=== PATIENT | female | born 1940 | race Caucasian/White ===

== ENCOUNTER → 2016-05-20 | Outpatient (CLI) | payer MEDICARE ==
--- NOTE | 2016-05-20 15:48 | US ---
EXAMINATION TYPE: US venous doppler duplex LE BI DATE OF EXAM: 05/20/2016 1:34 PM COMPARISON: NONE CLINICAL HISTORY: 75-year-old female M79.605 PAIN IN LEG, I87.2 VENOUS INSUFFICIENCY. Bilateral varic ose veins with surgery on left for varicose veins; [facility] patient for recurrent ulcer marquita g the medial left lower leg. TECHNIQUE: Duplex Doppler ultrasound examination of the bilateral lower extremities. FINDINGS: LOWER EXTREMITY VENOUS INSUFFICIENCY SIDE PERFORMED: bilateral 1) Color flow is present and patency is documented in the following vessels. No DVT is noted. ? ? Common Femoral Vein ? Deep Femoral Vein ? Femoral Vein ? Popliteal Vein ? Proximal Calf Veins - right not seen with large popliteal fossa cyst present ? Greater Saph Vein - upper seen and patent ? Upper Small Saph Vein - right not seen with popliteal fossa cyst present 2) There is venous reflux noted at the following venous levels: Right: - CFV, - GSV upper, and Left: - CFV, - GSV upper, - mild reflux lower Left FV, - Left Pop Vein, - and in one of 2 calf veins. 3) Incompetent perforators: None seen. 4) Tortuous Superficial Varicose Veins are noted especially at bilateral knees. 5) Moderate sized right Popliteal Fossa Cyst is noted = 4.6 x 4.1 x 1.4cm IMPRESSION: 1. No evidence for DVT within the bilateral lower extremities imaged from the groin to the knees. The upper calf veins were seen on the left side and are patent as well. 2. The presence of a moderate-sized Bauer's cyst limited visualization of the upper calf veins on the right. 3. Bilateral lower extremity venous reflux as above and prominent superficial varicose veins at both knees.
--- NOTE | 2016-05-26 11:48 | P.ARTDOP ---
Arterial Doppler LOWER EXTREMITY ARTERIAL DOPPLER: DATE OF SERVICE: 06-04 Reason for study: Leg ulcer. Doppler waveforms: Multiphasic bilaterally throughout. Pulse volume recording: []. Pressure gradients: None. Ankle-brachial indices: Greater than 1 bilaterally. Toe pressures: 88 on the right, 138 on the left Impression: Normal study.
== END | disposition home or self-care (01) ==
LOC: RADUSWWP 12:40
PROVIDERS: ATTEND Family Medicine
DX: I87.2 Venous insufficiency (chronic) (peripheral) (principal); M71.21 Synovial cyst of popliteal space [Baker], right knee
CPT/HCPCS: 93923; 93970

== ENCOUNTER 2016-12-03 22:59 | Inpatient (IN) | payer MEDICARE ==
[2016-12-03] MEDS ORDERED: ONDANSETRON 4 MG/2 ML VIAL IVP STA (23:35)
[2016-12-03] MEDS ORDERED: HYDROmorphone 1 MG/ML 1 ML SYRINGE IVP STA (23:35)
[2016-12-03] MEDS ORDERED: RX INFO: IV CONTRAST WAS GIVEN 1 EACH MISC MISCELLANE PRN (23:35)
[2016-12-03] MEDS ORDERED: SODIUM CHLORIDE 0.9% 1,000 ML IV STA (23:35)
--- NOTE | 2016-12-03 23:37 | ED ---
General Adult HPI - General Source: patient, RN notes reviewed Mode of arrival: wheelchair Limitations: no limitations <Nicolle Saavedra - Last Filed: 12/04/16 01:53> <Pedro Luis Salgado - Last Filed: 12/05/16 04:39> - General Chief complaint: Abdominal Pain Stated complaint: abd pain Time Seen by Provider: 12/03/16 23:29 - History of Present Illness Initial comments: 76 yo female presents to the ER with chief complaint of lower abdominal pain. Patient states started around 6:00 tonight. Patient states she developed some nausea with it and this lower abdominal pain. Patient states she's had this pain before when she was constipated but she had a normal bowel movement yesterday. Patient denies any fever chills with this. Patient states it just was not getting any better so she thought that she should be seen. Patient denies any low back pain associated with this. Patient states in her lower abdomen feels deep. Patient does admit to a history of hernia repair to the abdomen but states that that is not where hurts. Patient was concerned due to her continued pain so she thought that she should be evaluated. Patient denies any recent fever, chills, shortness of breath, chest pain, back pain, vomiting, numbness or tingling, dysuria or hematuria, constipation or diarrhea, headaches or visual changes, or any other current symptoms. (Nicolle Saavedra) - Related Data Home Medications Medication Instructions Recorded Confirmed Fish Oil/Dha/Epa [Fish Oil 1,200 1 cap PO DAILY 04/28/16 12/03/16 mg Fish Oil] Metoprolol Tartrate [Lopressor] 100 mg PO BID 04/28/16 12/03/16 Naproxen Sodium [Aleve] 440 mg PO BID PRN 04/28/16 12/03/16 Omeprazole 20 mg PO DAILY 04/28/16 12/03/16 Ascorbic Acid [Vitamin C] 500 mg PO DAILY 12/03/16 12/03/16 Calcium Carbonate [Calcium] 600 mg PO DAILY 12/03/16 12/03/16 Ibuprofen [Advil] 400 mg PO BID PRN 12/03/16 12/03/16 Multivitamins, Thera [Multivitamin 1 tab PO DAILY 12/03/16 12/03/16 (formulary)] busPIRone HCL [Buspar] 7.5 mg PO BID 12/03/16 12/03/16 Allergies Allergy/AdvReac Type Severity Reaction Status Date / Time sulfamethoxazole Allergy Rash/Hives Verified 12/03/16 23:05 [From Bactrim] trimethoprim [From Bactrim] Allergy Rash/Hives Verified 12/03/16 23:05 Review of Systems ROS Other: All systems not noted in ROS Statement are negative. <Nicolle Saavedra - Last Filed: 12/04/16 01:53> ROS Other: All systems not noted in ROS Statement are negative. <Pedro Luis Salgado - Last Filed: 12/05/16 04:39> ROS Statement: Those systems with pertinent positive or pertinent negative responses have been documented in the HPI. Past Medical History Past Medical History: GERD/Reflux, Hypertension, Vascular Disorder Additional Past Medical History / Comment(s): wound lt leg, back pain History of Any Multi-Drug Resistant Organisms: None Reported Past Surgical History: Hernia Repair Additional Past Surgical History / Comment(s): vein stripping lt leg Past Anesthesia/Blood Transfusion Reactions: No Reported Reaction Smoking Status: Former smoker Past Alcohol Use History: Daily Past Drug Use History: None Reported - Past Family History Mother Family Medical History: No Reported History <Nicolle Saavedra - Last Filed: 12/04/16 01:53> General Exam Limitations: no limitations <Nicolle Saavedra - Last Filed: 12/04/16 01:53> <Pedro Luis Salgado - Last Filed: 12/05/16 04:39> - General Exam Comments Initial Comments: General: The patient is awake and alert, in no distress, and does not appear acutely ill. Eye: Pupils are equal, round and reactive to light, extra-ocular movements are intact; there is normal conjunctiva bilaterally. No signs of icterus. Ears, nose, mouth and throat: There are moist mucous membranes and no oral lesions. Neck: The neck is supple, there is no tenderness. Cardiovascular: There is a regular rate and rhythm. No murmur, rub or gallop is appreciated. Respiratory: Lungs are clear to auscultation, respirations are non-labored, breath sounds are equal. No wheezes, stridor, rales, or rhonchi. Gastrointestinal: Soft, non-distended, minimal lower abdominal tenderness of the abdomen without masses or organomegaly noted. There is no rebound or guarding present. No CVA tenderness. Bowel sounds are unremarkable. Back: There is no tenderness to palpation in the midline. There is no obvious deformity. No rashes noted. Musculoskeletal: Normal ROM, no tenderness, There is no pedal edema. There is no calf tenderness or swelling. Sensation intact. Pulses equal bilaterally 2+. Neurological: CN II-XII intact, There are no obvious motor or sensory deficits. Coordination appears grossly intact. Speech is normal. Skin: Skin is warm and dry and no rashes or lesions are noted. Psychiatric: Cooperative, appropriate mood & affect, normal judgment. (Nicolle Saavedra) Medical Decision Making - Lab Data Result diagrams: 12/03/16 23:15 12/03/16 23:15 - Radiology Data Radiology results: report reviewed, image reviewed <Nicolle Saavedra - Last Filed: 12/04/16 01:53> - Lab Data Result diagrams: 12/03/16 23:15 12/03/16 23:15 <Pedro Luis Salgado - Last Filed: 12/05/16 04:39> - Medical Decision Making 76-year-old presents emergency chief complaint of lower abdominal pain. This time CT is reviewed that is concerned for possible obstruction. There is concern for possible hernia incarceration however this time exam does not support this. This time we'll admit the patient to Dr. Omalley who will evaluate the patient will continue IV fluids for the patient and keep her nothing by mouth. Patient agreed with this plan (Nicolle Saavedra) 76-year-old female with history of umbilical hernia repair in the distant past presents with diffuse lower abdominal pain. Patient's been present for some weeks. Acute worsened today. She also had some nausea and no vomiting. Last bowel movement was yesterday and was normal. CT was obtained and show possible incarcerated hernia with high-grade obstruction. Case was discussed with general surgery. Patient will be admitted for further evaluation treatment. She is kept nothing by mouth given IV fluids. (Pedro Luis Salgado) - Lab Data Lab Results 12/03/16 12/03/16 12/03/16 Range/Units 23:15 23:15 23:15 WBC 3.4 L (3.8-10.6) k/uL RBC 4.37 (3.80-5.40) m/uL Hgb 15.2 (11.4-16.0) gm/dL Hct 44.8 (34.0-46.0) % MCV 102.5 H (80.0-100.0) fL MCH 34.7 (25.0-35.0) pg MCHC 33.9 (31.0-37.0) g/dL RDW 13.4 (11.5-15.5) % Plt Count 143 L (150-450) k/uL Neutrophils % (Manual) 93 % Lymphocytes % (Manual) 6 % Monocytes % (Manual) 1 % Neutrophils # (Manual) 3.16 (1.3-7.7) k/uL Lymphocytes # (Manual) 0.20 L (1.0-4.8) k/uL Monocytes # (Manual) 0.03 (0-1.0) k/uL Nucleated RBCs 0 (0-0) /100 WBC Manual Slide Review Performed Macrocytosis Slight PT 10.4 (9.0-12.0) sec INR 1.0 (<1.2) APTT 20.6 L (22.0-30.0) sec Sodium 139 (137-145) mmol/L Potassium 3.5 (3.5-5.1) mmol/L Chloride 104 (98-107) mmol/L Carbon Dioxide 23 (22-30) mmol/L Anion Gap 12 mmol/L BUN 24 H (7-17) mg/dL Creatinine 0.70 (0.52-1.04) mg/dL Est GFR (MDRD) Af Amer >60 (>60 ml/min/1.73 sqM) Est GFR (MDRD) Non-Af >60 (>60 ml/min/1.73 sqM) Glucose 107 H (74-99) mg/dL Lactic Ac Sepsis Rflx Plasma Lactic Acid Niles (0.7-2.0) mmol/L Calcium 9.3 (8.4-10.2) mg/dL Total Bilirubin 0.9 (0.2-1.3) mg/dL AST 56 H (14-36) U/L ALT 46 (9-52) U/L Alkaline Phosphatase 90 (38-126) U/L Total Protein 6.6 (6.3-8.2) g/dL Albumin 3.9 (3.5-5.0) g/dL Amylase 47 (30-110) U/L Lipase 130 (23-300) U/L Urine Color Urine Appearance (Clear) Urine pH (5.0-8.0) Ur Specific [place] (1.001-1.035) Urine Protein (Negative) Urine Glucose (UA) (Negative) Urine Ketones (Negative) Urine Blood (Negative) Urine Nitrite (Negative) Urine Bilirubin (Negative) Urine Urobilinogen (<2.0) mg/dL Ur Leukocyte Esterase (Negative) 12/03/16 12/03/16 12/04/16 Range/Units 23:15 23:45 00:31 WBC (3.8-10.6) k/uL RBC (3.80-5.40) m/uL Hgb (11.4-16.0) gm/dL Hct (34.0-46.0) % MCV (80.0-100.0) fL MCH (25.0-35.0) pg MCHC (31.0-37.0) g/dL RDW (11.5-15.5) % Plt Count (150-450) k/uL Neutrophils % (Manual) % Lymphocytes % (Manual) % Monocytes % (Manual) % Neutrophils # (Manual) (1.3-7.7) k/uL Lymphocytes # (Manual) (1.0-4.8) k/uL Monocytes # (Manual) (0-1.0) k/uL Nucleated RBCs (0-0) /100 WBC Manual Slide Review Macrocytosis PT (9.0-12.0) sec INR (<1.2) APTT (22.0-30.0) sec Sodium (137-145) mmol/L Potassium (3.5-5.1) mmol/L Chloride (98-107) mmol/L Carbon Dioxide (22-30) mmol/L Anion Gap mmol/L BUN (7-17) mg/dL Creatinine (0.52-1.04) mg/dL Est GFR (MDRD) Af Amer (>60 ml/min/1.73 sqM) Est GFR (MDRD) Non-Af (>60 ml/min/1.73 sqM) Glucose (74-99) mg/dL Lactic Ac Sepsis Rflx Y Plasma Lactic Acid Niles 2.5 H* (0.7-2.0) mmol/L Calcium (8.4-10.2) mg/dL Total Bilirubin (0.2-1.3) mg/dL AST (14-36) U/L ALT (9-52) U/L Alkaline Phosphatase (38-126) U/L Total Protein (6.3-8.2) g/dL Albumin (3.5-5.0) g/dL Amylase (30-110) U/L Lipase (23-300) U/L Urine Color Light Yellow Urine Appearance Clear (Clear) Urine pH 6.0 (5.0-8.0) Ur Specific [place] 1.005 (1.001-1.035) Urine Protein Negative (Negative) Urine Glucose (UA) Negative (Negative) Urine Ketones Negative (Negative) Urine Blood Negative (Negative) Urine Nitrite Negative (Negative) Urine Bilirubin Negative (Negative) Urine Urobilinogen <2.0 (<2.0) mg/dL Ur Leukocyte Esterase Negative (Negative) Disposition Time of Disposition: 01:54 Decision Date: 12/04/16 Decision Time: 01:54 <Nicolle Saavedra - Last Filed: 12/04/16 01:53> <Pedro Luis Salgado - Last Filed: 12/05/16 04:39> Clinical Impression: Abdominal pain, Small bowel obstruction Disposition: ADMITTED IP TO THIS [facility] Condition: Stable
[2016-12-04 00:05] LABS: Appearance,Urine Clear (Clear); Bilirubin,Urine Negative (Negative); CH 34.8; CHCM 34.1; Glucose,Urine (UA) Negative (Negative); HCT 44.8 % (34.0-46.0); HDW 2.45; HGB 15.2 gm/dL (11.4-16.0); Immature Gran Flag Moderate; Ketones,Urine Negative (Negative); Leukocyte Esterase,Urine Negative (Negative); MCH 34.7 pg (25.0-35.0); MCHC 33.9 g/dL (31.0-37.0); MCV 102.5 fL (80.0-100.0); Macrocytosis Slight; Mean Platelet Volume 6.9; Nitrite,Urine Negative (Negative); Protein,Urine Negative (Negative); RBC 4.37 m/uL (3.80-5.40); RDW 13.4 % (11.5-15.5); Specific Gravity,Urine 1.005 (1.001-1.035); UA Billing (MACRO vs. MICRO) CHEM; Urobilinogen,Urine <2.0 mg/dL (<2.0); WBC 3.4 k/uL (3.8-10.6); WBC (Perox) 3.43
[2016-12-04 00:15] LABS: Prothrombin Time 10.4 sec (9.0-12.0)
[2016-12-04 00:18] LABS: ALT 46 U/L (9-52); AST 56 U/L (14-36); Alkaline Phosphatase 90 U/L (38-126); Amylase 47 U/L (30-110); Anion Gap 12 mmol/L; Blood Urea Nitrogen 24 mg/dL (7-17); Calcium 9.3 mg/dL (8.4-10.2); Carbon Dioxide 23 mmol/L (22-30); Chloride 104 mmol/L (98-107); Glucose 107 mg/dL (74-99); Non-African American GFR(MDRD) >60 (>60 ml/min/1.73 sqM); Potassium 3.5 mmol/L (3.5-5.1); Sodium 139 mmol/L (137-145); Total Bilirubin 0.9 mg/dL (0.2-1.3); Total Protein 6.6 g/dL (6.3-8.2)
[2016-12-04 00:25] LABS: Partial Thromboplastin Time 20.6 sec (22.0-30.0)
[2016-12-04 00:28] LABS: Add Differential Manual Differential
[2016-12-04 00:30] LABS: Manual Review Performed; Nucleated Red Blood Cells 0 /100 WBC (0-0); Total Cells Counted 100
--- NOTE | 2016-12-04 01:21 | CT ---
EXAM: CT Abdomen and Pelvis With Intravenous Contrast CLINICAL HISTORY: Abdominal pain with history of hernia repair. TECHNIQUE: Axial computed tomography images of the abdomen and pelvis with intravenous contrast. CTDI is 69 mGy and DLP is 2878.5 mGy-cm. This CT exam was performed using one or more of the following dose reduction techniques: automated exposure control, adjustment of the mA and/or kV according to patient size, and/or use of iterative reconstruction technique. COMPARISON: No relevant prior studies available. FINDINGS: Lower thorax: Small/moderate in size hiatal hernia seen. Hyperdense material is seen involving the aortic and mitral valves, suboptimally evaluated on this study, which may represent calcifications versus valve replacement. Color correlation. ABDOMEN: Liver: Unremarkable. No mass. Gallbladder and bile ducts: Cholelithiasis without evidence of acute cholecystitis. No ductal dilation. Pancreas: Unremarkable. No mass. No ductal dilation. Spleen: Unremarkable. No splenomegaly. Adrenals: Unremarkable. No mass. Kidneys and ureters: Probable chronic mild perinephric fat stranding seen bilaterally. No hydronephrosis. Stomach and bowel: Small umbilical hernia is seen containing a small portion of the transverse colon without evidence of obstruction. Mouth of the hernia measures approximately 1 cm. Multiple air-fluid filled mildly dilated proximal small bowel loops are seen, measuring up to 3 cm, leading to a lower anterior abdominal wall hernia (as seen on series 3, image 64 and series 7, image 18), the mouth of which measures approximately 1.7 cm. Small bowel loops distal to this hernia are collapsed. Findings are concerning for early acute high-grade small bowel obstruction. Fatty infiltration is seen within the hernia sac is likely present. Findings raise concern for incarceration/strangulation. Extensive colonic diverticulosis without evidence of acute diverticulitis. No evidence of perforation. Appendix: A normal appendix is seen. PELVIS: Bladder: Unremarkable. No mass. Reproductive: Unremarkable as visualized. ABDOMEN and PELVIS: Intraperitoneal space: Unremarkable. No free air. No significant fluid collection. Bones/joints: Evaluation of the osseous structures demonstrates moderate/severe degenerative changes. There is grade 1 anterolisthesis of L4 on L5. There is fusion of the L1-L2 vertebral bodies. No acute fracture. No dislocation. Soft tissues: See above. Vasculature: Mild/moderate atherosclerotic vascular calcifications involving the intra-abdominal aorta. No abdominal aortic aneurysm. Lymph nodes: Unremarkable. No grossly enlarged lymph nodes. IMPRESSION: 1. Small umbilical hernia containing a small portion of the transverse colon without evidence of obstruction. Clinical correlation recommended. 2. Multiple air-fluid filled mildly dilated proximal small bowel loops are seen, measuring up to 3 cm, leading to a lower anterior abdominal wall hernia. Small bowel loops distal to this hernia are collapsed. Findings are concerning for early acute high-grade small bowel obstruction. Fatty infiltration within the hernia sac. Findings raise concern for incarceration/strangulation. Clinical correlation recommended. 3. Other nonacute findings, as above.
[2016-12-04] MEDS ORDERED: ONDANSETRON 4 MG/2 ML VIAL IVP PRN (01:54)
[2016-12-04] MEDS ORDERED: NALOXONE 0.4 MG/ML 1 ML VIAL IV PRN (01:54)
[2016-12-04] MEDS ORDERED: IBUPROFEN 200 MG TAB PO PRN (01:56)
[2016-12-04] MEDS ORDERED: NAPROXEN 250 MG TAB PO PRN (01:56)
[2016-12-04] MEDS ORDERED: MORPHINE SULFATE 4 MG/ML SYRINGE IVP PRN (02:27)
[2016-12-04] MEDS: SODIUM CHLORIDE 0.9% 1,000 ML IV SCH ×3 (04:00→20:13)
[2016-12-04] MEDS: PANTOPRAZOLE 40 MG TABLET PO SCH (08:52)
[2016-12-04] MEDS: busPIRone HCl 5 MG TAB PO SCH ×2 (08:52→20:13)
[2016-12-04] MEDS: METOPROLOL TARTRATE 50 MG TAB PO SCH ×2 (08:52→20:13)
[2016-12-04] MEDS: CALCIUM CARBONATE 500 MG CHEWABLE PO SCH (08:52)
[2016-12-04] MEDS: ASCORBIC ACID 500 MG TAB PO SCH (08:52)
[2016-12-04] MEDS: MULTIVITAMINS, THERA 1 EACH TAB PO SCH (08:52)
[2016-12-04] MEDS ORDERED: NON-FORMULARY DRUG (Fish Oil/Dha/Epa [Fish Oil 1,200 Mg Fish Oil] 1 CAP) PO SCH (09:00)
--- NOTE | 2016-12-04 09:21 | P.GSHP ---
History of Present Illness H&P Date: 12/04/16 Chief Complaint: Lower abdominal pain The patient is a 76-year-old white female who was admitted through the emergency room yesterday. She's been complaining since early evening yesterday of some lower abdominal discomfort. Had a little nausea in the morning after she after she took some of her pills. No vomiting. Did have a bowel movement yesterday morning. However none since then and on since she was admitted. Did not have anything to eat last 24 hours. Has had intermittent discomfort in the lower abdomen for several months now. No mass or lump. No fever or chills. The patient had had the what sounds like of umbilical ventral hernia repair over 20 years ago with removal of the umbilicus. Her computed tomography scan showed evidence of what looks like a recurrent hernia but in the lower part of the abdomen with small bowel incarcerated in it also a small hernia in the umbilical area of with a possible transverse colon minute. The lower hernia is the where she has worked looks like small bowel incarcerated causing an obstruction. Past history. Positive for ventral hernia repair vein stripping. History of hypertension degenerative joint disease mostly involving her knees and reflux. Medications include BuSpar multivitamins metipranolol Aleve omeprazole fascia calcium. ALLERGIES sulfa drugs. Social history. Patient lives with her and family. Former smoker. Drinks alcohol socially. Family history noncontributory. System review. As above. No chest pain or cardiac or respiratory problems. No shortness of breath cough hemoptysis. No vaginal discharge or bleeding. No urinary symptoms. No INTERACTIVE DEVELOPER problems. On examination the patient is well-built well-nourished hydration is improved since admission. She is somewhat overweight at the 111 kg. She is in no acute distress. Vitals are normal. Temperature is normal. Head and neck are normal. No mass or cervical lymphadenopathy. Heart rate regular sinus rhythm. Lungs are clear. Abdomen is generally soft. Has a long midline scar from the area of the previous umbilicus which is now surgically absent to just above the symphysis pubis. Has a firm mass palpable in the midline in the lower part of the scar somewhat tender of. Remainder the abdomen is very soft and benign. No organomegaly noted. Extremities. Normal with full motion. Some stiffness. No edema. INTERACTIVE DEVELOPER grossly intact. Seems to be mentally little slow. Impression. Incarcerated ventral hernia with partial small bowel obstruction Hypertension. Degenerative joint disease. Gastroesophageal reflux disease. History of tobacco abuse. Recommendation. Recommend surgical intervention would repair the incarcerated ventral hernia and informed consent was obtained . Past Medical History Past Medical History: GERD/Reflux, Hypertension, Vascular Disorder Additional Past Medical History / Comment(s): wound lt leg, back pain, scolosis , sciatica History of Any Multi-Drug Resistant Organisms: None Reported Past Surgical History: Hernia Repair Additional Past Surgical History / Comment(s): vein stripping lt leg Past Anesthesia/Blood Transfusion Reactions: No Reported Reaction Past Psychological History: No Psychological Hx Reported Smoking Status: Former smoker Past Alcohol Use History: Daily Additional Past Alcohol Use History / Comment(s): smoked 3 cig/day 40 years quit 04/02, 2 glasses of wine/night Past Drug Use History: None Reported - Past Family History Mother Family Medical History: No Reported History Medications and Allergies Home Medications Medication Instructions Recorded Confirmed Type Fish Oil/Dha/Epa [Fish Oil 1,200 1 cap PO DAILY 04/28/16 12/03/16 History mg Fish Oil] Metoprolol Tartrate [Lopressor] 100 mg PO BID 04/28/16 12/03/16 History Naproxen Sodium [Aleve] 440 mg PO BID PRN 04/28/16 12/03/16 History Omeprazole 20 mg PO DAILY 04/28/16 12/03/16 History Ascorbic Acid [Vitamin C] 500 mg PO DAILY 12/03/16 12/03/16 History Calcium Carbonate [Calcium] 600 mg PO DAILY 12/03/16 12/03/16 History Ibuprofen [Advil] 400 mg PO BID PRN 12/03/16 12/03/16 History Multivitamins, Thera [Multivitamin 1 tab PO DAILY 12/03/16 12/03/16 History (formulary)] busPIRone HCL [Buspar] 7.5 mg PO BID 12/03/16 12/03/16 History Allergies Allergy/AdvReac Type Severity Reaction Status Date / Time sulfamethoxazole Allergy Rash/Hives Verified 12/03/16 23:05 [From Bactrim] trimethoprim [From Bactrim] Allergy Rash/Hives Verified 12/03/16 23:05 Surgical - Exam Vital Signs Temp Pulse Resp BP Pulse Ox 99.3 F 84 20 145/68 95 12/03/16 23:01 12/03/16 23:01 12/03/16 23:01 12/03/16 23:01 12/03/16 23:01 Results - Labs 12/03/16 23:15 12/03/16 23:15 Abnormal Lab Results - Last 24 Hours (Table) 12/03/16 12/03/16 12/03/16 Range/Units 23:15 23:15 23:15 WBC 3.4 L (3.8-10.6) k/uL MCV 102.5 H (80.0-100.0) fL Plt Count 143 L (150-450) k/uL Lymphocytes # (Manual) 0.20 L (1.0-4.8) k/uL APTT 20.6 L (22.0-30.0) sec BUN 24 H (7-17) mg/dL Glucose 107 H (74-99) mg/dL Plasma Lactic Acid Niles (0.7-2.0) mmol/L AST 56 H (14-36) U/L 12/03/16 12/04/16 Range/Units 23:45 03:48 WBC (3.8-10.6) k/uL MCV (80.0-100.0) fL Plt Count (150-450) k/uL Lymphocytes # (Manual) (1.0-4.8) k/uL APTT (22.0-30.0) sec BUN (7-17) mg/dL Glucose (74-99) mg/dL Plasma Lactic Acid Niles 2.5 H* 2.5 H* (0.7-2.0) mmol/L AST (14-36) U/L Diabetes panel 12/03/16 Range/Units 23:15 Sodium 139 (137-145) mmol/L Potassium 3.5 (3.5-5.1) mmol/L Chloride 104 (98-107) mmol/L Carbon Dioxide 23 (22-30) mmol/L BUN 24 H (7-17) mg/dL Creatinine 0.70 (0.52-1.04) mg/dL Glucose 107 H (74-99) mg/dL Calcium 9.3 (8.4-10.2) mg/dL AST 56 H (14-36) U/L ALT 46 (9-52) U/L Alkaline Phosphatase 90 (38-126) U/L Total Protein 6.6 (6.3-8.2) g/dL Albumin 3.9 (3.5-5.0) g/dL Calcium panel 12/03/16 Range/Units 23:15 Calcium 9.3 (8.4-10.2) mg/dL Albumin 3.9 (3.5-5.0) g/dL Pituitary panel 12/03/16 Range/Units 23:15 Sodium 139 (137-145) mmol/L Potassium 3.5 (3.5-5.1) mmol/L Chloride 104 (98-107) mmol/L Carbon Dioxide 23 (22-30) mmol/L BUN 24 H (7-17) mg/dL Creatinine 0.70 (0.52-1.04) mg/dL Glucose 107 H (74-99) mg/dL Calcium 9.3 (8.4-10.2) mg/dL Adrenal panel 12/03/16 Range/Units 23:15 Sodium 139 (137-145) mmol/L Potassium 3.5 (3.5-5.1) mmol/L Chloride 104 (98-107) mmol/L Carbon Dioxide 23 (22-30) mmol/L BUN 24 H (7-17) mg/dL Creatinine 0.70 (0.52-1.04) mg/dL Glucose 107 H (74-99) mg/dL Calcium 9.3 (8.4-10.2) mg/dL Total Bilirubin 0.9 (0.2-1.3) mg/dL AST 56 H (14-36) U/L ALT 46 (9-52) U/L Alkaline Phosphatase 90 (38-126) U/L Total Protein 6.6 (6.3-8.2) g/dL Albumin 3.9 (3.5-5.0) g/dL
[2016-12-04] MEDS: ceFAZolin 2 GM in SODIUM CHLORIDE 0.9% 100 ML IVPB SCH ×3 (10:06→23:25)
[2016-12-04] MEDS: HEPARIN SODIUM,PORCINE 5,000 UNIT/ML 1 ML VIAL SQ SCH ×2 (10:06→20:13)
[2016-12-04] MEDS ORDERED: IV FLUID CONTINUATION 1,000 ML IV ONE (11:49)
[2016-12-04] MEDS ORDERED: GLYCOPYRROLATE 0.2 MG/ML 2 ML VIAL ONE (12:44)
[2016-12-04] MEDS ORDERED: ePHEDrine SULFATE/0.9% NACL/PF 50 MG/5 ML SYRINGE IV ONE (12:44)
[2016-12-04] MEDS ORDERED: VECURONIUM 10 MG VIAL IV ONE (12:44)
[2016-12-04] MEDS ORDERED: SUCCINYLCHOLINE CHLORIDE VIAL 200 MG/10 ML VIAL IV ONE (12:44)
[2016-12-04] MEDS ORDERED: MIDAZOLAM 2 MG/2 ML VIAL ONE (12:44)
[2016-12-04] MEDS ORDERED: NEOSTIGMINE 1 MG/ML 10 ML VIAL ONE (12:44)
[2016-12-04] MEDS ORDERED: PROPOFOL 10 MG/ML 20 ML VIAL IV ONE (12:44)
[2016-12-04] MEDS ORDERED: LIDOCAINE 1% INJ 10MG/ML (20 ML MDV) ONE (12:44)
[2016-12-04] MEDS ORDERED: fentaNYL (PF) 50 MCG/ML 2 ML AMP ONE (12:44)
[2016-12-04] MEDS ORDERED: BUPIVACAINE (PF) 0.5% 30 ML VIAL SQ ONE (13:00)
--- NOTE | 2016-12-04 14:07 | P.OP ---
Date of Procedure: 12/04/16 Preoperative Diagnosis: Incarcerated ventral incisional hernia Postoperative Diagnosis: Same Procedure(s) Performed: Repair of incarcerated ventral incisional hernias 2 Implants: Anesthesia: RAINE Surgeon: Gadiel Omalley Estimated Blood Loss (ml): 10 Pathology: none sent (Incarcerated omentum) Condition: stable Disposition: PACU Indications for Procedure: The patient is a 76-year-old white female who comes in with lower abdominal pain nausea constipation and CT evidence of small bowel obstruction secondary to a ventral hernia. She has a palpable tender mass in the lower part of her midline scar. Had had a previous ventral hernia repair with removal of the umbilicus about 20 years ago so elsewhere. Repair was recommended and informed consent was obtained procedure have been explained to her including potential complication particular bleeding infection hematoma seroma recurrence pain etc. she understood and agree to proceed. After induction of general endotracheal anesthesia the abdominal wall was prepped with Betadine and draped. Local anesthetic Marcaine 0.5% plain was infiltrated along the line of the incision which was made along her previous midline scar over the palpable mass in the incision was deepened through the copious subcutaneous fat. The sac was encountered dissected off the surrounding subcutaneous tissues it was fairly large. The sac was opened it contained the mostly incarcerated omentum and some small bowel which was pink and viable. The defect itself measured about 3 cm in diameter but was too small to reduce the contents and especially the large amount of omentum. Therefore a partial omentectomy was accomplished with good hemostasis and the remaining omentum and small bowel was reduced into the peritoneal cavity. Palpation revealed a another large hernia sac higher up closer to the old of the umbilical site also containing incarcerated omentum and part of the colon. The sac and part of the omentum was excised in the colon and remainder of the omentum was reduced into the peritoneal cavity. This defect measured about 2 cm in diameter. There was a trace about 5 or 6 cm separation between both defects. Therefore we decided to repair both the defects separately. Defects were exposed circumferentially with the fascia. The remainder of the fascia was a little attenuated but otherwise healthy. Both defects were closed with the running 0 Prolene. We decided to not use mesh because of some turbid the fluid although still. There was also noted a fair amount of monilial type of infection in the lower abdominal crease that may increase the risk for infection. The wound was thoroughly irrigated. Hemostasis was good and the field was dry. The suture lines were infiltrated with the Marcaine. Subcutaneous tissues were then approximated with the 4 Vicryl and the skin with danis. Pressure dressing was applied. Abdominal binder placed. All counts were correct. Operative Findings: Incarcerated ventral incisional hernias 2. Description of Procedure: As above.
[2016-12-04] MEDS: NYSTATIN 100,000 UNIT/GM POWD 15 GM TOPICAL SCH (20:26)
[2016-12-05] MEDS: ceFAZolin 2 GM in SODIUM CHLORIDE 0.9% 100 ML IVPB SCH (07:59)
[2016-12-05] MEDS: SODIUM CHLORIDE 0.9% 1,000 ML IV SCH ×2 (07:59→17:29)
[2016-12-05] MEDS: CALCIUM CARBONATE 500 MG CHEWABLE PO SCH (08:00)
[2016-12-05] MEDS: busPIRone HCl 5 MG TAB PO SCH ×2 (08:00→20:08)
[2016-12-05] MEDS: HEPARIN SODIUM,PORCINE 5,000 UNIT/ML 1 ML VIAL SQ SCH ×2 (08:00→20:08)
[2016-12-05] MEDS: ASCORBIC ACID 500 MG TAB PO SCH (08:00)
[2016-12-05] MEDS: METOPROLOL TARTRATE 50 MG TAB PO SCH ×2 (08:01→20:09)
[2016-12-05] MEDS: MULTIVITAMINS, THERA 1 EACH TAB PO SCH (08:01)
[2016-12-05] MEDS: PANTOPRAZOLE 40 MG TABLET PO SCH (08:01)
[2016-12-05] MEDS: NYSTATIN 100,000 UNIT/GM POWD 15 GM TOPICAL SCH ×2 (08:08→20:08)
[2016-12-05 09:02] LABS: Basophils % (A) 0 %; CHCM 32.8; Eosinophils # (A) 0.2 k/uL (0-0.7); Eosinophils % (A) 2 %; HCT 38.5 % (34.0-46.0); HDW 2.44; HGB 12.3 gm/dL (11.4-16.0); Luc # (Auto) 0.09; Luc % (Auto) 1; Lymphocytes # (A) 1.1 k/uL (1.0-4.8); Lymphocytes % (A) 11 %; MCH 34.1 pg (25.0-35.0); MCHC 31.9 g/dL (31.0-37.0); MCV 107.1 fL (80.0-100.0); Macrocytosis Moderate; Mean Platelet Volume 8.3; Monocytes # (A) 0.4 k/uL (0-1.0); Monocytes % (A) 4 %; Neutrophils # (A) 8.2 k/uL (1.3-7.7); Neutrophils % (A) 82 %; RBC 3.59 m/uL (3.80-5.40); RDW 13.7 % (11.5-15.5); WBC 9.9 k/uL (3.8-10.6); WBC (Perox) 10.33
[2016-12-05 09:14] LABS: ALT 29 U/L (9-52); AST 23 U/L (14-36); Alkaline Phosphatase 57 U/L (38-126); Anion Gap 8 mmol/L; Blood Urea Nitrogen 11 mg/dL (7-17); Calcium 8.3 mg/dL (8.4-10.2); Carbon Dioxide 23 mmol/L (22-30); Chloride 108 mmol/L (98-107); Glucose 134 mg/dL (74-99); Non-African American GFR(MDRD) >60 (>60 ml/min/1.73 sqM); Potassium 3.9 mmol/L (3.5-5.1); Sodium 139 mmol/L (137-145); Total Bilirubin 0.3 mg/dL (0.2-1.3); Total Protein 5.3 g/dL (6.3-8.2)
--- NOTE | 2016-12-05 12:30 | P.CONS ---
History of Present Illness - Reason for Consult Consult date: 12/05/16 Medical management Requesting physician: Gadiel Omalley - Chief Complaint Abdominal pain, constipation - History of Present Illness Patient is 76-year-old female who was admitted through the emergency room yesterday patient has been complaining since early evening yesterday of some lower abdominal discomfort, nausea and morning after she took her meds. No vomiting will bowels yesterday morning, has not moved bowels since then. Patient was admitted no mass no lobe no fever no chills. However patient does have umbilical and ventral hernia, and repair of a ventral hernia in which her umbilicus was removed over 20 years ago on exam patient didn't have an incarcerated hernia where the umbilicus was. Review of Systems Constitutional: Reports poor appetite Cardiovascular: Reports high blood pressure Respiratory: Reports congestion, Reports wheezing Gastrointestinal: Reports abdominal pain, Reports constipation, Reports diarrhea Genitourinary: Reports as per HPI Integumentary: Reports darkening of skin, Reports foot/leg ulcers, Reports wounds Neurological: Reports as per HPI Psychiatric: Reports as per HPI Endocrine: Reports as per HPI, Reports high blood sugars Hematologic/Lymphatic: Reports as per HPI Allergic/Immunologic: Reports as per HPI Past Medical History Past Medical History: GERD/Reflux, Hypertension, Vascular Disorder Additional Past Medical History / Comment(s): wound lt leg, back pain, scolosis , sciatica History of Any Multi-Drug Resistant Organisms: None Reported Past Surgical History: Hernia Repair Additional Past Surgical History / Comment(s): vein stripping lt leg Past Anesthesia/Blood Transfusion Reactions: No Reported Reaction Past Psychological History: No Psychological Hx Reported Smoking Status: Former smoker Past Alcohol Use History: Daily Additional Past Alcohol Use History / Comment(s): smoked 3 cig/day 40 years quit 04/02, 2 glasses of wine/night Past Drug Use History: None Reported - Past Family History Mother Family Medical History: No Reported History Medications and Allergies Home Medications Medication Instructions Recorded Confirmed Type Fish Oil/Dha/Epa [Fish Oil 1,200 1 cap PO DAILY 04/28/16 12/03/16 History mg Fish Oil] Metoprolol Tartrate [Lopressor] 100 mg PO BID 04/28/16 12/03/16 History Naproxen Sodium [Aleve] 440 mg PO BID PRN 04/28/16 12/03/16 History Omeprazole 20 mg PO DAILY 04/28/16 12/03/16 History Ascorbic Acid [Vitamin C] 500 mg PO DAILY 12/03/16 12/03/16 History Calcium Carbonate [Calcium] 600 mg PO DAILY 12/03/16 12/03/16 History Ibuprofen [Advil] 400 mg PO BID PRN 12/03/16 12/03/16 History Multivitamins, Thera [Multivitamin 1 tab PO DAILY 12/03/16 12/03/16 History (formulary)] busPIRone HCL [Buspar] 7.5 mg PO BID 12/03/16 12/03/16 History Allergies Allergy/AdvReac Type Severity Reaction Status Date / Time sulfamethoxazole Allergy Rash/Hives Verified 12/03/16 23:05 [From Bactrim] trimethoprim [From Bactrim] Allergy Rash/Hives Verified 12/03/16 23:05 Physical Exam Osteopathic Statement: *. No significant issues noted on an osteopathic structural exam other than those noted in the History and Physical/Consult. Vitals: Vital Signs Temp Pulse Resp BP Pulse Ox 12/05/16 07:00 97.9 F 66 16 123/62 96 12/04/16 23:00 97.9 F 62 17 117/64 94 L 12/04/16 20:11 85 133/59 12/04/16 16:15 69 109/58 97 12/04/16 16:00 66 107/59 93 L 12/04/16 15:45 74 85/52 92 L 12/04/16 15:30 69 113/58 91 L 12/04/16 15:15 71 111/58 97 12/04/16 15:00 97.7 F 103 H 16 115/56 96 12/04/16 14:45 72 16 129/63 94 L 12/04/16 14:30 75 16 132/63 95 12/04/16 14:15 85 16 135/63 98 12/04/16 14:00 97.9 F 94 16 138/71 98 Intake and Output 12/04/16 12/05/16 12/05/16 22:59 06:59 14:59 Other: # Voids 1 2 General: [Patient awake, alert and oriented times 3. Patient in no acute distress.] HEENT: [PERRL. EOMI. No pharyngeal erythema or exudate.] Neck: [No adenopathy.] Cardiac: [Heart regular in rate and rhythm. No S3. No S4. No clicks, rubs. No murmur.] Lungs: [Clear to auscultation bilaterally.] Abdomen: [No mass. No organomegaly. Bowel sounds presnt and normoactive in all 4 quadrants.] Morbid obesity Extremes: [No edema no cyanosis no claudication normal pulses] : [] Musculoskeletal: [No joint erythema, edema or tenderness.] Skin: [No rash.] Neurologic: [No lateralizing deficits. CN II - XII grossly intact.] Lymphatic: [No adenopathy.] Results CBC & Chem 7: 12/05/16 08:52 12/05/16 08:48 Labs: Abnormal Lab Results - Last 24 Hours (Table) 12/05/16 12/05/16 12/05/16 Range/Units 08:48 08:52 08:52 RBC 3.59 L (3.80-5.40) m/uL MCV 107.1 H (80.0-100.0) fL Plt Count 133 L (150-450) k/uL Neutrophils # 8.2 H (1.3-7.7) k/uL Chloride 108 H (98-107) mmol/L Glucose 134 H (74-99) mg/dL Plasma Lactic Acid Niles 2.5 H* (0.7-2.0) mmol/L Calcium 8.3 L (8.4-10.2) mg/dL Total Protein 5.3 L (6.3-8.2) g/dL Albumin 3.0 L (3.5-5.0) g/dL Microbiology - Last 24 Hours (Table) 12/03/16 23:15 Urine Culture - Final Urine,Clean Catch 12/03/16 23:45 Blood Culture - Preliminary Blood No Growth after 24 hours Assessment and Plan (1) Hernia of anterior abdominal wall Status: Acute (2) Abdominal pain Status: Acute (3) Small bowel obstruction Status: Acute Plan: Incarcerated abdominal hernia status post surgical repair day #1 Hypertension controlled on current meds Peripheral vascular disease bilateral lower extreme the wounds currently well healed Tobacco use syndrome recommend quitting smoking We will continue to follow patient doing well
--- NOTE | 2016-12-05 12:38 | P.PN ---
Progress Note - Text The patient is day 1 post repair of 2 ventral incisional hernias incarcerated. Coming along fairly well. Tolerated a breakfast this morning. Usual abdominal discomfort. She is up and about walking. On examination she is afebrile. Vitals stable. Abdomen is soft. Bandages dry. Abdomen is otherwise fairly soft and benign. Impression stable postop. Recommendation continued observation monitor vital signs and her lactic acid level. Possible discharge in the next day or so.
[2016-12-06] MEDS: SODIUM CHLORIDE 0.9% 1,000 ML IV SCH ×3 (04:38→23:42)
[2016-12-06] MEDS: METOPROLOL TARTRATE 50 MG TAB PO SCH ×2 (08:09→21:47)
[2016-12-06] MEDS: CALCIUM CARBONATE 500 MG CHEWABLE PO SCH (08:09)
[2016-12-06] MEDS: MULTIVITAMINS, THERA 1 EACH TAB PO SCH (08:09)
[2016-12-06] MEDS: NYSTATIN 100,000 UNIT/GM POWD 15 GM TOPICAL SCH ×2 (08:09→21:48)
[2016-12-06] MEDS: PANTOPRAZOLE 40 MG TABLET PO SCH (08:09)
[2016-12-06] MEDS: ASCORBIC ACID 500 MG TAB PO SCH (08:09)
[2016-12-06] MEDS: busPIRone HCl 5 MG TAB PO SCH ×2 (08:10→21:47)
[2016-12-06] MEDS: HEPARIN SODIUM,PORCINE 5,000 UNIT/ML 1 ML VIAL SQ SCH ×2 (08:11→21:47)
--- NOTE | 2016-12-06 14:08 | P.PN ---
Subjective Principal diagnosis: 76-year-old female seen this morning on rounds with Dr. Mayorga. Patient is status post repair of two incarcerated ventral hernias. Patient is sitting up in the bed. She states she is feeling well. Patient states she has been passing gas but has not had a bowel movement since surgery. Patient is tolerating a soft diet without any nausea or vomiting. Patient states she has been ambulating well since surgery. Patient remains afebrile and vital signs stable. Dressing to abdomen is clean dry and intact. Objective - Vital Signs Vital signs: Vital Signs Temp 97.3 F L 12/06/16 07:00 Pulse 64 12/06/16 07:00 Resp 18 12/06/16 07:00 BP 132/69 12/06/16 07:00 Pulse Ox 96 12/06/16 07:00 Intake & Output 12/05/16 12/06/16 12/06/16 18:59 06:59 18:59 Intake Total 1200 1200 Balance 1200 1200 Intake: Oral 1200 1200 Other: # Voids 2 2 - Exam GENERAL: Alert and oriented. Appears in no acute distress. Pleasant. RESPIRATORY: Lungs clear bilaterally. No use of accessory muscles. Patient maintaining oxygen saturation greater than 92%. CARDIOVASCULAR: S1 and S2 noted. No murmurs auscultated. No JVD noted. EXTREMITIES: No edema noted. Palpable pedal pulses +2. Patient has old healed wounds to bilateral lower calamities. ABDOMEN: No distention noted. Abdomen soft and round. Normal active bowel sounds auscultated 4 quadrants. No pain or tenderness noted upon palpation. Dressings are clean dry and intact. Abdominal binder intact. - Labs CBC & Chem 7: 12/05/16 08:52 12/05/16 08:48 Labs: Microbiology - Last 24 Hours (Table) 12/03/16 23:45 Blood Culture - Preliminary Blood No Growth after 48 hours 12/03/16 23:15 Urine Culture - Final Urine,Clean Catch Assessment and Plan (1) Hernia of anterior abdominal wall Narrative/Plan: Status post repair of incarcerated ventral abdominal hernia 2 Status: Acute (2) Venous (peripheral) insufficiency Status: Chronic (3) Tobacco abuse Status: Chronic Plan: Continue postop management per surgeon Advance diet as tolerated Continue abdominal binder GI/DVT prophylaxis Monitor labs Monitor vital signs and address as indicated Continue ambulation Encourage smoking cessation Patient is cleared for discharge from medical standpoint and is to follow-up with Dr. Farmer in 2 weeks. The above impression and plan of care have been discussed and directed by signing physician. Vivian Bauer, nurse practitioner, acting as scribe for signing physician.
[2016-12-06] MEDS ORDERED: BISACODYL 10 MG SUPP RECTAL STA (18:36)
--- NOTE | 2016-12-06 18:39 | P.PN ---
Progress Note - Text The patient is stable. Appetite is a little diminished. No flatus or bowel movement. On examination she is afebrile. Vitals are stable. Abdomen is soft. Incision dressing is dry. Impression stable post repair. Incarcerated the ventral incisional hernias 2. Recommendation. Had Dulcolax suppository for this evening. Probably discharge tomorrow.
[2016-12-06] MEDS: DOCUSATE 100 MG CAP PO SCH (21:47)
[2016-12-07] MEDS: PANTOPRAZOLE 40 MG TABLET PO SCH (08:07)
[2016-12-07] MEDS: MULTIVITAMINS, THERA 1 EACH TAB PO SCH (08:07)
[2016-12-07] MEDS: CALCIUM CARBONATE 500 MG CHEWABLE PO SCH (08:07)
[2016-12-07] MEDS: DOCUSATE 100 MG CAP PO SCH ×2 (08:07→20:11)
[2016-12-07] MEDS: METOPROLOL TARTRATE 50 MG TAB PO SCH ×2 (08:07→20:10)
[2016-12-07] MEDS: ASCORBIC ACID 500 MG TAB PO SCH (08:07)
[2016-12-07] MEDS: busPIRone HCl 5 MG TAB PO SCH ×2 (08:08→20:11)
[2016-12-07] MEDS: NYSTATIN 100,000 UNIT/GM POWD 15 GM TOPICAL SCH ×2 (08:08→20:12)
[2016-12-07] MEDS: HEPARIN SODIUM,PORCINE 5,000 UNIT/ML 1 ML VIAL SQ SCH ×2 (08:08→20:11)
[2016-12-07] MEDS: SODIUM CHLORIDE 0.9% 1,000 ML IV SCH ×2 (08:25→20:11)
--- NOTE | 2016-12-07 15:33 | P.PN ---
Subjective Principal diagnosis: Bowel containing ventral hernia 76-year-old female status post ventral hernia repair. The patient has been tolerating a regular diet. She denies any pain at this time. She denies any nausea and vomiting. Admits to flatus. No additional complaints at this time. Objective - Vital Signs Vital signs: Vital Signs Temp 97.8 F 12/07/16 15:00 Pulse 64 12/07/16 15:00 Resp 18 12/07/16 15:00 BP 160/70 12/07/16 15:00 Pulse Ox 96 12/07/16 15:00 Intake & Output 12/06/16 12/07/16 12/07/16 18:59 06:59 18:59 Intake Total 200 1050 Balance 200 1050 Intake: Oral 200 1050 Other: Voiding Method Toilet # Voids 3 2 3 # Bowel Movements 0 1 - Constitutional General appearance: Present: cooperative, no acute distress, obese - EENT Eyes: Present: EOMI, PERRLA ENT: Present: hearing grossly normal - Respiratory Respiratory: bilateral: CTA (no difficulty with respiration) - Cardiovascular Rhythm: regular Heart sounds: normal: S1, S2 - Gastrointestinal Gastrointestinal Comment(s): soft, appropriate tenderness, nondistended, incision at midline clean dry and intact, no rebound, no guarding - Integumentary Integumentary: Present: normal turgor - Neurologic Neurologic: Present: CNII-XII intact - Labs CBC & Chem 7: 12/05/16 08:52 12/05/16 08:48 Labs: Microbiology - Last 24 Hours (Table) 12/03/16 23:45 Blood Culture Gram Stain - Preliminary Blood 12/03/16 23:45 Blood Culture - Final Blood Assessment and Plan (1) Hernia of anterior abdominal wall Status: Acute Plan: Continue regular diet. The patient was found to have positive blood cultures for gram-positive cocci in chains. Will begin Unasyn at this point in time while we are awaiting sensitivity. Continue to need to increase activity. further Recs to follow. Time with Patient: Less than 30
--- NOTE | 2016-12-07 17:32 | CDI ---
In responding to this query, please exercise your independent professional judgment. The [facility] Coding Staff and Clinical Documentation Specialists appreciate your assistance in clarifying documentation, maintaining compliance with coding guidelines, accurately documenting patients condition and capturing severity of illness. The fact that a question is asked does not imply that any particular answer is desired or expected. Communication forms are a method of clarifying documentation and are not made part of the Legal Health Record. Thank you in advance for your clarification. Last Revision, February 2015 Maxdave Fry [address] [facility] [place] [address] Documentation Clarification Form Date: 12/07/2016 5:22:00 PM From: Emperatriz Dias Admit Date: 12/04/2016 2:08:00 AM Patient Name: Pilar Rosales Visit Number: [id number] Discharge Date: Dr. Gadiel Omalley Partial omentectomy was in your operative note. Patient history/risk factors: Small bowel obstruction, Ventral hernia Clinical Indicators: Present with lower abdominal pain nausea and constipation. Treatment: Repair of incarcerated ventral incisional hernia x2 In your professional opinion, can you please further clarify site of the partial omentectomy? Greater Omentum Lesser Omentum Please document as an addendum to your operative note in order to capture severity of illness and risk of mortality and to accurately code this procedure. FYI: Press F11 to launch patient chart. GUERLINE
[2016-12-07] MEDS: AMPICILLIN-SULBACTAM 1.5 GM in SODIUM CHLORIDE 0.9% 50 ML IVPB SCH ×2 (17:34→23:35)
[2016-12-08 00:18] VITALS: TEMP 97.7
[2016-12-08] MEDS: AMPICILLIN-SULBACTAM 1.5 GM in SODIUM CHLORIDE 0.9% 50 ML IVPB SCH ×2 (06:22→12:16)
[2016-12-08] MEDS: SODIUM CHLORIDE 0.9% 1,000 ML IV SCH (06:22)
--- NOTE | 2016-12-08 07:31 | P.DS ---
Providers Date of admission: 12/04/16 02:08 Attending physician: Gadiel Omalley Consults: 12/04/16 01:55 Consult Physician Routine Consulting Provider: Tu Farmer Jr Consult Reason/Comments: abdominal pain Do you want consulting provider notified?: Yes Primary care physician: Tu Farmer Patient Condition at Discharge: Stable Plan - Discharge Summary New Discharge Prescriptions: New HYDROcodone/APAP 5-325MG [Accord 5-325] 1 tab PO Q4HR PRN #20 tab PRN Reason: Pain Amoxic-Pot Clav 500-125 mg [Augmentin 500-125 mg] 1 tab PO Q12HR #10 tab No Action Omeprazole 20 mg PO DAILY Fish Oil/Dha/Epa [Fish Oil 1,200 mg Fish Oil] 1 cap PO DAILY Naproxen Sodium [Aleve] 440 mg PO BID PRN PRN Reason: Pain Metoprolol Tartrate [Lopressor] 100 mg PO BID busPIRone HCL [Buspar] 7.5 mg PO BID Multivitamins, Thera [Multivitamin (formulary)] 1 tab PO DAILY Calcium Carbonate [Calcium] 600 mg PO DAILY Ascorbic Acid [Vitamin C] 500 mg PO DAILY Ibuprofen [Advil] 400 mg PO BID PRN PRN Reason: Pain Discharge Medication List Fish Oil/Dha/Epa [Fish Oil 1,200 mg Fish Oil] 1 cap PO DAILY 04/28/16 [History] Metoprolol Tartrate [Lopressor] 100 mg PO BID 04/28/16 [History] Naproxen Sodium [Aleve] 440 mg PO BID PRN 04/28/16 [History] Omeprazole 20 mg PO DAILY 04/28/16 [History] Ascorbic Acid [Vitamin C] 500 mg PO DAILY 12/03/16 [History] Calcium Carbonate [Calcium] 600 mg PO DAILY 12/03/16 [History] Ibuprofen [Advil] 400 mg PO BID PRN 12/03/16 [History] Multivitamins, Thera [Multivitamin (formulary)] 1 tab PO DAILY 12/03/16 [History ] busPIRone HCL [Buspar] 7.5 mg PO BID 12/03/16 [History] Amoxic-Pot Clav 500-125 mg [Augmentin 500-125 mg] 1 tab PO Q12HR #10 tab [Rx] HYDROcodone/APAP 5-325MG [Accord 5-325] 1 tab PO Q4HR PRN #20 tab 12/08/16 [Rx] Follow up Appointment(s)/Referral(s): Tu Farmer Jr, DO [Primary Care Provider] - 2 Weeks Gadiel Omalley MD [STAFF PHYSICIAN] - 1 Week Activity/Diet/Wound Care/Special Instructions: May shower daily. No heavy lifting for 1 month. Resume home meds.
--- NOTE | 2016-12-08 07:41 | P.PN ---
Progress Note - Text Patient is afebrile. Tolerating a diet. Was kept another day because of the positive blood cultures. She grew well gram-positive cocci in clusters. However be a contaminant. No evidence of sepsis. Continues to be afebrile. Abdomen is soft and benign urine culture was unremarkable. Therefore we'll discharge her home. See discharge orders.
[2016-12-08 07:46] VITALS: BP 133/74; PULSE 56; RESP 16
[2016-12-08] MEDS: ASCORBIC ACID 500 MG TAB PO SCH (08:41)
[2016-12-08] MEDS: PANTOPRAZOLE 40 MG TABLET PO SCH (08:41)
[2016-12-08] MEDS: METOPROLOL TARTRATE 50 MG TAB PO SCH (08:41)
[2016-12-08] MEDS: HEPARIN SODIUM,PORCINE 5,000 UNIT/ML 1 ML VIAL SQ SCH (08:41)
[2016-12-08] MEDS: MULTIVITAMINS, THERA 1 EACH TAB PO SCH (08:41)
[2016-12-08] MEDS: busPIRone HCl 5 MG TAB PO SCH (08:41)
[2016-12-08] MEDS: NYSTATIN 100,000 UNIT/GM POWD 15 GM TOPICAL SCH (08:41)
[2016-12-08] MEDS: CALCIUM CARBONATE 500 MG CHEWABLE PO SCH (08:41)
[2016-12-08] MEDS: DOCUSATE 100 MG CAP PO SCH (08:41)
--- NOTE | 2016-12-10 12:13 | CDI ---
In responding to this query, please exercise your independent professional judgment. The [facility] Coding Staff and Clinical Documentation Specialists appreciate your assistance in clarifying documentation, maintaining compliance with coding guidelines, accurately documenting patients condition and capturing severity of illness. The fact that a question is asked does not imply that any particular answer is desired or expected. Communication forms are a method of clarifying documentation and are not made part of the Legal Health Record. Thank you in advance for your clarification. Last Revision, February 2015 [address]ave [address] [facility] [place] [address] Documentation Clarification Form Date: 12/07/2016 5:22:00 PM From: Emperatriz Dias Admit Date: 12/04/2016 2:08:00 AM Patient Name: Pilar Rosales Visit Number: [id number] Discharge Date: Dr. Gadiel Omalley Partial omentectomy was in your operative note. Patient history/risk factors: Small bowel obstruction, Ventral hernia Clinical Indicators: Present with lower abdominal pain nausea and constipation. Treatment: Repair of incarcerated ventral incisional hernia x2 In your professional opinion, can you please further clarify site of the omentectomy? Greater Omentum Lesser Omentum Please document as an addendum to your operative note in order to capture severity of illness and risk of mortality, and to accurately code this procedure. FYI: Press F11 to launch patient chart. GUERLINE
== END 2016-12-08 14:03 | disposition home or self-care (01) | DRG 355 ==
LOC: EC 22:59 → 4MS4W 12-04 02:08
PROVIDERS: ADMIT Surgery; ATTEND Surgery
PROC: 0DBS0ZZ (ICD-10-PCS; 2016-12-04)
PROC: 0WQF0ZZ Repair Abdominal Wall, Open Approach (ICD-10-PCS; principal; 2016-12-04 12:00)
DX: K43.0 Incisional hernia with obstruction, without gangrene (principal); M41.9 Scoliosis, unspecified; I10 Essential (primary) hypertension; R11.0 Nausea; K59.00 Constipation, unspecified; M17.0 Bilateral primary osteoarthritis of knee; M54.30 Sciatica, unspecified side; R06.2 Wheezing; R73.09 Other abnormal glucose; I73.9 Peripheral vascular disease, unspecified; I87.2 Venous insufficiency (chronic) (peripheral); E66.3 Overweight; K21.9 Gastro-esophageal reflux disease without esophagitis; Z79.1 Long term (current) use of non-steroidal anti-inflammatories (NSAID); Z79.899 Other long term (current) drug therapy; Z88.2 Allergy status to sulfonamides; Z71.6 Tobacco abuse counseling; Z87.891 Personal history of nicotine dependence; Z86.79 Personal history of other diseases of the circulatory system
CPT/HCPCS: 36415; 74177; 80053; 81003; 82150; 83605; 83690; 85025; 85610; 85730; 87040; 87077; 87086; 87186; 88305; 96361; 96374; 96375; 99285

== ENCOUNTER → 2017-10-20 | Outpatient (CLI) | payer MEDICARE ==
--- NOTE | 2017-10-20 15:38 | US ---
Exam: LOWER EXTREMITY VENOUS INSUFFICIENCY DATE: 10/20/2017. HISTORY: 77 year-old female left leg pain, venous ulcer-like. History of left varicose vein stripping years ago, pending stent in left foot per patient. Left lower leg ulcer x 2 months SIDE PERFORMED: Bilateral FINDINGS: 1) Color flow is present and patency is documented in the following vessels. No DVT or SVT is noted . EIV Common Femoral Vein Deep Femoral Vein Femoral Vein Popliteal Vein Greater Saph Vein Upper Small Saph Vein 2) There is venous reflux noted at the following venous levels: Right = no reflux seen Left = reflux noted within CFV, FV, Deep FV, GSV in thigh Right pop fossa produced a known Bauer cyst at 6.4cm Left pop fossa produced a known Bauer cyst at 9cm IMPRESSION: 1. No evidence for DVT within the bilateral lower extremities imaged from the groin to the knees. 2. No venous reflux seen on the right. 3. Venous reflux within the common femoral vein, femoral vein, deep femoral vein, and greater sapheno us vein at the thigh level. 4. 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
--- NOTE | 2017-10-26 12:21 | P.ARTDOP ---
Arterial Doppler LOWER EXTREMITY ARTERIAL DOPPLER: DATE OF SERVICE: 10/20/2017 Reason for study: Chronic left leg ulcer. Doppler waveforms: Multiphasic bilaterally throughout. Pulse volume recording: []. Pressure gradients: None. Ankle-brachial indices: Greater than 1 bilaterally. Toe pressures: [] on the right, [] on the left Impression: Normal study.
== END | disposition home or self-care (01) ==
LOC: RADUSWWP 13:36
PROVIDERS: ATTEND Family Medicine
DX: I87.2 Venous insufficiency (chronic) (peripheral) (principal); M79.605 Pain in left leg
CPT/HCPCS: 93922; 93970

== ENCOUNTER → 2018-06-27 | Outpatient (CLI) | payer MEDICARE ==
--- NOTE | 2018-06-30 08:32 | MM ---
Reason for exam: screening (asymptomatic). Last mammogram was performed 6 years and 4 months ago. History: Patient is postmenopausal. Took hormonal contraceptives for 15 years. Physical Findings: A clinical breast exam by your physician is recommended on an annual basis and results should be correlated with mammographic findings. MG 3D Screening Mammo W/Cad Bilateral CC and MLO view(s) were taken. Prior study comparison: February 22, 2012, mammogram, performed at [facility]. There are scattered fibroglandular densities. There is chronic nodularity in the left breast. Scattered benign oil cysts. New grouped calcifications 8-9 o'clock right breast. ASSESSMENT: Incomplete: need additional imaging evaluation, BI-RAD 0 RECOMMENDATION: Special view mammogram of the right breast. [facility] will attempt to contact patient to return for supplemental views.
== END ==
LOC: RADMAMWWP 14:27
PROVIDERS: ATTEND Family Medicine
DX: Z12.31 Encounter for screening mammogram for malignant neoplasm of breast (principal)
CPT/HCPCS: 77063; 77067

== ENCOUNTER → 2019-01-19 | Outpatient (CLI) | payer MEDICARE ==
--- NOTE | 2019-01-23 13:13 | MM ---
Reason for exam: follow-up at short interval from prior study. Last mammogram was performed 6 months ago. History: Patient is postmenopausal. Took hormonal contraceptives for 15 years. Physical Findings: Nurse did not find any significant physical abnormalities on exam. MG Diagnostic Mammo RT w CAD CC and MLO view(s) were taken of the right breast. Prior study comparison: July 06, 2018, right breast MG 3d work up w/cad RT. June 27, 2018, bilateral MG 3d screening mammo w/cad. There are scattered fibroglandular densities. The 3mm left upper outer quadrant group of calcifications at posterior depth are unchanged in size and number in comparison to the prior. Continued 6 month follow up. Other scattered benign appearing calcifications on the right. These results were verbally communicated with the patient and result sheet given to the patient on 01/19/19. ASSESSMENT: Probably benign, BI-RAD 3 RECOMMENDATION: Follow-up diagnostic mammogram of both breasts in 6 months.
== END | disposition home or self-care (01) ==
LOC: RADMAMWWP 15:14
PROVIDERS: ATTEND Family Medicine
DX: R92.8 Other abnormal and inconclusive findings on diagnostic imaging of breast (principal)
CPT/HCPCS: 77065

== ENCOUNTER → 2019-04-16 | Outpatient (CLI) | payer MEDICARE ==
[2019-04-16 11:52] LABS: Basophils % (A) 1 %; Eosinophils # (A) 0.2 k/uL (0-0.7); Eosinophils % (A) 3 %; HCT 42.8 % (34.0-46.0); HGB 13.7 gm/dL (11.4-16.0); Lymphocytes # (A) 1.7 k/uL (1.0-4.8); Lymphocytes % (A) 29 %; MCH 33.2 pg (25.0-35.0); MCHC 32.1 g/dL (31.0-37.0); MCV 103.5 fL (80.0-100.0); Macrocytosis Slight; Mean Platelet Volume 7.4; Monocytes # (A) 0.3 k/uL (0-1.0); Monocytes % (A) 5 %; Neutrophils # (A) 3.6 k/uL (1.3-7.7); Neutrophils % (A) 60 %; Platelet Count 191 k/uL (150-450); RBC 4.13 m/uL (3.80-5.40); RDW 12.5 % (11.5-15.5)
[2019-04-16 16:36] LABS: African American GFR (CKD) 97.5 (60.0-200.0); Albumin 4.1 g/dL (3.80-4.90); Albumin/Globulin Ratio 2.05 (1.60-3.17); Anion Gap 5.8 mmol/L (4.00-12.00); BUN/Creat Ratio 31.43 Ratio (12.00-20.00); Calcium 9.4 mg/dL (8.7-10.3); Carbon Dioxide 28.2 mmol/L (21.6-31.8); Non-African American GFR(CKD) 84.2 (60.0-200.0); Potassium 4.5 mmol/L (3.5-5.5); Total Bilirubin 0.5 mg/dL (0.3-1.2); Total Protein 6.1 g/dL (6.2-8.2)
[2019-04-16 17:00] LABS: Hemoglobin A1C 5.2 % (4.0-6.0)
== END | disposition home or self-care (01) ==
LOC: LABWHC1 10:22
PROVIDERS: ATTEND Thoracic Surgery (Cardiothoracic Vascular Surgery)
DX: L97.222 Non-pressure chronic ulcer of left calf with fat layer exposed (principal); I83.229 Varicose veins of left lower extremity with both ulcer of unspecified site and inflammation; E66.09 Other obesity due to excess calories
CPT/HCPCS: 36415; 80053; 83036; 85025

== ENCOUNTER 2023-07-17 19:52 | Inpatient (IN) | payer MEDICARE ==
[2023-07-17] MEDS: IV FLUID CONTINUATION 1,000 ML IV ONE ×3 (10:25→22:26)
--- NOTE | 2023-07-17 20:32 | XR ---
EXAMINATION TYPE: XR knee complete RT DATE OF EXAM: 07/17/2023 COMPARISON: None HISTORY: Pain, fall TECHNIQUE: 3 view right knee FINDINGS: There is loss of the medial and lateral compartment joint spaces. Mild subluxation of the t ibia laterally in relation to the distal femur may be present. Medial and lateral tibial plateau and femoral condylar spurs are present. Large posterior patellar spurs are present superiorly and inferio rly. There is loss of the patellofemoral joint space. No significant joint effusion is evident. Vascu lar calcification is noted. IMPRESSION: 1. 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
[2023-07-17] MEDS ORDERED: RX INFO: IV CONTRAST WAS GIVEN 1 EACH MISC MISCELLANE PRN (20:33)
[2023-07-17] MEDS: HYDROmorphone 1 MG/ML 1 ML SYRINGE IVP STA (20:44)
--- NOTE | 2023-07-17 20:49 | ED ---
General Adult HPI - General Source: patient, RN notes reviewed, old records reviewed Mode of arrival: EMS Limitations: no limitations <Pedro Luis Salgado - Last Filed: 07/17/23 20:39> <Gretchen Moran - Last Filed: 07/19/23 06:37> - General Chief complaint: Extremity Injury, Lower Stated complaint: R Knee Pain Time Seen by Provider: 07/17/23 20:00 - History of Present Illness Initial comments: 82-year-old female with chronic knee issues presents with chief complaint of right knee pain. History is obtained from the patient and the patient's son who is at bedside. She had been going to the bathroom and had either sudden onset right knee pain or minor fall secondary to knee pain. Patient is in extreme pain upon arrival. (Pedro Luis Salgado) - Related Data Home Medications Medication Instructions Recorded Confirmed Metoprolol Tartrate [Lopressor] 100 mg PO BID 04/28/16 07/18/23 Omeprazole 20 mg PO DAILY 04/28/16 07/18/23 busPIRone HCL 15 mg PO BID 07/18/23 07/18/23 Allergies Allergy/AdvReac Type Severity Reaction Status Date / Time sulfamethoxazole Allergy Rash/Hives Verified 07/18/23 09:31 [From Bactrim] trimethoprim [From Bactrim] Allergy Rash/Hives Verified 07/18/23 09:31 Review of Systems ROS Other: All systems not noted in ROS Statement are negative. <Pedro Luis Salgado - Last Filed: 07/17/23 20:39> ROS Other: All systems not noted in ROS Statement are negative. <Gretchen Moran - Last Filed: 07/19/23 06:37> ROS Statement: Those systems with pertinent positive or pertinent negative responses have been documented in the HPI. Past Medical History Past Medical History: GERD/Reflux, Hypertension, Vascular Disorder Additional Past Medical History / Comment(s): wound lt leg, back pain, scolosis, sciatica History of Any Multi-Drug Resistant Organisms: None Reported Past Surgical History: Hernia Repair Additional Past Surgical History / Comment(s): vein stripping lt leg Past Anesthesia/Blood Transfusion Reactions: No Reported Reaction Past Psychological History: No Psychological Hx Reported Smoking Status: Current every day smoker Past Alcohol Use History: Daily Past Drug Use History: None Reported - Past Family History Mother Family Medical History: No Reported History Father Family Medical History: Coronary Artery Disease (CAD), Vascular Disorder <Pedro Luis Salgado Manju - Last Filed: 07/17/23 20:39> General Exam Limitations: no limitations General appearance: alert, in distress Head exam: Present: atraumatic, normocephalic Eye exam: Present: normal appearance, PERRL Respiratory exam: Present: normal lung sounds bilaterally. Absent: respiratory distress, wheezes Cardiovascular Exam: Present: regular rate, irregular rhythm GI/Abdominal exam: Present: soft. Absent: distended, tenderness Extremities exam: Present: other (No palpable pulse in the DP or PT, no Doppler signal). Absent: normal inspection, full ROM, tenderness, normal capillary refill (No appreciable cap refill, foot is cyanotic and ice cold) Neurological exam: Present: alert, oriented X3, CN II-XII intact Psychiatric exam: Present: anxious Skin exam: Present: cyanosis (Right foot) <Pedro Luis Salgado Manju - Last Filed: 07/17/23 20:39> Course Vital Signs 07/17/23 07/17/23 20:00 21:02 Temperature 98 F Pulse Rate 97 68 Respiratory 20 18 Rate Blood Pressure 159/107 161/97 O2 Sat by Pulse 95 94 L Oximetry Medical Decision Making <Pedro Luis Salgado Manju - Last Filed: 07/17/23 20:39> - Lab Data Result diagrams: 07/19/23 00:32 07/19/23 00:32 <Gretchen Moran - Last Filed: 07/19/23 06:37> - Medical Decision Making Was pt. sent in by a medical professional or institution (, PA, PROGRAMMING COORDINATOR, urgent care, hospital, or fci...) When possible be specific @ -No Did you speak to anyone other than the patient for history (EMS, parent, family, police, friend...)? What history was obtained from this source @ -No Did you review nursing and triage notes (agree or disagree)? Why? @ -I reviewed and agree with nursing and triage notes Were old charts reviewed (outside hosp., previous admission, EMS record, old EKG, old radiological studies, urgent care reports/EKG's, fci records)? Report findings @ -No old charts were reviewed Differential Diagnosis (chest pain, altered mental status, abdominal pain women, abdominal pain men, vaginal bleeding, weakness, fever, dyspnea, syncope, headache, dizziness, GI bleed, back pain, seizure, CVA, palpatations, mental health, musculoskeletal)? @ -Ischemic right leg, fracture dislocation of the knee EKG interpreted by me (3pts min.). @ -[EKG: Atrial fibrillation with rate of 68, QRS duration 110, QTc 437 X-rays interpreted by me (1pt min.). @X-ray showing severe degenerative change of the right knee without displaced fracture or dislocation CT interpreted by me (1pt min.). @ -CT angiogram ordered, pending U/S interpreted by me (1pt. min.). @ -[None done What testing was considered but not performed or refused? (CT, X-rays, U/S, labs)? Why? @ -None What meds were considered but not given or refused? Why? @ -None Did you discuss the management of the patient with other professionals (professionals i.e. , PA, PROGRAMMING COORDINATOR, lab, RT, psych nurse, licensed social worker, bed maker, teacher, child support case officer, manager case management)? Give summary @ -No Was smoking cessation discussed for >3mins.? @ -No Was critical care preformed (if so, how long)? @ -Yes, 35 minutes Were there social determinants of health that impacted care today? How? (Homelessness, low income, unemployed, alcoholism, drug addiction, transportation, low edu. Level, literacy, decrease access to med. care, detention, rehab)? @ -No Was there de-escalation of care discussed even if they declined (Discuss DNR or withdrawal of care, Hospice)? DNR status @ -No What co-morbidities impacted this encounter? (DM, HTN, Smoking, COPD, CAD, Cancer, CVA, ARF, Chemo, Hep., AIDS, mental health diagnosis, sleep apnea, morbid obesity)? @ -[New diagnosis of atrial fibrillation, suspect acute limb ischemia Was patient admitted / discharged? Hospital course, mention meds given and route, prescriptions, significant lab abnormalities, going to OR and other pertinent info. @ -[Patient care signed out at shift change to Dr. Moran awaiting laboratory testing and CT imaging, the case has already been discussed with Dr. Carey immediately after pulse exam performed. (Pedro Luis Salgado) Was patient admitted / discharged? Hospital course, mention meds given and route, prescriptions, significant lab abnormalities, going to OR and other pertinent info. @ -Patient was signed out to me. CT imaging had been obtained which demonstrated mid common femoral occlusion without vascular flow. Dr. Carey was already notified and arrives to the emergency department to evaluate the patient. Dr. Farmer was agreeable to take the admission. Spoke with Dr. Jeffrey who agreed to admit the patient to the ICU. Patient was initiated on a heparin drip and was taken to the OR in stable condition guarded prognosis Undiagnosed new problem with uncertain prognosis? @ -Yes Drug Therapy requiring intensive monitoring for toxicity (Heparin, Nitro, Insulin, Cardizem)? @ -Yes, heparin Were any procedures done? @ -No Diagnosis/symptom? @ -Acute right leg pain, acute right femoral arterial occlusion, new onset A- fib Acute, or Chronic, or Acute on Chronic? @ -Acute Uncomplicated (without systemic symptoms) or Complicated (systemic symptoms)? @ -Complicated Side effects of treatment? @ -Bleeding Exacerbation, Progression, or Severe Exacerbation? @ -[No] Poses a threat to life or bodily function? How? (Chest pain, [place], HI, pneumonia, PE, COPD, DKA, ARF, appy, cholecystitis, CVA, Diverticulitis, Homicidal, Suicidal, threat to staff... and all critical care pts) @ -Yes patient has acute arterial occlusion (Gretchen Moran) - Lab Data Lab Results 07/17/23 07/17/23 07/17/23 Range/Units 20:46 20:46 20:46 WBC 9.4 (3.8-10.6) k/uL RBC 4.52 (3.80-5.40) m/uL Hgb 15.1 (11.4-16.0) gm/dL Hct 47.4 H (34.0-46.0) % MCV 104.8 H (80.0-100.0) fL MCH 33.5 (25.0-35.0) pg MCHC 31.9 (31.0-37.0) g/dL RDW 14.0 (11.5-15.5) % Plt Count 151 (150-450) k/uL MPV 8.1 Neutrophils % 86 % Lymphocytes % 9 % Monocytes % 4 % Eosinophils % 1 % Basophils % 0 % Neutrophils # 8.1 H (1.3-7.7) k/uL Lymphocytes # 0.9 L (1.0-4.8) k/uL Monocytes # 0.4 (0-1.0) k/uL Eosinophils # 0.1 (0-0.7) k/uL Basophils # 0.0 (0-0.2) k/uL Macrocytosis Moderate PT 10.9 (10.0-12.5) sec INR 1.0 (<1.2) APTT 23.0 (22.0-30.0) sec Sodium 138 (137-145) mmol/L Potassium 4.2 (3.5-5.1) mmol/L Chloride 109 H (98-107) mmol/L Carbon Dioxide 15 L (22-30) mmol/L Anion Gap 14 mmol/L BUN 14 (7-17) mg/dL Creatinine 0.67 (0.52-1.04) mg/dL Est GFR (CKD-EPI)AfAm >90 (>60 ml/min/1.73 sqM) Est GFR (CKD-EPI)NonAf 83 (>60 ml/min/1.73 sqM) Glucose 116 H (74-99) mg/dL Plasma Lactic Acid Niles (0.7-2.0) mmol/L Calcium 9.2 (8.4-10.2) mg/dL Total Bilirubin 1.1 (0.2-1.3) mg/dL AST 41 H (14-36) U/L ALT 16 (4-34) U/L Alkaline Phosphatase 83 (38-126) U/L Total Protein 7.2 (6.3-8.2) g/dL Albumin 4.1 (3.5-5.0) g/dL Serum Alcohol 19 mg/dL 07/17/23 Range/Units 20:46 WBC (3.8-10.6) k/uL RBC (3.80-5.40) m/uL Hgb (11.4-16.0) gm/dL Hct (34.0-46.0) % MCV (80.0-100.0) fL MCH (25.0-35.0) pg MCHC (31.0-37.0) g/dL RDW (11.5-15.5) % Plt Count (150-450) k/uL MPV Neutrophils % % Lymphocytes % % Monocytes % % Eosinophils % % Basophils % % Neutrophils # (1.3-7.7) k/uL Lymphocytes # (1.0-4.8) k/uL Monocytes # (0-1.0) k/uL Eosinophils # (0-0.7) k/uL Basophils # (0-0.2) k/uL Macrocytosis PT (10.0-12.5) sec INR (<1.2) APTT (22.0-30.0) sec Sodium (137-145) mmol/L Potassium (3.5-5.1) mmol/L Chloride (98-107) mmol/L Carbon Dioxide (22-30) mmol/L Anion Gap mmol/L BUN (7-17) mg/dL Creatinine (0.52-1.04) mg/dL Est GFR (CKD-EPI)AfAm (>60 ml/min/1.73 sqM) Est GFR (CKD-EPI)NonAf (>60 ml/min/1.73 sqM) Glucose (74-99) mg/dL Plasma Lactic Acid Niles 4.5 H* (0.7-2.0) mmol/L Calcium (8.4-10.2) mg/dL Total Bilirubin (0.2-1.3) mg/dL AST (14-36) U/L ALT (4-34) U/L Alkaline Phosphatase (38-126) U/L Total Protein (6.3-8.2) g/dL Albumin (3.5-5.0) g/dL Serum Alcohol mg/dL Critical Care Time Critical Care Time: Yes Total Critical Care Time: 35 <Pedro Luis Salgado - Last Filed: 07/17/23 20:39> Disposition <Pedro Luis Salgado - Last Filed: 07/17/23 20:39> Is patient prescribed a controlled substance at d/c from ED?: No Time of Disposition: 21:17 Decision to Admit Reason: Admit from EC Decision Date: 07/17/23 Decision Time: 21:17 <Gretchen Moran - Last Filed: 07/19/23 06:37> Clinical Impression: Arterial occlusion, lower extremity, Right leg pain Disposition: ADMITTED IP TO THIS HOSP Condition: Serious
[2023-07-17] MEDS: HEPARIN SOD,PORK IN 0.45% NACL 25,000 UNIT in 0.45% NACL 1 250ML.BAG IV SCH (21:08)
[2023-07-17] MEDS: HEPARIN SODIUM 1,000 UN/ML (10ML VL) IV ONE (21:08)
[2023-07-17] MEDS: SODIUM CHLORIDE 0.9% 1,000 ML IV SCH (21:12)
[2023-07-17 21:13] LABS: Basophils % (A) 0 %; Eosinophils # (A) 0.1 k/uL (0-0.7); Eosinophils % (A) 1 %; HCT 47.4 % (34.0-46.0); HGB 15.1 gm/dL (11.4-16.0); Lymphocytes # (A) 0.9 k/uL (1.0-4.8); Lymphocytes % (A) 9 %; MCH 33.5 pg (25.0-35.0); MCHC 31.9 g/dL (31.0-37.0); MCV 104.8 fL (80.0-100.0); Macrocytosis Moderate; Mean Platelet Volume 8.1; Monocytes # (A) 0.4 k/uL (0-1.0); Monocytes % (A) 4 %; Neutrophils # (A) 8.1 k/uL (1.3-7.7); Neutrophils % (A) 86 %; Platelet Count 151 k/uL (150-450); RBC 4.52 m/uL (3.80-5.40); WBC 9.4 k/uL (3.8-10.6)
[2023-07-17] MEDS ORDERED: NALOXONE 0.4 MG/ML 1 ML VIAL IV PRN (21:18)
[2023-07-17 21:21] LABS: Prothrombin Time 10.9 sec (10.0-12.5)
[2023-07-17 21:25] LABS: ALT 16 U/L (4-34); AST 41 U/L (14-36); African American GFR (CKD) >90 (>60 ml/min/1.73 sqM); Albumin 4.1 g/dL (3.5-5.0); Alcohol 19 mg/dL; Alkaline Phosphatase 83 U/L (38-126); Anion Gap 14 mmol/L; Blood Urea Nitrogen 14 mg/dL (7-17); Calcium 9.2 mg/dL (8.4-10.2); Carbon Dioxide 15 mmol/L (22-30); Chloride 109 mmol/L (98-107); Glucose 116 mg/dL (74-99); Non-African American GFR(CKD) 83 (>60 ml/min/1.73 sqM); Potassium 4.2 mmol/L (3.5-5.1); Sodium 138 mmol/L (137-145); Total Bilirubin 1.1 mg/dL (0.2-1.3); Total Protein 7.2 g/dL (6.3-8.2)
--- NOTE | 2023-07-17 21:55 | CT ---
EXAMINATION TYPE: CT angio lower extremity BILAT DATE OF EXAM: 07/17/2023 COMPARISON: HISTORY: Fall, Rt leg cold and pulseless. CT DLP: 1571 mGycm Automated exposure control for dose reduction was used. Contrast: 100 mL [id number] Technique: Axial images 2 mm thick sections. FINDINGS: Abdominal aorta and iliac vessels are patent. Left common femoral artery is patent. The mid right common femoral artery is occluded. Superficial femoral artery and profundus auris vesse ls proximally lack contrast. Some minimal contrast collateral vasculature may be within the superfici al femoral artery. However, this is over short segment in the superficial femoral artery on the right appears occluded throughout its visualized course. Popliteal artery is very minimal collateral flow above the joint space. This is only a short segment. Large popliteal cyst is noted. Vascular calcific ations within trifurcation vessels. No definite contrast within trifurcation vessels is evident. Repo rt was called to the emergency room physician by Dr. Le telephone at 2150 hours 07/16/2013 Left superficial femoral artery is patent to the popliteal artery. Popliteal artery is patent. There is a large left popliteal cyst. The anterior tibial artery is patent. There appears to be occlusion o f the common trunk of the peroneal and posterior tibial arteries on left. Collateral flow reconstitut es the popliteal and peroneal arteries. Peroneal artery extends to nearly the ankle. Posterior tibial artery and anterior tibial artery are patent at the level of the ankles. Incidental findings: Cholelithiasis. Soft tissue swelling is over the right lower extremity. Mild sof t tissue swelling at the ankle on the left lower extremity is present. IMPRESSION: 1. OCCLUSION OF THE MID RIGHT COMMON FEMORAL ARTERY ABOVE THE BIFURCATION. 2. NO SIGNIFICANT COLLATERAL FLOW IS IDENTIFIED IN LEFT LOWER EXTREMITY DISTAL VESSELS. 3. THERE IS A SHORT SEGMENT OF OCCLUSION OF THE COMMON TRUNK OF THE LEFT PERONEAL AND POSTERIOR TIBIA L ARTERY. THESE ARE RECONSTITUTED NEAR THEIR PROXIMAL PORTIONS AND APPEAR TO REMAIN PATENT IS THE ANTERIOR TIBIAL ARTERY IS TO THE LEFT ANKLE..
--- NOTE | 2023-07-17 22:16 | P.GSCN ---
History of Present Illness Consult date: 07/17/23 Reason for Consult: right cold leg History of present illness: 82 year old female presents to the ER secondary to pain in the right leg onset a round 5pm or 6pm when she was going to the bathroom and fell on her knee. She states having right knee pain for some time as well as a wound in the lower leg that has been being treated at the wound care center. Per her the pain had been worsening and she started to have motor dysfunction and was unable to move her leg or foot. Upon evaluation in the ER she was in excruciating pain and the foot was cold and unable to move foot or toes and had no signals. She underwent CTA which demonstrated occlusion of the right common and profunda femoral arteries extending the SFA and below knee tibial arteries. She denies any fevers, chills, chest pain or shortness of breath. Review of Systems All systems: negative (what is mentioned in the PMH or HPI) Past Medical History Past Medical History: GERD/Reflux, Hypertension, Vascular Disorder Additional Past Medical History / Comment(s): wound lt leg, back pain, scolosis, sciatica History of Any Multi-Drug Resistant Organisms: None Reported Past Surgical History: Hernia Repair Additional Past Surgical History / Comment(s): vein stripping lt leg Past Anesthesia/Blood Transfusion Reactions: No Reported Reaction Past Psychological History: No Psychological Hx Reported Smoking Status: Current every day smoker Past Alcohol Use History: Daily Past Drug Use History: None Reported - Past Family History Mother Family Medical History: No Reported History Father Family Medical History: Coronary Artery Disease (CAD), Vascular Disorder Medications and Allergies Home Medications Medication Instructions Recorded Confirmed Type Fish Oil/Dha/Epa [Fish Oil 1,200 1 cap PO DAILY 04/28/16 07/18/18 History mg Fish Oil] Metoprolol Tartrate [Lopressor] 100 mg PO BID 04/28/16 07/18/18 History Naproxen Sodium [Aleve] 440 mg PO BID PRN 04/28/16 07/18/18 History Omeprazole 20 mg PO DAILY 04/28/16 07/18/18 History Ascorbic Acid [Vitamin C] 500 mg PO DAILY 12/03/16 07/18/18 History Calcium Carbonate [Calcium] 600 mg PO DAILY 12/03/16 07/18/18 History Ibuprofen [Advil] 400 mg PO BID PRN 12/03/16 07/18/18 History Multivitamins, Thera [Multivitamin 1 tab PO DAILY 12/03/16 07/18/18 History (formulary)] busPIRone HCL [Buspar] 7.5 mg PO BID 12/03/16 07/18/18 History L.acidoph,Paracasei, B.lactis 1 each PO DAILY 10/13/17 07/18/18 History [Probiotic] bisacodyL [Dulcolax] 5 mg PO DAILY 10/13/17 07/18/18 History polyethylene glycoL 3350 [Miralax] 17 gm PO DAILY #255 gm 12/15/17 07/18/18 Rx Lidocaine 5% Oint [Xylocaine 5% 1 applic TOPICAL WEEKLY 07/18/18 07/18/18 Hist ory Oint] Allergies Allergy/AdvReac Type Severity Reaction Status Date / Time sulfamethoxazole Allergy Rash/Hives Verified 07/18/18 13:23 [From Bactrim] trimethoprim [From Bactrim] Allergy Rash/Hives Verified 07/18/18 13:23 Surgical - Exam Vital Signs Temp Pulse Resp BP Pulse Ox 98 F 97 20 159/107 95 07/17/23 20:00 07/17/23 20:00 07/17/23 20:00 07/17/23 20:00 07/17/23 20:00 Patient Seen Date: 07/17/23 Patient Seen Time: 21:40 - General well developed, well nourished, severe distress, severe pain - Eyes PERRL, normal ocular movement - ENT normal pinna, normal nares - Neck no masses - Respiratory normal expansion, normal respiratory effort - Abdomen Abdomen: soft, non tender - Neurologic no normal coordination, no normal sensation - Psychiatric oriented to time, oriented to person, oriented to place, speech is normal non palpable femoral, popliteal, DP or PT pulses on the right. Right foot and lower leg discolored, cold and blue Unable to move foot, toes, or lower leg at the knee. Palpable left DP pulse Results - Labs 07/17/23 20:46 07/17/23 20:46 Abnormal Lab Results - Last 24 Hours (Table) 07/17/23 07/17/23 07/17/23 Range/Units 20:46 20:46 20:46 Hct 47.4 H (34.0-46.0) % MCV 104.8 H (80.0-100.0) fL Neutrophils # 8.1 H (1.3-7.7) k/uL Lymphocytes # 0.9 L (1.0-4.8) k/uL Chloride 109 H (98-107) mmol/L Carbon Dioxide 15 L (22-30) mmol/L Glucose 116 H (74-99) mg/dL Plasma Lactic Acid Niles 4.5 H* (0.7-2.0) mmol/L AST 41 H (14-36) U/L Diabetes panel 07/17/23 Range/Units 20:46 Sodium 138 (137-145) mmol/L Potassium 4.2 (3.5-5.1) mmol/L Chloride 109 H (98-107) mmol/L Carbon Dioxide 15 L (22-30) mmol/L BUN 14 (7-17) mg/dL Creatinine 0.67 (0.52-1.04) mg/dL Glucose 116 H (74-99) mg/dL Calcium 9.2 (8.4-10.2) mg/dL AST 41 H (14-36) U/L ALT 16 (4-34) U/L Alkaline Phosphatase 83 (38-126) U/L Total Protein 7.2 (6.3-8.2) g/dL Albumin 4.1 (3.5-5.0) g/dL Calcium panel 07/17/23 Range/Units 20:46 Calcium 9.2 (8.4-10.2) mg/dL Albumin 4.1 (3.5-5.0) g/dL Pituitary panel 07/17/23 Range/Units 20:46 Sodium 138 (137-145) mmol/L Potassium 4.2 (3.5-5.1) mmol/L Chloride 109 H (98-107) mmol/L Carbon Dioxide 15 L (22-30) mmol/L BUN 14 (7-17) mg/dL Creatinine 0.67 (0.52-1.04) mg/dL Glucose 116 H (74-99) mg/dL Calcium 9.2 (8.4-10.2) mg/dL Adrenal panel 07/17/23 Range/Units 20:46 Sodium 138 (137-145) mmol/L Potassium 4.2 (3.5-5.1) mmol/L Chloride 109 H (98-107) mmol/L Carbon Dioxide 15 L (22-30) mmol/L BUN 14 (7-17) mg/dL Creatinine 0.67 (0.52-1.04) mg/dL Glucose 116 H (74-99) mg/dL Calcium 9.2 (8.4-10.2) mg/dL Total Bilirubin 1.1 (0.2-1.3) mg/dL AST 41 H (14-36) U/L ALT 16 (4-34) U/L Alkaline Phosphatase 83 (38-126) U/L Total Protein 7.2 (6.3-8.2) g/dL Albumin 4.1 (3.5-5.0) g/dL - Imaging Additional studies: CTA abdomen and pelvis with runoff- occlusion of the right common, profunda, popliteal and tibial arteries. Assessment and Plan Assessment: Acute right lower extremity critical limb ischemia Sveta 2b Acute right femoral-tibial artery occlusion New onset atrial fibrillation Morbid obesity Plan: To OR for emergent open thrombectomy femoral-tibial arteries, possible bypass and fasciotomy Discussed with patient and family who are agreeable.
[2023-07-17] MEDS ORDERED: ROCURONIUM 10 MG/ML (5 ML VIAL) IV ONE (22:21)
[2023-07-17] MEDS ORDERED: fentaNYL (PF) 50 MCG/ML 2 ML AMP ONE (22:21)
[2023-07-17] MEDS ORDERED: PROPOFOL 10 MG/ML 20 ML VIAL IV ONE (22:21)
[2023-07-17] MEDS ORDERED: ONDANSETRON 4 MG/2 ML VIAL ONE (22:21)
[2023-07-17] MEDS ORDERED: MIDAZOLAM 2 MG/2 ML VIAL ONE (22:21)
[2023-07-17] MEDS ORDERED: HEPARIN SODIUM,PORCINE 5,000 UNIT/ML 1 ML VIAL ONE (22:21)
[2023-07-17] MEDS ORDERED: LIDOCAINE 1% INJ 10MG/ML (20 ML MDV) ONE (22:21)
[2023-07-17] MEDS ORDERED: SUCCINYLCHOLINE CHLORIDE 200 MG/10 ML VIAL IV ONE (22:21)
[2023-07-17] MEDS ORDERED: NEOSTIGMINE 1 MG/ML 10 ML VIAL ONE (22:21)
[2023-07-17] MEDS ORDERED: GLYCOPYRROLATE 0.2 MG/ML 2 ML VIAL ONE (22:21)
[2023-07-17] MEDS: LACTATED RINGERS 1,000 ML IV ONE (22:26)
[2023-07-17] MEDS: THROMBIN (BOVINE) 5,000 UNIT VIAL TOPICAL ONE (22:56)
[2023-07-17] MEDS: CEFAZOLIN IRRIGATION ONE (22:57)
[2023-07-17] MEDS: SODIUM CHLORIDE 0.9% IRRIGATION ONE (22:57)
[2023-07-17] MEDS: SODIUM CHLORIDE 0.9% 500 ML 500 ML with HEPARIN SODIUM,PORCINE (1 ML) 5,000 UNIT IV ONE (22:57)
[2023-07-18] MEDS: IOPAMIDOL-370 100ML BTL MISCELLANE ONE ×2 (01:10)
[2023-07-18] MEDS: LACTATED RINGERS 1,000 ML IV ONE (01:30)
[2023-07-18 02:25] LABS: HCT 37.5 % (34.0-46.0); HGB 12.2 gm/dL (11.4-16.0); MCHC 32.5 g/dL (31.0-37.0); MCV 104.8 fL (80.0-100.0); Macrocytosis Moderate; Mean Platelet Volume 8.1; Platelet Count 120 k/uL (150-450); RBC 3.58 m/uL (3.80-5.40); RDW 14.1 % (11.5-15.5); WBC 8.1 k/uL (3.8-10.6)
[2023-07-18] MEDS: HYDROmorphone 0.5 MG/0.5 ML SYRINGE IVP ONE ×2 (03:50→04:23)
--- NOTE | 2023-07-18 04:22 | P.OP ---
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 Procedure(s) Performed: Open thrombectomy of the right common femoral, profunda, superficial femoral and popliteal artery Selective right lower extremity angiogram Open thrombectomy of the right anterior tibial and posterior tibial arteries Right tibial peroneal trunk endarterectomy with patch angioplasty Right lower extremity 4 compartment fasciotomy Anesthesia: RAINE Surgeon: Manuel Carey Estimated Blood Loss (ml): 400 Pathology: other (right tibial peroneal plaque) Condition: stable Disposition: PACU Indications for Procedure: 82 year old female presented to the ER 4-5 hours after acute right knee and leg pain while going to the bathroom. Upon evaluation she had no flow or pulses to the right foot or flow on CTA and therefore was taken emergently to the OR for open thrombectomy Operative Findings: Thrombosed right common femoral, profunda, SFA, popliteal, anterior tibial and posterior tibial arteries Dense occlusive plaque at the tibial peroneal trunk without no back bleeding from the anterior or posterior tibial arteries Description of Procedure: After written and informed consent was obtained from the patient all risks benefits and competitions were described the patient is brought to the operative suite and laid in a supine position. The area of the abdomen, and right lower extremity was prepped and draped in usual sterile fashion after appropriate anesthetic was performed per the anesthesiologist. A timeout was performed in normal fashion. Antibiotics were administered prior to incision. An oblique incision was created at the right groin and dissection was carried down to the common femoral artery. The common femoral, superficial femoral and profundus femoris arteries were dissected free in a circumferential manner and controlled with vessel loops. Patient was administered 5000 units of heparin and transverse arteriotomy was created over the common femoral artery just above the bifurcation. A 3 and 4 Tomasa balloon was then placed into the profundus branches and then superficial femoral artery with large amount of thrombus removed. Good back bleeding was then noted from the profunda and SFA and the vessels were heparinized. Angiogram was then obtained of the right lower leg with flow through the SFA and Profunda but there was a sharp occlusion at the distal below knee popliteal artery. At that time attention was then placed to the popliteal artery. Incision was created Dissection was then carried down with electrocautery through the fascia to the popliteal artery. Popliteal artery, tibioperoneal trunk was then dissected free in a circumferential manner and controlled with vessel loops. The anterior tibial artery was also dissected free and controlled. The tibial peroneal trunk was then controlled and arteriotomy was created with 11 blade scalpel and extended with Pott Stevens scissors. There was large amount of thrombus noted and using 4 Tomasa thrombectomy was attempted of the anterior tibial and posterior tibial arteries. There was dense plaque and occlusive disease involving both anterior tibial and tibial peroneal trunk without any significant backbleeding noted. At that time another angiogram was obtained and sharp occlusion still present at the distal popliteal artery and the decision was made to perform endarterectomy and patch angioplasty of the distal popliteal and peroneal trunk. Once dense plaque was removed, and free debris was removed a small Bovine patch was then placed in usual fashion with 6-0 Prolene suture. Once completed distal control was r eleased with good backbleeding noted from both vessels. Angiogram was again obtained demonstrating improved flow below the knee with 2 vessel takeoff and 1 vessel runoff to the ankle. Attention was then placed to the fasciotomy. Incisions were then created on the anterior lateral lower leg with a 10 blade scalpel and dissection was carried down to the fascia which was incised from the knee to the ankle with electrocautery. The anterior and lateral compartments were opened and muscle assessed which demonstrated very little movement when stimulated. Attention was then placed to the posterior medial compartments and incision was created at the medial lower leg, down to the fascia which was incised from the knee to the ankle. Once completed a final angiogram was obtained demonstrating one vessel runoff, peroneal artery to the ankle with filling via collaterals to the foot. Arteriotomy in the femoral artery was closed with 6-0 Prolene suture and incision was closed in a multilayer fashion. Skin was cleansed and Prevena dressing was placed. Skin incisions at the lower leg were then closed with Sahil sandal closure with vessel loops. Incisions were then irrigated and dressings were placed. The patient tolerated the procedure well and was sent to PACU for recovery. Her right foot was pink with capillary refill. No palpable pulse noted.
[2023-07-18 05:07] LABS: Glucose,Whole Blood 125 mg/dL (70-110)
--- NOTE | 2023-07-18 06:06 | P.CNPUL ---
History of Present Illness Consult date: 07/18/23 Requesting physician: Gretchen Moran Reason for consult: other (ICU management; critical limb ischemia) Chief complaint: Right leg pain History of present illness: I am seeing this patient in new consultation today 07/18/2023 in the intensive care unit after she just returned from OR after undergoing an open thrombectomy of the right femoral, popliteal, and tibial arteries; right tibioperoneal trunk endarterectomy with patch angioplasty; right lower extremity compartment fasciotomy; and selective right lower extremity angiogram. Patient is a 82-year-old white female with past medical history significant for hypertension, chronic left lower extremity wound, GERD. Patient is currently drowsy and a poor historian. She is oriented to self and place. She follows simple commands. No family is present, and history is taken from the medical record. She apparently presented to the emergency room yesterday evening complaining of severe right lower extremity pain and limited mobility of her leg/foot. This was first noticed, when she was up walking to the bathroom, and fell on her right knee. On arrival to the emergency room late last night, a CT angiogram of her lower extremities identified an occlusion of the mid right common femoral artery above the bifurcation. There was also a short segment of occlusion of the common trunk of the left peroneal and posterior tibial artery which are reconstituted near their proximal portions and appear to remain patent as is the anterior tibial artery to the left ankle. The patient underwent emergent revascularization, including the above-mentioned procedure. Postoperative CBC: WBC count 8.1, hemoglobin 12.2, hematocrit 37.5, platelets 120. There is a 3 g drop in the patient's hemoglobin. Preoperative BMP Includes: Sodium 138, potas sium 4.2, chloride 109, serum bicarb 15, BUN 14, creatinine 0.67, glucose 116. Normal saline is infusing at 75 mL/h. Lactic acid level elevated at 4.5 and is down to 1.3. Overall, vital signs are stable. She is currently sitting up in bed, on 2 L/min nasal cannula, and no acute distress. SPO2 is 99%. Blood pressure is normotensive. Heart rhythm is atrial fibrillation with controlled ventricular rate. I am told that she has not past history of atrial fibrillation. Currently on heparin infusion per vascular surgery recommendations. Right lower extremity is cold and remains pulses. The lower extremity fasciotomy site is wrapped in gael bandage, and has small amount of sanguineous drainage. There is a wound vac to the right femoral site. She is currently being settled in the intensive care unit. Review of Systems REVIEW OF SYSTEMS: CONSTITUTIONAL: Denies any recent significant weight loss or weight gain. EYES: Denies change in vision. EARS, NOSE, MOUTH, THROAT: Denies headaches, denies sore throat. CARDIOVASCULAR: Denies chest pain, palpitations or syncopal episodes. RESPIRATORY: Denies shortness of breath, cough, congestion or hemoptysis. GASTROINTESTINAL: Denies change in appetite, abdominal pain, nausea and vomiting, or diarrhea GENITOURINARY: Denies hematuria, denies infections. MUSKULOSKELETAL: See HPI INTEGUMENTARY: Denies rash, denies eczema. NEUROLOGICAL: Denies recent memory loss, no recent seizure activity. PSYCHIATRIC: Denies anxiety, denies depression. HEMATOLOGIC/LYMPHATIC: Denies anemia, denies enlarged lymph node Past Medical History Past Medical History: GERD/Reflux, Hypertension, Vascular Disorder Additional Past Medical History / Comment(s): wound lt leg, back pain, scolosis, sciatica History of Any Multi-Drug Resistant Organisms: None Reported Past Surgical History: Hernia Repair Additional Past Surgical History / Comment(s): vein stripping lt leg Past Anesthesia/Blood Transfusion Reactions: No Reported Reaction Past Psychological History: No Psychological Hx Reported Smoking Status: Current every day smoker Past Alcohol Use History: Daily Past Drug Use History: None Reported - Past Family History Mother Family Medical History: No Reported History Father Family Medical History: Coronary Artery Disease (CAD), Vascular Disorder Medications and Allergies Home Medications Medication Instructions Recorded Confirmed Type Fish Oil/Dha/Epa [Fish Oil 1,200 1 cap PO DAILY 04/28/16 07/18/18 History mg Fish Oil] Metoprolol Tartrate [Lopressor] 100 mg PO BID 04/28/16 07/18/18 History Naproxen Sodium [Aleve] 440 mg PO BID PRN 04/28/16 07/18/18 History Omeprazole 20 mg PO DAILY 04/28/16 07/18/18 History Ascorbic Acid [Vitamin C] 500 mg PO DAILY 12/03/16 07/18/18 History Calcium Carbonate [Calcium] 600 mg PO DAILY 12/03/16 07/18/18 History Ibuprofen [Advil] 400 mg PO BID PRN 12/03/16 07/18/18 History Multivitamins, Thera [Multivitamin 1 tab PO DAILY 12/03/16 07/18/18 History (formulary)] busPIRone HCL [Buspar] 7.5 mg PO BID 12/03/16 07/18/18 History L.acidoph,Paracasei, B.lactis 1 each PO DAILY 10/13/17 07/18/18 History [Probiotic] bisacodyL [Dulcolax] 5 mg PO DAILY 10/13/17 07/18/18 History polyethylene glycoL 3350 [Miralax] 17 gm PO DAILY #255 gm 12/15/17 07/18/18 Rx Lidocaine 5% Oint [Xylocaine 5% 1 applic TOPICAL WEEKLY 07/18/18 07/18/18 History Oint] Allergies Allergy/AdvReac Type Severity Reaction Status Date / Time sulfamethoxazole Allergy Rash/Hives Verified 07/18/18 13:23 [From Bactrim] trimethoprim [From Bactrim] Allergy Rash/Hives Verified 07/18/18 13:23 Physical Exam Vitals: Vital Signs Temp Pulse Pulse Resp BP BP Pulse Ox 07/18/23 04:05 76 12 110/62 100 07/18/23 03:50 88 16 112/88 99 07/18/23 03:35 97 F L 97 16 108/61 96 07/17/23 21:02 68 18 161/97 94 L 07/17/23 20:00 98 F 97 20 159/107 95 Intake and Output 07/17/23 07/17/23 07/18/23 14:59 22:59 06:59 Intake Total 1402 700 Output Total 700 Balance 1402 0 Intake: IV 1402 700 Output: Urine 400 Estimated Blood Loss 300 Other: Weight 99.79 kg GENERAL EXAM: Drowsy, 82-year-old white female, comfortable in no apparent distress. HEAD: Normocephalic and atraumatic EYES: Normal reaction of pupils, equal size. NOSE: Clear with pink turbinates. THROAT: No erythema or exudates. NECK: No masses, no JVD. CHEST: No chest wall deformity. LUNGS: Equal air entry with no crackles, wheeze, rhonchi or dullness. On 2 L/min nasal cannula. No conversational dyspnea or accessory muscle use.. CVS: S1 and S2 normal with grade 2 systolic murmur, irregular rhythm. No other extra heart sounds ABDOMEN: No hepatosplenomegaly, active bowel sounds, no guarding or rigidity. SPINE: No scoliosis or deformity SKIN: No rashes CENTRAL NERVOUS SYSTEM: Drowsy, oriented to self and place, follows simple commands, no focal deficits, tone is normal in all 4 extremities. EXTREMITIES: Right lower extremity is cold, without Doppler pulse. It is wrapped and Gael bandage, with small amount of sanguinous drainage. There is a right groin wound VAC with no obvious output in the chamber. Limited mobility of right lower extremity noted. Left lower extremity dorsalis pedis pulse is palpable and 2+. Results - Laboratory Findings CBC and BMP: 07/18/23 02:08 07/17/23 20:46 PT/INR, D-dimer PT 10.9 sec (10.0-12.5) 07/17/23 20:46 INR 1.0 (<1.2) 07/17/23 20:46 Abnormal lab findings: Abnormal Labs 07/17/23 07/17/23 07/17/23 20:46 20:46 20:46 RBC Hct 47.4 H MCV 104.8 H Plt Count Neutrophils # 8.1 H Lymphocytes # 0.9 L Chloride 109 H Carbon Dioxide 15 L Glucose 116 H Plasma Lactic Acid Niles 4.5 H* AST 41 H 07/18/23 02:08 RBC 3.58 L Hct MCV 104.8 H Plt Count 120 L Neutrophils # Lymphocytes # Chloride Carbon Dioxide Glucose Plasma Lactic Acid Niles AST Assessment and Plan Assessment: Critical limb ischemia of the right lower extremity, status postoperative day #0 following an open thrombectomy of the right femoral, popliteal, and tibial arteries; right tibioperoneal trunk endarterectomy with patch angioplasty; right lower extremity compartment fasciotomy; and selective right lower extremity angiogram New onset atrial fibrillation, with controlled ventricular rate Lactic acidosis, improved History of hypertension Peripheral arterial disease History of GERD, without esophagitis History of chronic left leg wound, previously following at the wound care center Chronic ongoing tobacco dependence Obesity, with a BMI of 33.5 kg/m Plan: Patient's medications and labs were reviewed Continue monitoring of right lower extremity neurovascular status Continue IV heparin protocol per vascular surgery Receiving prophylactic cefazolin As needed analgesics are ordered for pain management Repeat labs are pending for the morning. Smoking cessation counseling will be performed once patient more able to participate Protonix for GI prophylaxis Patient is being monitored in the intensive care unit I have personally seen and examined the patient, performed the documentation and the assessment and plan as written. Number of minutes spent on the visit:20 Time with Patient: Greater than 30
[2023-07-18 07:44] LABS: Basophils % (A) 0 %; Eosinophils % (A) 0 %; HCT 39.3 % (34.0-46.0); HGB 11.8 gm/dL (11.4-16.0); Hypochromasia Marked; Lymphocytes % (A) 7 %; MCH 34.1 pg (25.0-35.0); MCHC 29.9 g/dL (31.0-37.0); Macrocytosis Marked; Mean Platelet Volume 8.5; Monocytes # (A) 0.9 k/uL (0-1.0); Monocytes % (A) 7 %; Neutrophils # (A) 10.8 k/uL (1.3-7.7); Neutrophils % (A) 84 %; Platelet Count 174 k/uL (150-450); RBC 3.45 m/uL (3.80-5.40); RDW 14.1 % (11.5-15.5); WBC 12.8 k/uL (3.8-10.6)
[2023-07-18] MEDS: SODIUM CHLORIDE 0.9% 1,000 ML IV ONE ×4 (07:54→12:22)
[2023-07-18 08:03] LABS: African American GFR (CKD) >90 (>60 ml/min/1.73 sqM); Anion Gap 11 mmol/L; Blood Urea Nitrogen 14 mg/dL (7-17); Calcium 8.8 mg/dL (8.4-10.2); Carbon Dioxide 13 mmol/L (22-30); Chloride 114 mmol/L (98-107); Glucose 143 mg/dL (74-99); Non-African American GFR(CKD) 86 (>60 ml/min/1.73 sqM); Potassium 4.9 mmol/L (3.5-5.1); Sodium 138 mmol/L (137-145)
--- NOTE | 2023-07-18 08:21 | FL ---
EXAMINATION TYPE: FL guidance operating room Intraoperative/procedural fluoroscopic services were pro vided. Total fluoroscopy time is 5 minutes 8 seconds with a total of 667 submitted images to PACS. Pl ease see the operative/procedural note for further details. DAP: 5.2538 Gycm2
[2023-07-18] MEDS: PANTOPRAZOLE 40 MG/10 ML VIAL IVP SCH (09:08)
[2023-07-18] MEDS: NOREPINEPHRINE 4 MG in SODIUM CHLORIDE 0.9% 250 ML IV SCH (09:37)
[2023-07-18] MEDS: HYDROmorphone 1 MG/ML 1 ML SYRINGE IVP PRN (10:39)
--- NOTE | 2023-07-18 11:20 | OP ---
OPERATIVE REPORT DATE OF SERVICE : PROCEDURE PERFORMED: Left femoral triple-lumen catheter. PREOPERATIVE DIAGNOSES: Administration of fluids, pressors, hypotension. POSTOPERATIVE DIAGNOSES: Administration of fluids, pressors, hypotension. DESCRIPTION OF PROCEDURE: I have discussed the risks, benefits and alternative therapies for the above-mentioned procedure and for both sedation/analgesia as well as necessary blood product administration, if indicated, as they pertain to this patient. The patient has indicated her understanding and acceptance of the risks and procedures discussed. A time-out was completed verifying correct patient, procedure, site, positioning, and implant(s) or special equipment if applicable. The patient was placed in a dependent position appropriate for triple lumen catheter placement based on the vein to be cannulated. The patient's left groin was prepped and draped in sterile fashion. 1% Lidocaine was used to anesthetize the surrounding skin area. A triple lumen 9F Cordis catheter was introduced into the common femoral vein using Seldinger technique. The catheter was threaded smoothly over the guide wire and appropriate blood return was obtained. Each lumen of the catheter was evacuated of air and flushed with sterile saline. There was good blood return from all 3 ports. The patient tolerated the procedure well. There was no immediate complication. Catheter was sutured in place. Sterile dressing was applied by the nurse. Perfusion to the extremity distal to the point of catheter insertion was checked and found to be adequate. SECOND PROCEDURE PERFORMED: Left femoral arterial line. PREOPERATIVE DIAGNOSES: Hypotension, administration of fluids, blood pressure, blood draws, frequent blood gas monitoring. POSTOPERATIVE DIAGNOSES: Hypotension, administration of fluids, blood pressure, blood draws, frequent blood gas monitoring. I have discussed the risks, benefits and alternative therapies for the above-mentioned procedure and for both sedation/analgesia as well as necessary blood product administration, if indicated, as they pertain to this patient. The patient has indicated her understanding and acceptance of the risks and procedures discussed. The patient's procedure took place in room 257. A time-out was completed verifying correct patient, procedure, site, positioning, and implant(s) or special equipment if applicable. Kashif's test was performed to ensure adequate perfusion. The patient's right/left wrist or right/left groin was prepped and draped in sterile fashion. 1% Lidocaine was used to anesthetize the area. An 18G Arrow arterial line was introduced into the radial/femoral artery. The catheter was threaded over the guide wire and the needle was removed with appropriate pulsatile blood return and waveform. Blood loss was minimal. The patient tolerated procedure well. The catheter was sutured in place. Sterile dressing was applied by the nurse. Perfusion to the extremity distal to the point of catheter insertion was checked and found to be adequate. The patient tolerated the procedure well, and there were no immediate complications. MMODL / IJN: [id number] /
--- NOTE | 2023-07-18 12:43 | P.PN ---
Progress Note - Text Progress Note Date: 07/18/23 Notified that patient's PTT was greater than 200 on heparin drip. Heparin drip currently on hold per protocol. Patient has been saturating through her dressing. Patient was seen and evaluated. Gael wrap was removed. ABD pads and 4 x 4 along with Kerlix was used to reinforce dressing with Gael wrap reapplied. Patient was able to move foot slightly, able to get a PT Doppler signal. The impression and plan of care has been dictated as directed. I performed a history and examination of this patient, discussed the same with the dictator. I agree with the dictator's note ,documented as a scribe. Any additional findings or plans will be noted.
--- NOTE | 2023-07-18 12:46 | P.HPIM ---
History of Present Illness H&P Date: 07/19/23 This an 82-year-old female with past medical history of PAD, vein stripping of left leg, chronic left lower extremity wound, hypertension, ongoing nicotine dependence, 2 glasses of wine daily, morbid obesity, gastroesophageal reflux disease, presented to the ER with complaints of sudden onset right knee pain sustaining minor fall, in extreme pain. Son had informed ER that she had been going to the bathroom and developed an abrupt onset of severe right lower extremity pain accompanied by limited mobility of her foot/leg and subsequently fell on her knee. CTA reported occlusion of the mid right common femoral artery above the bifurcation, short segment occlusion of the common trunk of the left peroneal and posterior tibial artery. Status post emergent revascularization. Hypotensive, maintained on IV fluids, Levophed. PTT greater than 200, heparin drip placed on hold, from surgical site, Gael wrap dressing reinforced.hemoglobin 11.8(15.1 on admission), platelets 170. Bicarb 13, BUN 14, creatinine 0.61. MCV 104.8, 114, serum alcohol 19. denies chest pain, palpitations or increased s hortness of breath. Maintaining O2 sats in the 90s on 2 L nasal cannula. Afebrile, WBC 12.8. Lactic acid 4.5 on admission, down to 1.3. Receiving prophylactic cefazolin. Review of Systems ROS Statement: Those systems with pertinent positive or pertinent negative responses have been documented in the HPI. ROS Other: All systems not noted in ROS Statement are negative. Past Medical History Past Medical History: GERD/Reflux, Hypertension, Vascular Disorder Additional Past Medical History / Comment(s): wound lt leg, back pain, scolosis, sciatica History of Any Multi-Drug Resistant Organisms: None Reported Past Surgical History: Hernia Repair Additional Past Surgical History / Comment(s): vein stripping lt leg Past Anesthesia/Blood Transfusion Reactions: No Reported Reaction Past Psychological History: No Psychological Hx Reported Smoking Status: Current every day smoker Past Alcohol Use History: Daily Past Drug Use History: None Reported - Past Family History Mother Family Medical History: No Reported History Father Family Medical History: Coronary Artery Disease (CAD), Vascular Disorder Medications and Allergies Home Medications Medication Instructions Recorded Confirmed Type Metoprolol Tartrate [Lopressor] 100 mg PO BID 04/28/16 07/18/23 History Omeprazole 20 mg PO DAILY 04/28/16 07/18/23 History busPIRone HCL 15 mg PO BID 07/18/23 07/18/23 History Allergies Allergy/AdvReac Type Severity Reaction Status Date / Time sulfamethoxazole Allergy Rash/Hives Verified 07/18/23 09:31 [From Bactrim] trimethoprim [From Bactrim] Allergy Rash/Hives Verified 07/18/23 09:31 Physical Exam Vitals: Vital Signs Temp Pulse Pulse Resp BP BP Pulse Ox 07/18/23 11:00 99 27 H 98 07/18/23 10:00 115 H 12 110/82 93 L 07/18/23 09:00 89 13 59/38 98 07/18/23 08:00 97.5 F L 92 18 102/69 96 07/18/23 07:00 92 14 82/43 98 07/18/23 06:00 90 17 100/62 97 07/18/23 05:00 97.5 F L 84 13 114/63 07/18/23 04:59 17 07/18/23 04:50 76 15 132/54 100 07/18/23 04:35 78 15 124/69 100 07/18/23 04:20 74 18 117/60 99 07/18/23 04:05 76 12 110/62 100 07/18/23 03:50 88 16 112/88 99 07/18/23 03:35 97 F L 97 16 108/61 96 07/17/23 21:02 68 18 161/97 94 L 07/17/23 20:00 98 F 97 20 159/107 95 Intake and Output 07/17/23 07/18/23 07/18/23 22:59 06:59 14:59 Intake Total 8440 156 6964.787 Output Total 780 104 Balance 1402 20 3461.787 Intake: IV 9365 304 0159 Sodium Chloride 0.9% 1, 225 000 ml @ 75 mls/hr IV . [id number] [facility] Rx#:[id number] Sodium Chloride 0.9% 1, 1000 000 ml @ 999 mls/hr IV . Q1H1M [facility] Rx#:[id number] Sodium Chloride 0.9% 1, 1000 000 ml @ 999 mls/hr IV . Q1H1M [facility] Rx#:[id number] Sodium Chloride 0.9% 1, 1000 000 ml @ 999 mls/hr IV . Q1H1M [facility] Rx#:[id number] ceFAZolin 2 gm In Sodium 100 Chloride 0.9% 50 ml @ 100 mls/hr IVPB Q8H [facility] Rx#: [id number] Intake, IV Titration 240.787 Amount Heparin Sod,Pork in 0.45% 192.493 NaCl 25,000 unit In 0.45 % NaCl 1 250ml.bag @ 18 UNITS/KG/HR 17.962 mls/hr IV .[id number] [facility] Rx#: [id number] Norepinephrine 4 mg In 48.294 Sodium Chloride 0.9% 250 ml @ 0.03 MCG/KG/MIN 11. 453 mls/hr IV .[id number] [facility] Rx#:[id number] Output: Urine 480 104 Estimated Blood Loss 300 Other: Voiding Method Indwelling Catheter Weight 99.79 kg 100.2 kg ABP, PAP, CO, CI - Last 8 Hours Arterial Blood Pressure 108/52 Arterial Blood Pressure 122/58 PHYSICAL EXAM: VITAL SIGNS: [As above] GENERAL: Elderly obese female, sitting up in bed, alert and oriented x 2, no acute distress HEENT: Normocephalic ,conjunctivae normal. eyes normal. NECK: Supple, no JVD. No thyroid enlargement. No LNs CARDIOVASCULAR: S1, S2 regular. Irregular rhythm ,systolic murmur. RESPIRATION: Unlabored, equal air entry ,breath sounds diminished in the bases. No rhonchi or crackles. No bronchial breathing. ABDOMEN: Soft, nondistended, nontender . No guarding. no masses palpable. No ascites, No hepatosplenomegaly.Bowel sounds heard. EXTREMITIES: Positive edema, bruising of bilateral upper extremities, left greater than right ,right lower extremity warm, Gael wrapped reinforced with bonilla guinous drainage,no doppler DP pulse, moves right foot, right groin wound VAC. Left lower extremity positive DP pulse. PSYCHIATRY: Alert and oriented X3, mood and affect normal. NERVOUS SYSTEM: Cranial N 2-12 grossly normal. No focal deficits. Strength and sensation grossly intact. Skin: Warm and dry, no rash. Results CBC & Chem 7: 07/18/23 12:25 07/18/23 06:45 Labs: Abnormal Lab Results - Last 24 Hours (Table) 07/17/23 07/17/23 07/17/23 Range/Units 20:46 20:46 20:46 WBC (3.8-10.6) k/uL RBC (3.80-5.40) m/uL Hct 47.4 H (34.0-46.0) % MCV 104.8 H (80.0-100.0) fL MCHC (31.0-37.0) g/dL Plt Count (150-450) k/uL Neutrophils # 8.1 H (1.3-7.7) k/uL Lymphocytes # 0.9 L (1.0-4.8) k/uL Macrocytosis APTT (22.0-30.0) sec Chloride 109 H (98-107) mmol/L Carbon Dioxide 15 L (22-30) mmol/L Glucose 116 H (74-99) mg/dL POC Glucose (mg/dL) (70-110) mg/dL Plasma Lactic Acid Niles 4.5 H* (0.7-2.0) mmol/L AST 41 H (14-36) U/L 07/18/23 07/18/23 07/18/23 Range/Units 02:08 05:03 06:45 WBC (3.8-10.6) k/uL RBC 3.58 L (3.80-5.40) m/uL Hct (34.0-46.0) % MCV 104.8 H (80.0-100.0) fL MCHC (31.0-37.0) g/dL Plt Count 120 L (150-450) k/uL Neutrophils # (1.3-7.7) k/uL Lymphocytes # (1.0-4.8) k/uL Macrocytosis APTT >200.0 H* (22.0-30.0) sec Chloride (98-107) mmol/L Carbon Dioxide (22-30) mmol/L Glucose (74-99) mg/dL POC Glucose (mg/dL) 125 H (70-110) mg/dL Plasma Lactic Acid Niles (0.7-2.0) mmol/L AST (14-36) U/L 07/18/23 07/18/23 Range/Units 06:45 06:45 WBC 12.8 H (3.8-10.6) k/uL RBC 3.45 L (3.80-5.40) m/uL Hct (34.0-46.0) % MCV 114.0 H D (80.0-100.0) fL MCHC 29.9 L (31.0-37.0) g/dL Plt Count (150-450) k/uL Neutrophils # 10.8 H (1.3-7.7) k/uL Lymphocytes # (1.0-4.8) k/uL Macrocytosis Marked A APTT (22.0-30.0) sec Chloride 114 H (98-107) mmol/L Carbon Dioxide 13 L (22-30) mmol/L Glucose 143 H (74-99) mg/dL POC Glucose (mg/dL) (70-110) mg/dL Plasma Lactic Acid Niles (0.7-2.0) mmol/L AST (14-36) U/L Thrombosis Risk Factor Assmnt - Choose All That Apply Each Factor Represents 1 point: Swollen legs (current) Other Risk Factors: Yes Each Risk Factor Represents 2 Points: Major surgery Each Risk Factor Represents 3 Points: Age 75 years or older Thrombosis Risk Factor Assessment Total Risk Factor Score: 6 Thrombosis Risk Factor Assessment Level: High Risk Assessment and Plan Assessment: Acute right lower extremity critical limb ischemia, [place] 2B, acute right common femoral profunda, superficial femoral popliteal and tibial artery thrombosis, status post open thrombectomy of right common femoral, profunda, superficial femoral and popliteal artery, selective right lower extremity angiogram, open thrombectomy of the right anterior tibial and posterior tibial arteries, right tibial peroneal trunk endarterectomy with patch angioplasty, right lower extremity 4 compartment fasciotomy. Acute blood loss anemia, postoperative Lactic acidosis, resolved with IV fluid hydration New onset atrial fibrillation with controlled ventricular rate PAD Chronic left leg wound, followed in the wound care center Morbid obesity, BMI 34 Ongoing nicotine dependence Daily alcohol use, serum alcohol 19 Plan: Continue on current medication regimen ,monitoring and symptomatic treatment. Gentle IV fluid hydration, Levophed as per laundry presser. Heparin drip currently on hold, PTT greater than 200. Serial CBCs. PPI for DVT prophylaxis in place smoking cessation, alcohol abstinence reinforced. DVT prophylaxis as per vascular surgery. The impression and plan of care has been dictated as directed. : I performed a history and examination of this patient, discussed the same with the dictator. I agree with the dictator's note ,documented as a scribe. Any additional findings or plans will be noted.
[2023-07-18 12:55] LABS: HCT 25.3 % (34.0-46.0); MCH 33.2 pg (25.0-35.0); MCHC 31.7 g/dL (31.0-37.0); Macrocytosis Moderate; Mean Platelet Volume 8.4; Platelet Count 183 k/uL (150-450); RBC 2.41 m/uL (3.80-5.40); RDW 14.3 % (11.5-15.5); WBC 15.1 k/uL (3.8-10.6)
[2023-07-18 14:50] LABS: ABG HCO3 15 mmol/L (21-25); ABG PCO2 31 mmHg (35-45); ABG PO2 230 mmHg (83-108); ABG TCO2 16 mmol/L (19-24); Allen Test Performed? Yes
[2023-07-18 14:54] LABS: ABG Oxygen Saturation 99.6 % (94-97)
[2023-07-18] MEDS: FUROSEMIDE 10 MG/ML 2 ML VIAL IV ONE (15:55)
[2023-07-18] MEDS ORDERED: DILTIAZEM 5 MG/ML 5 ML VIAL IVP STA (18:46)
[2023-07-18] MEDS: DILTIAZEM 125 MG in SODIUM CHLORIDE 0.9% 100 ML IV SCH (18:58)
[2023-07-18] MEDS: DILTIAZEM DRIP BOLUS FROM BAG 1 MG SOLN IV STA (18:59)
[2023-07-18 19:33] LABS: Anisocytosis Slight; Basophils % (A) 0 %; Eosinophils % (A) 0 %; HCT 34.2 % (34.0-46.0); HGB 10.9 gm/dL (11.4-16.0); Lymphocytes # (A) 1.6 k/uL (1.0-4.8); Lymphocytes % (A) 10 %; MCH 31.5 pg (25.0-35.0); MCHC 31.8 g/dL (31.0-37.0); Macrocytosis Slight; Mean Platelet Volume 9.3; Monocytes # (A) 1.3 k/uL (0-1.0); Monocytes % (A) 9 %; Neutrophils # (A) 12.6 k/uL (1.3-7.7); Neutrophils % (A) 80 %; Platelet Count 174 k/uL (150-450); RBC 3.45 m/uL (3.80-5.40); RDW 16.7 % (11.5-15.5); WBC 15.7 k/uL (3.8-10.6)
[2023-07-18 19:35] LABS: MCV 99.1 fL (80.0-100.0)
--- NOTE | 2023-07-18 21:35 | CONS ---
LORENA Quezada is an 82-year-old lady who is admitted to hospital with acute limb ischemia involving right lower extremity. She presented to hospital with sudden-onset pain involving the right leg around 5 to 6 p.m. yesterday, fell down and came to hospital where she had excruciating foot pain without any pulses. She underwent a CT angiogram that showed occlusion of the right common and profunda femoral artery extending into the superficial femoral artery and tibial artery. She was diagnosed with acute right lower extremity critical limb ischemia with right femorotibial occlusion and underwent emergent thrombectomy and fasciotomy. The patient was found to be in atrial fibrillation and an EKG was done. There is no prior history of atrial fibrillation, but the patient has history of hypertension and takes metoprolol 100 mg b.i.d. We have been consulted for the new onset atrial fibrillation. The acute limb occlusion is probably thromboembolic phenomenon related to atrial fibrillation. At the time of my evaluation, the patient appears mention is stable hemodynamically, but is in severe pain and is somewhat hypotensive and requiring fluid resuscitation. The patient is receiving IV heparin at the appropriate time. I am going to switch her to Eliquis 5 b.i.d. PAST MEDICAL HISTORY: Significant for hypertension. CURRENT MEDICATIONS: Include, 1. Omeprazole 20 daily. 2. Lopressor 100 b.i.d. 3. Buspirone 15 mg b.i.d. FAMILY HISTORY: Negative for premature coronary artery disease. SOCIAL HISTORY: Negative for current smoking, EtOH abuse, or drug abuse. REVIEW OF SYSTEMS: Fourteen out of 14 review of systems had been performed. Pertinent's are as documented. PHYSICAL EXAMINATION: VITAL SIGNS: The patient's blood pressure is 110/80, it was around 60/40 earlier. Heart rate is 110 beats per minute, irregular. NECK: There is no jugular venous distention. CHEST: Exam reveals diminished air entry at the bases. There are no crackles or rhonchi. HEART: Exam reveals first and second heart sounds. Irregular rhythm. No murmur. ABDOMEN: Soft. EXTREMITIES: Reveal that the right posterior tibial and dorsalis pedis pulses are diminished. On the left side, the pulses are normal. She has some mild bluish discoloration of the right foot. LABORATORY DATA: Show that the hemoglobin is 11.8, potassium is 4.9, creatinine 0.6. ASSESSMENT: 1. Acute critical limb ischemia, probably related to thromboembolic disease from the atrial fibrillation, status post thrombectomy with fasciotomy. 2. Persistent atrial fibrillation, new onset. PLAN: Please continue the patient on IV heparin per protocol for atrial fibrillation. I will obtain a 2D echo. I will switch her from heparin to Eliquis once we know that no further surgical intervention is needed. MMODL / IJN: [id number] /
[2023-07-18 22:06] LABS: ABG Base Excess -9.2 mmol/L; ABG HCO3 17 mmol/L (21-25); ABG PCO2 32 mmHg (35-45); ABG PH 7.33 (7.35-7.45); ABG PO2 116 mmHg (83-108); ABG TCO2 18 mmol/L (19-24)
[2023-07-18] MEDS: HYDROmorphone 1 MG/ML 1 ML SYRINGE IVP STA (23:52)
[2023-07-19] MEDS: DEXTROSE 5% IN WATER 1,000 ML with SODIUM BICARB (1 MEQ/ML) 150 ML IV SCH (00:23)
--- NOTE | 2023-07-19 00:34 | CT ---
EXAM: CT Head Without Intravenous Contrast CLINICAL HISTORY: ITS.REASON CT Reason: AMS TECHNIQUE: Axial computed tomography images of the head/brain without intravenous contrast. CTDI is 47.2 mGy and DLP is 1460.4 mGy-cm. This CT exam was performed using one or more of the following dose reduction techniques: automated exposure control, adjustment of the mA and/or kV according to patient size, and/or use of iterative reconstruction technique. COMPARISON: No relevant prior studies available. FINDINGS: Brain: No hemorrhage, herniation, or mass effect. Chronic microvascular ischemic changes. Ventricles: No hydrocephalus. Age related cerebral volume loss. Bones/joints: Unremarkable. Soft tissues: Unremarkable. Sinuses: No air fluid levels. Mastoid air cells: Clear. IMPRESSION: No acute hemorrhage, hydrocephalus, or mass effect.
[2023-07-19 01:02] LABS: African American GFR (CKD) 41 (>60 ml/min/1.73 sqM); Anion Gap 9 mmol/L; Blood Urea Nitrogen 21 mg/dL (7-17); Calcium 7.1 mg/dL (8.4-10.2); Carbon Dioxide 13 mmol/L (22-30); Chloride 116 mmol/L (98-107); Glucose 147 mg/dL (74-99); Non-African American GFR(CKD) 36 (>60 ml/min/1.73 sqM); Potassium 4.9 mmol/L (3.5-5.1); Sodium 138 mmol/L (137-145)
[2023-07-19 01:09] LABS: Anisocytosis Slight; HCT 28.1 % (34.0-46.0); HGB 9.5 gm/dL (11.4-16.0); MCH 33.3 pg (25.0-35.0); MCHC 33.9 g/dL (31.0-37.0); MCV 98.3 fL (80.0-100.0); Macrocytosis Slight; Mean Platelet Volume 8.7; Platelet Count 184 k/uL (150-450); RBC 2.86 m/uL (3.80-5.40); RDW 17.8 % (11.5-15.5); WBC 15.9 k/uL (3.8-10.6)
[2023-07-19 06:14] LABS: Glucose,Whole Blood 192 mg/dL (70-110)
[2023-07-19 06:25] LABS: Anisocytosis Slight; Basophils % (A) 0 %; Eosinophils % (A) 0 %; HCT 26.7 % (34.0-46.0); HGB 8.7 gm/dL (11.4-16.0); Lymphocytes # (A) 2.6 k/uL (1.0-4.8); Lymphocytes % (A) 16 %; MCH 32.2 pg (25.0-35.0); MCHC 32.7 g/dL (31.0-37.0); MCV 98.3 fL (80.0-100.0); Macrocytosis Slight; Monocytes # (A) 1.4 k/uL (0-1.0); Monocytes % (A) 8 %; Neutrophils # (A) 12.3 k/uL (1.3-7.7); Neutrophils % (A) 74 %; Platelet Count 192 k/uL (150-450); RBC 2.72 m/uL (3.80-5.40); RDW 17.6 % (11.5-15.5); WBC 16.6 k/uL (3.8-10.6)
[2023-07-19 07:00] LABS: African American GFR (CKD) 33 (>60 ml/min/1.73 sqM); Anion Gap 7 mmol/L; Blood Urea Nitrogen 25 mg/dL (7-17); Calcium 7.2 mg/dL (8.4-10.2); Carbon Dioxide 17 mmol/L (22-30); Chloride 114 mmol/L (98-107); Glucose 161 mg/dL (74-99); Non-African American GFR(CKD) 28 (>60 ml/min/1.73 sqM); Potassium 4.9 mmol/L (3.5-5.1); Sodium 138 mmol/L (137-145)
[2023-07-19 09:00] LABS: ABG Base Excess -5.2 mmol/L; ABG HCO3 20 mmol/L (21-25); ABG PCO2 37 mmHg (35-45); ABG PH 7.35 (7.35-7.45); ABG PO2 102 mmHg (83-108); ABG TCO2 22 mmol/L (19-24); Allen Test Performed? Yes
--- NOTE | 2023-07-19 10:45 | P.PN ---
Subjective Progress Note Date: 07/19/23 Principal diagnosis: Critical limb ischemia Patient is seen and examined today in the ICU. Patient reportedly had become more confused throughout the night. She is currently quite withdrawn. She is not following any commands. She has not 6 speaking or answering any questions. She did have a CT of the brain yesterday with no acute findings.She remains on pressors. She did receive 2 units of blood and fluid bolus yesterday. Today's labs WBC 16.6 hemoglobin 8.7 platelet count 192,000. Heparin drip had been on hold for elevated PTT of 115 through the night. Sodium 138 potassium 4.9 BUN 25 creatinine 1.7. Patient has had reported decreased urine output. Nephrology consulted. Dressing was reinforced to the right lower extremity through the night. Objective - Vital Signs Vital signs: Vital Signs Temp 100.9 F H 07/19/23 04:00 Pulse 92 07/19/23 06:15 Resp 22 07/19/23 06:15 BP 104/64 07/18/23 19:00 Pulse Ox 100 07/19/23 06:15 FiO2 Intake & Output 07/18/23 07/19/23 07/19/23 18:59 06:59 18:59 Intake Total 5073.279 1141.548 Output Total 295 101 Balance 4778.279 1040.548 Weight 100.2 kg Intake: IV 3850 863 Dextrose 5% in Water 1, 450 000 ml @ 75 mls/hr IV . [id number] [facility] with Sodium Bicarb (1 Meq/ml) 150 ml Rx#:[id number] Pressure Bag 33 Sodium Chloride 0.9% 1, 750 380 000 ml @ 75 mls/hr IV . [id number] [facility] Rx#:[id number] Sodium Chloride 0.9% 1, 1000 000 ml @ 999 mls/hr IV . Q1H1M [facility] Rx#:[id number] Sodium Chloride 0.9% 1, 1000 000 ml @ 999 mls/hr IV . Q1H1M [facility] Rx#:[id number] Sodium Chloride 0.9% 1, 1000 000 ml @ 999 mls/hr IV . Q1H1M [facility] Rx#:[id number] ceFAZolin 2 gm In Sodium 100 Chloride 0.9% 50 ml @ 100 mls/hr IVPB Q8H [facility] Rx#: [id number] Intake, IV Titration 603.279 278.548 Amount Diltiazem 125 mg In 1.333 Sodium Chloride 0.9% 100 ml @ 5 MG/HR 5 mls/hr IV .Q24H [facility] Rx#:[id number] Heparin Sod,Pork in 0.45% 297.741 76.473 NaCl 25,000 unit In 0.45 % NaCl 1 250ml.bag @ 18 UNITS/KG/HR 17.962 mls/hr IV .[id number] [facility] Rx#: [id number] Norepinephrine 4 mg In 305.538 200.742 Sodium Chloride 0.9% 250 ml @ 0.03 MCG/KG/MIN 11. 453 mls/hr IV .[id number] [facility] Rx#:[id number] Blood Product 620 Rc As-1 Unit 310 [id number] Rc As-1 Unit 310 [id number] Output: Urine 295 101 Other: Voiding Method Indwelling Catheter Indwelling Catheter ABP, PAP, CO, CI - Last Documented Arterial Blood Pressure 123/42 - Exam General appearance: The patient is drowsy/fatigued, does awake to her name, otherwise nonresponsive. HET: Head is normocephalic and atraumatic. Pupils are equal and reactive. Neck: Supple. Heart: Irregular. Lungs: Equal expansion, normal respiratory effort. Abdomen: Soft, nontender, nondistended. Extremities: Right leg with dressing with serosanguineous drainage. Dressing change fasciotomy sites bilateral sides with swelling, pink. No active bleeding, serosanguineous drainage. lower extremity swelling, pedal edema. Foot cool to touch and pale. PT Doppler signal present. Neurological: Patient is appears obtunded, will open her eyes to her name however no other interaction. Patient is not speaking, not following any commands. - Labs CBC & Chem 7: 07/19/23 06:09 07/19/23 06:09 Labs: Abnormal Lab Results - Last 24 Hours (Table) 07/18/23 07/18/23 07/18/23 Range/Units 06:45 06:45 06:45 WBC 12.8 H (3.8-10.6) k/uL RBC 3.45 L (3.80-5.40) m/uL Hgb (11.4-16.0) gm/dL Hct (34.0-46.0) % MCV 114.0 H D (80.0-100.0) fL MCHC 29.9 L (31.0-37.0) g/dL RDW (11.5-15.5) % Neutrophils # 10.8 H (1.3-7.7) k/uL Monocytes # (0-1.0) k/uL Macrocytosis Marked A APTT >200.0 H* (22.0-30.0) sec ABG pH (7.35-7.45) ABG pCO2 (35-45) mmHg ABG pO2 (83-108) mmHg ABG HCO3 (21-25) mmol/L ABG Total CO2 (19-24) mmol/L ABG O2 Saturation (94-97) % Chloride 114 H (98-107) mmol/L Carbon Dioxide 13 L (22-30) mmol/L BUN (7-17) mg/dL Creatinine (0.52-1.04) mg/dL Glucose 143 H (74-99) mg/dL POC Glucose (mg/dL) (70-110) mg/dL Calcium (8.4-10.2) mg/dL Crossmatch 07/18/23 07/18/23 07/18/23 Range/Units 12:25 13:37 14:45 WBC 15.1 H (3.8-10.6) k/uL RBC 2.41 L (3.80-5.40) m/uL Hgb 8.0 L D (11.4-16.0) gm/dL Hct 25.3 L (34.0-46.0) % MCV 105.0 H D (80.0-100.0) fL MCHC (31.0-37.0) g/dL RDW (11.5-15.5) % Neutrophils # (1.3-7.7) k/uL Monocytes # (0-1.0) k/uL Macrocytosis APTT (22.0-30.0) sec ABG pH 7.30 L (7.35-7.45) ABG pCO2 31 L (35-45) mmHg ABG pO2 230 H (83-108) mmHg ABG HCO3 15 L (21-25) mmol/L ABG Total CO2 16 L (19-24) mmol/L ABG O2 Saturation 99.6 H (94-97) % Chloride (98-107) mmol/L Carbon Dioxide (22-30) mmol/L BUN (7-17) mg/dL Creatinine (0.52-1.04) mg/dL Glucose (74-99) mg/dL POC Glucose (mg/dL) (70-110) mg/dL Calcium (8.4-10.2) mg/dL Crossmatch See Detail 07/18/23 07/18/23 07/18/23 Range/Units 16:51 17:42 22:00 WBC 15.7 H (3.8-10.6) k/uL RBC 3.45 L (3.80-5.40) m/uL Hgb 10.9 L (11.4-16.0) gm/dL Hct (34.0-46.0) % MCV (80.0-100.0) fL MCHC (31.0-37.0) g/dL RDW 16.7 H (11.5-15.5) % Neutrophils # 12.6 H (1.3-7.7) k/uL Monocytes # 1.3 H (0-1.0) k/uL Macrocytosis APTT 185.3 H* (22.0-30.0) sec ABG pH 7.33 L (7.35-7.45) ABG pCO2 32 L (35-45) mmHg ABG pO2 116 H (83-108) mmHg ABG HCO3 17 L (21-25) mmol/L ABG Total CO2 18 L (19-24) mmol/L ABG O2 Saturation 98.0 H (94-97) % Chloride (98-107) mmol/L Carbon Dioxide (22-30) mmol/L BUN (7-17) mg/dL Creatinine (0.52-1.04) mg/dL Glucose (74-99) mg/dL POC Glucose (mg/dL) (70-110) mg/dL Calcium (8.4-10.2) mg/dL Crossmatch 07/19/23 07/19/23 07/19/23 Range/Units 00:32 00:32 00:32 WBC 15.9 H (3.8-10.6) k/uL RBC 2.86 L (3.80-5.40) m/uL Hgb 9.5 L (11.4-16.0) gm/dL Hct 28.1 L (34.0-46.0) % MCV (80.0-100.0) fL MCHC (31.0-37.0) g/dL RDW 17.8 H (11.5-15.5) % Neutrophils # (1.3-7.7) k/uL Monocytes # (0-1.0) k/uL Macrocytosis APTT 115.1 H* (22.0-30.0) sec ABG pH (7.35-7.45) ABG pCO2 (35-45) mmHg ABG pO2 (83-108) mmHg ABG HCO3 (21-25) mmol/L ABG Total CO2 (19-24) mmol/L ABG O2 Saturation (94-97) % Chloride 116 H (98-107) mmol/L Carbon Dioxide 13 L (22-30) mmol/L BUN 21 H (7-17) mg/dL Creatinine 1.39 H (0.52-1.04) mg/dL Glucose 147 H (74-99) mg/dL POC Glucose (mg/dL) (70-110) mg/dL Calcium 7.1 L (8.4-10.2) mg/dL Crossmatch 07/19/23 07/19/23 07/19/23 Range/Units 06:09 06:09 06:12 WBC 16.6 H (3.8-10.6) k/uL RBC 2.72 L (3.80-5.40) m/uL Hgb 8.7 L (11.4-16.0) gm/dL Hct 26.7 L (34.0-46.0) % MCV (80.0-100.0) fL MCHC (31.0-37.0) g/dL RDW 17.6 H (11.5-15.5) % Neutrophils # 12.3 H (1.3-7.7) k/uL Monocytes # 1.4 H (0-1.0) k/uL Macrocytosis APTT (22.0-30.0) sec ABG pH (7.35-7.45) ABG pCO2 (35-45) mmHg ABG pO2 (83-108) mmHg ABG HCO3 (21-25) mmol/L ABG Total CO2 (19-24) mmol/L ABG O2 Saturation (94-97) % Chloride 114 H (98-107) mmol/L Carbon Dioxide 17 L (22-30) mmol/L BUN 25 H (7-17) mg/dL Creatinine 1.70 H (0.52-1.04) mg/dL Glucose 161 H (74-99) mg/dL POC Glucose (mg/dL) 192 H (70-110) mg/dL Calcium 7.2 L (8.4-10.2) mg/dL Crossmatch Assessment and Plan Assessment: 1. Postop day #1 for open thrombectomy of right common femoral, profunda, supe rficial femoral and popliteal artery, open thrombectomy of right anterior tibial and posterior tibial arteries, right tibial peroneal trunk endarterectomy with patch angioplasty 2. Postop day #1 for right lower extremity 4 compartment fasciotomy 3. Acute right lower extremity critical limb ischemia 4. Acute right common femoral, profunda, superficial femoral, popliteal and tibial artery thrombosis 5. New onset atrial fibrillation 6. Morbid obesity Plan: 1. Continue symptomatic and supportive care 2. Daily CBC 3. Daily dressing change, 4 x 4, Kerlix, ABD pad, Kerlix with Gael wrap 4. Consult nephrology for acute kidney injury 5. Date to be determined for closure of fasciotomy 6. Rest of medical management per primary medical team and ICU Thank you for this consultation, we will continue to follow. The impression and plan of care has been dictated as directed. Dr. Tuttle I performed a history and examination of this patient, discussed the same with the dictator. I agree with the dictator's note ,documented as a scribe. Any additional findings or plans will be noted.
--- NOTE | 2023-07-19 11:38 | P.PN ---
Subjective Progress Note Date: 07/19/23 Principal diagnosis: Peripheral artery disease. I am seeing this patient in new consultation today 07/18/2023 in the intensive care unit after she just returned from OR after undergoing an open thrombectomy of the right femoral, popliteal, and tibial arteries; right tibioperoneal trunk endarterectomy with patch angioplasty; right lower extremity compartment fasciotomy; and selective right lower extremity angiogram. Patient is a 82-year-old white female with past medical history significant for hypertension, chronic left lower extremity wound, GERD. Patient is currently drowsy and a poor historian. She is oriented to self and place. She follows simple commands. No family is present, and history is taken from the medical record. She apparently presented to the emergency room yesterday evening complaining of severe right lower extremity pain and limited mobility of her leg/foot. This was first noticed, when she was up walking to the bathroom, and fell on her right knee. On arrival to the emergency room late last night, a CT angiogram of her lower extremities identified an occlusion of the mid right common femoral artery above the bifurcation. There was also a short segment of occlusion of the common trunk of the left peroneal and posterior tibial artery which are reconstituted near their proximal portions and appear to remain patent as is the anterior tibial artery to the left ankle. The patient underwent emergent revascularization, including the above-mentioned procedure. Postoperative CBC: WBC count 8.1, hemoglobin 12.2, hematocrit 37.5, platelets 120. There is a 3 g drop in the patient's hemoglobin. Preoperative BMP Includes: Sodium 138, pota ssium 4.2, chloride 109, serum bicarb 15, BUN 14, creatinine 0.67, glucose 116. Normal saline is infusing at 75 mL/h. Lactic acid level elevated at 4.5 and is down to 1.3. Overall, vital signs are stable. She is currently sitting up in bed, on 2 L/min nasal cannula, and no acute distress. SPO2 is 99%. Blood pressure is normotensive. Heart rhythm is atrial fibrillation with controlled ventricular rate. I am told that she has not past history of atrial fibrillation. Currently on heparin infusion per vascular surgery recommendations. Right lower extremity is cold and remains pulses. The lower extremity fasciotomy site is wrapped in tim bandage, and has small amount of sanguineous drainage. There is a wound vac to the right femoral site. She is currently being settled in the intensive care unit. Progress note dated July 19, 2023. 82-year-old female seen in consultation yesterday. Please see the note above. The patient came to the intensive care unit, from the operating room, status post open thrombectomy of the right femoral-popliteal and tibial arteries, as well as right tibial peroneal trunk endarterectomy with patch angioplasty, and right lower extremity compartment fasciotomy. The patient had lines placed yesterday, including a left femoral vein triple-lumen catheter, and a left femoral arterial line. Currently, the patient is seen today in room 257. She had blood gases yesterday showing a pO2 of 116, pCO2 of 32, pH is 7.33. Blood gases done this morning, on 3 L, show pO2 102, pCO2 37, pH is 7.35. The patient had a brain CT, which was negative. She continues on 3 L of oxygen. She is also getting a sodium bicarbonate drip with 3 ampoules of sodium bicarb in D5W at 75 cc an hour, heparin via weight-based protocol, Cardizem drip at 5 mg an hour, norepinephrine at 8 mcg/min. Labs include a white count 16.6, hemoglobin 8.7, hematocrit 26.7, and a platelet count of 192,000. PTT is 49.5. Sodium 138, potassium 4.9, chlorides 114, CO2 17, anion gap normal. BUN 25, creatinine 1.70. Calcium 7.2. Objective - Vital Signs Vital signs: Vital Signs Temp 100.4 F H 07/19/23 08:00 Pulse 105 H 07/19/23 11:00 Resp 16 07/19/23 10:30 BP 110/38 07/19/23 11:00 Pulse Ox 97 07/19/23 11:00 FiO2 Intake & Output 07/18/23 07/19/23 07/19/23 18:59 06:59 18:59 Intake Total 5073.279 1114.826 644 Output Total 295 101 50 Balance 4778.279 1013.826 594 Weight 100.2 kg Intake: IV 3850 863 390 Dextrose 5% in Water 1, 450 375 000 ml @ 75 mls/hr IV . [id number] [facility] with Sodium Bicarb (1 Meq/ml) 150 ml Rx#:[id number] Pressure Bag 33 15 Sodium Chloride 0.9% 1, 750 380 000 ml @ 75 mls/hr IV . [id number] [facility] Rx#:[id number] Sodium Chloride 0.9% 1, 1000 000 ml @ 999 mls/hr IV . Q1H1M [facility] Rx#:[id number] Sodium Chloride 0.9% 1, 1000 000 ml @ 999 mls/hr IV . Q1H1M [facility] Rx#:[id number] Sodium Chloride 0.9% 1, 1000 000 ml @ 999 mls/hr IV . Q1H1M [facility] Rx#:[id number] ceFAZolin 2 gm In Sodium 100 Chloride 0.9% 50 ml @ 100 mls/hr IVPB Q8H [facility] Rx#: [id number] Intake, IV Titration 603.279 251.826 254 Amount Diltiazem 125 mg In 1.333 Sodium Chloride 0.9% 100 ml @ 5 MG/HR 5 mls/hr IV .Q24H [facility] Rx#:[id number] Heparin Sod,Pork in 0.45% 297.741 76.473 NaCl 25,000 unit In 0.45 % NaCl 1 250ml.bag @ 18 UNITS/KG/HR 17.962 mls/hr IV .[id number] [facility] Rx#: [id number] Norepinephrine 4 mg In 305.538 174.020 254 Sodium Chloride 0.9% 250 ml @ 0.03 MCG/KG/MIN 11. 453 mls/hr IV .[id number] [facility] Rx#:[id number] Blood Product 620 Rc As-1 Unit 310 [id number] Rc As-1 Unit 310 [id number] Output: Urine 295 101 50 Other: Voiding Method Indwelling Catheter Indwelling Catheter Indwelling Catheter ABP, PAP, CO, CI - Last Documented Arterial Blood Pressure 138/48 - Exam No acute distress, intermittently confused. Currently on 3 L. No respiratory distress. HEENT examination is grossly unremarkable. Mucous membranes are dry. Neck supple. Full range of motion. No adenopathy thyromegaly or neck vein distention. Cardiovascular examination reveals regular rhythm rate. S1-S2 normal. No S3 or S4. No discernible murmur noted. Heart rate 105 bpm. Lungs reveal mostly clear breath sounds. Minimal scattered rhonchi. No wheezes or crackles. Breath sounds are equal bilaterally. Saturations are 97%. Abdomen soft without bowel sounds. No masses or tenderness. Extremities are intact. No cyanosis or clubbing. Diffuse edema is noted. Skin is without rash or lesion. Neurologic examination is brief but nonfocal. - Labs CBC & Chem 7: 07/19/23 06:09 07/19/23 06:09 Labs: Abnormal Lab Results - Last 24 Hours (Table) 07/18/23 07/18/23 07/18/23 Range/Units 12:25 13:37 14:45 WBC 15.1 H (3.8-10.6) k/uL RBC 2.41 L (3.80-5.40) m/uL Hgb 8.0 L D (11.4-16.0) gm/dL Hct 25.3 L (34.0-46.0) % MCV 105.0 H D (80.0-100.0) fL RDW (11.5-15.5) % Neutrophils # (1.3-7.7) k/uL Monocytes # (0-1.0) k/uL APTT (22.0-30.0) sec ABG pH 7.30 L (7.35-7.45) ABG pCO2 31 L (35-45) mmHg ABG pO2 230 H (83-108) mmHg ABG HCO3 15 L (21-25) mmol/L ABG Total CO2 16 L (19-24) mmol/L ABG O2 Saturation 99.6 H (94-97) % Chloride (98-107) mmol/L Carbon Dioxide (22-30) mmol/L BUN (7-17) mg/dL Creatinine (0.52-1.04) mg/dL Glucose (74-99) mg/dL POC Glucose (mg/dL) (70-110) mg/dL Calcium (8.4-10.2) mg/dL Crossmatch See Detail 07/18/23 07/18/23 07/18/23 Range/Units 16:51 17:42 22:00 WBC 15.7 H (3.8-10.6) k/uL RBC 3.45 L (3.80-5.40) m/uL Hgb 10.9 L (11.4-16.0) gm/dL Hct (34.0-46.0) % MCV (80.0-100.0) fL RDW 16.7 H (11.5-15.5) % Neutrophils # 12.6 H (1.3-7.7) k/uL Monocytes # 1.3 H (0-1.0) k/uL APTT 185.3 H* (22.0-30.0) sec ABG pH 7.33 L (7.35-7.45) ABG pCO2 32 L (35-45) mmHg ABG pO2 116 H (83-108) mmHg ABG HCO3 17 L (21-25) mmol/L ABG Total CO2 18 L (19-24) mmol/L ABG O2 Saturation 98.0 H (94-97) % Chloride (98-107) mmol/L Carbon Dioxide (22-30) mmol/L BUN (7-17) mg/dL Creatinine (0.52-1.04) mg/dL Glucose (74-99) mg/dL POC Glucose (mg/dL) (70-110) mg/dL Calcium (8.4-10.2) mg/dL Crossmatch 07/19/23 07/19/23 07/19/23 Range/Units 00:32 00:32 00:32 WBC 15.9 H (3.8-10.6) k/uL RBC 2.86 L (3.80-5.40) m/uL Hgb 9.5 L (11.4-16.0) gm/dL Hct 28.1 L (34.0-46.0) % MCV (80.0-100.0) fL RDW 17.8 H (11.5-15.5) % Neutrophils # (1.3-7.7) k/uL Monocytes # (0-1.0) k/uL APTT 115.1 H* (22.0-30.0) sec ABG pH (7.35-7.45) ABG pCO2 (35-45) mmHg ABG pO2 (83-108) mmHg ABG HCO3 (21-25) mmol/L ABG Total CO2 (19-24) mmol/L ABG O2 Saturation (94-97) % Chloride 116 H (98-107) mmol/L Carbon Dioxide 13 L (22-30) mmol/L BUN 21 H (7-17) mg/dL Creatinine 1.39 H (0.52-1.04) mg/dL Glucose 147 H (74-99) mg/dL POC Glucose (mg/dL) (70-110) mg/dL Calcium 7.1 L (8.4-10.2) mg/dL Crossmatch 07/19/23 07/19/23 07/19/23 Range/Units 06:09 06:09 06:12 WBC 16.6 H (3.8-10.6) k/uL RBC 2.72 L (3.80-5.40) m/uL Hgb 8.7 L (11.4-16.0) gm/dL Hct 26.7 L (34.0-46.0) % MCV (80.0-100.0) fL RDW 17.6 H (11.5-15.5) % Neutrophils # 12.3 H (1.3-7.7) k/uL Monocytes # 1.4 H (0-1.0) k/uL APTT (22.0-30.0) sec ABG pH (7.35-7.45) ABG pCO2 (35-45) mmHg ABG pO2 (83-108) mmHg ABG HCO3 (21-25) mmol/L ABG Total CO2 (19-24) mmol/L ABG O2 Saturation (94-97) % Chloride 114 H (98-107) mmol/L Carbon Dioxide 17 L (22-30) mmol/L BUN 25 H (7-17) mg/dL Creatinine 1.70 H (0.52-1.04) mg/dL Glucose 161 H (74-99) mg/dL POC Glucose (mg/dL) 192 H (70-110) mg/dL Calcium 7.2 L (8.4-10.2) mg/dL Crossmatch 07/19/23 07/19/23 Range/Units 07:45 08:57 WBC (3.8-10.6) k/uL RBC (3.80-5.40) m/uL Hgb (11.4-16.0) gm/dL Hct (34.0-46.0) % MCV (80.0-100.0) fL RDW (11.5-15.5) % Neutrophils # (1.3-7.7) k/uL Monocytes # (0-1.0) k/uL APTT 49.5 H (22.0-30.0) sec ABG pH (7.35-7.45) ABG pCO2 (35-45) mmHg ABG pO2 (83-108) mmHg ABG HCO3 20 L (21-25) mmol/L ABG Total CO2 (19-24) mmol/L ABG O2 Saturation 98.0 H (94-97) % Chloride (98-107) mmol/L Carbon Dioxide (22-30) mmol/L BUN (7-17) mg/dL Creatinine (0.52-1.04) mg/dL Glucose (74-99) mg/dL POC Glucose (mg/dL) (70-110) mg/dL Calcium (8.4-10.2) mg/dL Crossmatch Assessment and Plan Assessment: Critical limb ischemia of the right lower extremity, status postoperative day #1 following an open thrombectomy of the right femoral, popliteal, and tibial arteries; right tibioperoneal trunk endarterectomy with patch angioplasty; right lower extremity compartment fasciotomy; and selective right lower extremity angiogram. New onset atrial fibrillation, with controlled ventricular rate. Lactic acidosis, improved. History of hypertension. Peripheral arterial disease. History of GERD, without esophagitis. History of chronic left leg wound. Chronic ongoing tobacco dependence. Obesity, with a BMI of 33.5 kg/m. Plan: Plan dated July 19, 2023. The patient had blood gases yesterday, and repeat blood gases this morning. PO2 is 102, pCO2 is 37, pH is 7.35. The patient had an art line yesterday placed as well as a triple-lumen catheter. The patient is currently on a sodium bicarbonate drip, at 75 cc an hour. She is also receiving IV heparin, Cardizem at 5 mg an hour, and norepinephrine at 8 mcg/min. Labs, x-rays, and medications are reviewed. The patient's overall prognosis remains very guarded. Although the patient does not need intubation currently, the patient may require intubation in the future. Repeat blood gases, or stable. Her respiratory status at this time is reasonably stable. We will continue to follow the patient closely, and make recommendations where appropriate. Time with Patient: Greater than 30
--- NOTE | 2023-07-19 12:19 | P.NPCON ---
History of Present Illness - Reason for Consult metabolic acidosis - History of Present Illness patient is an 82-year-old female with history of hypertension who was admitted to the hospital with increased weakness and status post fall. She underwent open thrombectomy of the right femoral popliteal and tibial arteries with endarterectomy and patch angioplasty and right lower extremity compartment fasciotomy. Lower extremity angiogram was also performed. Patient is currently in the ICU she has been lethargic. Currently maintained on Cardizem drip for A. fib with RVR Patient is also maintained on IV heparin. Patient received 4 L of fluid bolus on initial admission. She is currently maintained on bicarb drip. Lactic acid level was elevated at 4.5 and is now down to 1.3 patient has been acidotic with CO2 staying at 15-13 and increased to 17 today Serum creatinine increase from 0.6 yesterday to 1.7 today. Urine output has been low at 0- 5 mL an hour patient has been hypotensive and maintained on levo fed Review of Systems as per HPI Past Medical History Past Medical History: GERD/Reflux, Hypertension, Vascular Disorder Additional Past Medical History / Comment(s): wound lt leg, back pain, scolosis, sciatica History of Any Multi-Drug Resistant Organisms: None Reported Past Surgical History: Hernia Repair Additional Past Surgical History / Comment(s): vein stripping lt leg, faschiotiomy and thrombectomy LLE Past Anesthesia/Blood Transfusion Reactions: No Reported Reaction Past Psychological History: No Psychological Hx Reported Smoking Status: Current every day smoker Past Alcohol Use History: Daily Additional Past Alcohol Use History / Comment(s): 2 glasses o0f wine daily, current every day smoker Past Drug Use History: None Reported - Past Family History Mother Family Medical History: No Reported History Father Family Medical History: Coronary Artery Disease (CAD), Vascular Disorder Medications and Allergies Home Medications Medication Instructions Recorded Confirmed Type Metoprolol Tartrate [Lopressor] 100 mg PO BID 04/28/16 07/18/23 History Omeprazole 20 mg PO DAILY 04/28/16 07/18/23 History busPIRone HCL 15 mg PO BID 07/18/23 07/18/23 History Allergies Allergy/AdvReac Type Severity Reaction Status Date / Time sulfamethoxazole Allergy Rash/Hives Verified 07/18/23 09:31 [From Bactrim] trimethoprim [From Bactrim] Allergy Rash/Hives Verified 07/18/23 09:31 Physical Exam Vitals: Vital Signs Temp Pulse Resp BP Pulse Ox 07/19/23 12:00 100 F H 108 H 17 116/57 97 07/19/23 11:45 105 H 56 H 110/38 97 07/19/23 11:30 115 H 28 H 110/38 97 07/19/23 11:15 106 H 28 H 110/38 96 07/19/23 11:00 105 H 110/38 97 07/19/23 10:45 100 110/38 97 07/19/23 10:30 110 H 16 110/38 97 07/19/23 10:15 100 18 110/38 97 07/19/23 10:00 103 H 12 97 07/19/23 09:45 96 17 98 07/19/23 09:30 101 H 16 98 07/19/23 09:15 101 H 16 110/38 98 07/19/23 09:00 98 17 110/38 96 07/19/23 08:45 101 H 17 110/38 98 07/19/23 08:30 94 15 110/38 98 07/19/23 08:15 117 H 14 110/38 07/19/23 08:00 100.4 F H 92 15 110/38 95 07/19/23 07:45 105 H 15 100 07/19/23 07:30 93 16 110/38 100 07/19/23 07:15 96 17 110/38 100 07/19/23 07:00 94 20 110/38 100 07/19/23 06:45 93 16 110/38 100 07/19/23 06:30 114 H 5 L 110/38 98 07/19/23 06:15 92 22 100 07/19/23 06:00 97 17 100 07/19/23 05:45 80 17 100 07/19/23 05:30 98 16 100 07/19/23 05:15 95 16 100 07/19/23 05:00 98 18 100 07/19/23 04:45 93 13 100 07/19/23 04:30 99 13 100 07/19/23 04:15 114 H 16 100 07/19/23 04:00 100.9 F H 101 H 17 100 07/19/23 03:45 97 15 100 07/19/23 03:30 92 18 100 07/19/23 03:15 98 19 100 04/02/24 03:00 93 18 99 07/19/23 02:45 94 20 98 07/19/23 02:30 94 20 99 07/19/23 02:15 93 17 100 07/19/23 02:00 89 21 99 07/19/23 01:45 85 21 100 07/19/23 01:30 93 17 100 07/19/23 01:15 80 11 L 100 07/19/23 01:00 105 H 17 100 07/19/23 00:45 96 18 97 07/19/23 00:30 104 H 10 L 98 07/19/23 00:15 100.0 F H 93 16 100 07/19/23 00:00 99 13 99 07/18/23 23:30 106 H 14 98 07/18/23 23:15 112 H 18 100 07/18/23 23:00 122 H 15 100 07/18/23 22:47 90 20 100 07/18/23 22:45 100 23 100 07/18/23 22:30 109 H 16 100 07/18/23 22:15 101 H 16 99 07/18/23 22:00 98 21 99 07/18/23 21:45 98 24 100 07/18/23 21:30 103 H 21 96 07/18/23 21:15 90 21 94 L 07/18/23 21:00 91 18 99 07/18/23 20:45 111 H 14 96 07/18/23 20:30 100 19 97 07/18/23 20:15 92 28 H 96 07/18/23 20:00 98.4 F 93 14 98 07/18/23 19:45 82 23 100 07/18/23 19:30 83 19 100 07/18/23 19:15 90 13 99 07/18/23 19:00 129 H 22 104/64 98 07/18/23 18:00 113 H 17 104/64 98 07/18/23 17:03 100 F H 106 H 16 155/64 07/18/23 17:00 113 H 13 104/64 94 L 07/18/23 16:54 99.1 F 94 19 157/61 99 07/18/23 16:34 99.2 F 108 H 23 152/64 97 07/18/23 16:24 99.4 F 113 H 17 137/65 98 07/18/23 16:00 99 13 98 07/18/23 15:56 99.0 F 99 20 131/66 99 07/18/23 15:09 98.4 F 112 H 14 123/69 99 07/18/23 15:00 105 H 21 103/68 100 07/18/23 14:49 98.4 F 103 H 21 124/68 99 07/18/23 14:39 97.5 F L 118 H 20 116/61 96 07/18/23 14:00 98 25 H 95 07/18/23 13:00 101 H 18 80/38 99 Intake and Output 07/18/23 07/19/23 07/19/23 22:59 06:59 14:59 Intake Total 1452.751 741.821 740.076 Output Total 196 50 50 Balance 1256.751 691.821 690.076 Intake: IV 609 554 390 Dextrose 5% in Water 1, 450 375 000 ml @ 75 mls/hr IV . [id number] [facility] with Sodium Bicarb (1 Meq/ml) 150 ml Rx#:[id number] Pressure Bag 9 24 15 Sodium Chloride 0.9% 1, 600 80 000 ml @ 75 mls/hr IV . [id number] [facility] Rx#:[id number] Intake, IV Titration 223.751 187.821 350.076 Amount Diltiazem 125 mg In 1.333 Sodium Chloride 0.9% 100 ml @ 5 MG/HR 5 mls/hr IV .Q24H [facility] Rx#:[id number] Heparin Sod,Pork in 0.45% 66.595 76.473 NaCl 25,000 unit In 0.45 % NaCl 1 250ml.bag @ 18 UNITS/KG/HR 17.962 mls/hr IV .[id number] [facility] Rx#: [id number] Norepinephrine 4 mg In 155.823 111.348 350.076 Sodium Chloride 0.9% 250 ml @ 0.03 MCG/KG/MIN 11. 453 mls/hr IV .[id number] [facility] Rx#:[id number] Blood Product 620 Rc As-1 Unit 310 [id number] Rc As-1 Unit 310 [id number] Output: Urine 196 50 50 Other: Voiding Method Indwelling Catheter Indwelling Catheter Indwelling Catheter ABP, PAP, CO, CI - Last 8 Hours Arterial Blood Pressure 116/40 Arterial Blood Pressure 135/44 Arterial Blood Pressure 103/39 Arterial Blood Pressure 130/42 Arterial Blood Pressure 138/48 Arterial Blood Pressure 142/46 Arterial Blood Pressure 145/49 Arterial Blood Pressure 133/42 Arterial Blood Pressure 134/46 Arterial Blood Pressure 122/42 Arterial Blood Pressure 113/40 Arterial Blood Pressure 114/41 Arterial Blood Pressure 125/43 Arterial Blood Pressure 109/41 Arterial Blood Pressure 115/41 Arterial Blood Pressure 139/55 Arterial Blood Pressure 113/41 Arterial Blood Pressure 113/41 Arterial Blood Pressure 127/50 Arterial Blood Pressure 115/40 Arterial Blood Pressure 115/42 Arterial Blood Pressure 134/49 Arterial Blood Pressure 123/42 Arterial Blood Pressure 116/46 Arterial Blood Pressure 100/43 Arterial Blood Pressure 117/49 Arterial Blood Pressure 124/48 Arterial Blood Pressure 123/49 Arterial Blood Pressure 112/48 Arterial Blood Pressure 114/47 Arterial Blood Pressure 131/55 patient is awake but does not communicate much. Examination of the heart S1 and S2 Examination the lungs bilateral breath sounds are heard decreased breath sounds at the bases Abdomen is soft obese Examination lower extremities shows right lower extremity currently wrapped [employer] exam shows patient is moving all 4 extremities. Results - Lab Results Most recent lab results ABG pH 7.35 (7.35-7.45) 07/19/23 08:57 ABG pCO2 37 mmHg (35-45) 07/19/23 08:57 ABG pO2 102 mmHg (83-108) 07/19/23 08:57 ABG HCO3 20 mmol/L (21-25) L 07/19/23 08:57 ABG O2 Saturation 98.0 % (94-97) H 07/19/23 08:57 Calcium 7.2 mg/dL (8.4-10.2) L 07/19/23 06:09 07/19/23 06:09 07/19/23 06:09 Assessment and Plan Assessment: 1. Acute kidney injury, ATN currently oliguric secondary to hypotension. Patient received IV contrast for CTA on 07/17/2023. No nephrotoxic agents on board currently. 2. Anion gap metabolic acidosis secondary to lactic acidosis and critical limb ischemia, maintained on bicarb drip, improving 3. Critical limb ischemia status post (thrombectomy of right common femoral superficial femoral and popliteal artery with fasciotomy and endarterectomy on 07/18/2023. 4. History of chronic left lower extremity wound 5. New onset A. fib with RVR maintained on Cardizem drip Plan: continue with bicarb drip, increase rate to 100 mL an hour Repeat labs in a.m. Continue to avoid any nephrotoxic agents. check urine analysis Check ultrasound of the kidneys. We will continue to monitor for need for renal replacement therapy. Thank you for the consultation. We will continue to follow the patient with you during her hospitalization.
[2023-07-19 13:13] LABS: Anisocytosis Slight; HCT 23.5 % (34.0-46.0); HGB 7.6 gm/dL (11.4-16.0); MCHC 32.4 g/dL (31.0-37.0); MCV 98.7 fL (80.0-100.0); Macrocytosis Slight; Mean Platelet Volume 8.7; Platelet Count 191 k/uL (150-450); RBC 2.38 m/uL (3.80-5.40); RDW 17.8 % (11.5-15.5); WBC 17.6 k/uL (3.8-10.6)
--- NOTE | 2023-07-19 13:24 | XR ---
EXAMINATION TYPE: XR chest 1V DATE OF EXAM: 07/19/2023 1:15 PM CLINICAL INDICATION:Female, 82 years old with history of chf; COMPARISON: None TECHNIQUE: XR chest 1V Frontal view of the chest. FINDINGS: Lungs/Pleura: There is no evidence of pleural effusion, focal consolidation, or pneumothorax. Pulmonary vascularity: Unremarkable. Heart/mediastinum: Cardiomediastinal silhouette is enlarged and stable. Musculoskeletal: No acute osseous pathology. IMPRESSION: Cardiomegaly without evidence for acute exacerbation.
--- NOTE | 2023-07-19 15:12 | PN ---
PROGRESS NOTE SUBJECTIVE: Pilar is an 82-year-old lady, who is admitted to the hospital with acute limb ischemia, involving the right lower extremity, and we were consulted because of atrial fibrillation. She developed atrial fibrillation with rapid ventricular rate yesterday, and she was started on intravenous Cardizem with improvement in her heart rate. This morning, she appears really confused, on heparin and IV Cardizem. OBJECTIVE: GENERAL: On exam, comfortable at rest. VITAL SIGNS: Heart rate is around 100 beats per minute, blood pressure is 130/ 38, respiratory rate is 18. CHEST: Reveals diminished air entry at the bases. HEART: Reveals first and second heart sounds. Irregular rhythm. ABDOMEN: Soft. EXTREMITIES: Reveal that the right lower extremity is mottled and the dorsalis pedis pulse is not palpable. LABORATORY DATA: Her blood gases showed a pH of 7.3, pCO2 of 37, and pO2 of 102. ASSESSMENT: 1. Persistent atrial fibrillation with poorly controlled ventricular rate. 2. Acute limb ischemia, secondary to thromboembolic phenomenon. PLAN: The patient will continue current medications. I will switch her to an oral anticoagulant when the patient is more alert, and we do not have any plans to do any further surgeries. MMODL / IJN: [id number] /
--- NOTE | 2023-07-19 15:47 | P.PN ---
Subjective Progress Note Date: 07/19/23 H&P Date: 07/19/23 This an 82-year-old female with past medical history of PAD, vein stripping of left leg, chronic left lower extremity wound, hypertension, ongoing nicotine dependence, 2 glasses of wine daily, morbid obesity, gastroesophageal reflux disease, presented to the ER with complaints of sudden onset right knee pain sustaining minor fall, in extreme pain. Son had informed ER that she had been going to the bathroom and developed an abrupt onset of severe right lower extremity pain accompanied by limited mobility of her foot/leg and subsequently fell on her knee. CTA reported occlusion of the mid right common femoral artery above the bifurcation, short segment occlusion of the common trunk of the left peroneal and posterior tibial artery. Status post emergent revascularization. Hypotensive, maintained on IV fluids, Levophed. PTT greater than 200, heparin drip placed on hold, from surgical site, Gael wrap dressing reinforced.hemoglobin 11.8(15.1 on admission), platelets 170. Bicarb 13, BUN 14, creatinine 0.61. MCV 104.8, 114, serum alcohol 19. denies chest pain, palpitations or increased shortness of breath. Maintaining O2 sats in the 90s on 2 L nasal cannula. Afebrile, WBC 12.8. Lactic acid 4.5 on admission, down to 1.3. Receiving prophylactic cefazolin. 07/19/2023 delirium postsurgery, completed Head CT last night reported nonacute. Chest x-ray pending. developed atrial fibrillation with RVR during the night with Cardizem drip initiated. Currently maintained on bicarb, heparin, Cardizem and Levophed drips. Daughter and grandson at bedside, patient's sensorium improving. Tmax 100.5, WBC 16.6, hemoglobin 8.7, platelets 192. Sodium 138, potassium 4.9 ,chloride 114. Renal Function Worsening, bicarb 17, BUN 25, creatinine 1.7. Objective - Vital Signs Vital signs: Vital Signs Temp 100 F H 07/19/23 12:00 Pulse 108 H 07/19/23 12:00 Resp 17 07/19/23 12:00 BP 116/57 07/19/23 12:00 Pulse Ox 97 07/19/23 12:00 FiO2 Intake & Output 07/18/23 07/19/23 07/19/23 18:59 06:59 18:59 Intake Total 5073.279 1114.826 818.076 Output Total 295 101 55 Balance 4778.279 1013.826 763.076 Weight 100.2 kg Intake: IV 3850 863 468 Dextrose 5% in Water 1, 450 450 000 ml @ 75 mls/hr IV . [id number] [facility] with Sodium Bicarb (1 Meq/ml) 150 ml Rx#:[id number] Pressure Bag 33 18 Sodium Chloride 0.9% 1, 750 380 000 ml @ 75 mls/hr IV . [id number] [facility] Rx#:[id number] Sodium Chloride 0.9% 1, 1000 000 ml @ 999 mls/hr IV . Q1H1M [facility] Rx#:[id number] Sodium Chloride 0.9% 1, 1000 000 ml @ 999 mls/hr IV . [facility] Rx#:[id number] Sodium Chloride 0.9% 1, 1000 000 ml @ 999 mls/hr IV . [facility] Rx#:[id number] ceFAZolin 2 gm In Sodium 100 Chloride 0.9% 50 ml @ 100 mls/hr IVPB Q8H [facility] Rx#: [id number] Intake, IV Titration 603.279 251.826 350.076 Amount Diltiazem 125 mg In 1.333 Sodium Chloride 0.9% 100 ml @ 5 MG/HR 5 mls/hr IV .Q24H [facility] Rx#:[id number] Heparin Sod,Pork in 0.45% 297.741 76.473 NaCl 25,000 unit In 0.45 % NaCl 1 250ml.bag @ 18 UNITS/KG/HR 17.962 mls/hr IV .[id number] [facility] Rx#: [id number] Norepinephrine 4 mg In 305.538 174.020 350.076 Sodium Chloride 0.9% 250 ml @ 0.03 MCG/KG/MIN 11. 453 mls/hr IV .[id number] [facility] Rx#:[id number] Blood Product 620 As-1 Unit 310 [id number] Rc As-1 Unit 310 [id number] Output: Urine 295 101 55 Other: Voiding Method Indwelling Catheter Indwelling Catheter Indwelling Catheter ABP, PAP, CO, CI - Last Documented Arterial Blood Pressure 116/40 - Exam PHYSICAL EXAM: VITAL SIGNS: [As above] GENERAL: Elderly obese female, sitting up in bed, alert and oriented x 2, no acute distress HEENT: Normocephalic ,conjunctivae normal. eyes normal. NECK: Supple, no JVD. CARDIOVASCULAR: S1, S2 regular. Irregular rhythm ,systolic murmur. RESPIRATION: Unlabored, equal air entry , mild scattered rhonchi ,breath sounds diminished in the bases. ABDOMEN: Soft, nondistended, nontender . No guarding. Bowel sounds heard. EXTREMITIES: Positive edema, bruising of bilateral upper extremities, left greater than right ,right lower extremity warm, Gael wrapped reinforced with sanguinous drainage,no doppler DP pulse, moves right foot, right groin wound VAC. Left lower extremity, positive DP pulse. PSYCHIATRY: Alert and oriented X3, mood and affect normal. NERVOUS SYSTEM: Cranial N 2-12 grossly normal. No focal deficits. Strength and sensation grossly intact. Skin: Warm and dry, no rash. - Labs CBC & Chem 7: 07/19/23 12:35 07/19/23 06:09 Labs: Abnormal Lab Results - Last 24 Hours (Table) 07/18/23 07/18/23 07/18/23 Range/Units 12:25 13:37 14:45 WBC 15.1 H (3.8-10.6) k/uL RBC 2.41 L (3.80-5.40) m/uL Hgb 8.0 L D (11.4-16.0) gm/dL Hct 25.3 L (34.0-46.0) % MCV 105.0 H D (80.0-100.0) fL RDW (11.5-15.5) % Neutrophils # (1.3-7.7) k/uL Monocytes # (0-1.0) k/uL APTT (22.0-30.0) sec ABG pH 7.30 L (7.35-7.45) ABG pCO2 31 L (35-45) mmHg ABG pO2 230 H (83-108) mmHg ABG HCO3 15 L (21-25) mmol/L ABG Total CO2 16 L (19-24) mmol/L ABG O2 Saturation 99.6 H (94-97) % Chloride (98-107) mmol/L Carbon Dioxide (22-30) mmol/L BUN (7-17) mg/dL Creatinine (0.52-1.04) mg/dL Glucose (74-99) mg/dL POC Glucose (mg/dL) (70-110) mg/dL Calcium (8.4-10.2) mg/dL Crossmatch See Detail 07/18/23 07/18/23 07/18/23 Range/Units 16:51 17:42 22:00 WBC 15.7 H (3.8-10.6) k/uL RBC 3.45 L (3.80-5.40) m/uL Hgb 10.9 L (11.4-16.0) gm/dL Hct (34.0-46.0) % MCV (80.0-100.0) fL RDW 16.7 H (11.5-15.5) % Neutrophils # 12.6 H (1.3-7.7) k/uL Monocytes # 1.3 H (0-1.0) k/uL APTT 185.3 H* (22.0-30.0) sec ABG pH 7.33 L (7.35-7.45) ABG pCO2 32 L (35-45) mmHg ABG pO2 116 H (83-108) mmHg ABG HCO3 17 L (21-25) mmol/L ABG Total CO2 18 L (19-24) mmol/L ABG O2 Saturation 98.0 H (94-97) % Chloride (98-107) mmol/L Carbon Dioxide (22-30) mmol/L BUN (7-17) mg/dL Creatinine (0.52-1.04) mg/dL Glucose (74-99) mg/dL POC Glucose (mg/dL) (70-110) mg/dL Calcium (8.4-10.2) mg/dL Crossmatch 07/19/23 07/19/23 07/19/23 Range/Units 00:32 00:32 00:32 WBC 15.9 H (3.8-10.6) k/uL RBC 2.86 L (3.80-5.40) m/uL Hgb 9.5 L (11.4-16.0) gm/dL Hct 28.1 L (34.0-46.0) % MCV (80.0-100.0) fL RDW 17.8 H (11.5-15.5) % Neutrophils # (1.3-7.7) k/uL Monocytes # (0-1.0) k/uL APTT 115.1 H* (22.0-30.0) sec ABG pH (7.35-7.45) ABG pCO2 (35-45) mmHg ABG pO2 (83-108) mmHg ABG HCO3 (21-25) mmol/L ABG Total CO2 (19-24) mmol/L ABG O2 Saturation (94-97) % Chloride 116 H (98-107) mmol/L Carbon Dioxide 13 L (22-30) mmol/L BUN 21 H (7-17) mg/dL Creatinine 1.39 H (0.52-1.04) mg/dL Glucose 147 H (74-99) mg/dL POC Glucose (mg/dL) (70-110) mg/dL Calcium 7.1 L (8.4-10.2) mg/dL Crossmatch 07/19/23 07/19/23 07/19/23 Range/Units 06:09 06:09 06:12 WBC 16.6 H (3.8-10.6) k/uL RBC 2.72 L (3.80-5.40) m/uL Hgb 8.7 L (11.4-16.0) gm/dL Hct 26.7 L (34.0-46.0) % MCV (80.0-100.0) fL RDW 17.6 H (11.5-15.5) % Neutrophils # 12.3 H (1.3-7.7) k/uL Monocytes # 1.4 H (0-1.0) k/uL APTT (22.0-30.0) sec ABG pH (7.35-7.45) ABG pCO2 (35-45) mmHg ABG pO2 (83-108) mmHg ABG HCO3 (21-25) mmol/L ABG Total CO2 (19-24) mmol/L ABG O2 Saturation (94-97) % Chloride 114 H (98-107) mmol/L Carbon Dioxide 17 L (22-30) mmol/L BUN 25 H (7-17) mg/dL Creatinine 1.70 H (0.52-1.04) mg/dL Glucose 161 H (74-99) mg/dL POC Glucose (mg/dL) 192 H (70-110) mg/dL Calcium 7.2 L (8.4-10.2) mg/dL Crossmatch 07/19/23 07/19/23 Range/Units 07:45 08:57 WBC (3.8-10.6) k/uL RBC (3.80-5.40) m/uL Hgb (11.4-16.0) gm/dL Hct (34.0-46.0) % MCV (80.0-100.0) fL RDW (11.5-15.5) % Neutrophils # (1.3-7.7) k/uL Monocytes # (0-1.0) k/uL APTT 49.5 H (22.0-30.0) sec ABG pH (7.35-7.45) ABG pCO2 (35-45) mmHg ABG pO2 (83-108) mmHg ABG HCO3 20 L (21-25) mmol/L ABG Total CO2 (19-24) mmol/L ABG O2 Saturation 98.0 H (94-97) % Chloride (98-107) mmol/L Carbon Dioxide (22-30) mmol/L BUN (7-17) mg/dL Creatinine (0.52-1.04) mg/dL Glucose (74-99) mg/dL POC Glucose (mg/dL) (70-110) mg/dL Calcium (8.4-10.2) mg/dL Crossmatch Assessment and Plan Assessment: Acute right lower extremity critical limb ischemia, Sveta 2B, acute right common femoral profunda, superficial femoral popliteal and tibial artery thrombosis, status post open thrombectomy of right common femoral, profunda, superficial femoral and popliteal artery, selective right lower extremity angiogram, open thrombectomy of the right anterior tibial and posterior tibial arteries, right tibial peroneal trunk endarterectomy with patch angioplasty, right lower extremity 4 compartment fasciotomy. New onset atrial fibrillation with controlled ventricular rate Acute blood loss anemia, postoperative Lactic acidosis, resolved with IV fluid hydration New onset atrial fibrillation with controlled ventricular rate PAD Chronic left leg wound, followed in the wound care center Morbid obesity, BMI 34 Ongoing nicotine dependence Daily alcohol use, serum alcohol 19 Acute renal failure, ATN secondary to hypotension Anion gap metabolic acidosis, maintained on bicarb drip Plan: Continue on current medication regimen ,monitoring and symptomatic treatment. ICU management as per r programmer. Procalcitonin pending. monitoring of CBC with repeat labs ordered for a.m. multiple consults following. family at bedside, updated. Prognosis guarded. The impression and plan of care has been dictated as directed. : I performed a history and examination of this patient, discussed the same with the dictator. I agree with the dictator's note ,documented as a scribe. Any additional findings or plans will be noted.
[2023-07-19 18:38] LABS: Anisocytosis Slight; HCT 29.3 % (34.0-46.0); MCH 31.5 pg (25.0-35.0); MCHC 33.1 g/dL (31.0-37.0); MCV 95.2 fL (80.0-100.0); Mean Platelet Volume 8.3; Platelet Count 168 k/uL (150-450); RBC 3.08 m/uL (3.80-5.40); RDW 16.1 % (11.5-15.5); WBC 16.9 k/uL (3.8-10.6)
[2023-07-19 18:54] LABS: HGB 9.7 gm/dL (11.4-16.0)
[2023-07-19 21:25] LABS: Appearance,Urine Cloudy (Clear); Bilirubin,Urine Negative (Negative); Blood,Urine Moderate (Negative); Color,Urine Yellow; Glucose,Urine (UA) Trace (Negative); Ketones,Urine Negative (Negative); Leukocyte Esterase,Urine Negative (Negative); Mucus,Urine Rare /hpf; Nitrite,Urine Negative (Negative); Protein,Urine 1+ (Negative); RBC,Urine 2 /hpf (0-5); Specific Gravity,Urine 1.031 (1.001-1.035); Squamous Epithelial Cell,Urine 1 /hpf (0-4); Urobilinogen,Urine <2.0 mg/dL (<2.0); WBC,Urine 7 /hpf (0-5)
[2023-07-19 23:03] LABS: Anisocytosis Slight; Basophils % (A) 0 %; Eosinophils # (A) 0.1 k/uL (0-0.7); Eosinophils % (A) 0 %; HCT 26.1 % (34.0-46.0); HGB 8.8 gm/dL (11.4-16.0); Lymphocytes # (A) 2.2 k/uL (1.0-4.8); Lymphocytes % (A) 14 %; MCH 31.9 pg (25.0-35.0); MCHC 33.7 g/dL (31.0-37.0); MCV 94.4 fL (80.0-100.0); Mean Platelet Volume 8.1; Monocytes # (A) 1.6 k/uL (0-1.0); Monocytes % (A) 10 %; Neutrophils # (A) 11.2 k/uL (1.3-7.7); Neutrophils % (A) 73 %; Platelet Count 150 k/uL (150-450); RBC 2.76 m/uL (3.80-5.40); RDW 16.6 % (11.5-15.5); WBC 15.3 k/uL (3.8-10.6)
[2023-07-20] MEDS: FUROSEMIDE 10 MG/ML 10 ML VIAL IV STA ×2 (00:28→00:34)
[2023-07-20 04:11] LABS: Anisocytosis Slight; Basophils % (A) 0 %; Eosinophils % (A) 0 %; HCT 25.9 % (34.0-46.0); HGB 8.7 gm/dL (11.4-16.0); Lymphocytes # (A) 2.1 k/uL (1.0-4.8); Lymphocytes % (A) 14 %; MCH 31.4 pg (25.0-35.0); MCHC 33.4 g/dL (31.0-37.0); Mean Platelet Volume 8.5; Monocytes # (A) 1.3 k/uL (0-1.0); Monocytes % (A) 9 %; Neutrophils # (A) 11.2 k/uL (1.3-7.7); Neutrophils % (A) 75 %; Platelet Count 146 k/uL (150-450); RBC 2.76 m/uL (3.80-5.40); RDW 16.8 % (11.5-15.5); WBC 14.9 k/uL (3.8-10.6)
[2023-07-20 04:23] LABS: African American GFR (CKD) 31 (>60 ml/min/1.73 sqM); Anion Gap 5 mmol/L; Blood Urea Nitrogen 31 mg/dL (7-17); Calcium 6.8 mg/dL (8.4-10.2); Carbon Dioxide 22 mmol/L (22-30); Chloride 110 mmol/L (98-107); Glucose 147 mg/dL (74-99); Non-African American GFR(CKD) 27 (>60 ml/min/1.73 sqM); Sodium 137 mmol/L (137-145)
[2023-07-20] MEDS: HEPARIN SODIUM 1,000 UN/ML (10ML VL) IV PRN (04:40)
[2023-07-20] MEDS: PIPERACILLIN-TAZOBACTAM 3.375 GM in SODIUM CHLORIDE 0.9% 100 ML IVPB SCH (08:48)
--- NOTE | 2023-07-20 10:35 | P.PN ---
Subjective Progress Note Date: 07/20/23 Principal diagnosis: Peripheral artery disease. I am seeing this patient in new consultation today 07/18/2023 in the intensive care unit after she just returned from OR after undergoing an open thrombectomy of the right femoral, popliteal, and tibial arteries; right tibioperoneal trunk endarterectomy with patch angioplasty; right lower extremity compartment fasciotomy; and selective right lower extremity angiogram. Patient is a 82-year-old white female with past medical history significant for hypertension, chronic left lower extremity wound, GERD. Patient is currently drowsy and a poor historian. She is oriented to self and place. She follows simple commands. No family is present, and history is taken from the medical record. She apparently presented to the emergency room yesterday evening complaining of severe right lower extremity pain and limited mobility of her leg/foot. This was first noticed, when she was up walking to the bathroom, and fell on her right knee. On arrival to the emergency room late last night, a CT angiogram of her lower extremities identified an occlusion of the mid right common femoral artery above the bifurcation. There was also a short segment of occlusion of the common trunk of the left peroneal and posterior tibial artery which are reconstituted near their proximal portions and appear to remain patent as is the anterior tibial artery to the left ankle. The patient underwent emergent revascularization, including the above-mentioned procedure. Postoperative CBC: WBC count 8.1, hemoglobin 12.2, hematocrit 37.5, platelets 120. There is a 3 g drop in the patient's hemoglobin. Preoperative BMP Includes: Sodium 138, pota ssium 4.2, chloride 109, serum bicarb 15, BUN 14, creatinine 0.67, glucose 116. Normal saline is infusing at 75 mL/h. Lactic acid level elevated at 4.5 and is down to 1.3. Overall, vital signs are stable. She is currently sitting up in bed, on 2 L/min nasal cannula, and no acute distress. SPO2 is 99%. Blood pressure is normotensive. Heart rhythm is atrial fibrillation with controlled ventricular rate. I am told that she has not past history of atrial fibrillation. Currently on heparin infusion per vascular surgery recommendations. Right lower extremity is cold and remains pulses. The lower extremity fasciotomy site is wrapped in tim bandage, and has small amount of sanguineous drainage. There is a wound vac to the right femoral site. She is currently being settled in the intensive care unit. Progress note dated July 19, 2023. 82-year-old female seen in consultation yesterday. Please see the note above. The patient came to the intensive care unit, from the operating room, status post open thrombectomy of the right femoral-popliteal and tibial arteries, as well as right tibial peroneal trunk endarterectomy with patch angioplasty, and right lower extremity compartment fasciotomy. The patient had lines placed yesterday, including a left femoral vein triple-lumen catheter, and a left femoral arterial line. Currently, the patient is seen today in room 257. She had blood gases yesterday showing a pO2 of 116, pCO2 of 32, pH is 7.33. Blood gases done this morning, on 3 L, show pO2 102, pCO2 37, pH is 7.35. The patient had a brain CT, which was negative. She continues on 3 L of oxygen. She is also getting a sodium bicarbonate drip with 3 ampoules of sodium bicarb in D5W at 75 cc an hour, heparin via weight-based protocol, Cardizem drip at 5 mg an hour, norepinephrine at 8 mcg/min. Labs include a white count 16.6, hemoglobin 8.7, hematocrit 26.7, and a platelet count of 192,000. PTT is 49.5. Sodium 138, potassium 4.9, chlorides 114, CO2 17, anion gap normal. BUN 25, creatinine 1.70. Calcium 7.2. Progress note dated July 20, 2023. The patient is seen today in room 257. The patient is currently on 3 L of oxygen. She continues on IV heparin via weight-based protocol, Cardizem at 5 mg an hour, norepinephrine at 7 mcg/min, and she is getting a sodium bicarbonate drip, with 3 ampoules of sodium bicarb in D5W at 100 cc an hour. Since she has been here in the ICU she has received a total of 4 units of packed red blood cells. The patient's procalcitonin level was elevated at 0.85. We added Zosyn today. Today's labs include a white count 14.9, hemoglobin 8.7, hematocrit 25.9, and a platelet count of 146,000. PTT is 36. Sodium 137, potassium 4, chlorides 110, CO2 22, anion gap 5, BUN 31, creatinine 1.76. Calcium is 6.8. Chest x-ray shows evidence of only cardiomegaly. Objective - Vital Signs Vital signs: Vital Signs Temp 99.6 F 07/20/23 08:00 Pulse 108 H 07/20/23 10:15 Resp 21 07/20/23 10:15 BP 140/50 07/20/23 09:15 Pulse Ox 96 07/20/23 10:15 FiO2 Intake & Output 07/19/23 07/20/23 07/20/23 18:59 06:59 18:59 Intake Total 2523.542 1796.987 521.033 Output Total 131 1300 390 Balance 2392.542 496.987 131.033 Intake: IV 1086 1399 424 Dextrose 5% in Water 1, 1050 1300 300 000 ml @ 100 mls/hr IV . [id number] [facility] with Sodium Bicarb (1 Meq/ml) 150 ml Rx#:[id number] Diltiazem 125 mg In 60 15 Sodium Chloride 0.9% 100 ml @ 5 MG/HR 5 mls/hr IV .Q24H [facility] Rx#:[id number] Piperacillin-Tazobactam 3 100 .375 gm In Sodium Chloride 0.9% 100 ml @ 25 mls/hr IVPB Q8HR [facility] Rx# :[id number] Pressure Bag 36 39 9 Intake, IV Titration 817.542 397.987 97.033 Amount Diltiazem 125 mg In 93.25 Sodium Chloride 0.9% 100 ml @ 5 MG/HR 5 mls/hr IV .Q24H [facility] Rx#:[id number] Heparin Sod,Pork in 0.45% 99.921 108.037 NaCl 25,000 unit In 0.45 % NaCl 1 250ml.bag @ 18 UNITS/KG/HR 17.962 mls/hr IV .[id number] [facility] Rx#: [id number] Norepinephrine 4 mg In 624.371 289.950 97.033 Sodium Chloride 0.9% 250 ml @ 0.03 MCG/KG/MIN 11. 453 mls/hr IV .T01H72H [facility] Rx#:[id number] Blood Product 620 Rc As-1 Unit 310 [id number] Rc As-1 Unit 310 [id number] Output: Urine 131 1300 390 Other: Voiding Method Indwelling Catheter Indwelling Catheter Indwelling Catheter ABP, PAP, CO, CI - Last Documented Arterial Blood Pressure 137/56 - Exam No acute distress, intermittently confused. Currently on 3 L. No respiratory distress. HEENT examination is grossly unremarkable. Mucous membranes are dry. Neck supple. Full range of motion. No adenopathy thyromegaly or neck vein distention. Cardiovascular examination reveals an irregular rhythm and rate. S1-S2 normal. No S3 or S4. No discernible murmur noted. Heart rate 17 bpm. Lungs reveal mostly clear breath sounds. Minimal scattered rhonchi. No wheezes or crackles. Breath sounds are equal bilaterally. Saturations are 96 %. Abdomen soft without bowel sounds. No masses or tenderness. Extremities are intact. No cyanosis or clubbing. Diffuse edema is noted. Skin reveals multiple areas of ecchymoses. Neurologic examination is brief but nonfocal. - Labs CBC & Chem 7: 07/20/23 03:48 07/20/23 03:48 Labs: Abnormal Lab Results - Last 24 Hours (Table) 07/18/23 07/19/23 07/19/23 Range/Units 13:37 10:00 12:35 WBC 17.6 H (3.8-10.6) k/uL RBC 2.38 L (3.80-5.40) m/uL Hgb 7.6 L (11.4-16.0) gm/dL Hct 23.5 L (34.0-46.0) % RDW 17.8 H (11.5-15.5) % Plt Count (150-450) k/uL Neutrophils # (1.3-7.7) k/uL Monocytes # (0-1.0) k/uL APTT (22.0-30.0) sec Chloride (98-107) mmol/L BUN (7-17) mg/dL Creatinine (0.52-1.04) mg/dL Glucose (74-99) mg/dL Calcium (8.4-10.2) mg/dL Procalcitonin 0.85 H (0.02-0.09) ng/mL Urine Appearance (Clear) Urine Protein (Negative) Urine Glucose (UA) (Negative) Urine Blood (Negative) Urine WBC (0-5) /hpf Urine Mucus (None) /hpf Crossmatch See Detail 07/19/23 07/19/23 07/19/23 Range/Units 18:10 21:10 22:51 WBC 16.9 H 15.3 H (3.8-10.6) k/uL RBC 3.08 L 2.76 L (3.80-5.40) m/uL Hgb 9.7 L D 8.8 L (11.4-16.0) gm/dL Hct 29.3 L 26.1 L (34.0-46.0) % RDW 16.1 H 16.6 H (11.5-15.5) % Plt Count (150-450) k/uL Neutrophils # 11.2 H (1.3-7.7) k/uL Monocytes # 1.6 H (0-1.0) k/uL APTT (22.0-30.0) sec Chloride (98-107) mmol/L BUN (7-17) mg/dL Creatinine (0.52-1.04) mg/dL Glucose (74-99) mg/dL Calcium (8.4-10.2) mg/dL Procalcitonin (0.02-0.09) ng/mL Urine Appearance Cloudy H (Clear) Urine Protein 1+ H (Negative) Urine Glucose (UA) Trace H (Negative) Urine Blood Moderate H (Negative) Urine WBC 7 H (0-5) /hpf Urine Mucus Rare H (None) /hpf Crossmatch 07/20/23 07/20/23 07/20/23 Range/Units 03:48 03:48 03:48 WBC 14.9 H (3.8-10.6) k/uL RBC 2.76 L (3.80-5.40) m/uL Hgb 8.7 L (11.4-16.0) gm/dL Hct 25.9 L (34.0-46.0) % RDW 16.8 H (11.5-15.5) % Plt Count 146 L (150-450) k/uL Neutrophils # 11.2 H (1.3-7.7) k/uL Monocytes # 1.3 H (0-1.0) k/uL APTT 36.0 H (22.0-30.0) sec Chloride 110 H (98-107) mmol/L BUN 31 H (7-17) mg/dL Creatinine 1.76 H (0.52-1.04) mg/dL Glucose 147 H (74-99) mg/dL Calcium 6.8 L (8.4-10.2) mg/dL Procalcitonin (0.02-0.09) ng/mL Urine Appearance (Clear) Urine Protein (Negative) Urine Glucose (UA) (Negative) Urine Blood (Negative) Urine WBC (0-5) /hpf Urine Mucus (None) /hpf Crossmatch Assessment and Plan Assessment: Critical limb ischemia of the right lower extremity, status postoperative day #1 following an open thrombectomy of the right femoral, popliteal, and tibial arteries; right tibioperoneal trunk endarterectomy with patch angioplasty; right lower extremity compartment fasciotomy; and selective right lower extremity angiogram. New onset atrial fibrillation, with controlled ventricular rate. Lactic acidosis, improved. History of hypertension. Peripheral arterial disease. History of GERD, without esophagitis. History of chronic left leg wound. Chronic ongoing tobacco dependence. Obesity, with a BMI of 33.5 kg/m. Plan: Plan dated July 19, 2023. The patient had blood gases yesterday, and repeat blood gases this morning. PO2 is 102, pCO2 is 37, pH is 7.35. The patient had an art line yesterday placed as well as a triple-lumen catheter. The patient is currently on a sodium bicarbonate drip, at 75 cc an hour. She is also receiving IV heparin, Cardizem at 5 mg an hour, and norepinephrine at 8 mcg/min. Labs, x-rays, and medications are reviewed. The patient's overall prognosis remains very guarded. Although the patient does not need intubation currently, the patient may require intubation in the future. Repeat blood gases, or stable. Her respiratory status at this time is reasonably stable. We will continue to follow the patient closely, and make recommendations where appropriate. Plan dated July 20, 2023. The patient is about the same today as she was yesterday. Since being in the unit, she has received a total of 4 units of packed red blood cells. Because of an elevated procalcitonin level of 0.85, we added Zosyn to her regimen. She is currently on heparin via weight-based protocol, Cardizem drip at 5 mg an hour, norepinephrine at 7 mcg/min, and a sodium bicarbonate drip, at 100 cc an hour. She continues on oxygen at 3 L. Labs, x-rays, medications are reviewed. The patient's overall prognosis remains very guarded. We will continue to follow make recommendations. Time with Patient: Greater than 30
--- NOTE | 2023-07-20 11:44 | P.PN ---
Subjective patient is seen for follow-up for acute kidney injuryand severe metabolic acidosis. He shouldn't is maintained on bicarb drip. Urine output has improved after IV push Lasix. currently at 80- 60 mL an hour. patient appears to be more awake today. She is not able to eat yet. heart rate remains elevated around 120 to 1:30 and therefore Cardizem drip was increased. levo fed is slightly lower than yesterday. Objective - Vital Signs Vital signs: Vital Signs Temp 99.6 F 07/20/23 08:00 Pulse 111 H 07/20/23 11:15 Resp 16 07/20/23 11:15 BP 140/50 07/20/23 11:15 Pulse Ox 95 07/20/23 11:15 FiO2 Intake & Output 07/19/23 07/20/23 07/20/23 18:59 06:59 18:59 Intake Total 2523.542 1796.987 739.283 Output Total 131 1300 450 Balance 2392.542 496.987 289.283 Intake: IV 1086 1399 542 Dextrose 5% in Water 1, 1050 1300 400 000 ml @ 100 mls/hr IV . [id number] [facility] with Sodium Bicarb (1 Meq/ml) 150 ml Rx#:[id number] Diltiazem 125 mg In 60 30 Sodium Chloride 0.9% 100 ml @ 15 MG/HR 15 mls/hr IV .[id number] [facility] Rx#: [id number] Piperacillin-Tazobactam 3 100 .375 gm In Sodium Chloride 0.9% 100 ml @ 25 mls/hr IVPB Q8HR [facility] Rx# :[id number] Pressure Bag 36 39 12 Intake, IV Titration 817.542 397.987 197.283 Amount Diltiazem 125 mg In 93.25 100.25 Sodium Chloride 0.9% 100 ml @ 15 MG/HR 15 mls/hr IV .Q8H20M [facility] Rx#: [id number] Heparin Sod,Pork in 0.45% 99.921 108.037 NaCl 25,000 unit In 0.45 % NaCl 1 250ml.bag @ 18 UNITS/KG/HR 17.962 mls/hr IV .[id number] [facility] Rx#: [id number] Norepinephrine 4 mg In 624.371 289.950 97.033 Sodium Chloride 0.9% 250 ml @ 0.03 MCG/KG/MIN 11. 453 mls/hr IV .[id number] [facility] Rx#:[id number] Blood Product 620 Rc As-1 Unit 310 [id number] Rc As-1 Unit 310 [id number] Output: Urine 131 1300 450 Other: Voiding Method Indwelling Catheter Indwelling Catheter Indwelling Catheter ABP, PAP, CO, CI - Last Documented Arterial Blood Pressure 135/54 - Exam patient is awake but does not communicate much but answering some questions. Examination of the heart S1 and S2 Examination the lungs bilateral breath sounds are heard decreased breath sounds at the bases Abdomen is soft obese Examination lower extremities shows right lower extremity currently wrapped bruising noted bilateral upper extremities under the arms [employer] exam shows patient is moving all 4 extremities. - Labs CBC & Chem 7: 07/20/23 03:48 07/20/23 03:48 Labs: Abnormal Lab Results - Last 24 Hours (Table) 07/18/23 07/19/23 07/19/23 Range/Units 13:37 10:00 12:35 WBC 17.6 H (3.8-10.6) k/uL RBC 2.38 L (3.80-5.40) m/uL Hgb 7.6 L (11.4-16.0) gm/dL Hct 23.5 L (34.0-46.0) % RDW 17.8 H (11.5-15.5) % Plt Count (150-450) k/uL Neutrophils # (1.3-7.7) k/uL Monocytes # (0-1.0) k/uL APTT (22.0-30.0) sec Chloride (98-107) mmol/L BUN (7-17) mg/dL Creatinine (0.52-1.04) mg/dL Glucose (74-99) mg/dL Calcium (8.4-10.2) mg/dL Creatine Kinase (30-135) U/L Procalcitonin 0.85 H (0.02-0.09) ng/mL Urine Appearance (Clear) Urine Protein (Negative) Urine Glucose (UA) (Negative) Urine Blood (Negative) Urine WBC (0-5) /hpf Urine Mucus (None) /hpf Crossmatch See Detail 07/19/23 07/19/23 07/19/23 Range/Units 18:10 21:10 22:51 WBC 16.9 H 15.3 H (3.8-10.6) k/uL RBC 3.08 L 2.76 L (3.80-5.40) m/uL Hgb 9.7 L D 8.8 L (11.4-16.0) gm/dL Hct 29.3 L 26.1 L (34.0-46.0) % RDW 16.1 H 16.6 H (11.5-15.5) % Plt Count (150-450) k/uL Neutrophils # 11.2 H (1.3-7.7) k/uL Monocytes # 1.6 H (0-1.0) k/uL APTT (22.0-30.0) sec Chloride (98-107) mmol/L BUN (7-17) mg/dL Creatinine (0.52-1.04) mg/dL Glucose (74-99) mg/dL Calcium (8.4-10.2) mg/dL Creatine Kinase (30-135) U/L Procalcitonin (0.02-0.09) ng/mL Urine Appearance Cloudy H (Clear) Urine Protein 1+ H (Negative) Urine Glucose (UA) Trace H (Negative) Urine Blood Moderate H (Negative) Urine WBC 7 H (0-5) /hpf Urine Mucus Rare H (None) /hpf Crossmatch 07/20/23 07/20/23 07/20/23 Range/Units 03:48 03:48 03:48 WBC 14.9 H (3.8-10.6) k/uL RBC 2.76 L (3.80-5.40) m/uL Hgb 8.7 L (11.4-16.0) gm/dL Hct 25.9 L (34.0-46.0) % RDW 16.8 H (11.5-15.5) % Plt Count 146 L (150-450) k/uL Neutrophils # 11.2 H (1.3-7.7) k/uL Monocytes # 1.3 H (0-1.0) k/uL APTT 36.0 H (22.0-30.0) sec Chloride 110 H (98-107) mmol/L BUN 31 H (7-17) mg/dL Creatinine 1.76 H (0.52-1.04) mg/dL Glucose 147 H (74-99) mg/dL Calcium 6.8 L (8.4-10.2) mg/dL Creatine Kinase (30-135) U/L Procalcitonin (0.02-0.09) ng/mL Urine Appearance (Clear) Urine Protein (Negative) Urine Glucose (UA) (Negative) Urine Blood (Negative) Urine WBC (0-5) /hpf Urine Mucus (None) /hpf Crossmatch 07/20/23 07/20/23 Range/Units 10:18 10:50 WBC (3.8-10.6) k/uL RBC (3.80-5.40) m/uL Hgb (11.4-16.0) gm/dL Hct (34.0-46.0) % RDW (11.5-15.5) % Plt Count (150-450) k/uL Neutrophils # (1.3-7.7) k/uL Monocytes # (0-1.0) k/uL APTT 60.7 H (22.0-30.0) sec Chloride (98-107) mmol/L BUN (7-17) mg/dL Creatinine (0.52-1.04) mg/dL Glucose (74-99) mg/dL Calcium (8.4-10.2) mg/dL Creatine Kinase 1451 H* (30-135) U/L Procalcitonin (0.02-0.09) ng/mL Urine Appearance (Clear) Urine Protein (Negative) Urine Glucose (UA) (Negative) Urine Blood (Negative) Urine WBC (0-5) /hpf Urine Mucus (None) /hpf Crossmatch Assessment and Plan Assessment: 1. Acute kidney injury, ATN currently , now nonoliguric, secondary to hypotension. Patient received IV contrast for CTA on 07/17/2023. No nephrotoxic agents on board currently. 2. Anion gap metabolic acidosis secondary to lactic acidosis and critical limb ischemia, maintained on bicarb drip, improving. 3. Critical limb ischemia status post (thrombectomy of right common femoral superficial femoral and popliteal artery with fasciotomy and endarterectomy on 07/18/2023. 4. History of chronic left lower extremity wound 5. New onset A. fib with RVR maintained on Cardizem drip Plan: check CK level Continue with bicarb drip Continue to avoid nephrotoxic agents repeat labs in a.m.
--- NOTE | 2023-07-20 12:15 | P.PN ---
Subjective Progress Note Date: 07/20/23 Principal diagnosis: Critical limb ischemia Patient seen and examined today as a follow-up. She is a little bit more awake and alert however she is still disoriented. She was able to follow some commands and was able to move her right lower extremity. Hemoglobin stable from last night at 8.7. Urine output increasing with Lasix. She remains on IV heparin drip, Levophed and bicarb drip. Today's labs WBC 14.9 hemoglobin 8.7 platelet count 146,000 sodium 137 potassium 4.0 BUN 31 creatinine 1.76 creatinine kinase 1451 Objective - Vital Signs Vital signs: Vital Signs Temp 99.8 F H 07/20/23 04:00 Pulse 106 H 07/20/23 07:00 Resp 15 07/20/23 07:00 BP 130/59 07/20/23 04:00 Pulse Ox 96 07/20/23 07:00 FiO2 Intake & Output 07/19/23 07/20/23 07/20/23 18:59 06:59 18:59 Intake Total 2523.542 1796.987 Output Total 131 1300 Balance 2392.542 496.987 Intake: IV 1086 1399 Dextrose 5% in Water 1, 1050 1300 000 ml @ 100 mls/hr IV . [id number] [facility] with Sodium Bicarb (1 Meq/ml) 150 ml Rx#:[id number] Diltiazem 125 mg In 60 Sodium Chloride 0.9% 100 ml @ 5 MG/HR 5 mls/hr IV .Q24H [facility] Rx#:[id number] Pressure Bag 36 39 Intake, IV Titration 817.542 397.987 Amount Diltiazem 125 mg In 93.25 Sodium Chloride 0.9% 100 ml @ 5 MG/HR 5 mls/hr IV .Q24H [facility] Rx#:[id number] Heparin Sod,Pork in 0.45% 99.921 108.037 NaCl 25,000 unit In 0.45 % NaCl 1 250ml.bag @ 18 UNITS/KG/HR 17.962 mls/hr IV .[id number] [facility] Rx#: [id number] Norepinephrine 4 mg In 624.371 289.950 Sodium Chloride 0.9% 250 ml @ 0.03 MCG/KG/MIN 11. 453 mls/hr IV .[id number] [facility] Rx#:[id number] Blood Product 620 Rc As-1 Unit 310 [id number] Rc As-1 Unit 310 [id number] Output: Urine 131 1300 Other: Voiding Method Indwelling Catheter Indwelling Catheter ABP, PAP, CO, CI - Last Documented Arterial Blood Pressure 145/57 - Exam General appearance: The patient is awake and oriented x 1 HET: Head is normocephalic and atraumatic. Pupils are equal and reactive. Neck: Supple. Heart: Irregular. Lungs: Equal expansion, normal respiratory effort. Abdomen: Soft, nontender, nondistended. Extremities: Right leg with dressing with serosanguineous drainage. Pedal edema. Of foot little bit warmer to touch today. Delayed capillary refill. PT Doppler signal present. Neurological: Patient is more awake and alert today. Still confused and somewhat disoriented. - Labs CBC & Chem 7: 07/20/23 03:48 07/20/23 03:48 Labs: Abnormal Lab Results - Last 24 Hours (Table) 07/18/23 07/19/23 07/19/23 Range/Units 13:37 08:57 10:00 WBC (3.8-10.6) k/uL RBC (3.80-5.40) m/uL Hgb (11.4-16.0) gm/dL Hct (34.0-46.0) % RDW (11.5-15.5) % Plt Count (150-450) k/uL Neutrophils # (1.3-7.7) k/uL Monocytes # (0-1.0) k/uL APTT (22.0-30.0) sec ABG HCO3 20 L (21-25) mmol/L ABG O2 Saturation 98.0 H (94-97) % Chloride (98-107) mmol/L BUN (7-17) mg/dL Creatinine (0.52-1.04) mg/dL Glucose (74-99) mg/dL Calcium (8.4-10.2) mg/dL Procalcitonin 0.85 H (0.02-0.09) ng/mL Urine Appearance (Clear) Urine Protein (Negative) Urine Glucose (UA) (Negative) Urine Blood (Negative) Urine WBC (0-5) /hpf Urine Mucus (None) /hpf Crossmatch See Detail 07/19/23 07/19/23 07/19/23 Range/Units 12:35 18:10 21:10 WBC 17.6 H 16.9 H (3.8-10.6) k/uL RBC 2.38 L 3.08 L (3.80-5.40) m/uL Hgb 7.6 L 9.7 L D (11.4-16.0) gm/dL Hct 23.5 L 29.3 L (34.0-46.0) % RDW 17.8 H 16.1 H (11.5-15.5) % Plt Count (150-450) k/uL Neutrophils # (1.3-7.7) k/uL Monocytes # (0-1.0) k/uL APTT (22.0-30.0) sec ABG HCO3 (21-25) mmol/L ABG O2 Saturation (94-97) % Chloride (98-107) mmol/L BUN (7-17) mg/dL Creatinine (0.52-1.04) mg/dL Glucose (74-99) mg/dL Calcium (8.4-10.2) mg/dL Procalcitonin (0.02-0.09) ng/mL Urine Appearance Cloudy H (Clear) Urine Protein 1+ H (Negative) Urine Glucose (UA) Trace H (Negative) Urine Blood Moderate H (Negative) Urine WBC 7 H (0-5) /hpf Urine Mucus Rare H (None) /hpf Crossmatch 07/19/23 07/20/23 07/20/23 Range/Units 22:51 03:48 03:48 WBC 15.3 H 14.9 H (3.8-10.6) k/uL RBC 2.76 L 2.76 L (3.80-5.40) m/uL Hgb 8.8 L 8.7 L (11.4-16.0) gm/dL Hct 26.1 L 25.9 L (34.0-46.0) % RDW 16.6 H 16.8 H (11.5-15.5) % Plt Count 146 L (150-450) k/uL Neutrophils # 11.2 H 11.2 H (1.3-7.7) k/uL Monocytes # 1.6 H 1.3 H (0-1.0) k/uL APTT 36.0 H (22.0-30.0) sec ABG HCO3 (21-25) mmol/L ABG O2 Saturation (94-97) % Chloride (98-107) mmol/L BUN (7-17) mg/dL Creatinine (0.52-1.04) mg/dL Glucose (74-99) mg/dL Calcium (8.4-10.2) mg/dL Procalcitonin (0.02-0.09) ng/mL Urine Appearance (Clear) Urine Protein (Negative) Urine Glucose (UA) (Negative) Urine Blood (Negative) Urine WBC (0-5) /hpf Urine Mucus (None) /hpf Crossmatch 07/20/23 Range/Units 03:48 WBC (3.8-10.6) k/uL RBC (3.80-5.40) m/uL Hgb (11.4-16.0) gm/dL Hct (34.0-46.0) % RDW (11.5-15.5) % Plt Count (150-450) k/uL Neutrophils # (1.3-7.7) k/uL Monocytes # (0-1.0) k/uL APTT (22.0-30.0) sec ABG HCO3 (21-25) mmol/L ABG O2 Saturation (94-97) % Chloride 110 H (98-107) mmol/L BUN 31 H (7-17) mg/dL Creatinine 1.76 H (0.52-1.04) mg/dL Glucose 147 H (74-99) mg/dL Calcium 6.8 L (8.4-10.2) mg/dL Procalcitonin (0.02-0.09) ng/mL Urine Appearance (Clear) Urine Protein (Negative) Urine Glucose (UA) (Negative) Urine Blood (Negative) Urine WBC (0-5) /hpf Urine Mucus (None) /hpf Crossmatch Assessment and Plan Assessment: 1. Postop day #2 for open thrombectomy of right common femoral, profunda, superficial femoral and popliteal artery, open thrombectomy of right anterior tibial and posterior tibial arteries, right tibial peroneal trunk endarterectomy with patch angioplasty 2. Postop day #2 for right lower extremity 4 compartment fasciotomy 3. Acute right lower extremity critical limb ischemia 4. Acute right common femoral, profunda, superficial femoral, popliteal and tibial artery thrombosis 5. New onset atrial fibrillation 6. Morbid obesity 7. Acute kidney injury Plan: 1. Continue symptomatic and supportive care 2. Daily CBC 3. Daily dressing change, 4 x 4, Kerlix, ABD pad, Kerlix with Gael wrap 4. Consult nephrology for acute kidney injury 5. Date to be determined for closure of fasciotomy 6. Rest of medical management per primary medical team and ICU Thank you for this consultation, we will continue to follow. The impression and plan of care has been dictated as directed. Dr. Tuttle I performed a history and examination of this patient, discussed the same with the dictator. I agree with the dictator's note ,documented as a scribe. Any additional findings or plans will be noted.
[2023-07-20 12:16] LABS: Anisocytosis Slight; HCT 23.8 % (34.0-46.0); MCH 31.9 pg (25.0-35.0); MCHC 33.5 g/dL (31.0-37.0); MCV 95.1 fL (80.0-100.0); Macrocytosis Slight; Mean Platelet Volume 8.3; Platelet Count 149 k/uL (150-450); RDW 17.3 % (11.5-15.5); WBC 14.1 k/uL (3.8-10.6)
--- NOTE | 2023-07-20 12:51 | PN ---
PROGRESS NOTE SUBJECTIVE: This is an 82-year-old lady who was admitted to hospital with acute limb ischemia involving right leg secondary to possible thromboembolic event from the new-onset atrial fibrillation. She is confused and apparently because of her confusion, she is not able to take any oral medications. She is on Cardizem 10 mg an hour with somewhat of a poorly controlled ventricular rate. I will increase the Cardizem drip to 15 mg an hour. She developed renal insufficiency since admission, her creatinine had gone up from 0.6 to 1.7. She is on IV heparin per protocol. OBJECTIVE: GENERAL: She appears much more alert today than she did and she is able to have more meaningful conversation. Denies any symptoms. Has mild discomfort involving the right leg. VITAL SIGNS: Heart rate is 108 beats per minute, irregularly irregular. Blood pressure is 137/56, respiratory rate is 18. CHEST: Reveals diminished air entry at the bases. HEART: Reveals first and second heart sounds, irregular rhythm. No murmur. ABDOMEN: Soft. EXTREMITIES: Reveals that the right foot pulses are diminished and right foot is in a compression dressing. LABS: Show that the hemoglobin is 8.7, white cell count is 15.9, potassium is 4, and creatinine is 1.76. ASSESSMENT: 1. Persistent atrial fibrillation with poorly controlled ventricular rate. 2. Acute limb ischemia secondary to a thromboembolic event, probably related to the new atrial fibrillation, status post thrombectomy and fasciotomy. 3. Acute renal failure, probably from acute tubular necrosis. PLAN: I will continue the IV heparin. Increase the dose of Cardizem. We will obtain an echocardiogram on her. MMODL / IJN: [id number] /
[2023-07-20] MEDS ORDERED: KETAMINE HCL IN 0.9 % NACL 50 MG/5 ML SYRINGE ONE (16:16)
[2023-07-20] MEDS ORDERED: PROPOFOL 10 MG/ML 20 ML VIAL IV ONE (16:16)
[2023-07-20] MEDS ORDERED: MIDAZOLAM 2 MG/2 ML VIAL ONE (16:16)
[2023-07-20] MEDS ORDERED: fentaNYL (PF) 50 MCG/ML 2 ML AMP ONE (16:16)
[2023-07-20] MEDS: SODIUM CHLORIDE 0.9% 500 ML 500 ML IV ONE (16:25)
--- NOTE | 2023-07-20 17:41 | P.OP ---
Date of Procedure: 07/20/23 Description of Procedure: Preoperative diagnosis: Previous critical limb ischemia, right lower extremity thrombectomy and fasciotomy with continued anemia Postoperative diagnosis: Same, no evidence of active bleeding Procedure: [Exploration right lower extremity wound] Surgeon: Marline Tuttle D.O. EBL: [20 cc, moderate amount of hematoma] IV fluids: [See records] Urine output: [See records] Drains: [None] Complications: [None immediately apparent] Condition: [Stable to ICU, critical condition Operative indication and findings: [Patient is an 82-year-old female with previous acute limb ischemia who underwent a femoral, popliteal thromboendarterectomy with patch angioplasty and 4 compartment fasciotomy who has been maintained in the ICU and subsequently has continuation of need for blood product. Due to this and the saturation of the dressing it was thought she would benefit from evaluation in the operative room to evaluate. Risks and benefits were discussed. The seemingly understood normally to proceed.] Procedure in detail: [Patient was brought to the operative suite and placed in supine position. IV sedation via anesthesia was initiated. The right lower extremity was prepped and draped in usual sterile fashion and a preprocedural timeout was performed, all parties were in agreement. The previous temporary closure was removed on the medial portion of the incision. The wound was opened and digitally inspected. There was a moderate amount of hematoma that was expelled. Irrigation with peroxide was performed. Further irrigation with saline was performed. There was no obvious area of significant bleeding. There was a few areas of small amounts of oozing that were coagulated with electrocautery. Further evaluation showed no significant welling or pooling of blood. At that point the decision was made to go forward with wet-to-dry dressing and packing. Further dressing was placed along with a Gael wrap. Of note the patient does have significant anasarca to her bilateral upper extremities with severe ecchymosis, upon rolling the patient her back was evaluated and she does have a right flank area of ecchymosis. Will evaluate for potential retroperitoneal hematoma.]
[2023-07-20] MEDS: fentaNYL (PF) 50 MCG/ML 2 ML AMP IVP ONE ×2 (17:50)
[2023-07-20 19:00] LABS: Anisocytosis Slight; HCT 25.7 % (34.0-46.0); HGB 8.7 gm/dL (11.4-16.0); MCH 31.4 pg (25.0-35.0); MCHC 33.9 g/dL (31.0-37.0); MCV 92.5 fL (80.0-100.0); Mean Platelet Volume 8.8; Platelet Count 124 k/uL (150-450); RBC 2.78 m/uL (3.80-5.40); RDW 17.3 % (11.5-15.5); WBC 12.8 k/uL (3.8-10.6)
[2023-07-21 05:14] LABS: Anisocytosis Slight; Basophils % (A) 0 %; Eosinophils % (A) 0 %; HCT 24.9 % (34.0-46.0); HGB 8.1 gm/dL (11.4-16.0); Lymphocytes # (A) 1.5 k/uL (1.0-4.8); Lymphocytes % (A) 13 %; MCH 30.5 pg (25.0-35.0); MCHC 32.6 g/dL (31.0-37.0); MCV 93.6 fL (80.0-100.0); Macrocytosis Slight; Mean Platelet Volume 8.6; Monocytes % (A) 9 %; Neutrophils # (A) 8.2 k/uL (1.3-7.7); Neutrophils % (A) 75 %; Platelet Count 122 k/uL (150-450); RBC 2.66 m/uL (3.80-5.40); RDW 17.8 % (11.5-15.5)
[2023-07-21 05:39] LABS: African American GFR (CKD) 49 (>60 ml/min/1.73 sqM); Anion Gap 0 mmol/L; Blood Urea Nitrogen 28 mg/dL (7-17); Carbon Dioxide 32 mmol/L (22-30); Chloride 106 mmol/L (98-107); Glucose 149 mg/dL (74-99); Non-African American GFR(CKD) 43 (>60 ml/min/1.73 sqM); Potassium 3.5 mmol/L (3.5-5.1); Sodium 138 mmol/L (137-145)
[2023-07-21 05:44] LABS: Creatine Kinase 1282 U/L (30-135)
[2023-07-21] MEDS: POTASSIUM CHLORIDE 10 MEQ in WATER FOR INJECTION 1 100ML.BAG IVPB SCH ×2 (06:10→20:26)
--- NOTE | 2023-07-21 09:32 | CT ---
EXAMINATION TYPE: CT abdomen pelvis wo con DATE OF EXAM: 07/21/2023 COMPARISON: 12/04/2016 INDICATION: evaluate for retoperitoneal hematoma, flank bruising DLP: 1975.2 mGycm, Automated exposure control for dose reduction was used. CONTRAST: 0 mL of Isovue 300. Study performed without Oral Contrast TECHNIQUE: Axial images were obtained from above the diaphragm to the pubic rami in the axial plane a t 5 mm thick sections. Reconstructed images are reviewed on the computer in the coronal plane. FINDINGS: Limited CT sections are obtained the lung bases. Small bilateral pleural effusions are present. Some adjacent compressive atelectasis is likely present. A moderate-sized hiatal hernia is present. Coron bev artery calcification is noted.. CT ABDOMEN: Liver: Normal Spleen: Normal Pancreas: Mildly atrophic Adrenal glands: The adrenal glands are normal. Gallbladder: Gallstones are present. Kidneys: No masses are evident. No hydronephrosis is present. No cysts are present. No renal stone s are evident. Aorta: Vascular calcification is within the aorta. Inferior vena cava: Normal. CT PELVIS: No retroperitoneal hemorrhage is evident. There is some increased density within the subcu taneous tissues lower back which could be a small superficial contusion. Loops of bowel within the abdomen and pelvis are normal. Diverticulosis without acute diverticulitis is within the sigmoid colon The study is lateral contrast limiting bowel evaluation. Appendix: Normal as visualized. Urinary bladder: Urinary bladder is decompressed with Tuttle catheter and cannot be evaluated. Genitourinary structures: Uterus is normal. Adnexa are unremarkable. Osseous structures: No suspicious lytic or sclerotic lesions. Sacroiliac degenerative changes are pre sent. IMPRESSION: 1. Small bilateral pleural effusions with adjacent compressive atelectasis. 2. Cholelithiasis. 3. Mild diverticulosis without acute diverticulitis. 4. No retroperitoneal hemorrhage to account for bruising. Some superficial increased density is prese nt which could be a contusion of the soft tissues.
--- NOTE | 2023-07-21 10:10 | P.PN ---
Subjective Progress Note Date: 07/21/23 Principal diagnosis: Peripheral artery disease. I am seeing this patient in new consultation today 07/18/2023 in the intensive care unit after she just returned from OR after undergoing an open thrombectomy of the right femoral, popliteal, and tibial arteries; right tibioperoneal trunk endarterectomy with patch angioplasty; right lower extremity compartment fasciotomy; and selective right lower extremity angiogram. Patient is a 82-year-old white female with past medical history significant for hypertension, chronic left lower extremity wound, GERD. Patient is currently drowsy and a poor historian. She is oriented to self and place. She follows simple commands. No family is present, and history is taken from the medical record. She apparently presented to the emergency room yesterday evening complaining of severe right lower extremity pain and limited mobility of her leg/foot. This was first noticed, when she was up walking to the bathroom, and fell on her right knee. On arrival to the emergency room late last night, a CT angiogram of her lower extremities identified an occlusion of the mid right common femoral artery above the bifurcation. There was also a short segment of occlusion of the common trunk of the left peroneal and posterior tibial artery which are reconstituted near their proximal portions and appear to remain patent as is the anterior tibial artery to the left ankle. The patient underwent emergent revascularization, including the above-mentioned procedure. Postoperative CBC: WBC count 8.1, hemoglobin 12.2, hematocrit 37.5, platelets 120. There is a 3 g drop in the patient's hemoglobin. Preoperative BMP Includes: Sodium 138, pota ssium 4.2, chloride 109, serum bicarb 15, BUN 14, creatinine 0.67, glucose 116. Normal saline is infusing at 75 mL/h. Lactic acid level elevated at 4.5 and is down to 1.3. Overall, vital signs are stable. She is currently sitting up in bed, on 2 L/min nasal cannula, and no acute distress. SPO2 is 99%. Blood pressure is normotensive. Heart rhythm is atrial fibrillation with controlled ventricular rate. I am told that she has not past history of atrial fibrillation. Currently on heparin infusion per vascular surgery recommendations. Right lower extremity is cold and remains pulses. The lower extremity fasciotomy site is wrapped in tim bandage, and has small amount of sanguineous drainage. There is a wound vac to the right femoral site. She is currently being settled in the intensive care unit. Progress note dated July 19, 2023. 82-year-old female seen in consultation yesterday. Please see the note above. The patient came to the intensive care unit, from the operating room, status post open thrombectomy of the right femoral-popliteal and tibial arteries, as well as right tibial peroneal trunk endarterectomy with patch angioplasty, and right lower extremity compartment fasciotomy. The patient had lines placed yesterday, including a left femoral vein triple-lumen catheter, and a left femoral arterial line. Currently, the patient is seen today in room 257. She had blood gases yesterday showing a pO2 of 116, pCO2 of 32, pH is 7.33. Blood gases done this morning, on 3 L, show pO2 102, pCO2 37, pH is 7.35. The patient had a brain CT, which was negative. She continues on 3 L of oxygen. She is also getting a sodium bicarbonate drip with 3 ampoules of sodium bicarb in D5W at 75 cc an hour, heparin via weight-based protocol, Cardizem drip at 5 mg an hour, norepinephrine at 8 mcg/min. Labs include a white count 16.6, hemoglobin 8.7, hematocrit 26.7, and a platelet count of 192,000. PTT is 49.5. Sodium 138, potassium 4.9, chlorides 114, CO2 17, anion gap normal. BUN 25, creatinine 1.70. Calcium 7.2. Progress note dated July 20, 2023. The patient is seen today in room 257. The patient is currently on 3 L of oxygen. She continues on IV heparin via weight-based protocol, Cardizem at 5 mg an hour, norepinephrine at 7 mcg/min, and she is getting a sodium bicarbonate drip, with 3 ampoules of sodium bicarb in D5W at 100 cc an hour. Since she has been here in the ICU she has received a total of 4 units of packed red blood cells. The patient's procalcitonin level was elevated at 0.85. We added Zosyn today. Today's labs include a white count 14.9, hemoglobin 8.7, hematocrit 25.9, and a platelet count of 146,000. PTT is 36. Sodium 137, potassium 4, chlorides 110, CO2 22, anion gap 5, BUN 31, creatinine 1.76. Calcium is 6.8. Chest x-ray shows evidence of only cardiomegaly. Progress note dated July 21, 2023. 82-year-old female seen in room 257. Currently, she is on 2 L of oxygen by nasal cannula, norepinephrine at 3 mcg/min, Cardizem at 15 mg an hour, and D5W with 3 ampoules of sodium bicarb at 100 cc an hour. She continues on Zosyn. Because of the persistent hypotension, we will check a cortisol level today. White count 11, hemoglobin 8.1, hematocrit 24.9, and platelet count 122,000. Sodium 138, potassium 3.5, chlorides 106, CO2 32, BUN 28, and creatinine 1.21. The creatinine kinase is 1282. The calcium level is 7. Blood cultures are currently negative. CT of the abdomen and pelvis shows cholelithiasis, small bilateral effusions, mild diverticulosis, without evidence of retroperitoneal hemorrhage. Yesterday, the patient went back to the operating room, for an exploration of the right lower extremity wound. Objective - Vital Signs Vital signs: Vital Signs Temp 97.9 F 07/21/23 04:00 Pulse 85 07/21/23 07:00 Resp 24 07/21/23 07:00 BP 110/58 07/21/23 07:00 Pulse Ox 93 L 07/21/23 08:26 FiO2 Intake & Output 07/20/23 07/21/23 07/21/23 18:59 06:59 18:59 Intake Total 2124.446 1873.75 118 Output Total 1145 770 50 Balance 260.522 2183.75 68 Weight 100.2 kg 101.23 kg Intake: IV 1282 1386 118 Dextrose 5% in Water 1, 900 1200 100 000 ml @ 100 mls/hr IV . [id number] [facility] with Sodium Bicarb (1 Meq/ml) 150 ml Rx#:[id number] Diltiazem 125 mg In 105 150 15 Sodium Chloride 0.9% 100 ml @ 15 MG/HR 15 mls/hr IV .[id number] [facility] Rx#: [id number] Piperacillin-Tazobactam 3 200 .375 gm In Sodium Chloride 0.9% 100 ml @ 25 mls/hr IVPB Q8HR [facility] Rx# :[id number] Pressure Bag 27 36 3 Intake, IV Titration 532.446 487.75 Amount Diltiazem 125 mg In 100.25 233.75 Sodium Chloride 0.9% 100 ml @ 15 MG/HR 15 mls/hr IV .[id number] [facility] Rx#: [id number] Heparin Sod,Pork in 0.45% 81.163 NaCl 25,000 unit In 0.45 % NaCl 1 250ml.bag @ 18 UNITS/KG/HR 17.962 mls/hr IV .[id number] [facility] Rx#: [id number] Norepinephrine 4 mg In 351.033 254 Sodium Chloride 0.9% 250 ml @ 0.03 MCG/KG/MIN 11. 453 mls/hr IV .[id number] [facility] Rx#:[id number] Blood Product 310 Rc As-1 Unit 310 [id number] Output: Urine 1120 770 50 Estimated Blood Loss 25 Other: Voiding Method Indwelling Catheter Indwelling Catheter ABP, PAP, CO, CI - Last Documented Arterial Blood Pressure 126/42 - Exam No acute distress, intermittently confused. Currently on 2 L. No respiratory distress. HEENT examination is grossly unremarkable. Mucous membranes are dry. Neck supple. Full range of motion. No adenopathy thyromegaly or neck vein distention. Cardiovascular examination reveals an irregular rhythm and rate. S1-S2 normal. No S3 or S4. Soft systolic murmur is noted. Heart rate 85 bpm. Lungs reveal mostly clear breath sounds. Minimal scattered rhonchi. No wheezes or crackles. Breath sounds are equal bilaterally. Saturations are 95 %. Abdomen soft without bowel sounds. No masses or tenderness. Extremities are intact. No cyanosis or clubbing. Diffuse edema is noted. Skin reveals multiple areas of ecchymoses. Neurologic examination is brief but nonfocal. - Labs CBC & Chem 7: 07/21/23 04:24 07/21/23 04:24 Labs: Abnormal Lab Results - Last 24 Hours (Table) 07/18/23 07/20/23 07/20/23 Range/Units 13:37 10:18 10:50 WBC (3.8-10.6) k/uL RBC (3.80-5.40) m/uL Hgb (11.4-16.0) gm/dL Hct (34.0-46.0) % RDW (11.5-15.5) % Plt Count (150-450) k/uL Neutrophils # (1.3-7.7) k/uL APTT 60.7 H (22.0-30.0) sec Carbon Dioxide (22-30) mmol/L BUN (7-17) mg/dL Creatinine (0.52-1.04) mg/dL Glucose (74-99) mg/dL Calcium (8.4-10.2) mg/dL Creatine Kinase 1451 H* (30-135) U/L Crossmatch See Detail 07/20/23 07/20/23 07/21/23 Range/Units 11:34 18:45 04:24 WBC 14.1 H 12.8 H 11.0 H (3.8-10.6) k/uL RBC 2.50 L 2.78 L 2.66 L (3.80-5.40) m/uL Hgb 8.0 L 8.7 L 8.1 L (11.4-16.0) gm/dL Hct 23.8 L 25.7 L 24.9 L (34.0-46.0) % RDW 17.3 H 17.3 H 17.8 H (11.5-15.5) % Plt Count 149 L 124 L 122 L (150-450) k/uL Neutrophils # 8.2 H (1.3-7.7) k/uL APTT (22.0-30.0) sec Carbon Dioxide (22-30) mmol/L BUN (7-17) mg/dL Creatinine (0.52-1.04) mg/dL Glucose (74-99) mg/dL Calcium (8.4-10.2) mg/dL Creatine Kinase (30-135) U/L Crossmatch 07/21/23 Range/Units 04:24 WBC (3.8-10.6) k/uL RBC (3.80-5.40) m/uL Hgb (11.4-16.0) gm/dL Hct (34.0-46.0) % RDW (11.5-15.5) % Plt Count (150-450) k/uL Neutrophils # (1.3-7.7) k/uL APTT (22.0-30.0) sec Carbon Dioxide 32 H (22-30) mmol/L BUN 28 H (7-17) mg/dL Creatinine 1.21 H (0.52-1.04) mg/dL Glucose 149 H (74-99) mg/dL Calcium 7.0 L (8.4-10.2) mg/dL Creatine Kinase 1282 H* (30-135) U/L Crossmatch Microbiology - Last 24 Hours (Table) 07/19/23 21:10 Blood Culture - Preliminary Blood Assessment and Plan Assessment: Critical limb ischemia of the right lower extremity, S/P operative day #3 following an open thrombectomy of the right femoral, popliteal, and tibial arteries; right tibioperoneal trunk endarterectomy with patch angioplasty; right lower extremity compartment fasciotomy; and selective right lower extremity angiogram. Postop day #1, S/P exploration of right lower extremity wound. New onset atrial fibrillation, with controlled ventricular rate. Lactic acidosis, improved. History of hypertension. Peripheral arterial disease. History of GERD, without esophagitis. History of chronic left leg wound. Chronic ongoing tobacco dependence. Obesity, with a BMI of 33.5 kg/m. Plan: Plan dated July 19, 2023. The patient had blood gases yesterday, and repeat blood gases this morning. PO2 is 102, pCO2 is 37, pH is 7.35. The patient had an art line yesterday placed as well as a triple-lumen catheter. The patient is currently on a sodium bicarbonate drip, at 75 cc an hour. She is also receiving IV heparin, Cardizem at 5 mg an hour, and norepinephrine at 8 mcg/min. Labs, x-rays, and medications are reviewed. The patient's overall prognosis remains very guarded. Although the patient does not need intubation currently, the patient may require intubation in the future. Repeat blood gases, or stable. Her respiratory status at this time is reasonably stable. We will continue to follow the patient closely, and make recommendations where appropriate. Plan dated July 20, 2023. The patient is about the same today as she was yesterday. Since being in the unit, she has received a total of 4 units of packed red blood cells. Because of an elevated procalcitonin level of 0.85, we added Zosyn to her regimen. She is currently on heparin via weight-based protocol, Cardizem drip at 5 mg an hour, norepinephrine at 7 mcg/min, and a sodium bicarbonate drip, at 100 cc an hour. She continues on oxygen at 3 L. Labs, x-rays, medications are reviewed. The patient's overall prognosis remains very guarded. We will continue to follow make recommendations. Plan dated July 21, 2023. The patient is seen today in room 257. She continues on oxygen at 2 L. Yesterday, she did go back to the operating room, for exploration of the right lower extremity wound. I did speak to Dr. Tuttle about the procedure. Currently, the patient is on norepinephrine at 3 mcg/min, Cardizem drip at 15 mg an hour, and D5W with 3 ampoules of sodium bicarb at 100 cc an hour. She continues on Zosyn. Because of the persistent hypotension, will check a cortisol level. Additional recommendations and suggestions are forthcoming. Labs, x-rays, medications are reviewed. Prognosis is guarded. Time with Patient: Greater than 30
[2023-07-21] MEDS: LACTATED RINGERS 1,000 ML IV SCH (11:13)
--- NOTE | 2023-07-21 11:28 | P.PN ---
Subjective Progress Note Date: 07/21/23 Principal diagnosis: Critical limb ischemia Patient seen and examined today as a follow-up. Patient is more awake and alert today. She is able to follow commands. She does state that she has pain in her right lower extremity mostly in the calf. Yesterday patient was taken back to the operating room for exploration of right lower extremity. There was no active bleeding noted. Patient does have ecchymosis to bilateral upper extremities and some bruising noted on her abdomen. Hemoglobin this morning stable at 8.1. Urine output improving. She remains on IV heparin drip for atrial fibrillation. Cardiology following and recommends continuing anticoagulation and increasing Cardizem. Objective - Vital Signs Vital signs: Vital Signs Temp 97.9 F 07/21/23 04:00 Pulse 85 07/21/23 07:00 Resp 24 07/21/23 07:00 BP 110/58 07/21/23 07:00 Pulse Ox 93 L 07/21/23 08:26 FiO2 Intake & Output 07/20/23 07/21/23 07/21/23 18:59 06:59 18:59 Intake Total 2124.446 1873.75 118 Output Total 1145 770 50 Balance 628.618 1745.75 68 Weight 100.2 kg 101.23 kg Intake: IV 1282 1386 118 Dextrose 5% in Water 1, 900 1200 100 000 ml @ 100 mls/hr IV . [id number] [facility] with Sodium Bicarb (1 Meq/ml) 150 ml Rx#:[id number] Diltiazem 125 mg In 105 150 15 Sodium Chloride 0.9% 100 ml @ 15 MG/HR 15 mls/hr IV .Q8H20M [facility] Rx#: [id number] Piperacillin-Tazobactam 3 200 .375 gm In Sodium Chloride 0.9% 100 ml @ 25 mls/hr IVPB Q8HR [facility] Rx# :[id number] Pressure Bag 27 36 3 Intake, IV Titration 532.446 487.75 Amount Diltiazem 125 mg In 100.25 233.75 Sodium Chloride 0.9% 100 ml @ 15 MG/HR 15 mls/hr IV .Q8H20M [facility] Rx#: [id number] Heparin Sod,Pork in 0.45% 81.163 NaCl 25,000 unit In 0.45 % NaCl 1 250ml.bag @ 18 UNITS/KG/HR 17.962 mls/hr IV .[id number] [facility] Rx#: [id number] Norepinephrine 4 mg In 351.033 254 Sodium Chloride 0.9% 250 ml @ 0.03 MCG/KG/MIN 11. 453 mls/hr IV .[id number] [facility] Rx#:[id number] Blood Product 310 Rc As-1 Unit 310 [id number] Output: Urine 1120 770 50 Estimated Blood Loss 25 Other: Voiding Method Indwelling Catheter Indwelling Catheter ABP, PAP, CO, CI - Last Documented Arterial Blood Pressure 126/42 - Exam General appearance: The patient is awake and alert. Appears in no acute distress. HET: Head is normocephalic and atraumatic. Pupils are equal and reactive. Neck: Supple. Abdomen: Soft, nontender, nondistended. Extremities: Right groin with Prevena VAC in place with good suction right leg with dressing clean dry and intact. Patient was able to move her ankle and foot. Sensorimotor intact. Foot warm to touch, PT signal present Neurological: Patient is more awake and alert today. Following commands - Labs CBC & Chem 7: 07/21/23 04:24 07/21/23 04:24 Labs: Abnormal Lab Results - Last 24 Hours (Table) 07/18/23 07/20/23 07/20/23 Range/Units 13:37 10:18 10:50 WBC (3.8-10.6) k/uL RBC (3.80-5.40) m/uL Hgb (11.4-16.0) gm/dL Hct (34.0-46.0) % RDW (11.5-15.5) % Plt Count (150-450) k/uL Neutrophils # (1.3-7.7) k/uL APTT 60.7 H (22.0-30.0) sec Carbon Dioxide (22-30) mmol/L BUN (7-17) mg/dL Creatinine (0.52-1.04) mg/dL Glucose (74-99) mg/dL Calcium (8.4-10.2) mg/dL Creatine Kinase 1451 H* (30-135) U/L Crossmatch See Detail 07/20/23 07/20/23 07/21/23 Range/Units 11:34 18:45 04:24 WBC 14.1 H 12.8 H 11.0 H (3.8-10.6) k/uL RBC 2.50 L 2.78 L 2.66 L (3.80-5.40) m/uL Hgb 8.0 L 8.7 L 8.1 L (11.4-16.0) gm/dL Hct 23.8 L 25.7 L 24.9 L (34.0-46.0) % RDW 17.3 H 17.3 H 17.8 H (11.5-15.5) % Plt Count 149 L 124 L 122 L (150-450) k/uL Neutrophils # 8.2 H (1.3-7.7) k/uL APTT (22.0-30.0) sec Carbon Dioxide (22-30) mmol/L BUN (7-17) mg/dL Creatinine (0.52-1.04) mg/dL Glucose (74-99) mg/dL Calcium (8.4-10.2) mg/dL Creatine Kinase (30-135) U/L Crossmatch 07/21/23 Range/Units 04:24 WBC (3.8-10.6) k/uL RBC (3.80-5.40) m/uL Hgb (11.4-16.0) gm/dL Hct (34.0-46.0) % RDW (11.5-15.5) % Plt Count (150-450) k/uL Neutrophils # (1.3-7.7) k/uL APTT (22.0-30.0) sec Carbon Dioxide 32 H (22-30) mmol/L BUN 28 H (7-17) mg/dL Creatinine 1.21 H (0.52-1.04) mg/dL Glucose 149 H (74-99) mg/dL Calcium 7.0 L (8.4-10.2) mg/dL Creatine Kinase 1282 H* (30-135) U/L Crossmatch Microbiology - Last 24 Hours (Table) 07/19/23 21:10 Blood Culture - Preliminary Blood Assessment and Plan Assessment: 1. Postop day #3 for open thrombectomy of right common femoral, profunda, superficial femoral and popliteal artery, open thrombectomy of right anterior tibial and posterior tibial arteries, right tibial peroneal trunk endarterectomy with patch angioplasty 2. Postop day #3 for right lower extremity 4 compartment fasciotomy 3. Acute right lower extremity critical limb ischemia 4. Acute right common femoral, profunda, superficial femoral, popliteal and tibial artery thrombosis 5. New onset atrial fibrillation 6. Morbid obesity 7. Acute kidney injury Plan: 1. Continue symptomatic and supportive care 2. Daily CBC 3. Daily dressing change, 4 x 4, Kerlix, ABD pad, Kerlix with Gael wrap 4. Nephrology following for acute kidney injury 5. Date to be determined for closure of fasciotomy 6. Rest of medical management per primary medical team and ICU Thank you for this consultation, we will continue to follow. The impression and plan of care has been dictated as directed. Dr. Steiner I performed a history and examination of this patient, discussed the same with the dictator. I agree with the dictator's note ,documented as a scribe. Any additional findings or plans will be noted.
--- NOTE | 2023-07-21 11:45 | P.PN ---
Subjective patient is seen for follow-up for acute kidney injury and severe metabolic acidosis. maintained on bicarb drip. patient appears to be more awake today but confused. patient remains on Cardizem drip. Levo fed is almost off. urine output at 50-60 mL per hour. Serum creatinine decreased to 1.2 today. Objective - Vital Signs Vital signs: Vital Signs Temp 98.5 F 07/21/23 08:00 Pulse 94 07/21/23 11:30 Resp 19 07/21/23 11:30 BP 106/81 07/21/23 11:30 Pulse Ox 95 07/21/23 11:30 FiO2 Intake & Output 07/20/23 07/21/23 07/21/23 18:59 06:59 18:59 Intake Total 2124.446 1873.75 1120.541 Output Total 1145 770 250 Balance 124.085 0272.75 870.541 Weight 100.2 kg 101.23 kg Intake: IV 1282 1386 690 Dextrose 5% in Water 1, 900 1200 500 000 ml @ 100 mls/hr IV . [id number] [facility] with Sodium Bicarb (1 Meq/ml) 150 ml Rx#:[id number] Diltiazem 125 mg In 105 150 75 Sodium Chloride 0.9% 100 ml @ 15 MG/HR 15 mls/hr IV .Q8H20M [facility] Rx#: [id number] Piperacillin-Tazobactam 3 200 100 .375 gm In Sodium Chloride 0.9% 100 ml @ 25 mls/hr IVPB Q8HR [facility] Rx# :[id number] Pressure Bag 27 36 15 Intake, IV Titration 532.446 487.75 430.541 Amount Diltiazem 125 mg In 100.25 233.75 Sodium Chloride 0.9% 100 ml @ 15 MG/HR 15 mls/hr IV .Q8H20M [facility] Rx#: [id number] Heparin Sod,Pork in 0.45% 81.163 0 NaCl 25,000 unit In 0.45 % NaCl 1 250ml.bag @ 18 UNITS/KG/HR 17.962 mls/hr IV .[id number] [facility] Rx#: [id number] Norepinephrine 4 mg In 351.033 254 30.541 Sodium Chloride 0.9% 250 ml @ 0.03 MCG/KG/MIN 11. 453 mls/hr IV .[id number] [facility] Rx#:[id number] Potassium Chloride 10 meq 400 In Water For Injection 1 100ml.bag @ 100 mls/hr IVPB Q1HR [facility] Rx#: [id number] Blood Product 310 Rc As-1 Unit 310 [id number] Output: Urine 1120 770 250 Estimated Blood Loss 25 Other: Voiding Method Indwelling Catheter Indwelling Catheter ABP, PAP, CO, CI - Last Documented Arterial Blood Pressure 128/47 - Exam patient is awake but does not communicate much but answering some questions. Examination of the heart S1 and S2 Examination the lungs bilateral breath sounds are heard decreased breath sounds at the bases Abdomen is soft obese Examination lower extremities shows right lower extremity currently wrapped bruising noted bilateral upper extremities under the arms FRYER OPERATOR exam shows patient is moving all 4 extremities. - Labs CBC & Chem 7: 07/21/23 04:24 07/21/23 04:24 Labs: Abnormal Lab Results - Last 24 Hours (Table) 07/18/23 07/20/23 07/20/23 Range/Units 13:37 11:34 18:45 WBC 14.1 H 12.8 H (3.8-10.6) k/uL RBC 2.50 L 2.78 L (3.80-5.40) m/uL Hgb 8.0 L 8.7 L (11.4-16.0) gm/dL Hct 23.8 L 25.7 L (34.0-46.0) % RDW 17.3 H 17.3 H (11.5-15.5) % Plt Count 149 L 124 L (150-450) k/uL Neutrophils # (1.3-7.7) k/uL Carbon Dioxide (22-30) mmol/L BUN (7-17) mg/dL Creatinine (0.52-1.04) mg/dL Glucose (74-99) mg/dL Calcium (8.4-10.2) mg/dL Creatine Kinase (30-135) U/L Crossmatch See Detail 07/21/23 07/21/23 Range/Units 04:24 04:24 WBC 11.0 H (3.8-10.6) k/uL RBC 2.66 L (3.80-5.40) m/uL Hgb 8.1 L (11.4-16.0) gm/dL Hct 24.9 L (34.0-46.0) % RDW 17.8 H (11.5-15.5) % Plt Count 122 L (150-450) k/uL Neutrophils # 8.2 H (1.3-7.7) k/uL Carbon Dioxide 32 H (22-30) mmol/L BUN 28 H (7-17) mg/dL Creatinine 1.21 H (0.52-1.04) mg/dL Glucose 149 H (74-99) mg/dL Calcium 7.0 L (8.4-10.2) mg/dL Creatine Kinase 1282 H* (30-135) U/L Crossmatch Microbiology - Last 24 Hours (Table) 07/19/23 21:10 Blood Culture - Preliminary Blood Assessment and Plan Assessment: 1. Acute kidney injury, ATN currently , now nonoliguric, secondary to hypotension. Patient received IV contrast for CTA on 07/17/2023. No nephrotoxic agents on board currently. renal function has improved. 2. Anion gap metabolic acidosis secondary to lactic acidosis and critical limb ischemia, maintained on bicarb drip, improving. 3. Critical limb ischemia status post (thrombectomy of right common femoral superficial femoral and popliteal artery with fasciotomy and endarterectomy on 07/18/2023. 4. History of chronic left lower extremity wound 5. New onset A. fib with RVR maintained on Cardizem drip Plan: DC bicarb drip Change to Ringer lactate at 75 mL an hour Continue to avoid nephrotoxic agents repeat labs in a.m.
[2023-07-21] MEDS: HALOPERIDOL LACTATE 5 MG/ML 1 ML VIAL IVP PRN (11:54)
--- NOTE | 2023-07-21 12:00 | CA ---
Transthoracic Echo Report Name: Pilar Rosales Age: 82 Gender: F : 1940 Exam Date: 07/20/2023 11:09 Exam Location: [facility] Ht (in): 68 Wt (lb): 220 Ordering Physician: Loc Lentz MD ([id number]) Attending/Referring Phys: Pet Nutrition Specialist Eliza Cartagena RCS Procedure CPT: Indications: afib Cardiac Hx: Technical Quality: Very technically difficult study Contrast 1: Definity Total Dose (mL): 2 Contrast 2: Total Dose (mL): MEASUREMENTS (Male / Female) Normal Values 2D ECHO LV Diastolic Diameter PLAX 3.8 cm 4.2 - 5.9 / 3.9 - 5.3 cm LV Systolic Diameter PLAX 2.4 cm IVS Diastolic Thickness 0.9 cm 0.6 - 1.0 / 0.6 - 0.9 cm LVPW Diastolic Thickness 1.1 cm 0.6 - 1.0 / 0.6 - 0.9 cm LV Relative Wall Thickness 0.5 RV Internal Dim ED PLAX 3.3 cm LVOT Diameter 2.1 cm LV Diastolic Volume MOD BP 65.6 cm??? 67 - 155 / 56 - 104 cm??? LV Systolic Volume MOD BP 18.6 cm??? 22 - 58 / 19 - 49 cm??? LV Ejection Fraction MOD BP 71.7 % >= 55 % LV Cardiac Index MOD BP 2241.5 cm???/min???m??? LV Diastolic Volume MOD 4C 69.7 cm??? LV Systolic Volume MOD 4C 21.0 cm??? LV Ejection Fraction MOD 4C 69.9 % LV Cardiac Index MOD 4C 2324.0 cm???/min???m??? LV Diastolic Length 4C 8.4 cm LV Systolic Length 4C 6.4 cm LV Diastolic Volume MOD 2C 59.9 cm??? LV Systolic Volume MOD 2C 16.2 cm??? LV Ejection Fraction MOD 2C 72.9 % LV Cardiac Index MOD 2C 2080.3 cm???/min???m??? LV Diastolic Length 2C 8.1 cm LV Systolic Length 2C 6.2 cm Ascending Aorta Diameter 3.1 cm DOPPLER AV Peak Velocity 372.3 cm/s AV Peak Gradient 55.5 mmHg AV Mean Velocity 255.0 cm/s AV Mean Gradient 30.0 mmHg AV Velocity Time Integral 49.1 cm MV Peak Velocity 160.5 cm/s MV Peak Gradient 10.3 mmHg MV Mean Velocity 96.9 cm/s MV Mean Gradient 4.3 mmHg MV Velocity Time Integral 26.3 cm PV Peak Velocity 158.7 cm/s PV Peak Gradient 10.1 mmHg FINDINGS Left Ventricle Left ventricular ejection fraction is estimated at 65 %. Mildly increased posterior wall thickness. No obvious regional wall motion abnormalities. Right Ventricle Right ventricle not well visualized Right Atrium Right atrium not well visualized. Left Atrium Left atrium not well visualized. Mitral Valve Mitral valve thickened. Moderate mitral annular calcification. Aortic Valve Focal thickening of the aortic valve cusps. [id number] aortic stenosis with a peak gradient of 60 mmHg and a mean gradient of 32 mmHg with a fib RVR. Mild aortic regurgitation Tricuspid Valve Tricuspid valve not well visualized. Pulmonic Valve Pulmonic valve not well visualized. Pericardium No pericardial effusion. Aorta Normal size aortic root and proximal ascending aorta. CONCLUSIONS Left ventricular ejection fraction 65% Moderate mitral calcification Moderate to severe aortic stenosis with mean gradient 32 mmHg Mild aortic regurgitation No pericardial effusion Previewed by: Dr. Ash Sexton DO (Electronically Signed) Final Date: 21 July 2023 11:59
--- NOTE | 2023-07-21 13:17 | P.PN ---
Subjective Progress Note Date: 07/20/23 Principal diagnosis: thrombosis right femoral artery patient is a noncompliant patient with all known practice who hasn't been in the office in over a year presented to the emergency room with a chief complaint of rt femoral artery thrombosis with a cold right foot. This patient was taken to the operating room by vascular surgery thrombectomy, which was successful the patient is warm color has improved Doppler pulses noted Objective - Vital Signs Vital signs: Vital Signs Temp 98.5 F 07/21/23 08:00 Pulse 71 07/21/23 12:15 Resp 19 07/21/23 12:15 BP 103/53 07/21/23 12:15 Pulse Ox 96 07/21/23 12:15 FiO2 Intake & Output 07/20/23 07/21/23 07/21/23 18:59 06:59 18:59 Intake Total 2124.446 1873.75 1247.744 Output Total 1145 770 250 Balance 129.416 9132.75 997.744 Weight 100.2 kg 101.23 kg Intake: IV 1282 1386 690 Dextrose 5% in Water 1, 900 1200 500 000 ml @ 100 mls/hr IV . [id number] [facility] with Sodium Bicarb (1 Meq/ml) 150 ml Rx#:[id number] Diltiazem 125 mg In 105 150 75 Sodium Chloride 0.9% 100 ml @ 15 MG/HR 15 mls/hr IV .Q8H20M [facility] Rx#: [id number] Piperacillin-Tazobactam 3 200 100 .375 gm In Sodium Chloride 0.9% 100 ml @ 25 mls/hr IVPB Q8HR [facility] Rx# :[id number] Pressure Bag 27 36 15 Intake, IV Titration 532.446 487.75 557.744 Amount Diltiazem 125 mg In 100.25 233.75 115.75 Sodium Chloride 0.9% 100 ml @ 15 MG/HR 15 mls/hr IV .Q8H20M [facility] Rx#: [id number] Heparin Sod,Pork in 0.45% 81.163 0 NaCl 25,000 unit In 0.45 % NaCl 1 250ml.bag @ 18 UNITS/KG/HR 17.962 mls/hr IV .[id number] [facility] Rx#: [id number] Norepinephrine 4 mg In 351.033 254 41.994 Sodium Chloride 0.9% 250 ml @ 0.03 MCG/KG/MIN 11. 453 mls/hr IV .[id number] [facility] Rx#:[id number] Potassium Chloride 10 meq 400 In Water For Injection 1 100ml.bag @ 100 mls/hr IVPB Q1HR [facility] Rx#: [id number] Blood Product 310 Rc As-1 Unit 310 [id number] Output: Urine 1120 770 250 Estimated Blood Loss 25 Other: Voiding Method Indwelling Catheter Indwelling Catheter Indwelling Catheter ABP, PAP, CO, CI - Last Documented Arterial Blood Pressure 103/37 - Exam General: [Patient awake, alert and oriented times 3. Patient in no acute distress.] HEENT: [PERRL. EOMI. No pharyngeal erythema or exudate.] Neck: [No adenopathy.] Cardiac: [Heart regular in rate and rhythm. No S3. No S4. No clicks, rubs. No murmur.] Lungs: [Clear to auscultation bilaterally.] Abdomen: [No mass. No organomegaly. Bowel sounds presnt and normoactive in all 4 quadrants.] Extremes: left arm while old extensive ecchymosis secondary to multiple needlesticks, right foot extensively mottled however color improved foot is warm to touch and Doppler pulses appreciated in the left lower extreme demonstrated movement of toes both right and left feet : old female genitalia Musculoskeletal: [No joint erythema, edema or tenderness.] Skin: [No rash.] Neurologic: [No lateralizing deficits. CN II - XII grossly intact.] Lymphatic: [No adenopathy.] - Labs CBC & Chem 7: 07/21/23 04:24 07/21/23 04:24 Labs: Abnormal Lab Results - Last 24 Hours (Table) 07/18/23 07/20/23 07/21/23 Range/Units 13:37 18:45 04:24 WBC 12.8 H 11.0 H (3.8-10.6) k/uL RBC 2.78 L 2.66 L (3.80-5.40) m/uL Hgb 8.7 L 8.1 L (11.4-16.0) gm/dL Hct 25.7 L 24.9 L (34.0-46.0) % RDW 17.3 H 17.8 H (11.5-15.5) % Plt Count 124 L 122 L (150-450) k/uL Neutrophils # 8.2 H (1.3-7.7) k/uL Carbon Dioxide (22-30) mmol/L BUN (7-17) mg/dL Creatinine (0.52-1.04) mg/dL Glucose (74-99) mg/dL Calcium (8.4-10.2) mg/dL Creatine Kinase (30-135) U/L Crossmatch See Detail 07/21/23 Range/Units 04:24 WBC (3.8-10.6) k/uL RBC (3.80-5.40) m/uL Hgb (11.4-16.0) gm/dL Hct (34.0-46.0) % RDW (11.5-15.5) % Plt Count (150-450) k/uL Neutrophils # (1.3-7.7) k/uL Carbon Dioxide 32 H (22-30) mmol/L BUN 28 H (7-17) mg/dL Creatinine 1.21 H (0.52-1.04) mg/dL Glucose 149 H (74-99) mg/dL Calcium 7.0 L (8.4-10.2) mg/dL Creatine Kinase 1282 H* (30-135) U/L Crossmatch Microbiology - Last 24 Hours (Table) 07/19/23 21:10 Blood Culture - Preliminary Blood Assessment and Plan (1) Arterial occlusion, lower extremity Current Visit: Yes Status: Acute Code(s): I70.209 - UNSP ATHSCL LOWER BRULE ARTERIES OF EXTREMITIES, UNSP EXTREMITY SNOMED Code(s): 270805544 (2) Right leg pain Current Visit: Yes Status: Acute Code(s): M79.604 - PAIN IN RIGHT LEG SNOMED Code(s): 680916710 (3) Venous (peripheral) insufficiency Current Visit: No Status: Chronic Code(s): I87.2 - VENOUS INSUFFICIENCY (CHRONIC) (PERIPHERAL) SNOMED Code(s): 13553821 (4) Abdominal pain Current Visit: No Status: Acute Code(s): R10.9 - UNSPECIFIED ABDOMINAL PAIN SNOMED Code(s): 43142281 (5) Hernia of anterior abdominal wall Current Visit: No Status: Acute Code(s): K43.9 - VENTRAL HERNIA WITHOUT OBSTRUCTION OR GANGRENE SNOMED Code(s): 056169618 (6) Small bowel obstruction Current Visit: No Status: Acute Code(s): K56.69 - OTHER INTESTINAL OBSTRUCTION * DO NOT USE * SNOMED Code(s): 367461999 Plan: status post thrombectomy right lower extremity COPD by history Renal insufficiency by history Mental status improved Patient condition guarded Time with Patient: Greater than 30
--- NOTE | 2023-07-21 14:26 | PN ---
PROGRESS NOTE SUBJECTIVE: Pilar is an 82-year-old lady with new-onset atrial fibrillation and acute limb ischemia secondary to a thromboembolic event related to atrial fibrillation. This morning she seems more alert but still not able to swallow food. Continues to have discomfort involving right lower extremity. Her heparin was stopped by a vascular surgeon as they took her back to surgery and there was some concern about the retroperitoneal bleed for which she underwent CT scan of the abdomen and pelvis. Her hemoglobin is around 8.1, which is where it had been ever since the initial admission and her creatinine is 1.2. PHYSICAL EXAMINATION: GENERAL: Comfortable at rest. VITAL SIGNS: Heart rate is 90 beats per minute, blood pressure is 106/80, respiratory rate is 18. CHEST: Reveals diminished air entry at the bases. HEART: Reveals first and second heart sounds, irregular rhythm, and a systolic murmur at the apex. ABDOMEN: Soft. EXTREMITIES: Reveals diminished pulses over the right lower extremity and evidence of acute limb ischemia and recent fasciotomy. ASSESSMENT: 1. Atrial fibrillation with controlled ventricular rate. 2. Acute limb ischemia, probably secondary to thromboembolism related to atrial fibrillation. PLAN: Please resume the heparin when okay with surgery. I instructed the nurse to talk to the vascular surgeon and resume the heparin as soon as possible. MMODL / IJN: [id number] /
[2023-07-22 05:15] LABS: Anisocytosis Slight; HCT 23.7 % (34.0-46.0); HGB 7.7 gm/dL (11.4-16.0); MCH 31.3 pg (25.0-35.0); MCHC 32.5 g/dL (31.0-37.0); MCV 96.3 fL (80.0-100.0); Macrocytosis Slight; Mean Platelet Volume 9.7; Platelet Count 108 k/uL (150-450); RBC 2.46 m/uL (3.80-5.40); RDW 18.3 % (11.5-15.5); WBC 9.4 k/uL (3.8-10.6)
[2023-07-22 05:20] LABS: African American GFR (CKD) 66 (>60 ml/min/1.73 sqM); Anion Gap -3 mmol/L; Blood Urea Nitrogen 26 mg/dL (7-17); Calcium 7.2 mg/dL (8.4-10.2); Carbon Dioxide 34 mmol/L (22-30); Chloride 106 mmol/L (98-107); Glucose 111 mg/dL (74-99); Non-African American GFR(CKD) 58 (>60 ml/min/1.73 sqM); Potassium 3.8 mmol/L (3.5-5.1); Sodium 137 mmol/L (137-145)
[2023-07-22] MEDS: POTASSIUM CHLORIDE 10 MEQ in WATER FOR INJECTION 1 100ML.BAG IVPB SCH (05:30)
[2023-07-22 06:16] LABS: Anisocytosis (M) Present; Eosinophils # (M) 0.19 k/uL (0-0.7); Lymphocytes # (M) 1.41 k/uL (1.0-4.8); Monocytes # (M) 0.38 k/uL (0-1.0); Neutrophils # (M) 7.43 k/uL (1.3-7.7); Neutrophils % (M) 79 %; Nucleated Red Blood Cells 0 /100 WBC (0-0); Total Cells Counted 100
[2023-07-22 06:17] LABS: Polychromasia Present
--- NOTE | 2023-07-22 10:07 | P.PN ---
Subjective patient is seen for follow-up for acute kidney injury and severe metabolic acidosis. status post bicarb drip. renal function has improved significantly. Serum creatinine decreased to 0.9 today. patient remains on Cardizem drip. Levo fed is almost off. urine output at 35-40 mL per hour. bruising in the upper extremities seems to be slightly worse today. Objective - Vital Signs Vital signs: Vital Signs Temp 98.6 F 07/22/23 08:00 Pulse 84 07/22/23 09:30 Resp 17 07/22/23 09:30 BP 106/58 07/22/23 09:30 Pulse Ox 97 07/22/23 09:30 FiO2 Intake & Output 07/21/23 07/22/23 07/22/23 18:59 06:59 18:59 Intake Total 1784.513 5874.0 515.488 Output Total 500 425 115 Balance 1367.256 740.0 400.488 Intake: IV 711 36 264 Dextrose 5% in Water 1, 500 000 ml @ 100 mls/hr IV . [id number] [facility] with Sodium Bicarb (1 Meq/ml) 150 ml Rx#:[id number] Diltiazem 125 mg In 75 30 Sodium Chloride 0.9% 100 ml @ 15 MG/HR 15 mls/hr IV .Q8H20M [facility] Rx#: [id number] Lactated Ringers 1,000 ml 125 @ 50 mls/hr IV .Q20H [facility] Rx#:[id number] Piperacillin-Tazobactam 3 100 100 .375 gm In Sodium Chloride 0.9% 100 ml @ 25 mls/hr IVPB Q8HR [facility] Rx# :[id number] Pressure Bag 36 36 9 Intake, IV Titration 6848.057 9359.0 251.488 Amount Diltiazem 125 mg In 115.75 229.0 Sodium Chloride 0.9% 100 ml @ 15 MG/HR 15 mls/hr IV .Q8H20M [facility] Rx#: [id number] Heparin Sod,Pork in 0.45% 73.512 176.488 NaCl 25,000 unit In 0.45 % NaCl 1 250ml.bag @ 18 UNITS/KG/HR 17.962 mls/hr IV .[id number] [facility] Rx#: [id number] Lactated Ringers 1,000 ml 525 900 75 @ 50 mls/hr IV .Q20H [facility] Rx#:[id number] Norepinephrine 4 mg In 41.994 Sodium Chloride 0.9% 250 ml @ 0.03 MCG/KG/MIN 11. 453 mls/hr IV .[id number] [facility] Rx#:[id number] Potassium Chloride 10 meq 400 In Water For Injection 1 100ml.bag @ 100 mls/hr IVPB Q1HR [facility] Rx#: [id number] Output: Urine 500 425 115 Other: Voiding Method Indwelling Catheter Indwelling Catheter ABP, PAP, CO, CI - Last Documented Arterial Blood Pressure 157/63 - Exam patient is awake but does not communicate much but answering some questions. Examination of the heart S1 and S2 Examination the lungs bilateral breath sounds are heard decreased breath sounds at the bases Abdomen is soft obese Examination lower extremities shows right lower extremity currently wrapped Bruising noted bilateral upper extremities under the arms SPA EXPERIENCE COORDINATOR exam shows patient is moving all 4 extremities. - Labs CBC & Chem 7: 07/22/23 04:25 07/22/23 04:25 Labs: Abnormal Lab Results - Last 24 Hours (Table) 07/21/23 07/21/23 07/22/23 Range/Units 04: 17:40 02:00 RBC (3.80-5.40) m/uL Hgb (11.4-16.0) gm/dL Hct (34.0-46.0) % RDW (11.5-15.5) % Plt Count (150-450) k/uL APTT 32.3 H 59.2 H (22.0-30.0) sec Carbon Dioxide (22-30) mmol/L BUN (7-17) mg/dL Glucose (74-99) mg/dL Calcium (8.4-10.2) mg/dL Cortisol 26.4 H (3.1-22.4) UG/DL 07/22/23 07/22/23 Range/Units 04:25 04:25 RBC 2.46 L (3.80-5.40) m/uL Hgb 7.7 L (11.4-16.0) gm/dL Hct 23.7 L (34.0-46.0) % RDW 18.3 H (11.5-15.5) % Plt Count 108 L (150-450) k/uL APTT (22.0-30.0) sec Carbon Dioxide 34 H (22-30) mmol/L BUN 26 H (7-17) mg/dL Glucose 111 H (74-99) mg/dL Calcium 7.2 L (8.4-10.2) mg/dL Cortisol (3.1-22.4) UG/DL Microbiology - Last 24 Hours (Table) 07/19/23 21:10 Blood Culture - Preliminary Blood Assessment and Plan Assessment: 1. Acute kidney injury, ATN currently , now nonoliguric, secondary to hypotension. Patient received IV contrast for CTA on 07/17/2023. No nephrotoxic agents on board currently. renal function has improved. 2. Anion gap metabolic acidosis secondary to lactic acidosis and critical limb ischemia, maintained on bicarb drip, improving. 3. Critical limb ischemia status post (thrombectomy of right common femoral harvey perficial femoral and popliteal artery with fasciotomy and endarterectomy on 07/18/2023. 4. History of chronic left lower extremity wound 5. New onset A. fib with RVR maintained on Cardizem drip Plan: ddecrease IV fluids to 50 mL an hour. Repeat hemoglobin this afternoon Continue to avoid nephrotoxic agents repeat labs in a.m.
--- NOTE | 2023-07-22 10:14 | P.PN ---
Subjective Progress Note Date: 07/22/23 H&P Date: 07/19/23 This an 82-year-old female with past medical history of PAD, vein stripping of left leg, chronic left lower extremity wound, hypertension, ongoing nicotine dependence, 2 glasses of wine daily, morbid obesity, gastroesophageal reflux disease, presented to the ER with complaints of sudden onset right knee pain sustaining minor fall, in extreme pain. Son had informed ER that she had been going to the bathroom and developed an abrupt onset of severe right lower extremity pain accompanied by limited mobility of her foot/leg and subsequently fell on her knee. CTA reported occlusion of the mid right common femoral artery above the bifurcation, short segment occlusion of the common trunk of the left peroneal and posterior tibial artery. Status post emergent revascularization. Hypotensive, maintained on IV fluids, Levophed. PTT greater than 200, heparin drip placed on hold, from surgical site, Gael wrap dressing reinforced.hemoglobin 11.8(15.1 on admission), platelets 170. Bicarb 13, BUN 14, creatinine 0.61. MCV 104.8, 114, serum alcohol 19. denies chest pain, palpitations or increased shortness of breath. Maintaining O2 sats in the 90s on 2 L nasal cannula. Afebrile, WBC 12.8. Lactic acid 4.5 on admission, down to 1.3. Receiving prophylactic cefazolin. 07/19/2023 delirium postsurgery, completed Head CT last night reported nonacute. Chest x-ray pending. developed atrial fibrillation with RVR during the night with Cardizem drip initiated. Currently maintained on bicarb, heparin, Cardizem and Levophed drips. Daughter and grandson at bedside, patient's sensorium improving. Tmax 100.5, WBC 16.6, hemoglobin 8.7, platelets 192. Sodium 138, potassium 4.9 ,chloride 114. Renal Function Worsening, bicarb 17, BUN 25, creatinine 1.7. 07/22/2023 mental status unchanged ;fidgety, pulling gown off, reaching for lines, required Haldol this morning. Medicated with Dilaudid prior to dressing change with vascular surgery. Tmax 100, normal WBC. Hemoglobin decreased to 7.7, platelets 108. Continues on Cardizem drip for atrial fibrillation .anticoagulated on heparin drip. Levophed drip and IV fluid hydration.creatinine kinase decreased to 1282 yesterday. renal function improving, BUN 26, creatinine 0.94. Recently completed swallow evaluation, speech therapist recommending dysphagia pured diet, strict aspiration precautions with direct supervision. Objective - Vital Signs Vital signs: Vital Signs Temp 98.6 F 07/22/23 08:00 Pulse 84 07/22/23 09:30 Resp 17 07/22/23 09:30 BP 106/58 07/22/23 09:30 Pulse Ox 97 07/22/23 09:30 FiO2 Intake & Output 07/21/23 07/22/23 07/22/23 18:59 06:59 18:59 Intake Total 5368.635 5253.0 515.488 Output Total 500 425 115 Balance 1367.256 740.0 400.488 Intake: IV 711 36 264 Dextrose 5% in Water 1, 500 000 ml @ 100 mls/hr IV . [id number] [facility] with Sodium Bicarb (1 Meq/ml) 150 ml Rx#:[id number] Diltiazem 125 mg In 75 30 Sodium Chloride 0.9% 100 ml @ 15 MG/HR 15 mls/hr IV .Q8H20M [facility] Rx#: [id number] Lactated Ringers 1,000 ml 125 @ 50 mls/hr IV .Q20H [facility] Rx#:[id number] Piperacillin-Tazobactam 3 100 100 .375 gm In Sodium Chloride 0.9% 100 ml @ 25 mls/hr IVPB Q8HR [facility] Rx# :[id number] Pressure Bag 36 36 9 Intake, IV Titration 6281.173 2901.0 251.488 Amount Diltiazem 125 mg In 115.75 229.0 Sodium Chloride 0.9% 100 ml @ 15 MG/HR 15 mls/hr IV .Q8H20M [facility] Rx#: [id number] Heparin Sod,Pork in 0.45% 73.512 176.488 NaCl 25,000 unit In 0.45 % NaCl 1 250ml.bag @ 18 UNITS/KG/HR 17.962 mls/hr IV .[id number] [facility] Rx#: [id number] Lactated Ringers 1,000 ml 525 900 75 @ 50 mls/hr IV .Q20H [facility] Rx#:[id number] Norepinephrine 4 mg In 41.994 Sodium Chloride 0.9% 250 ml @ 0.03 MCG/KG/MIN 11. 453 mls/hr IV .[id number] [facility] Rx#:[id number] Potassium Chloride 10 meq 400 In Water For Injection 1 100ml.bag @ 100 mls/hr IVPB Q1HR [facility] Rx#: [id number] Output: Urine 500 425 115 Other: Voiding Method Indwelling Catheter Indwelling Catheter ABP, PAP, CO, CI - Last Documented Arterial Blood Pressure 157/63 - Exam PHYSICAL EXAM: VITAL SIGNS: [As above] GENERAL: Elderly obese female, sitting up in bed, alert and oriented x 2, to name and place, no acute distress HEENT: Normocephalic ,conjunctivae normal. eyes normal. NECK: Supple, no JVD. CARDIOVASCULAR: S1, S2 regular. Irregular rhythm ,systolic murmur. RESPIRATION: Unlabored, equal air entry , mild scattered rhonchi ,breath sounds diminished in the bases. ABDOMEN: Soft, nondistended, nontender . No guarding. Bowel sounds heard. EXTREMITIES: Positive edema, dark ecchymosis of bilateral upper extremities, right lower extremity warm, Gael wrap dressing recently changed -clean and dry ,right groin prevana wound VAC. with minimal serosang, drg. PSYCHIATRY: Alert and oriented X3, mood and affect normal. NERVOUS SYSTEM: Cranial N 2-12 grossly normal. No focal deficits. GIBSON,Strength and sensation grossly intact. Skin: Warm and dry - Labs CBC & Chem 7: 07/22/23 04:25 07/22/23 04:25 Labs: Abnormal Lab Results - Last 24 Hours (Table) 07/21/23 07/21/23 07/22/23 Range/Units 04:24 17:40 02:00 RBC (3.80-5.40) m/uL Hgb (11.4-16.0) gm/dL Hct (34.0-46.0) % RDW (11.5-15.5) % Plt Count (150-450) k/uL APTT 32.3 H 59.2 H (22.0-30.0) sec Carbon Dioxide (22-30) mmol/L BUN (7-17) mg/dL Glucose (74-99) mg/dL Calcium (8.4-10.2) mg/dL Cortisol 26.4 H (3.1-22.4) UG/DL 07/22/23 07/22/23 Range/Units 04:25 04:25 RBC 2.46 L (3.80-5.40) m/uL Hgb 7.7 L (11.4-16.0) gm/dL Hct 23.7 L (34.0-46.0) % RDW 18.3 H (11.5-15.5) % Plt Count 108 L (150-450) k/uL APTT (22.0-30.0) sec Carbon Dioxide 34 H (22-30) mmol/L BUN 26 H (7-17) mg/dL Glucose 111 H (74-99) mg/dL Calcium 7.2 L (8.4-10.2) mg/dL Cortisol (3.1-22.4) UG/DL Microbiology - Last 24 Hours (Table) 07/19/23 21:10 Blood Culture - Preliminary Blood Assessment and Plan Assessment: Acute right lower extremity critical limb ischemia, [place] 2B, acute right common femoral profunda, superficial femoral popliteal and tibial artery thrombosis, status post open thrombectomy of right common femoral, profunda, superficial femoral and popliteal artery, selective right lower extremity angiogram, open thrombectomy of the right anterior tibial and posterior tibial arteries, right tibial peroneal trunk endarterectomy with patch angioplasty, right lower extremity 4 compartment fasciotomy. New onset atrial fibrillation with controlled ventricular rate Acute blood loss anemia, postoperative Lactic acidosis, resolved with IV fluid hydration New onset atrial fibrillation with controlled ventricular rate, on Cardizem drip Mild pharyngeal dysphagia, on dysphagia pured diet, strict aspiration precaution PAD Chronic left leg wound, followed in the wound care center Morbid obesity, BMI 34 Ongoing nicotine dependence Daily alcohol use, serum alcohol 19 Acute renal failure, ATN secondary to hypotension Anion gap metabolic acidosis, maintained on bicarb drip Plan: Continue on current medication regimen ,monitoring and symptomatic treatment. US of bilateral upper extremities ordered. Repeat CBC this afternoon. Close monitoring of CBC and renal function with repeat labs ordered for a.m. Vascular Surgery Discussing closure of fasciotomy possibly early next week. Initiation of dysphagia 1 diet with strict aspiration precautions. Unsure of last bowel movement, Senokot S, MiraLAX-or can use a Dulcolax suppository or fleets enema. Flomax added, DC Tuttle catheter soon. The impression and plan of care has been dictated as directed. : I performed a history and examination of this patient, discussed the same with the dictator. I agree with the dictator's note ,documented as a scribe. Any additional findings or plans will be noted.
--- NOTE | 2023-07-22 10:19 | P.PN ---
Subjective Progress Note Date: 07/22/23 Principal diagnosis: Peripheral artery disease. I am seeing this patient in new consultation today 07/18/2023 in the intensive care unit after she just returned from OR after undergoing an open thrombectomy of the right femoral, popliteal, and tibial arteries; right tibioperoneal trunk endarterectomy with patch angioplasty; right lower extremity compartment fasciotomy; and selective right lower extremity angiogram. Patient is a 82-year-old white female with past medical history significant for hypertension, chronic left lower extremity wound, GERD. Patient is currently drowsy and a poor historian. She is oriented to self and place. She follows simple commands. No family is present, and history is taken from the medical record. She apparently presented to the emergency room yesterday evening complaining of severe right lower extremity pain and limited mobility of her leg/foot. This was first noticed, when she was up walking to the bathroom, and fell on her right knee. On arrival to the emergency room late last night, a CT angiogram of her lower extremities identified an occlusion of the mid right common femoral artery above the bifurcation. There was also a short segment of occlusion of the common trunk of the left peroneal and posterior tibial artery which are reconstituted near their proximal portions and appear to remain patent as is the anterior tibial artery to the left ankle. The patient underwent emergent revascularization, including the above-mentioned procedure. Postoperative CBC: WBC count 8.1, hemoglobin 12.2, hematocrit 37.5, platelets 120. There is a 3 g drop in the patient's hemoglobin. Preoperative BMP Includes: Sodium 138, pota ssium 4.2, chloride 109, serum bicarb 15, BUN 14, creatinine 0.67, glucose 116. Normal saline is infusing at 75 mL/h. Lactic acid level elevated at 4.5 and is down to 1.3. Overall, vital signs are stable. She is currently sitting up in bed, on 2 L/min nasal cannula, and no acute distress. SPO2 is 99%. Blood pressure is normotensive. Heart rhythm is atrial fibrillation with controlled ventricular rate. I am told that she has not past history of atrial fibrillation. Currently on heparin infusion per vascular surgery recommendations. Right lower extremity is cold and remains pulses. The lower extremity fasciotomy site is wrapped in tim bandage, and has small amount of sanguineous drainage. There is a wound vac to the right femoral site. She is currently being settled in the intensive care unit. Progress note dated July 19, 2023. 82-year-old female seen in consultation yesterday. Please see the note above. The patient came to the intensive care unit, from the operating room, status post open thrombectomy of the right femoral-popliteal and tibial arteries, as well as right tibial peroneal trunk endarterectomy with patch angioplasty, and right lower extremity compartment fasciotomy. The patient had lines placed yesterday, including a left femoral vein triple-lumen catheter, and a left femoral arterial line. Currently, the patient is seen today in room 257. She had blood gases yesterday showing a pO2 of 116, pCO2 of 32, pH is 7.33. Blood gases done this morning, on 3 L, show pO2 102, pCO2 37, pH is 7.35. The patient had a brain CT, which was negative. She continues on 3 L of oxygen. She is also getting a sodium bicarbonate drip with 3 ampoules of sodium bicarb in D5W at 75 cc an hour, heparin via weight-based protocol, Cardizem drip at 5 mg an hour, norepinephrine at 8 mcg/min. Labs include a white count 16.6, hemoglobin 8.7, hematocrit 26.7, and a platelet count of 192,000. PTT is 49.5. Sodium 138, potassium 4.9, chlorides 114, CO2 17, anion gap normal. BUN 25, creatinine 1.70. Calcium 7.2. Progress note dated July 20, 2023. The patient is seen today in room 257. The patient is currently on 3 L of oxygen. She continues on IV heparin via weight-based protocol, Cardizem at 5 mg an hour, norepinephrine at 7 mcg/min, and she is getting a sodium bicarbonate drip, with 3 ampoules of sodium bicarb in D5W at 100 cc an hour. Since she has been here in the ICU she has received a total of 4 units of packed red blood cells. The patient's procalcitonin level was elevated at 0.85. We added Zosyn today. Today's labs include a white count 14.9, hemoglobin 8.7, hematocrit 25.9, and a platelet count of 146,000. PTT is 36. Sodium 137, potassium 4, chlorides 110, CO2 22, anion gap 5, BUN 31, creatinine 1.76. Calcium is 6.8. Chest x-ray shows evidence of only cardiomegaly. Progress note dated July 21, 2023. 82-year-old female seen in room 257. Currently, she is on 2 L of oxygen by nasal cannula, norepinephrine at 3 mcg/min, Cardizem at 15 mg an hour, and D5W with 3 ampoules of sodium bicarb at 100 cc an hour. She continues on Zosyn. Because of the persistent hypotension, we will check a cortisol level today. White count 11, hemoglobin 8.1, hematocrit 24.9, and platelet count 122,000. Sodium 138, potassium 3.5, chlorides 106, CO2 32, BUN 28, and creatinine 1.21. The creatinine kinase is 1282. The calcium level is 7. Blood cultures are currently negative. CT of the abdomen and pelvis shows cholelithiasis, small bilateral effusions, mild diverticulosis, without evidence of retroperitoneal hemorrhage. Yesterday, the patient went back to the operating room, for an exploration of the right lower extremity wound. Progress note dated July 22, 2023. The patient is seen today in room 257. She appears to be about the same today as she was yesterday. Her mental status is about the same. She currently remains on oxygen by nasal cannula at 3 L. She is on a Cardizem drip for her atrial fibrillation at 50 mg an hour. She is getting heparin via weight-based protocol, and lactated Ringer's at 75 cc an hour. White count is 9.4, hemoglobin 7.7, hematocrit 23.7, and platelet count 108,000. Sodium 137, potassium 3.8, chlorides 106, CO2 34, BUN 26, creatinine 0.94. Glucose is 111. Calcium is 7.2. Objective - Vital Signs Vital signs: Vital Signs Temp 98.6 F 07/22/23 08:00 Pulse 84 07/22/23 09:30 Resp 17 07/22/23 09:30 BP 106/58 07/22/23 09:30 Pulse Ox 97 07/22/23 09:30 FiO2 Intake & Output 07/21/23 07/22/23 07/22/23 18:59 06:59 18:59 Intake Total 4106.596 4480.0 515.488 Output Total 500 425 115 Balance 1367.256 740.0 400.488 Intake: IV 711 36 264 Dextrose 5% in Water 1, 500 000 ml @ 100 mls/hr IV . [id number] [facility] with Sodium Bicarb (1 Meq/ml) 150 ml Rx#:[id number] Diltiazem 125 mg In 75 30 Sodium Chloride 0.9% 100 ml @ 15 MG/HR 15 mls/hr IV .Q8H20M [facility] Rx#: [id number] Lactated Ringers 1,000 ml 125 @ 50 mls/hr IV .Q20H [facility] Rx#:[id number] Piperacillin-Tazobactam 3 100 100 .375 gm In Sodium Chloride 0.9% 100 ml @ 25 mls/hr IVPB Q8HR [facility] Rx# :[id number] Pressure Bag 36 36 9 Intake, IV Titration 0220.194 3146.0 251.488 Amount Diltiazem 125 mg In 115.75 229.0 Sodium Chloride 0.9% 100 ml @ 15 MG/HR 15 mls/hr IV .Q8H20M [facility] Rx#: [id number] Heparin Sod,Pork in 0.45% 73.512 176.488 NaCl 25,000 unit In 0.45 % NaCl 1 250ml.bag @ 18 UNITS/KG/HR 17.962 mls/hr IV .[id number] [facility] Rx#: [id number] Lactated Ringers 1,000 ml 525 900 75 @ 50 mls/hr IV .Q20H [facility] Rx#:[id number] Norepinephrine 4 mg In 41.994 Sodium Chloride 0.9% 250 ml @ 0.03 MCG/KG/MIN 11. 453 mls/hr IV .[id number] [facility] Rx#:[id number] Potassium Chloride 10 meq 400 In Water For Injection 1 100ml.bag @ 100 mls/hr IVPB Q1HR [facility] Rx#: [id number] Output: Urine 500 425 115 Other: Voiding Method Indwelling Catheter Indwelling Catheter ABP, PAP, CO, CI - Last Documented Arterial Blood Pressure 157/63 - Exam No acute distress, intermittently confused. Currently on 3 L. No respiratory distress. HEENT examination is grossly unremarkable. Mucous membranes are dry. Neck supple. Full range of motion. No adenopathy thyromegaly or neck vein distention. Cardiovascular examination reveals an irregular rhythm and rate. S1-S2 normal. No S3 or S4. Soft systolic murmur is noted. Heart rate 84 bpm. Lungs reveal mostly clear breath sounds. Minimal scattered rhonchi. No wheezes or crackles. Breath sounds are equal bilaterally. Saturations are 97 %. Abdomen soft without bowel sounds. No masses or tenderness. Extremities are intact. No cyanosis or clubbing. Diffuse edema is noted. Skin reveals multiple areas of ecchymoses. Neurologic examination is brief but nonfocal. - Labs CBC & Chem 7: 07/22/23 04:07/22/23 04:25 Labs: Abnormal Lab Results - Last 24 Hours (Table) 07/21/23 07/21/23 07/22/23 Range/Units : 17:40 02:00 RBC (3.80-5.40) m/uL Hgb (11.4-16.0) gm/dL Hct (34.0-46.0) % RDW (11.5-15.5) % Plt Count (150-450) k/uL APTT 32.3 H 59.2 H (22.0-30.0) sec Carbon Dioxide (22-30) mmol/L BUN (7-17) mg/dL Glucose (74-99) mg/dL Calcium (8.4-10.2) mg/dL Cortisol 26.4 H (3.1-22.4) UG/DL 07/22/23 07/22/23 Range/Units 04:25 04:25 RBC 2.46 L (3.80-5.40) m/uL Hgb 7.7 L (11.4-16.0) gm/dL Hct 23.7 L (34.0-46.0) % RDW 18.3 H (11.5-15.5) % Plt Count 108 L (150-450) k/uL APTT (22.0-30.0) sec Carbon Dioxide 34 H (22-30) mmol/L BUN 26 H (7-17) mg/dL Glucose 111 H (74-99) mg/dL Calcium 7.2 L (8.4-10.2) mg/dL Cortisol (3.1-22.4) UG/DL Microbiology - Last 24 Hours (Table) 07/19/23 21:10 Blood Culture - Preliminary Blood Assessment and Plan Assessment: Critical limb ischemia of the right lower extremity, S/P operative day #4 following an open thrombectomy of the right femoral, popliteal, and tibial arteries; right tibioperoneal trunk endarterectomy with patch angioplasty; right lower extremity compartment fasciotomy; and selective right lower extremity angiogram. Postop day #2, S/P exploration of right lower extremity wound. New onset atrial fibrillation, with controlled ventricular rate. Lactic acidosis, improved. History of hypertension. Peripheral arterial disease. History of GERD, without esophagitis. History of chronic left leg wound. Chronic ongoing tobacco dependence. Obesity, with a BMI of 33.5 kg/m. Plan: Plan dated July 19, 2023. The patient had blood gases yesterday, and repeat blood gases this morning. PO2 is 102, pCO2 is 37, pH is 7.35. The patient had an art line yesterday placed as well as a triple-lumen catheter. The patient is currently on a sodium bicarbonate drip, at 75 cc an hour. She is also receiving IV heparin, Cardizem at 5 mg an hour, and norepinephrine at 8 mcg/min. Labs, x-rays, and medications are reviewed. The patient's overall prognosis remains very guarded. Although the patient does not need intubation currently, the patient may require intubation in the future. Repeat blood gases, or stable. Her respiratory status at this time is reasonably stable. We will continue to follow the patient closely, and make recommendations where appropriate. Plan dated July 20, 2023. The patient is about the same today as she was yesterday. Since being in the unit, she has received a total of 4 units of packed red blood cells. Because of an elevated procalcitonin level of 0.85, we added Zosyn to her regimen. She is currently on heparin via weight-based protocol, Cardizem drip at 5 mg an hour, norepinephrine at 7 mcg/min, and a sodium bicarbonate drip, at 100 cc an hour. She continues on oxygen at 3 L. Labs, x-rays, medications are reviewed. The patient's overall prognosis remains very guarded. We will continue to follow make recommendations. Plan dated July 21, 2023. The patient is seen today in room 257. She continues on oxygen at 2 L. Yesterday, she did go back to the operating room, for exploration of the right lower extremity wound. I did speak to Dr. Tuttle about the procedure. Curr ently, the patient is on norepinephrine at 3 mcg/min, Cardizem drip at 15 mg an hour, and D5W with 3 ampoules of sodium bicarb at 100 cc an hour. She continues on Zosyn. Because of the persistent hypotension, will check a cortisol level. Additional recommendations and suggestions are forthcoming. Labs, x-rays, medications are reviewed. Prognosis is guarded. Plan dated July 22, 2023. The patient is again seen in room 257. She continues on oxygen at 3 L. For atrial fibrillation, she is on Cardizem drip at 15 mg an hour, and IV heparin via weight-based protocol. Labs, x-rays, and medications are reviewed. Her overall status is clinically about the same. The patient continues on appr opriate medication, and is getting Haldol, for agitation. She also continues on Zosyn. We will continue to follow make recommendations along the way. Prognosis is certainly guarded. Time with Patient: Greater than 30
--- NOTE | 2023-07-22 11:29 | P.PN ---
Subjective Progress Note Date: 07/22/23 Principal diagnosis: Critical limb ischemia Patient seen and examined today as a follow-up. She was just medicated with Dilaudid so is a little sleepy however able to follow commands. She does state that she has pain in her right lower extremity. Dressing is clean dry and in tact. Patient does have ecchymosis to bilateral upper extremities and some bruising noted on her abdomen. Hemoglobin with slight drop to 7.7. She remains on IV heparin drip. Continues with good urine output. Objective - Vital Signs Vital signs: Vital Signs Temp 98.6 F 07/22/23 08:00 Pulse 84 07/22/23 09:30 Resp 17 07/22/23 09:30 BP 106/58 07/22/23 09:30 Pulse Ox 97 07/22/23 09:30 FiO2 Intake & Output 07/21/23 07/22/23 07/22/23 18:59 06:59 18:59 Intake Total 1283.713 6927.0 515.488 Output Total 500 425 115 Balance 1367.256 740.0 400.488 Intake: IV 711 36 264 Dextrose 5% in Water 1, 500 000 ml @ 100 mls/hr IV . [id number] [facility] with Sodium Bicarb (1 Meq/ml) 150 ml Rx#:[id number] Diltiazem 125 mg In 75 30 Sodium Chloride 0.9% 100 ml @ 15 MG/HR 15 mls/hr IV .Q8H20M [facility] Rx#: [id number] Lactated Ringers 1,000 ml 125 @ 50 mls/hr IV .Q20H [facility] Rx#:[id number] Piperacillin-Tazobactam 3 100 100 .375 gm In Sodium Chloride 0.9% 100 ml @ 25 mls/hr IVPB Q8HR [facility] Rx# :[id number] Pressure Bag 36 36 9 Intake, IV Titration 6772.292 4674.0 251.488 Amount Diltiazem 125 mg In 115.75 229.0 Sodium Chloride 0.9% 100 ml @ 15 MG/HR 15 mls/hr IV .Q8H20M [facility] Rx#: [id number] Heparin Sod,Pork in 0.45% 73.512 176.488 NaCl 25,000 unit In 0.45 % NaCl 1 250ml.bag @ 18 UNITS/KG/HR 17.962 mls/hr IV .[id number] [facility] Rx#: [id number] Lactated Ringers 1,000 ml 525 900 75 @ 50 mls/hr IV .Q20H [facility] Rx#:[id number] Norepinephrine 4 mg In 41.994 Sodium Chloride 0.9% 250 ml @ 0.03 MCG/KG/MIN 11. 453 mls/hr IV .[id number] [facility] Rx#:[id number] Potassium Chloride 10 meq 400 In Water For Injection 1 100ml.bag @ 100 mls/hr IVPB Q1HR [facility] Rx#: [id number] Output: Urine 500 425 115 Other: Voiding Method Indwelling Catheter Indwelling Catheter ABP, PAP, CO, CI - Last Documented Arterial Blood Pressure 157/63 - Exam General appearance: The patient is awake and alert. Appears in no acute distress. HET: Head is normocephalic and atraumatic. Pupils are equal and reactive. Neck: Supple. Abdomen: Soft, nontender, nondistended. Extremities: Bilateral upper extremity swelling and ecchymosis. Ecchymosis seems a bit darker today. Right groin with Prevena VAC in place with good suction right leg with dressing clean dry and intact. Patient was able to move her ankle and foot. Sensorimotor intact. Foot warm to touch, PT signal present Neurological: Awake and alert. Oriented to self. Following commands - Labs CBC & Chem 7: 07/22/23 04:25 07/22/23 04:25 Labs: Abnormal Lab Results - Last 24 Hours (Table) 07/21/23 07/21/23 07/22/23 Range/Units : 17:40 02:00 RBC (3.80-5.40) m/uL Hgb (11.4-16.0) gm/dL Hct (34.0-46.0) % RDW (11.5-15.5) % Plt Count (150-450) k/uL APTT 32.3 H 59.2 H (22.0-30.0) sec Carbon Dioxide (22-30) mmol/L BUN (7-17) mg/dL Glucose (74-99) mg/dL Calcium (8.4-10.2) mg/dL Cortisol 26.4 H (3.1-22.4) UG/DL 07/22/23 07/22/23 Range/Units 04:25 04:25 RBC 2.46 L (3.80-5.40) m/uL Hgb 7.7 L (11.4-16.0) gm/dL Hct 23.7 L (34.0-46.0) % RDW 18.3 H (11.5-15.5) % Plt Count 108 L (150-450) k/uL APTT (22.0-30.0) sec Carbon Dioxide 34 H (22-30) mmol/L BUN 26 H (7-17) mg/dL Glucose 111 H (74-99) mg/dL Calcium 7.2 L (8.4-10.2) mg/dL Cortisol (3.1-22.4) UG/DL Microbiology - Last 24 Hours (Table) 07/19/23 21:10 Blood Culture - Preliminary Blood Assessment and Plan Assessment: 1. Postop day #4 for open thrombectomy of right common femoral, profunda, superficial femoral and popliteal artery, open thrombectomy of right anterior tibial and posterior tibial arteries, right tibial peroneal trunk endarterectomy with patch angioplasty 2. Postop day #4 for right lower extremity 4 compartment fasciotomy 3. Acute right lower extremity critical limb ischemia 4. Acute right common femoral, profunda, superficial femoral, popliteal and tibial artery thrombosis 5. New onset atrial fibrillation 6. Morbid obesity 7. Acute kidney injury Plan: 1. Continue symptomatic and supportive care 2. Daily CBC 3. Daily dressing change, wet-to-dry, ABD pads, Kerlix, wrapped with Gael wrap 4. Nephrology following for acute kidney injury 5. Date to be determined for closure of fasciotomy possibly early next week Tuesday or Tuesday 6. Rest of medical management per primary medical team and ICU Thank you for this consultation, we will continue to follow. The impression and plan of care has been dictated as directed. Dr. Carey I performed a history and examination of this patient, discussed the same with the dictator. I agree with the dictator's note ,documented as a scribe. Any additional findings or plans will be noted.
[2023-07-22 11:32] VITALS: BMI 33.9
--- NOTE | 2023-07-22 13:19 | US ---
EXAMINATION TYPE: US venous doppler duplex UE DATE OF EXAM: 07/22/2023 Exam done portable in ICU COMPARISON: NONE CLINICAL INDICATION: Female, 82 years old with history of Dark extensive bruising of bilateral upper EXTR; SIDE PERFORMED: Bilateral Difficult and limited study due to morbidly obese patient and arm swelling Right Arm: Visualized portions appear negative for DVT, mid and distal portion of brachial veins and radial and ulnar veins not seen due to above limitations Left Arm: Visualized portions appear negative for DVT, mid and distal portion of brachial veins and u lnar veins not seen due to above limitations IMPRESSION: Limited exam, no evidence for deep vein thrombosis in the visualized portions.
[2023-07-22] MEDS ORDERED: DEXTROSE 50% SYRINGE 50 ML IVP PRN (14:28)
[2023-07-22 14:54] LABS: Anisocytosis Slight; HCT 25.3 % (34.0-46.0); HGB 8.1 gm/dL (11.4-16.0); MCH 31.3 pg (25.0-35.0); MCHC 32.1 g/dL (31.0-37.0); MCV 97.7 fL (80.0-100.0); Macrocytosis Slight; Mean Platelet Volume 9.2; Platelet Count 115 k/uL (150-450); RBC 2.59 m/uL (3.80-5.40); RDW 18.7 % (11.5-15.5); WBC 10.5 k/uL (3.8-10.6)
[2023-07-22] MEDS: polyethylene glycoL 3350 17 GM POWD.PACK PO SCH (15:28)
[2023-07-22] MEDS: TAMSULOSIN 0.4 MG CAP.ER.24H PO SCH (15:30)
[2023-07-22 16:58] LABS: Glucose,Whole Blood 128 mg/dL (70-110)
[2023-07-22] MEDS: INSULIN ASPART (NovoLOG) 100 UNIT/ML VIAL SQ SCH (18:50)
[2023-07-22] MEDS: SENNOSIDES-DOCUSATE SODIUM 1 EACH TAB PO SCH (20:24)
[2023-07-22] MEDS: busPIRone HCl 5 MG TAB PO SCH (20:24)
--- NOTE | 2023-07-22 21:15 | PN ---
PROGRESS NOTE SUBJECTIVE: An 82-year-old lady who was admitted to hospital with acute critical limb ischemia of the right leg, and new onset atrial fibrillation. She underwent thrombectomy and fasciotomy and had to undergo redo surgery. She remains confused and she is not able to swallow food or pills. She is currently on IV Cardizem for the rate control and on heparin for anticoagulation. OBJECTIVE: VITAL SIGNS: Heart rate is 90 beats per minute, blood pressure is 110/62, respiratory rate is 18. CHEST: Reveals diminished air entry at the bases. HEART: Reveals first and second heart sounds, irregular rhythm. EXTREMITIES: Reveals that the right leg is under dressing. She has an open wound and has extensive ecchymosis over both upper extremities. A retroperitoneal bleed was ruled out with a CT scan. LABORATORY DATA: Her hemoglobin is 7.7. She was admitted with 15 and had dropped the hemoglobin to 8, which is where she had remained more or less all through. ASSESSMENT AND PLAN: 1. Persistent atrial fibrillation with poorly controlled ventricular rate. 2. Acute limb ischemia secondary to a thromboembolic event from atrial fibrillation. 3. Anemia secondary to blood loss. The patient's hemoglobin has remained stable throughout this hospitalization. It has dropped after her initial admission, but that is varied state. We will continue with the IV heparin and Cardizem. MMODL / IJN: [id number] /
[2023-07-23 00:09] LABS: Glucose,Whole Blood 110 mg/dL (70-110)
[2023-07-23 04:40] LABS: African American GFR (CKD) 83 (>60 ml/min/1.73 sqM); Anion Gap 2 mmol/L; Blood Urea Nitrogen 23 mg/dL (7-17); Calcium 7.7 mg/dL (8.4-10.2); Carbon Dioxide 30 mmol/L (22-30); Chloride 107 mmol/L (98-107); Glucose 103 mg/dL (74-99); Non-African American GFR(CKD) 72 (>60 ml/min/1.73 sqM); Potassium 3.3 mmol/L (3.5-5.1); Sodium 139 mmol/L (137-145)
[2023-07-23 05:09] LABS: Anisocytosis Slight; Basophils % (A) 0 %; Eosinophils # (A) 0.1 k/uL (0-0.7); Eosinophils % (A) 1 %; HCT 24.1 % (34.0-46.0); Hypochromasia Slight; Lymphocytes # (A) 1.2 k/uL (1.0-4.8); Lymphocytes % (A) 13 %; MCH 32.6 pg (25.0-35.0); MCHC 33.3 g/dL (31.0-37.0); MCV 97.9 fL (80.0-100.0); Macrocytosis Slight; Mean Platelet Volume 9.4; Monocytes # (A) 0.6 k/uL (0-1.0); Monocytes % (A) 6 %; Neutrophils # (A) 7.5 k/uL (1.3-7.7); Neutrophils % (A) 78 %; Platelet Count 110 k/uL (150-450); RBC 2.46 m/uL (3.80-5.40); RDW 19.9 % (11.5-15.5); WBC 9.6 k/uL (3.8-10.6)
[2023-07-23] MEDS: POTASSIUM CHLORIDE 10 MEQ in WATER FOR INJECTION 1 100ML.BAG IVPB SCH ×2 (05:14→17:30)
[2023-07-23 05:56] LABS: Glucose,Whole Blood 101 mg/dL (70-110)
--- NOTE | 2023-07-23 06:42 | P.PN ---
Subjective Progress Note Date: 07/23/23 Principal diagnosis: thrombosis right femoral artery patient is a noncompliant patient with all known practice who hasn't been in the office in over a year presented to the emergency room with a chief complaint of rt femoral artery thrombosis with a cold right foot. This patient was taken to the operating room by vascular surgery thrombectomy, which was successful the patient is warm color has improved Doppler pulses noted 07/23/2003 Patient is awake alert, improving slowly right leg and foot is warm, both arms are bruised ecchymotic secondary to multiple needle sticks and is otherwise active, swallow study was performed patient is able to guard airway, we will begin feeding as discussed prognosis guarded Objective - Vital Signs Vital signs: Vital Signs Temp 98.2 F 07/23/23 04:00 Pulse 79 07/23/23 06:00 Resp 23 07/23/23 06:00 BP 114/68 07/23/23 06:00 Pulse Ox 91 L 07/23/23 06:00 FiO2 Intake & Output 07/22/23 07/22/23 07/23/23 06:59 18:59 06:59 Intake Total 1165.0 1262.238 881.622 Output Total 425 485 630 Balance 740.0 777.238 251.622 Weight 101.23 kg Intake: IV 36 741 636 Diltiazem 125 mg In 30 Sodium Chloride 0.9% 100 ml @ 10 MG/HR 10 mls/hr IV .[id number] [facility] Rx#: [id number] Lactated Ringers 1,000 ml 575 600 @ 50 mls/hr IV .Q20H [facility] Rx#:[id number] Piperacillin-Tazobactam 3 100 .375 gm In Sodium Chloride 0.9% 100 ml @ 25 mls/hr IVPB Q8HR [facility] Rx# :[id number] Pressure Bag 36 36 36 Intake, IV Titration 1129.0 346.238 245.622 Amount Diltiazem 125 mg In 229.0 94.75 Sodium Chloride 0.9% 100 ml @ 10 MG/HR 10 mls/hr IV .[id number] [facility] Rx#: [id number] Heparin Sod,Pork in 0.45% 176.488 245.622 NaCl 25,000 unit In 0.45 % NaCl 1 250ml.bag @ 18 UNITS/KG/HR 17.962 mls/hr IV .[id number] [facility] Rx#: [id number] Lactated Ringers 1,000 ml 900 75 @ 50 mls/hr IV .Q20H [facility] Rx#:[id number] Oral 175 Output: Urine 425 485 630 Other: Voiding Method Indwelling Catheter Indwelling Catheter Indwelling Catheter ABP, PAP, CO, CI - Last Documented Arterial Blood Pressure 149/46 - Exam General: [Patient awake, alert and oriented times 3. Patient in no acute distress.] HEENT: [PERRL. EOMI. No pharyngeal erythema or exudate.] Neck: [No adenopathy.] Cardiac: [Heart regular in rate and rhythm. No S3. No S4. No clicks, rubs. No murmur.] Lungs: [Clear to auscultation bilaterally.] Abdomen: [No mass. No organomegaly. Bowel sounds presnt and normoactive in all 4 quadrants.] Extremes: left arm while old extensive ecchymosis secondary to multiple needlesticks, right foot extensively mottled however color improved foot is warm to touch and Doppler pulses appreciated in the left lower extreme demonstrated movement of toes both right and left feet,recent fasciotomy still open : old female genitalia Musculoskeletal: [No joint erythema, edema or tenderness.] Skin: [No rash.] Neurologic: [No lateralizing deficits. CN II - XII grossly intact.] Lymphatic: [No adenopathy.] - Labs CBC & Chem 7: 07/23/23 03:42 07/23/23 03:42 Labs: Abnormal Lab Results - Last 24 Hours (Table) 07/22/23 07/22/23 07/23/23 Range/Units 14:48 16:47 01:25 RBC 2.59 L (3.80-5.40) m/uL Hgb 8.1 L (11.4-16.0) gm/dL Hct 25.3 L (34.0-46.0) % RDW 18.7 H (11.5-15.5) % Plt Count 115 L (150-450) k/uL APTT 33.0 H (22.0-30.0) sec Potassium (3.5-5.1) mmol/L BUN (7-17) mg/dL Glucose (74-99) mg/dL POC Glucose (mg/dL) 128 H (70-110) mg/dL Calcium (8.4-10.2) mg/dL 07/23/23 07/23/23 Range/Units 03:42 03:42 RBC 2.46 L (3.80-5.40) m/uL Hgb 8.0 L (11.4-16.0) gm/dL Hct 24.1 L (34.0-46.0) % RDW 19.9 H (11.5-15.5) % Plt Count 110 L (150-450) k/uL APTT (22.0-30.0) sec Potassium 3.3 L (3.5-5.1) mmol/L BUN 23 H (7-17) mg/dL Glucose 103 H (74-99) mg/dL POC Glucose (mg/dL) (70-110) mg/dL Calcium 7.7 L (8.4-10.2) mg/dL Microbiology - Last 24 Hours (Table) 07/19/23 21:10 Blood Culture - Preliminary Blood Assessment and Plan (1) Arterial occlusion, lower extremity Current Visit: Yes Status: Acute Code(s): I70.209 - UNSP ATHSCL [place] ARTERIES OF EXTREMITIES, UNSP EXTREMITY SNOMED Code(s): 812346316 (2) Right leg pain Current Visit: Yes Status: Acute Code(s): M79.604 - PAIN IN RIGHT LEG SNOMED Code(s): 984827030 (3) Venous (peripheral) insufficiency Current Visit: No Status: Chronic Code(s): I87.2 - VENOUS INSUFFICIENCY (CHRONIC) (PERIPHERAL) SNOMED Code(s): 31891776 (4) Abdominal pain Current Visit: No Status: Acute Code(s): R10.9 - UNSPECIFIED ABDOMINAL PAIN SNOMED Code(s): 60326502 (5) Hernia of anterior abdominal wall Current Visit: No Status: Acute Code(s): K43.9 - VENTRAL HERNIA WITHOUT OBSTRUCTION OR GANGRENE SNOMED Code(s): 162181755 (6) Small bowel obstruction Current Visit: No Status: Acute Code(s): K56.69 - OTHER INTESTINAL OBSTRUCTION * DO NOT USE * SNOMED Code(s): 654147723 Plan: status post thrombectomy right lower extremity COPD by history Renal insufficiency by history Mental status improved Patient condition guarded Time with Patient: Greater than 30
[2023-07-23] MEDS: METOPROLOL TARTRATE 50 MG TAB PO SCH (07:53)
--- NOTE | 2023-07-23 11:20 | P.PN ---
Subjective Progress Note Date: 07/23/23 Principal diagnosis: Peripheral artery disease. I am seeing this patient in new consultation today 07/18/2023 in the intensive care unit after she just returned from OR after undergoing an open thrombectomy of the right femoral, popliteal, and tibial arteries; right tibioperoneal trunk endarterectomy with patch angioplasty; right lower extremity compartment fasciotomy; and selective right lower extremity angiogram. Patient is a 82-year-old white female with past medical history significant for hypertension, chronic left lower extremity wound, GERD. Patient is currently drowsy and a poor historian. She is oriented to self and place. She follows simple commands. No family is present, and history is taken from the medical record. She apparently presented to the emergency room yesterday evening complaining of severe right lower extremity pain and limited mobility of her leg/foot. This was first noticed, when she was up walking to the bathroom, and fell on her right knee. On arrival to the emergency room late last night, a CT angiogram of her lower extremities identified an occlusion of the mid right common femoral artery above the bifurcation. There was also a short segment of occlusion of the common trunk of the left peroneal and posterior tibial artery which are reconstituted near their proximal portions and appear to remain patent as is the anterior tibial artery to the left ankle. The patient underwent emergent revascularization, including the above-mentioned procedure. Postoperative CBC: WBC count 8.1, hemoglobin 12.2, hematocrit 37.5, platelets 120. There is a 3 g drop in the patient's hemoglobin. Preoperative BMP Includes: Sodium 138, pota ssium 4.2, chloride 109, serum bicarb 15, BUN 14, creatinine 0.67, glucose 116. Normal saline is infusing at 75 mL/h. Lactic acid level elevated at 4.5 and is down to 1.3. Overall, vital signs are stable. She is currently sitting up in bed, on 2 L/min nasal cannula, and no acute distress. SPO2 is 99%. Blood pressure is normotensive. Heart rhythm is atrial fibrillation with controlled ventricular rate. I am told that she has not past history of atrial fibrillation. Currently on heparin infusion per vascular surgery recommendations. Right lower extremity is cold and remains pulses. The lower extremity fasciotomy site is wrapped in tim bandage, and has small amount of sanguineous drainage. There is a wound vac to the right femoral site. She is currently being settled in the intensive care unit. Progress note dated July 19, 2023. 82-year-old female seen in consultation yesterday. Please see the note above. The patient came to the intensive care unit, from the operating room, status post open thrombectomy of the right femoral-popliteal and tibial arteries, as well as right tibial peroneal trunk endarterectomy with patch angioplasty, and right lower extremity compartment fasciotomy. The patient had lines placed yesterday, including a left femoral vein triple-lumen catheter, and a left femoral arterial line. Currently, the patient is seen today in room 257. She had blood gases yesterday showing a pO2 of 116, pCO2 of 32, pH is 7.33. Blood gases done this morning, on 3 L, show pO2 102, pCO2 37, pH is 7.35. The patient had a brain CT, which was negative. She continues on 3 L of oxygen. She is also getting a sodium bicarbonate drip with 3 ampoules of sodium bicarb in D5W at 75 cc an hour, heparin via weight-based protocol, Cardizem drip at 5 mg an hour, norepinephrine at 8 mcg/min. Labs include a white count 16.6, hemoglobin 8.7, hematocrit 26.7, and a platelet count of 192,000. PTT is 49.5. Sodium 138, potassium 4.9, chlorides 114, CO2 17, anion gap normal. BUN 25, creatinine 1.70. Calcium 7.2. Progress note dated July 20, 2023. The patient is seen today in room 257. The patient is currently on 3 L of oxygen. She continues on IV heparin via weight-based protocol, Cardizem at 5 mg an hour, norepinephrine at 7 mcg/min, and she is getting a sodium bicarbonate drip, with 3 ampoules of sodium bicarb in D5W at 100 cc an hour. Since she has been here in the ICU she has received a total of 4 units of packed red blood cells. The patient's procalcitonin level was elevated at 0.85. We added Zosyn today. Today's labs include a white count 14.9, hemoglobin 8.7, hematocrit 25.9, and a platelet count of 146,000. PTT is 36. Sodium 137, potassium 4, chlorides 110, CO2 22, anion gap 5, BUN 31, creatinine 1.76. Calcium is 6.8. Chest x-ray shows evidence of only cardiomegaly. Progress note dated July 21, 2023. 82-year-old female seen in room 257. Currently, she is on 2 L of oxygen by nasal cannula, norepinephrine at 3 mcg/min, Cardizem at 15 mg an hour, and D5W with 3 ampoules of sodium bicarb at 100 cc an hour. She continues on Zosyn. Because of the persistent hypotension, we will check a cortisol level today. White count 11, hemoglobin 8.1, hematocrit 24.9, and platelet count 122,000. Sodium 138, potassium 3.5, chlorides 106, CO2 32, BUN 28, and creatinine 1.21. The creatinine kinase is 1282. The calcium level is 7. Blood cultures are currently negative. CT of the abdomen and pelvis shows cholelithiasis, small bilateral effusions, mild diverticulosis, without evidence of retroperitoneal hemorrhage. Yesterday, the patient went back to the operating room, for an exploration of the right lower extremity wound. Progress note dated July 22, 2023. The patient is seen today in room 257. She appears to be about the same today as she was yesterday. Her mental status is about the same. She currently remains on oxygen by nasal cannula at 3 L. She is on a Cardizem drip for her atrial fibrillation at 50 mg an hour. She is getting heparin via weight-based protocol, and lactated Ringer's at 75 cc an hour. White count is 9.4, hemoglobin 7.7, hematocrit 23.7, and platelet count 108,000. Sodium 137, potassium 3.8, chlorides 106, CO2 34, BUN 26, creatinine 0.94. Glucose is 111. Calcium is 7.2. Progress note dated July 23, 2023. This is a 82-year-old female seen in room 257. Currently, the patient is on 3 L of oxygen. The patient is getting lactated Ringer's at 50 cc an hour. Cardizem drip has been turned off. The patient is receiving IV heparin via weight-based protocol. She did pass her swallow evaluation yesterday. Current labs include a white count of 9.6, hemoglobin 8, hematocrit 24.1, and a platelet count of 110,000. PTT is 67.3. Sodium 139, potassium 3.3, chlorides 107, CO2 30, BUN 23, creatinine 0.78. Glucose is 103. Calcium is 7.7. Dopplers of the upper remedies, were performed, and are negative for DVT. Objective - Vital Signs Vital signs: Vital Signs Temp 98.5 F 07/23/23 08:00 Pulse 70 07/23/23 10:00 Resp 25 H 07/23/23 10:00 BP 133/74 07/23/23 08:00 Pulse Ox 94 L 07/23/23 10:00 FiO2 Intake & Output 07/22/23 07/23/23 07/23/23 18:59 06:59 18:59 Intake Total 1262.238 881.622 437 Output Total 485 630 135 Balance 777.238 251.622 302 Weight 101.23 kg Intake: IV 741 636 212 Diltiazem 125 mg In 30 Sodium Chloride 0.9% 100 ml @ 10 MG/HR 10 mls/hr IV .[id number] [facility] Rx#: [id number] Lactated Ringers 1,000 ml 575 600 200 @ 50 mls/hr IV .Q20H [facility] Rx#:[id number] Piperacillin-Tazobactam 3 100 .375 gm In Sodium Chloride 0.9% 100 ml @ 25 mls/hr IVPB Q8HR [facility] Rx# :[id number] Pressure Bag 36 36 12 Intake, IV Titration 346.238 245.622 125 Amount Diltiazem 125 mg In 94.75 125 Sodium Chloride 0.9% 100 ml @ 10 MG/HR 10 mls/hr IV .[id number] [facility] Rx#: [id number] Heparin Sod,Pork in 0.45% 176.488 245.622 NaCl 25,000 unit In 0.45 % NaCl 1 250ml.bag @ 18 UNITS/KG/HR 17.962 mls/hr IV .[id number] [facility] Rx#: [id number] Lactated Ringers 1,000 ml 75 @ 50 mls/hr IV .Q20H [facility] Rx#:[id number] Oral 175 100 Output: Urine 485 630 135 Other: Voiding Method Indwelling Catheter Indwelling Catheter Indwelling Catheter ABP, PAP, CO, CI - Last Documented Arterial Blood Pressure 138/57 - Exam No acute distress, intermittently confused. Currently on 3 L. No respiratory distress. HEENT examination is grossly unremarkable. Mucous membranes are dry. Neck supple. Full range of motion. No adenopathy thyromegaly or neck vein distention. Cardiovascular examination reveals an irregular rhythm and rate. S1-S2 normal. No S3 or S4. Soft systolic murmur is noted. Heart rate 70 bpm. Lungs reveal mostly clear breath sounds. Minimal scattered rhonchi. No wheezes or crackles. Breath sounds are equal bilaterally. Saturations are 95 %. Abdomen soft without bowel sounds. No masses or tenderness. Extremities are intact. No cyanosis or clubbing. Diffuse edema is noted. Skin reveals multiple areas of ecchymoses. Neurologic examination is brief but nonfocal. - Labs CBC & Chem 7: 07/23/23 03:42 07/23/23 03:42 Labs: Abnormal Lab Results - Last 24 Hours (Table) 07/22/23 07/22/23 07/23/23 Range/Units 14:48 16:47 01:25 RBC 2.59 L (3.80-5.40) m/uL Hgb 8.1 L (11.4-16.0) gm/dL Hct 25.3 L (34.0-46.0) % RDW 18.7 H (11.5-15.5) % Plt Count 115 L (150-450) k/uL APTT 33.0 H (22.0-30.0) sec Potassium (3.5-5.1) mmol/L BUN (7-17) mg/dL Glucose (74-99) mg/dL POC Glucose (mg/dL) 128 H (70-110) mg/dL Calcium (8.4-10.2) mg/dL 07/23/23 07/23/23 07/23/23 Range/Units 03:42 03:42 08:50 RBC 2.46 L (3.80-5.40) m/uL Hgb 8.0 L (11.4-16.0) gm/dL Hct 24.1 L (34.0-46.0) % RDW 19.9 H (11.5-15.5) % Plt Count 110 L (150-450) k/uL APTT 67.3 H (22.0-30.0) sec Potassium 3.3 L (3.5-5.1) mmol/L BUN 23 H (7-17) mg/dL Glucose 103 H (74-99) mg/dL POC Glucose (mg/dL) (70-110) mg/dL Calcium 7.7 L (8.4-10.2) mg/dL Microbiology - Last 24 Hours (Table) 07/19/23 21:10 Blood Culture - Preliminary Blood Assessment and Plan Assessment: Critical limb ischemia of the right lower extremity, S/P operative day #5 following an open thrombectomy of the right femoral, popliteal, and tibial arteries; right tibioperoneal trunk endarterectomy with patch angioplasty; right lower extremity compartment fasciotomy; and selective right lower extremity angiogram. Postop day #3, S/P exploration of right lower extremity wound. New onset atrial fibrillation, with controlled ventricular rate. Lactic acidosis, improved. History of hypertension. Peripheral arterial disease. History of GERD, without esophagitis. History of chronic left leg wound. Chronic ongoing tobacco dependence. Obesity, with a BMI of 33.5 kg/m. Plan: Plan dated July 19, 2023. The patient had blood gases yesterday, and repeat blood gases this morning. PO2 is 102, pCO2 is 37, pH is 7.35. The patient had an art line yesterday placed as well as a triple-lumen catheter. The patient is currently on a sodium bicarbonate drip, at 75 cc an hour. She is also receiving IV heparin, Cardizem at 5 mg an hour, and norepinephrine at 8 mcg/min. Labs, x-rays, and medications are reviewed. The patient's overall prognosis remains very guarded. Although the patient does not need intubation currently, the patient may require intubation in the future. Repeat blood gases, or stable. Her respiratory status at this time is reasonably stable. We will continue to follow the patient closely, and make recommendations where appropriate. Plan dated July 20, 2023. The patient is about the same today as she was yesterday. Since being in the unit, she has received a total of 4 units of packed red blood cells. Because of an elevated procalcitonin level of 0.85, we added Zosyn to her regimen. She is currently on heparin via weight-based protocol, Cardizem drip at 5 mg an hour, norepinephrine at 7 mcg/min, and a sodium bicarbonate drip, at 100 cc an hour. She continues on oxygen at 3 L. Labs, x-rays, medications are reviewed. The patient's overall prognosis remains very guarded. We will continue to follow make recommendations. Plan dated July 21, 2023. The patient is seen today in room 257. She continues on oxygen at 2 L. Yesterday, she did go back to the operating room, for exploration of the right lower extremity wound. I did speak to Dr. Tuttle about the procedure. Nabila alvarado, the patient is on norepinephrine at 3 mcg/min, Cardizem drip at 15 mg an hour, and D5W with 3 ampoules of sodium bicarb at 100 cc an hour. She continues on Zosyn. Because of the persistent hypotension, will check a cortisol level. Additional recommendations and suggestions are forthcoming. Labs, x-rays, medications are reviewed. Prognosis is guarded. Plan dated July 22, 2023. The patient is again seen in room 257. She continues on oxygen at 3 L. For atrial fibrillation, she is on Cardizem drip at 15 mg an hour, and IV heparin via weight-based protocol. Labs, x-rays, and medications are reviewed. Her overall status is clinically about the same. The patient continues on approp riate medication, and is getting Haldol, for agitation. She also continues on Zosyn. We will continue to follow make recommendations along the way. Prognosis is certainly guarded. Plan dated July 23, 2023. The patient is still having some high blood pressure. Cardiology is involved, and did add some additional medication. The patient is on 3 L of oxygen. Her mental status, is waxing and waning. She has been weaned off the Cardizem. She continues on IV heparin. She did pass her swallow evaluation. We will continue to follow make recommendations along the way. The patient's overall prognosis remains very guarded. The patient continues on antibiotic, in the form of Zosyn. Time with Patient: Less than 30
[2023-07-23 11:39] LABS: Glucose,Whole Blood 108 mg/dL (70-110)
--- NOTE | 2023-07-23 11:54 | P.PN ---
Subjective Progress Note Date: 07/23/23 Patient is seen and examined today in the ICU. Doing relatively well overall, some mild agitation/confusion this morning per nursing. No significant bleeding. Objective - Vital Signs Vital signs: Vital Signs Temp 98.5 F 07/23/23 08:00 Pulse 70 07/23/23 10:00 Resp 25 H 07/23/23 10:00 BP 133/74 07/23/23 08:00 Pulse Ox 94 L 07/23/23 10:00 FiO2 Intake & Output 07/22/23 07/23/23 07/23/23 18:59 06:59 18:59 Intake Total 1262.238 881.622 437 Output Total 485 630 135 Balance 777.238 251.622 302 Weight 101.23 kg Intake: IV 741 636 212 Diltiazem 125 mg In 30 Sodium Chloride 0.9% 100 ml @ 10 MG/HR 10 mls/hr IV .[id number] [facility] Rx#: [id number] Lactated Ringers 1,000 ml 575 600 200 @ 50 mls/hr IV .Q20H [facility] Rx#:[id number] Piperacillin-Tazobactam 3 100 .375 gm In Sodium Chloride 0.9% 100 ml @ 25 mls/hr IVPB Q8HR [facility] Rx# :[id number] Pressure Bag 36 36 12 Intake, IV Titration 346.238 245.622 125 Amount Diltiazem 125 mg In 94.75 125 Sodium Chloride 0.9% 100 ml @ 10 MG/HR 10 mls/hr IV .[id number] [facility] Rx#: [id number] Heparin Sod,Pork in 0.45% 176.488 245.622 NaCl 25,000 unit In 0.45 % NaCl 1 250ml.bag @ 18 UNITS/KG/HR 17.962 mls/hr IV .[id number] [facility] Rx#: [id number] Lactated Ringers 1,000 ml 75 @ 50 mls/hr IV .Q20H [facility] Rx#:[id number] Oral 175 100 Output: Urine 485 630 135 Other: Voiding Method Indwelling Catheter Indwelling Catheter Indwelling Catheter ABP, PAP, CO, CI - Last Documented Arterial Blood Pressure 138/57 - Exam General appearance: The patient is restless in the bed, does answer most questions HET: Head is normocephalic and atraumatic. Pupils are equal and reactive. Neck: Supple. Heart: Irregular. Lungs: Equal expansion, normal respiratory effort. Abdomen: Soft, nontender, nondistended. Extremities: Right leg with dressing clean and dry. Foot is warm with decent capillary refill PT Doppler signal present. - Labs CBC & Chem 7: 07/23/23 03:42 07/23/23 03:42 Labs: Abnormal Lab Results - Last 24 Hours (Table) 07/22/23 07/22/23 07/23/23 Range/Units 14:48 16:47 01:25 RBC 2.59 L (3.80-5.40) m/uL Hgb 8.1 L (11.4-16.0) gm/dL Hct 25.3 L (34.0-46.0) % RDW 18.7 H (11.5-15.5) % Plt Count 115 L (150-450) k/uL APTT 33.0 H (22.0-30.0) sec Potassium (3.5-5.1) mmol/L BUN (7-17) mg/dL Glucose (74-99) mg/dL POC Glucose (mg/dL) 128 H (70-110) mg/dL Calcium (8.4-10.2) mg/dL 07/23/23 07/23/23 07/23/23 Range/Units 03:42 03:42 08:50 RBC 2.46 L (3.80-5.40) m/uL Hgb 8.0 L (11.4-16.0) gm/dL Hct 24.1 L (34.0-46.0) % RDW 19.9 H (11.5-15.5) % Plt Count 110 L (150-450) k/uL APTT 67.3 H (22.0-30.0) sec Potassium 3.3 L (3.5-5.1) mmol/L BUN 23 H (7-17) mg/dL Glucose 103 H (74-99) mg/dL POC Glucose (mg/dL) (70-110) mg/dL Calcium 7.7 L (8.4-10.2) mg/dL Microbiology - Last 24 Hours (Table) 07/19/23 21:10 Blood Culture - Preliminary Blood Assessment and Plan Assessment: 1. Postop open thrombectomy of right common femoral, profunda, superficial femoral and popliteal artery, open thrombectomy of right anterior tibial and posterior tibial arteries, right tibial peroneal trunk endarterectomy with patch angioplasty 2. Postop right lower extremity 4 compartment fasciotomy 3. Acute right lower extremity critical limb ischemia 4. Acute right common femoral, profunda, superficial femoral, popliteal and tibial artery thrombosis 5. New onset atrial fibrillation 6. Morbid obesity Plan: 1. Continue symptomatic and supportive care 2. Daily labs 3. Continue Daily dressing change, 4 x 4, Kerlix, ABD pad, Kerlix with Gael wrap 4. Plans in motion for potential closure of fasciotomy defect or attempts on 07/25/2023 5. Rest of medical management per primary medical team and ICU Thank you for this consultation, we will continue to follow. The impression and plan of care has been dictated as directed. Dr. Tuttle I performed a history and examination of this patient, discussed the same with the dictator. I agree with the dictator's note ,documented as a scribe. Any additional findings or plans will be noted.
--- NOTE | 2023-07-23 13:10 | P.PN ---
Subjective Progress Note Date: 07/23/23 Patient is seen for follow-up for acute kidney injury and severe metabolic acidosis. Per nursing she remains confused and by mouth intake is poor. Patient is awake but confused. Examination of the heart S1 and S2 Examination the lungs bilateral breath sounds are heard decreased breath sounds at the bases Abdomen is soft obese Examination lower extremities shows right lower extremity currently wrapped Bruising noted bilateral upper extremities under the arms [employer] exam shows patient is moving all 4 extremities. Objective - Vital Signs Vital signs: Vital Signs Temp 98.5 F 07/23/23 08:00 Pulse 73 07/23/23 09:00 Resp 26 H 07/23/23 09:00 BP 133/74 07/23/23 08:00 Pulse Ox 95 07/23/23 09:00 FiO2 Intake & Output 07/22/23 07/23/23 07/23/23 18:59 06:59 18:59 Intake Total 1262.238 881.622 384 Output Total 485 630 110 Balance 777.238 251.622 274 Weight 101.23 kg Intake: IV 741 636 159 Diltiazem 125 mg In 30 Sodium Chloride 0.9% 100 ml @ 10 MG/HR 10 mls/hr IV .[id number] [facility] Rx#: [id number] Lactated Ringers 1,000 ml 575 600 150 @ 50 mls/hr IV .Q20H [facility] Rx#:[id number] Piperacillin-Tazobactam 3 100 .375 gm In Sodium Chloride 0.9% 100 ml @ 25 mls/hr IVPB Q8HR [facility] Rx# :[id number] Pressure Bag 36 36 9 Intake, IV Titration 346.238 245.622 125 Amount Diltiazem 125 mg In 94.75 125 Sodium Chloride 0.9% 100 ml @ 10 MG/HR 10 mls/hr IV .[id number] [facility] Rx#: [id number] Heparin Sod,Pork in 0.45% 176.488 245.622 NaCl 25,000 unit In 0.45 % NaCl 1 250ml.bag @ 18 UNITS/KG/HR 17.962 mls/hr IV .[id number] [facility] Rx#: [id number] Lactated Ringers 1,000 ml 75 @ 50 mls/hr IV .Q20H [facility] Rx#:[id number] Oral 175 100 Output: Urine 485 630 110 Other: Voiding Method Indwelling Catheter Indwelling Catheter Indwelling Catheter ABP, PAP, CO, CI - Last Documented Arterial Blood Pressure 126/57 - Labs CBC & Chem 7: 07/23/23 03:42 07/23/23 03:42 Labs: Abnormal Lab Results - Last 24 Hours (Table) 07/22/23 07/22/23 07/23/23 Range/Units 14:48 16:47 01:25 RBC 2.59 L (3.80-5.40) m/uL Hgb 8.1 L (11.4-16.0) gm/dL Hct 25.3 L (34.0-46.0) % RDW 18.7 H (11.5-15.5) % Plt Count 115 L (150-450) k/uL APTT 33.0 H (22.0-30.0) sec Potassium (3.5-5.1) mmol/L BUN (7-17) mg/dL Glucose (74-99) mg/dL POC Glucose (mg/dL) 128 H (70-110) mg/dL Calcium (8.4-10.2) mg/dL 07/23/23 07/23/23 07/23/23 Range/Units 03:42 03:42 08:50 RBC 2.46 L (3.80-5.40) m/uL Hgb 8.0 L (11.4-16.0) gm/dL Hct 24.1 L (34.0-46.0) % RDW 19.9 H (11.5-15.5) % Plt Count 110 L (150-450) k/uL APTT 67.3 H (22.0-30.0) sec Potassium 3.3 L (3.5-5.1) mmol/L BUN 23 H (7-17) mg/dL Glucose 103 H (74-99) mg/dL POC Glucose (mg/dL) (70-110) mg/dL Calcium 7.7 L (8.4-10.2) mg/dL Microbiology - Last 24 Hours (Table) 07/19/23 21:10 Blood Culture - Preliminary Blood Assessment and Plan Plan: 1. Acute kidney injury, ATN currently , now nonoliguric, secondary to hypotension. Patient received IV contrast for CTA on 07/17/2023. No nephrotoxic agents on board currently. renal function has improved. 2. Anion gap metabolic acidosis secondary to lactic acidosis and critical limb ischemia, maintained on bicarb drip, improving. 3. Critical limb ischemia status post (thrombectomy of right common femoral superficial femoral and popliteal artery with fasciotomy and endarterectomy on 07/18/2023. 4. History of chronic left lower extremity wound 5. New onset A. fib with RVR maintained on Cardizem drip Plan: Continue IV fluids to 50 mL an hour, if urine output decreases will increase to 75 mL. Monitor hemoglobin Continue to avoid nephrotoxic agents
--- NOTE | 2023-07-23 14:27 | PN ---
PROGRESS NOTE SUBJECTIVE: This is an 82-year-old lady, who is in the ICU with acute right leg ischemia, status post thrombectomy and fasciotomy; new onset atrial fibrillation with a thromboembolic event; and hypotension. The patient is little more alert and she is able to swallow. Currently on IV heparin for the atrial fibrillation. I will stop the IV Cardizem and start her on Toprol for rate control. I am going to leave her on heparin for now until the surgeries are done. I think she still needs to go back to OR to close the surgical wounds. OBJECTIVE: VITAL SIGNS: Heart rate is 70 beats per minute, blood pressure is 133/74, and respiratory rate 18. CHEST: Reveals diminished air entry at the bases. HEART: Reveals first and second heart sounds. No gallop. ABDOMEN: Soft. EXTREMITIES: Reveals the right leg is under surgical dressing. Dorsalis pedis pulse on the right side is diminished. LABORATORY DATA: Hemoglobin of 8, platelet count is 110, and creatinine 0.7. ASSESSMENT: 1. Persistent atrial fibrillation with controlled ventricular rate. I will switch her to Eliquis once the Vascular Surgery issues are done. 2. Anemia. Hemoglobin is stable. I am going to switch her Cardizem drips to metoprolol 50 b.i.d. MMODL / IJN: [id number] /
[2023-07-23 17:54] LABS: Glucose,Whole Blood 101 mg/dL (70-110)
[2023-07-23 22:38] LABS: Amorphous Sediment,Urine Rare /hpf; Appearance,Urine Cloudy (Clear); Bacteria,Urine Moderate /hpf; Bilirubin,Urine Negative (Negative); Blood,Urine Moderate (Negative); Budding Yeast,Urine Many /hpf; Color,Urine Yellow; Glucose,Urine (UA) Negative (Negative); Hyaline Casts,Urine 11 /lpf (0-2); Ketones,Urine Trace (Negative); Leukocyte Esterase,Urine Large (Negative); Mucus,Urine Rare /hpf; Nitrite,Urine Negative (Negative); PH, Urine 6.5 (5.0-8.0); Protein,Urine 2+ (Negative); RBC,Urine >182 /hpf (0-5); Specific Gravity,Urine 1.014 (1.001-1.035); Squamous Epithelial Cell,Urine 2 /hpf (0-4); WBC,Urine 120 /hpf (0-5)
[2023-07-23] MEDS: LACTATED RINGERS 1,000 ML IV SCH (23:45)
[2023-07-23 23:53] LABS: Glucose,Whole Blood 103 mg/dL (70-110)
[2023-07-24] MEDS: PHENAZOPYRIDINE 200 MG TAB PO PRN (00:10)
[2023-07-24] MEDS ORDERED: Potassium Replacement Protocol 1 EACH MISC MISCELLANE PRN (00:48)
[2023-07-24] MEDS: POTASSIUM CHLORIDE 10 MEQ in WATER FOR INJECTION 1 100ML.BAG IVPB SCH (01:07)
[2023-07-24] MEDS: QUEtiapine 50 MG TAB PO PRN (02:56)
[2023-07-24 04:35] LABS: Anisocytosis Slight; HCT 25.1 % (34.0-46.0); HGB 7.9 gm/dL (11.4-16.0); Hypochromasia Slight; MCH 31.6 pg (25.0-35.0); MCHC 31.6 g/dL (31.0-37.0); MCV 100.1 fL (80.0-100.0); Macrocytosis Moderate; Mean Platelet Volume 9.9; Platelet Count 137 k/uL (150-450); Poikilocytosis Slight; RBC 2.51 m/uL (3.80-5.40)
[2023-07-24 05:22] LABS: ALT 69 U/L (4-34); AST 66 U/L (14-36); African American GFR (CKD) >90 (>60 ml/min/1.73 sqM); Albumin 2.1 g/dL (3.5-5.0); Alkaline Phosphatase 67 U/L (38-126); Anion Gap 4 mmol/L; Blood Urea Nitrogen 22 mg/dL (7-17); Calcium 7.6 mg/dL (8.4-10.2); Carbon Dioxide 27 mmol/L (22-30); Chloride 109 mmol/L (98-107); Glucose 91 mg/dL (74-99); Magnesium 1.6 mg/dL (1.6-2.3); Non-African American GFR(CKD) 83 (>60 ml/min/1.73 sqM); Potassium 4.1 mmol/L (3.5-5.1); Sodium 140 mmol/L (137-145); Total Bilirubin 3.9 mg/dL (0.2-1.3); Total Protein 4.5 g/dL (6.3-8.2)
[2023-07-24] MEDS ORDERED: Magnesium Replacement Protocol 1 EACH MISC MISCELLANE PRN (05:25)
[2023-07-24 05:44] LABS: ABG Base Excess 5.4 mmol/L; ABG HCO3 29 mmol/L (21-25); ABG Oxygen Saturation 97.4 % (94-97); ABG PCO2 36 mmHg (35-45); ABG PH 7.51 (7.35-7.45); ABG PO2 79 mmHg (83-108); ABG TCO2 30 mmol/L (19-24); Allen Test Performed? Yes
[2023-07-24] MEDS: MAGNESIUM SULFATE-D5W PMX 1 GM in DEXTROSE/WATER 1 100ML.BAG IVPB SCH (08:20)
[2023-07-24] MEDS: FUROSEMIDE 10 MG/ML 10 ML VIAL IV STA (10:10)
--- NOTE | 2023-07-24 10:34 | P.PN ---
Subjective Progress Note Date: 07/24/23 Principal diagnosis: Peripheral artery disease. I am seeing this patient in new consultation today 07/18/2023 in the intensive care unit after she just returned from OR after undergoing an open thrombectomy of the right femoral, popliteal, and tibial arteries; right tibioperoneal trunk endarterectomy with patch angioplasty; right lower extremity compartment fasciotomy; and selective right lower extremity angiogram. Patient is a 82-year-old white female with past medical history significant for hypertension, chronic left lower extremity wound, GERD. Patient is currently drowsy and a poor historian. She is oriented to self and place. She follows simple commands. No family is present, and history is taken from the medical record. She apparently presented to the emergency room yesterday evening complaining of severe right lower extremity pain and limited mobility of her leg/foot. This was first noticed, when she was up walking to the bathroom, and fell on her right knee. On arrival to the emergency room late last night, a CT angiogram of her lower extremities identified an occlusion of the mid right common femoral artery above the bifurcation. There was also a short segment of occlusion of the common trunk of the left peroneal and posterior tibial artery which are reconstituted near their proximal portions and appear to remain patent as is the anterior tibial artery to the left ankle. The patient underwent emergent revascularization, including the above-mentioned procedure. Postoperative CBC: WBC count 8.1, hemoglobin 12.2, hematocrit 37.5, platelets 120. There is a 3 g drop in the patient's hemoglobin. Preoperative BMP Includes: Sodium 138, pota ssium 4.2, chloride 109, serum bicarb 15, BUN 14, creatinine 0.67, glucose 116. Normal saline is infusing at 75 mL/h. Lactic acid level elevated at 4.5 and is down to 1.3. Overall, vital signs are stable. She is currently sitting up in bed, on 2 L/min nasal cannula, and no acute distress. SPO2 is 99%. Blood pressure is normotensive. Heart rhythm is atrial fibrillation with controlled ventricular rate. I am told that she has not past history of atrial fibrillation. Currently on heparin infusion per vascular surgery recommendations. Right lower extremity is cold and remains pulses. The lower extremity fasciotomy site is wrapped in tim bandage, and has small amount of sanguineous drainage. There is a wound vac to the right femoral site. She is currently being settled in the intensive care unit. Progress note dated July 19, 2023. 82-year-old female seen in consultation yesterday. Please see the note above. The patient came to the intensive care unit, from the operating room, status post open thrombectomy of the right femoral-popliteal and tibial arteries, as well as right tibial peroneal trunk endarterectomy with patch angioplasty, and right lower extremity compartment fasciotomy. The patient had lines placed yesterday, including a left femoral vein triple-lumen catheter, and a left femoral arterial line. Currently, the patient is seen today in room 257. She had blood gases yesterday showing a pO2 of 116, pCO2 of 32, pH is 7.33. Blood gases done this morning, on 3 L, show pO2 102, pCO2 37, pH is 7.35. The patient had a brain CT, which was negative. She continues on 3 L of oxygen. She is also getting a sodium bicarbonate drip with 3 ampoules of sodium bicarb in D5W at 75 cc an hour, heparin via weight-based protocol, Cardizem drip at 5 mg an hour, norepinephrine at 8 mcg/min. Labs include a white count 16.6, hemoglobin 8.7, hematocrit 26.7, and a platelet count of 192,000. PTT is 49.5. Sodium 138, potassium 4.9, chlorides 114, CO2 17, anion gap normal. BUN 25, creatinine 1.70. Calcium 7.2. Progress note dated July 20, 2023. The patient is seen today in room 257. The patient is currently on 3 L of oxygen. She continues on IV heparin via weight-based protocol, Cardizem at 5 mg an hour, norepinephrine at 7 mcg/min, and she is getting a sodium bicarbonate drip, with 3 ampoules of sodium bicarb in D5W at 100 cc an hour. Since she has been here in the ICU she has received a total of 4 units of packed red blood cells. The patient's procalcitonin level was elevated at 0.85. We added Zosyn today. Today's labs include a white count 14.9, hemoglobin 8.7, hematocrit 25.9, and a platelet count of 146,000. PTT is 36. Sodium 137, potassium 4, chlorides 110, CO2 22, anion gap 5, BUN 31, creatinine 1.76. Calcium is 6.8. Chest x-ray shows evidence of only cardiomegaly. Progress note dated July 21, 2023. 82-year-old female seen in room 257. Currently, she is on 2 L of oxygen by nasal cannula, norepinephrine at 3 mcg/min, Cardizem at 15 mg an hour, and D5W with 3 ampoules of sodium bicarb at 100 cc an hour. She continues on Zosyn. Because of the persistent hypotension, we will check a cortisol level today. White count 11, hemoglobin 8.1, hematocrit 24.9, and platelet count 122,000. Sodium 138, potassium 3.5, chlorides 106, CO2 32, BUN 28, and creatinine 1.21. The creatinine kinase is 1282. The calcium level is 7. Blood cultures are currently negative. CT of the abdomen and pelvis shows cholelithiasis, small bilateral effusions, mild diverticulosis, without evidence of retroperitoneal hemorrhage. Yesterday, the patient went back to the operating room, for an exploration of the right lower extremity wound. Progress note dated July 22, 2023. The patient is seen today in room 257. She appears to be about the same today as she was yesterday. Her mental status is about the same. She currently remains on oxygen by nasal cannula at 3 L. She is on a Cardizem drip for her atrial fibrillation at 50 mg an hour. She is getting heparin via weight-based protocol, and lactated Ringer's at 75 cc an hour. White count is 9.4, hemoglobin 7.7, hematocrit 23.7, and platelet count 108,000. Sodium 137, potassium 3.8, chlorides 106, CO2 34, BUN 26, creatinine 0.94. Glucose is 111. Calcium is 7.2. Progress note dated July 23, 2023. This is a 82-year-old female seen in room 257. Currently, the patient is on 3 L of oxygen. The patient is getting lactated Ringer's at 50 cc an hour. Cardizem drip has been turned off. The patient is receiving IV heparin via weight-based protocol. She did pass her swallow evaluation yesterday. Current labs include a white count of 9.6, hemoglobin 8, hematocrit 24.1, and a platelet count of 110,000. PTT is 67.3. Sodium 139, potassium 3.3, chlorides 107, CO2 30, BUN 23, creatinine 0.78. Glucose is 103. Calcium is 7.7. Dopplers of the upper remedies, were performed, and are negative for DVT. Progress note dated July 24, 2023. 82-year-old female seen in room 257. Currently, the patient remains on oxygen at 3 L. She is getting lactated Ringer's at 75 cc an hour, and heparin via weight-based protocol. She continues on Zosyn. The patient is to go back to the operating room, tomorrow, July 24. Cultures are negative. The patient will get Lasix 60 mg IV push. Lactated Ringer's will be made KVO. White count 9, hemoglobin 7.9, hematocrit 25.1, and platelet count 137,000. PTT is 36.4. Blood gases show pO2 of 79, pCO2 of 36, pH is 7.51. Sodium 140, potassium 4.1, chlorides 109, CO2 27, BUN 22, creatinine 0.69. Calcium 7.6 magnesium 1.6 albumin 2.1. Urinalysis suggestive of possible urinary tract infection. Leukocyte esterase is large positive. There are moderate bacteria, and more than 100 WBCs. Cultures are currently negative. Objective - Vital Signs Vital signs: Vital Signs Temp 98.3 F 07/24/23 08:00 Pulse 107 H 07/24/23 10:00 Resp 16 07/24/23 10:00 BP 109/63 07/24/23 10:00 Pulse Ox 96 07/24/23 10:00 FiO2 Intake & Output 07/23/23 07/24/23 07/24/23 18:59 06:59 18:59 Intake Total 1861 961 640.482 Output Total 350 435 195 Balance 1511 526 445.482 Intake: IV 1236 911 382 Lactated Ringers 1,000 ml 525 170 @ 20 mls/hr IV .Q24H [facility] Rx#:[id number] Lactated Ringers 1,000 ml 600 250 @ 50 mls/hr IV .Q20H [facility] Rx#:[id number] Magnesium Sulfate-D5w Pmx 100 1 gm In Dextrose/Water 1 100ml.bag @ 100 mls/hr IVPB Q1H [facility] Rx#: [id number] Piperacillin-Tazobactam 3 200 100 100 .375 gm In Sodium Chloride 0.9% 100 ml @ 25 mls/hr IVPB Q8HR [facility] Rx# :[id number] Potassium Chloride 10 meq 400 In Water For Injection 1 100ml.bag @ 100 mls/hr IVPB Q1H [facility] Rx#: [id number] Pressure Bag 36 36 12 Intake, IV Titration 475 258.482 Amount Diltiazem 125 mg In 125 Sodium Chloride 0.9% 100 ml @ 10 MG/HR 10 mls/hr IV .[id number] [facility] Rx#: [id number] Heparin Sod,Pork in 0.45% 250 258.482 NaCl 25,000 unit In 0.45 % NaCl 1 250ml.bag @ 18 UNITS/KG/HR 17.962 mls/hr IV .[id number] [facility] Rx#: [id number] Potassium Chloride 10 meq 100 In Water For Injection 1 100ml.bag @ 100 mls/hr IVPB Q1H [facility] Rx#: [id number] Oral 150 50 Output: Urine 350 435 195 Other: Voiding Method Indwelling Catheter Indwelling Catheter Indwelling Catheter # Bowel Movements 0 0 ABP, PAP, CO, CI - Last Documented Arterial Blood Pressure 167/67 - Exam No acute distress, intermittently confused. Currently on 3 L. No respiratory distress. HEENT examination is grossly unremarkable. Mucous membranes are dry. Neck supple. Full range of motion. No adenopathy thyromegaly or neck vein distention. Cardiovascular examination reveals an irregular rhythm and rate. S1-S2 normal. No S3 or S4. Soft systolic murmur is noted. Heart rate 92 bpm. Lungs reveal mostly clear breath sounds. Minimal scattered rhonchi. No wheezes or crackles. Breath sounds are equal bilaterally. Saturations are 96 %. Abdomen soft without bowel sounds. No masses or tenderness. Extremities are intact. No cyanosis or clubbing. Diffuse edema is noted. Skin reveals multiple areas of ecchymoses. Neurologic examination is brief but nonfocal. - Labs CBC & Chem 7: 07/24/23 04:23 07/24/23 04:23 Labs: Abnormal Lab Results - Last 24 Hours (Table) 07/23/23 07/24/23 07/24/23 Range/Units 21:32 04:23 04:23 RBC 2.51 L (3.80-5.40) m/uL Hgb 7.9 L (11.4-16.0) gm/dL Hct 25.1 L (34.0-46.0) % MCV 100.1 H (80.0-100.0) fL RDW 19.0 H (11.5-15.5) % Plt Count 137 L (150-450) k/uL APTT (22.0-30.0) sec ABG pH (7.35-7.45) ABG pO2 (83-108) mmHg ABG HCO3 (21-25) mmol/L ABG Total CO2 (19-24) mmol/L ABG O2 Saturation (94-97) % Chloride 109 H (98-107) mmol/L BUN 22 H (7-17) mg/dL Calcium 7.6 L (8.4-10.2) mg/dL Total Bilirubin 3.9 H (0.2-1.3) mg/dL AST 66 H (14-36) U/L ALT 69 H (4-34) U/L Total Protein 4.5 L (6.3-8.2) g/dL Albumin 2.1 L (3.5-5.0) g/dL Urine Appearance Cloudy H (Clear) Urine Protein 2+ H (Negative) Urine Ketones Trace H (Negative) Urine Blood Moderate H (Negative) Ur Leukocyte Esterase Large H (Negative) Urine RBC >182 H (0-5) /hpf Urine WBC 120 H (0-5) /hpf Amorphous Sediment Rare H (None) /hpf Urine Bacteria Moderate H (None) /hpf Hyaline Casts 11 H (0-2) /lpf Urine Mucus Rare H (None) /hpf Urine Yeast (Budding) Many H (None) /hpf 07/24/23 07/24/23 Range/Units 05:37 07:02 RBC (3.80-5.40) m/uL Hgb (11.4-16.0) gm/dL Hct (34.0-46.0) % MCV (80.0-100.0) fL RDW (11.5-15.5) % Plt Count (150-450) k/uL APTT 36.4 H (22.0-30.0) sec ABG pH 7.51 H (7.35-7.45) ABG pO2 79 L (83-108) mmHg ABG HCO3 29 H (21-25) mmol/L ABG Total CO2 30 H (19-24) mmol/L ABG O2 Saturation 97.4 H (94-97) % Chloride (98-107) mmol/L BUN (7-17) mg/dL Calcium (8.4-10.2) mg/dL Total Bilirubin (0.2-1.3) mg/dL AST (14-36) U/L ALT (4-34) U/L Total Protein (6.3-8.2) g/dL Albumin (3.5-5.0) g/dL Urine Appearance (Clear) Urine Protein (Negative) Urine Ketones (Negative) Urine Blood (Negative) Ur Leukocyte Esterase (Negative) Urine RBC (0-5) /hpf Urine WBC (0-5) /hpf Amorphous Sediment (None) /hpf Urine Bacteria (None) /hpf Hyaline Casts (0-2) /lpf Urine Mucus (None) /hpf Urine Yeast (Budding) (None) /hpf Assessment and Plan Assessment: Critical limb ischemia of the right lower extremity, S/P operative day #6 following an open thrombectomy of the right femoral, popliteal, and tibial arteries; right tibioperoneal trunk endarterectomy with patch angioplasty; right lower extremity compartment fasciotomy; and selective right lower extremity angiogram. Postop day #4, S/P exploration of right lower extremity wound. New onset atrial fibrillation, with controlled ventricular rate. Lactic acidosis, improved. History of hypertension. Peripheral arterial disease. History of GERD, without esophagitis. History of chronic left leg wound. Chronic ongoing tobacco dependence. Obesity, with a BMI of 33.5 kg/m. Plan: Plan dated July 19, 2023. The patient had blood gases yesterday, and repeat blood gases this morning. PO2 is 102, pCO2 is 37, pH is 7.35. The patient had an art line yesterday placed as well as a triple-lumen catheter. The patient is currently on a sodium bicarbonate drip, at 75 cc an hour. She is also receiving IV heparin, Cardizem at 5 mg an hour, and norepinephrine at 8 mcg/min. Labs, x-rays, and medications are reviewed. The patient's overall prognosis remains very guarded. Although the patient does not need intubation currently, the patient may require intubation in the future. Repeat blood gases, or stable. Her respiratory status at this time is reasonably stable. We will continue to follow the patient closely, and make recommendations where appropriate. Plan dated July 20, 2023. The patient is about the same today as she was yesterday. Since being in the unit, she has received a total of 4 units of packed red blood cells. Because of an elevated procalcitonin level of 0.85, we added Zosyn to her regimen. She is currently on heparin via weight-based protocol, Cardizem drip at 5 mg an hour, norepinephrine at 7 mcg/min, and a sodium bicarbonate drip, at 100 cc an hour. She continues on oxygen at 3 L. Labs, x-rays, medications are reviewed. The patient's overall prognosis remains very guarded. We will continue to follow make recommendations. Plan dated July 21, 2023. The patient is seen today in room 257. She continues on oxygen at 2 L. Yesterday, she did go back to the operating room, for exploration of the right lower extremity wound. I did speak to Dr. Tuttle about the procedure. Currently, the patient is on norepinephrine at 3 mcg/min, Cardizem drip at 15 mg an hour, and D5W with 3 ampoules of sodium bicarb at 100 cc an hour. She continues on Zosyn. Because of the persistent hypotension, will check a cortisol level. Additional recommendations and suggestions are forthcoming. Labs, x-rays, medications are reviewed. Prognosis is guarded. Plan dated July 22, 2023. The patient is again seen in room 257. She continues on oxygen at 3 L. For atrial fibrillation, she is on Cardizem drip at 15 mg an hour, and IV heparin via weight-based protocol. Labs, x-rays, and medications are reviewed. Her overall status is clinically about the same. The patient continues on appropriate medication, and is getting Haldol, for agitation. She also continues on Zosyn. We will continue to follow make recommendations along the way. Prognosis is certainly guarded. Plan dated July 23, 2023. The patient is still having some high blood pressure. Cardiology is involved, and did add some additional medication. The patient is on 3 L of oxygen. Her mental status, is waxing and waning. She has been weaned off the Cardizem. She continues on IV heparin. She did pass her swallow evaluation. We will continue to follow make recommendations along the way. The patient's overall prognosis remains very guarded. The patient continues on antibiotic, in the form of Zosy n. Plan dated July 24, 2023. The patient was seen again in room 257. She remains on oxygen at 3 L. She is getting heparin via weight-based protocol. We are going to turn her lactated Ringer's back to KVO. The patient continues on Zosyn. She apparently is scheduled to go back to the operating room tomorrow, July 24. Cultures are negative. The patient will get Lasix 60 mg IV push, x 1, for her diffuse edema and anasarca. Overall, the patient's clinical status is not good. Her mental status is poor, and she is now particularly lucid at this time. We will continue to follow and make recommendations along the way. Labs, x-rays, and medications are reviewed. Time with Patient: Greater than 30
--- NOTE | 2023-07-24 11:08 | P.PN ---
Subjective Progress Note Date: 07/24/23 Patient is seen for follow-up for acute kidney injury and severe metabolic acidosis. Per nursing she remains confused and by mouth intake is poor. Family has made her DNR this morning and coming to hospital to discuss further goals of care. Patient is awake but confused. 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 Objective - Vital Signs Vital signs: Vital Signs Temp 98.3 F 07/24/23 08:00 Pulse 80 07/24/23 09:00 Resp 30 H 07/24/23 09:00 BP 109/63 07/24/23 09:00 Pulse Ox 97 07/24/23 09:00 FiO2 Intake & Output 07/23/23 07/24/23 07/24/23 18:59 06:59 18:59 Intake Total 1861 961 627.482 Output Total 350 435 165 Balance 1511 526 462.482 Intake: IV 1236 911 369 Lactated Ringers 1,000 ml 525 160 @ 20 mls/hr IV .Q24H [facility] Rx#:[id number] Lactated Ringers 1,000 ml 600 250 @ 50 mls/hr IV .Q20H [facility] Rx#:[id number] Magnesium Sulfate-D5w Pmx 100 1 gm In Dextrose/Water 1 100ml.bag @ 100 mls/hr IVPB Q1H [facility] Rx#: [id number] Piperacillin-Tazobactam 3 200 100 100 .375 gm In Sodium Chloride 0.9% 100 ml @ 25 mls/hr IVPB Q8HR [facility] Rx# :[id number] Potassium Chloride 10 meq 400 In Water For Injection 1 100ml.bag @ 100 mls/hr IVPB Q1H [facility] Rx#: [id number] Pressure Bag 36 36 9 Intake, IV Titration 475 258.482 Amount Diltiazem 125 mg In 125 Sodium Chloride 0.9% 100 ml @ 10 MG/HR 10 mls/hr IV .[id number] [facility] Rx#: [id number] Heparin Sod,Pork in 0.45% 250 258.482 NaCl 25,000 unit In 0.45 % NaCl 1 250ml.bag @ 18 UNITS/KG/HR 17.962 mls/hr IV .[id number] [facility] Rx#: [id number] Potassium Chloride 10 meq 100 In Water For Injection 1 100ml.bag @ 100 mls/hr IVPB Q1H [facility] Rx#: [id number] Oral 150 50 Output: Urine 350 435 165 Other: Voiding Method Indwelling Catheter Indwelling Catheter Indwelling Catheter # Bowel Movements 0 0 ABP, PAP, CO, CI - Last Documented Arterial Blood Pressure 130/52 - Labs CBC & Chem 7: 07/24/23 04:23 07/24/23 04:23 Labs: Abnormal Lab Results - Last 24 Hours (Table) 07/23/23 07/23/23 07/24/23 Range/Units 08:50 21:32 04:23 RBC 2.51 L (3.80-5.40) m/uL Hgb 7.9 L (11.4-16.0) gm/dL Hct 25.1 L (34.0-46.0) % MCV 100.1 H (80.0-100.0) fL RDW 19.0 H (11.5-15.5) % Plt Count 137 L (150-450) k/uL APTT 67.3 H (22.0-30.0) sec ABG pH (7.35-7.45) ABG pO2 (83-108) mmHg ABG HCO3 (21-25) mmol/L ABG Total CO2 (19-24) mmol/L ABG O2 Saturation (94-97) % Chloride (98-107) mmol/L BUN (7-17) mg/dL Calcium (8.4-10.2) mg/dL Total Bilirubin (0.2-1.3) mg/dL AST (14-36) U/L ALT (4-34) U/L Total Protein (6.3-8.2) g/dL Albumin (3.5-5.0) g/dL Urine Appearance Cloudy H (Clear) Urine Protein 2+ H (Negative) Urine Ketones Trace H (Negative) Urine Blood Moderate H (Negative) Ur Leukocyte Esterase Large H (Negative) Urine RBC >182 H (0-5) /hpf Urine WBC 120 H (0-5) /hpf Amorphous Sediment Rare H (None) /hpf Urine Bacteria Moderate H (None) /hpf Hyaline Casts 11 H (0-2) /lpf Urine Mucus Rare H (None) /hpf Urine Yeast (Budding) Many H (None) /hpf 07/24/23 07/24/23 07/24/23 Range/Units 04:23 05:37 07:02 RBC (3.80-5.40) m/uL Hgb (11.4-16.0) gm/dL Hct (34.0-46.0) % MCV (80.0-100.0) fL RDW (11.5-15.5) % Plt Count (150-450) k/uL APTT 36.4 H (22.0-30.0) sec ABG pH 7.51 H (7.35-7.45) ABG pO2 79 L (83-108) mmHg ABG HCO3 29 H (21-25) mmol/L ABG Total CO2 30 H (19-24) mmol/L ABG O2 Saturation 97.4 H (94-97) % Chloride 109 H (98-107) mmol/L BUN 22 H (7-17) mg/dL Calcium 7.6 L (8.4-10.2) mg/dL Total Bilirubin 3.9 H (0.2-1.3) mg/dL AST 66 H (14-36) U/L ALT 69 H (4-34) U/L Total Protein 4.5 L (6.3-8.2) g/dL Albumin 2.1 L (3.5-5.0) g/dL Urine Appearance (Clear) Urine Protein (Negative) Urine Ketones (Negative) Urine Blood (Negative) Ur Leukocyte Esterase (Negative) Urine RBC (0-5) /hpf Urine WBC (0-5) /hpf Amorphous Sediment (None) /hpf Urine Bacteria (None) /hpf Hyaline Casts (0-2) /lpf Urine Mucus (None) /hpf Urine Yeast (Budding) (None) /hpf Assessment and Plan Plan: 1. Acute kidney injury, ATN currently , now nonoliguric, secondary to hypotension. Patient received IV contrast for CTA on 07/17/2023. No nephrotoxic agents on board currently. renal function has improved. 2. Anion gap metabolic acidosis secondary to lactic acidosis and critical limb ischemia, maintained on bicarb drip, improving. 3. Critical limb ischemia status post (thrombectomy of right common femoral s uperficial femoral and popliteal artery with fasciotomy and endarterectomy on 07/18/2023. 4. History of chronic left lower extremity wound 5. New onset A. fib with RVR maintained on Cardizem drip Plan: IVF rate decreased, encourage PO intake. Lasix as needed now with fluid overload. Monitor hemoglobin Await further family discussion on goals of care.
[2023-07-24] MEDS: DILTIAZEM 125 MG in SODIUM CHLORIDE 0.9% 100 ML IV SCH (11:37)
[2023-07-24 12:00] LABS: Glucose,Whole Blood 105 mg/dL (70-110)
--- NOTE | 2023-07-24 12:11 | P.PN ---
Subjective Progress Note Date: 07/24/23 Principal diagnosis: thrombosis right femoral artery, anemia,atrial fibrillation patient is a noncompliant patient with all known practice who hasn't been in the office in over a year presented to the emergency room with a chief complaint of rt femoral artery thrombosis with a cold right foot. This patient was taken to the operating room by vascular surgery thrombectomy, which was successful the patient is warm color has improved Doppler pulses noted 07/23/2003 Patient is awake alert, improving slowly right leg and foot is warm, both arms are bruised ecchymotic secondary to multiple needle sticks and is otherwise active, swallow study was performed patient is able to guard airway, we will begin feeding as discussed prognosis guarded 07/24/2023 this is an 82-year-old female, known to our practice ,on 3 L nasal cannula, rate is controlled, passed swallow eval recently, Dopplers of upper extremities were negative for DVT Objective - Vital Signs Vital signs: Vital Signs Temp 98.3 F 07/24/23 08:00 Pulse 91 07/24/23 11:00 Resp 20 07/24/23 11:00 BP 109/63 07/24/23 11:00 Pulse Ox 100 07/24/23 11:00 FiO2 Intake & Output 07/23/23 07/24/23 07/24/23 18:59 06:59 18:59 Intake Total 1861 961 753.482 Output Total 350 435 370 Balance 1511 526 383.482 Intake: IV 1236 911 495 Lactated Ringers 1,000 ml 525 180 @ 20 mls/hr IV .Q24H [facility] Rx#:[id number] Lactated Ringers 1,000 ml 600 250 @ 50 mls/hr IV .Q20H [facility] Rx#:[id number] Magnesium Sulfate-D5w Pmx 200 1 gm In Dextrose/Water 1 100ml.bag @ 100 mls/hr IVPB Q1H [facility] Rx#: [id number] Piperacillin-Tazobactam 3 200 100 100 .375 gm In Sodium Chloride 0.9% 100 ml @ 25 mls/hr IVPB Q8HR [facility] Rx# :[id number] Potassium Chloride 10 meq 400 In Water For Injection 1 100ml.bag @ 100 mls/hr IVPB Q1H [facility] Rx#: [id number] Pressure Bag 36 36 15 Intake, IV Titration 475 258.482 Amount Diltiazem 125 mg In 125 Sodium Chloride 0.9% 100 ml @ 10 MG/HR 10 mls/hr IV .[id number] [facility] Rx#: [id number] Heparin Sod,Pork in 0.45% 250 258.482 NaCl 25,000 unit In 0.45 % NaCl 1 250ml.bag @ 18 UNITS/KG/HR 17.962 mls/hr IV .[id number] [facility] Rx#: [id number] Potassium Chloride 10 meq 100 In Water For Injection 1 100ml.bag @ 100 mls/hr IVPB Q1H [facility] Rx#: [id number] Oral 150 50 Output: Urine 350 435 370 Other: Voiding Method Indwelling Catheter Indwelling Catheter Indwelling Catheter # Bowel Movements 0 0 ABP, PAP, CO, CI - Last Documented Arterial Blood Pressure 144/53 - Exam General: [Patient awake, alert and oriented times 3. Patient in no acute distress.] HEENT: [PERRL. EOMI. No pharyngeal erythema or exudate.] Neck: [No adenopathy.] Cardiac: [Heart regular in rate and rhythm. No S3. No S4. No clicks, rubs. No murmur.] Lungs: [Clear to auscultation bilaterally.] Abdomen: [No mass. No organomegaly. Bowel sounds presnt and normoactive in all 4 quadrants.] Extremes: left arm while old extensive ecchymosis secondary to multiple needlesticks, right foot extensively mottled however color improved foot is warm to touch and Doppler pulses appreciated in the left lower extreme demonstrated movement of toes both right and left feet,recent fasciotomy still open : old female genitalia Musculoskeletal: [No joint erythema, edema or tenderness.] Skin: [No rash.] Neurologic: [No lateralizing deficits. CN II - XII grossly intact.] Lymphatic: [No adenopathy.] - Labs CBC & Chem 7: 07/24/23 04:23 07/24/23 04:23 Labs: Abnormal Lab Results - Last 24 Hours (Table) 07/23/23 07/24/23 07/24/23 Range/Units 21:32 04:23 04:23 RBC 2.51 L (3.80-5.40) m/uL Hgb 7.9 L (11.4-16.0) gm/dL Hct 25.1 L (34.0-46.0) % MCV 100.1 H (80.0-100.0) fL RDW 19.0 H (11.5-15.5) % Plt Count 137 L (150-450) k/uL APTT (22.0-30.0) sec ABG pH (7.35-7.45) ABG pO2 (83-108) mmHg ABG HCO3 (21-25) mmol/L ABG Total CO2 (19-24) mmol/L ABG O2 Saturation (94-97) % Chloride 109 H (98-107) mmol/L BUN 22 H (7-17) mg/dL Calcium 7.6 L (8.4-10.2) mg/dL Total Bilirubin 3.9 H (0.2-1.3) mg/dL AST 66 H (14-36) U/L ALT 69 H (4-34) U/L Total Protein 4.5 L (6.3-8.2) g/dL Albumin 2.1 L (3.5-5.0) g/dL Urine Appearance Cloudy H (Clear) Urine Protein 2+ H (Negative) Urine Ketones Trace H (Negative) Urine Blood Moderate H (Negative) Ur Leukocyte Esterase Large H (Negative) Urine RBC >182 H (0-5) /hpf Urine WBC 120 H (0-5) /hpf Amorphous Sediment Rare H (None) /hpf Urine Bacteria Moderate H (None) /hpf Hyaline Casts 11 H (0-2) /lpf Urine Mucus Rare H (None) /hpf Urine Yeast (Budding) Many H (None) /hpf 07/24/23 07/24/23 Range/Units 05:37 07:02 RBC (3.80-5.40) m/uL Hgb (11.4-16.0) gm/dL Hct (34.0-46.0) % MCV (80.0-100.0) fL RDW (11.5-15.5) % Plt Count (150-450) k/uL APTT 36.4 H (22.0-30.0) sec ABG pH 7.51 H (7.35-7.45) ABG pO2 79 L (83-108) mmHg ABG HCO3 29 H (21-25) mmol/L ABG Total CO2 30 H (19-24) mmol/L ABG O2 Saturation 97.4 H (94-97) % Chloride (98-107) mmol/L BUN (7-17) mg/dL Calcium (8.4-10.2) mg/dL Total Bilirubin (0.2-1.3) mg/dL AST (14-36) U/L ALT (4-34) U/L Total Protein (6.3-8.2) g/dL Albumin (3.5-5.0) g/dL Urine Appearance (Clear) Urine Protein (Negative) Urine Ketones (Negative) Urine Blood (Negative) Ur Leukocyte Esterase (Negative) Urine RBC (0-5) /hpf Urine WBC (0-5) /hpf Amorphous Sediment (None) /hpf Urine Bacteria (None) /hpf Hyaline Casts (0-2) /lpf Urine Mucus (None) /hpf Urine Yeast (Budding) (None) /hpf Assessment and Plan (1) Arterial occlusion, lower extremity Narrative/Plan: status post thrombectomy Current Visit: Yes Status: Acute Code(s): I70.209 - UNSP ATHSCL [place] BAND ARTERIES OF EXTREMITIES, UNSP EXTREMITY SNOMED Code(s): 255190803 (2) Right leg pain Narrative/Plan: arterial thrombosis right lower extreme, status post open thrombectomy Current Visit: Yes Status: Acute Code(s): M79.604 - PAIN IN RIGHT LEG SNOMED Code(s): 679010348 (3) Venous (peripheral) insufficiency Current Visit: No Status: Chronic Code(s): I87.2 - VENOUS INSUFFICIENCY (CHR ONIC) (PERIPHERAL) SNOMED Code(s): 00023027 (4) Abdominal pain Current Visit: No Status: Acute Code(s): R10.9 - UNSPECIFIED ABDOMINAL PAIN SNOMED Code(s): 71524152 (5) Hernia of anterior abdominal wall Current Visit: No Status: Acute Code(s): K43.9 - VENTRAL HERNIA WITHOUT OBSTRUCTION OR GANGRENE SNOMED Code(s): 123535128 (6) Small bowel obstruction Current Visit: No Status: Acute Code(s): K56.69 - OTHER INTESTINAL OBSTRUCTI ON * DO NOT USE * SNOMED Code(s): 968816658 Plan: status post thrombectomy right lower extremity COPD by history, O2 per nasal cannula Renal insufficiency by history,kidney function improved Mental status improved Patient condition guarded Time with Patient: Greater than 30
--- NOTE | 2023-07-24 13:33 | PN ---
PROGRESS NOTE SUBJECTIVE: Pilar is an 82-year-old lady who is admitted to hospital with acute ischemic right leg secondary to a thromboembolic event related to atrial fibrillation. She underwent vascular surgery, currently in atrial fibrillation with controlled ventricular rate. The patient appears confused and at times combative and she is in restraints. She is on IV heparin, was started on oral medications yesterday, but today she is not able to take any medications by mouth. We are going to put her back on intravenous Cardizem at 5 mg. OBJECTIVE: VITAL SIGNS: Heart rate is 90 beats per minute, blood pressure is 110/62, respiratory rate 18. CHEST: Reveals diminished air entry at the bases. HEART: Reveals first and second heart sounds. Irregular rhythm. ABDOMEN: Soft. EXTREMITIES: Shows the right leg is under surgical dressing. LABS: Show the hemoglobin is 7.9. ASSESSMENT: 1. Persistent atrial fibrillation with controlled ventricular rate. 2. Acute right leg ischemia. 3. Confusion. PLAN: Start the patient on IV Cardizem and continue the heparin. MMODL / IJN: [id number] /
[2023-07-24] MEDS ORDERED: LORazepam 2 MG/ML INJ IV PRN ×3 (13:43)
[2023-07-24] MEDS: LORazepam 2 MG/ML INJ IV PRN (14:03)
[2023-07-24] MEDS: THIAMINE 100 MG/ML 2 ML VIAL IM STA (14:11)
[2023-07-24] MEDS: HYDROmorphone 1 MG/ML 1 ML SYRINGE IVP PRN (14:38)
[2023-07-24 18:02] LABS: Glucose,Whole Blood 76 mg/dL (70-110)
[2023-07-24 23:19] LABS: Glucose,Whole Blood 83 mg/dL (70-110)
[2023-07-25 05:46] LABS: Anisocytosis Slight; Basophils # (A) 0.1 k/uL (0-0.2); Basophils % (A) 1 %; Eosinophils # (A) 0.2 k/uL (0-0.7); Eosinophils % (A) 2 %; HCT 26.6 % (34.0-46.0); HGB 8.4 gm/dL (11.4-16.0); Hypochromasia Moderate; Lymphocytes # (A) 1.3 k/uL (1.0-4.8); Lymphocytes % (A) 14 %; MCH 31.7 pg (25.0-35.0); MCHC 31.4 g/dL (31.0-37.0); MCV 100.8 fL (80.0-100.0); Macrocytosis Moderate; Mean Platelet Volume 8.7; Monocytes # (A) 0.6 k/uL (0-1.0); Monocytes % (A) 6 %; Neutrophils # (A) 7.2 k/uL (1.3-7.7); Neutrophils % (A) 74 %; Platelet Count 189 k/uL (150-450); Poikilocytosis Slight; RBC 2.64 m/uL (3.80-5.40); RDW 19.1 % (11.5-15.5); WBC 9.7 k/uL (3.8-10.6)
[2023-07-25 05:55] LABS: Glucose,Whole Blood 79 mg/dL (70-110)
[2023-07-25 06:07] LABS: African American GFR (CKD) >90 (>60 ml/min/1.73 sqM); Anion Gap 4 mmol/L; Blood Urea Nitrogen 19 mg/dL (7-17); Calcium 7.5 mg/dL (8.4-10.2); Carbon Dioxide 27 mmol/L (22-30); Chloride 107 mmol/L (98-107); Glucose 69 mg/dL (74-99); Magnesium 1.7 mg/dL (1.6-2.3); Non-African American GFR(CKD) 81 (>60 ml/min/1.73 sqM); Potassium 3.3 mmol/L (3.5-5.1); Sodium 138 mmol/L (137-145)
[2023-07-25] MEDS: DEXTROSE 50% SYRINGE 50 ML IVP PRN (06:26)
[2023-07-25] MEDS: POTASSIUM CHLORIDE 20 MEQ in WATER FOR INJECTION 1 100ML.BAG IVPB SCH ×2 (06:26→20:53)
[2023-07-25 06:59] LABS: Glucose,Whole Blood 110 mg/dL (70-110)
--- NOTE | 2023-07-25 08:26 | P.PN ---
Progress Note - Text Progress Note Date: 07/25/23 Patient is scheduled to undergo fasciotomy closure of the right lower extremity today. Patient is currently a no code, however family does wish to proceed with fasciotomy closure and PEG tube placement. Discussed with nursing to call family to discuss that patient will need to be a full code during surgery and then can go back to no code. Nursing states that they will be calling the patient's daughter. Heparin on hold for surgery. Nursing reports consent is signed in chart. The impression and plan of care has been dictated as directed. Dr. Steiner I performed a history and examination of this patient, discussed the same with the dictator. I agree with the dictator's note ,documented as a scribe. Any additional findings or plans will be noted.
[2023-07-25] MEDS: FUROSEMIDE 10 MG/ML 4 ML VIAL IV STA (10:08)
[2023-07-25] MEDS: INSULIN ASPART (NovoLOG) 100 UNIT/ML VIAL SQ SCH (10:09)
--- NOTE | 2023-07-25 10:31 | P.PN ---
Subjective Progress Note Date: 07/25/23 On today's evaluation of 07/25/2023, I am seeing the patient for a follow-up. The patient remains encephalopathic. She is able to follow simple commands. She is able to squeeze with her arms and move her legs upon command. No focal neurological deficits. Nevertheless, the level of alertness is quite diminished and the patient seems to be very lethargic at this point in time. The blood gas was done on 07/24/2023 and showed a pH of 7.51 with a pCO2 of 36 and pO2 of 79 and the patient remains on oxygen at 3 L/min nasal cannula. She is in atrial fibrillation and the patient remains on Cardizem drip at 10 mg an hour and the patient remains on IV heparin. The patient is still recovering from extensive surgery involving the right lower extremity and this was done for a critical limb ischemia and the patient underwent a open thrombectomy of the right femoral-popliteal and tibial arteries and right tibioperoneal trunk endarterectomy with patch angioplasty and the patient underwent a fasciotomy of the right lower extremity for compartmental syndrome. The patient subsequently underwent another right lower extremity wound exploration. The patient is scheduled to undergo a PEG tube insertion for enteral feeding and nutritional support. IV heparin will be discontinued. I also noted that the patient has a triple-lumen catheter and arterial line in the r left femoral area. The exit site of the triple-lumen catheter is slightly purulent and infection is suspected at this point in time. Blood culture from 07/19/2023 was negative. As for the rest of the blood work, the WBC count is at 9.7 with hemoglobin 8.4 and a platelet count of 189. BUN is at 19 with a creatinine of 0.7 and a sodium levels at 138 and a potassium level of 3.3. The patient is covered with IV Zosyn at this point in time. In regards to her atrial fibrillation, the patient is still tachycardic maintained on Cardizem drip at 10 mg an hour and metoprolol at a dose of 50 mg p.o. twice daily. Unable to take any of the oral medication at this point in time. In terms of her agitation, she was receiving Haldol 4 mg IV every 4 hours. Objective - Vital Signs Vital signs: Vital Signs Temp 99.0 F 07/25/23 08:00 Pulse 92 07/25/23 08:00 Resp 13 04/08/24 08:00 BP 109/63 07/25/23 07:00 Pulse Ox 99 07/25/23 08:00 FiO2 Intake & Output 07/24/23 07/25/23 07/25/23 18:59 06:59 18:59 Intake Total 957.482 439.055 202.916 Output Total 3810 1135 55 Balance -2852.518 -695.945 147.916 Intake: IV 699 113 13 Lactated Ringers 1,000 ml 260 30 @ 20 mls/hr IV .Q24H [facility] Rx#:[id number] Magnesium Sulfate-D5w Pmx 200 50 10 1 gm In Dextrose/Water 1 100ml.bag @ 100 mls/hr IVPB Q1H [facility] Rx#: [id number] Piperacillin-Tazobactam 3 200 .375 gm In Sodium Chloride 0.9% 100 ml @ 25 mls/hr IVPB Q8HR [facility] Rx# :[id number] Pressure Bag 39 33 3 Intake, IV Titration 258.482 326.055 189.916 Amount Diltiazem 125 mg In 91.583 Sodium Chloride 0.9% 100 ml @ 5 MG/HR 5 mls/hr IV .Q24H [facility] Rx#:[id number] Heparin Sod,Pork in 0.45% 258.482 234.472 189.916 NaCl 25,000 unit In 0.45 % NaCl 1 250ml.bag @ 18 UNITS/KG/HR 17.962 mls/hr IV .[id number] [facility] Rx#: [id number] Output: Urine 3810 1135 55 Other: Voiding Method Indwelling Catheter Indwelling Catheter # Bowel Movements 0 ABP, PAP, CO, CI - Last Documented Arterial Blood Pressure 130/53 - Exam No acute distress, intermittently confused. Currently on 3 L. The patient is encephalopathic. She is not using accessory muscles of breathing. She is calm and comfortable at this point in time. Follows only simple commands. Unable to hold a conversation. Weak cough and gag. HEENT examination is grossly unremarkable. Mucous membranes are dry. Neck supple. Full range of motion. No adenopathy thyromegaly or neck vein distention. Cardiovascular examination reveals an irregular rhythm and rate. S1-S2 normal. No S3 or S4. Soft systolic murmur is noted. Lungs reveal mostly clear breath sounds. Minimal scattered rhonchi. No wheezes or crackles. Breath sounds are equal bilaterally. %. Abdomen soft without bowel sounds. No masses or tenderness. Extremities are intact. No cyanosis or clubbing. Diffuse edema is noted. There is a sore areas of ecchymosis in the right upper extremity and left upper extremity. There is significant swelling in all 4 extremities. Skin reveals multiple areas of ecchymoses. The wound in the right lower extremity is covered with appropriate dressing. Pulses are diminished in the lower extremities bilaterally and the patient has warm feet. There is extensive edema in the upper extremities bilaterally. Neurologic examination is brief but nonfocal. Patient is able to follow some simple commands. Able to grab and use her hands and move her toes upon command. - Labs CBC & Chem 7: 07/25/23 05:15 07/25/23 05:15 Labs: Abnormal Lab Results - Last 24 Hours (Table) 07/24/23 07/24/23 07/25/23 Range/Units 07:02 15:08 05:15 RBC (3.80-5.40) m/uL Hgb (11.4-16.0) gm/dL Hct (34.0-46.0) % MCV (80.0-100.0) fL RDW (11.5-15.5) % APTT 36.4 H 56.3 H (22.0-30.0) sec Potassium 3.3 L (3.5-5.1) mmol/L BUN 19 H (7-17) mg/dL Glucose 69 L (74-99) mg/dL Calcium 7.5 L (8.4-10.2) mg/dL 07/25/23 07/25/23 Range/Units 05:15 05:15 RBC 2.64 L (3.80-5.40) m/uL Hgb 8.4 L (11.4-16.0) gm/dL Hct 26.6 L (34.0-46.0) % MCV 100.8 H (80.0-100.0) fL RDW 19.1 H (11.5-15.5) % APTT 49.0 H (22.0-30.0) sec Potassium (3.5-5.1) mmol/L BUN (7-17) mg/dL Glucose (74-99) mg/dL Calcium (8.4-10.2) mg/dL Microbiology - Last 24 Hours (Table) 07/19/23 21:10 Blood Culture - Final Blood Assessment and Plan Plan: Critical limb ischemia of the right lower extremity, S/P operative day #7 following an open thrombectomy of the right femoral, popliteal, and tibial arteries; right tibioperoneal trunk endarterectomy with patch angioplasty; right lower extremity compartment fasciotomy; and selective right lower extremity angiogram. S/P exploration of right lower extremity wound. Patient is postop day #5 New onset atrial fibrillation, with controlled ventricular rate. The patient is currently on Cardizem drip at 10 mg an hour and the patient is also on metoprolol 50 mg p.o. twice a day and IV heparin. Echocardiogram is showing a moderate to severe aortic stenosis Moderate to severe aortic stenosis with a preserved LV function Encephalopathy under investigation. Rule out reperfusion syndrome. CAT scan of the brain was negative. The patient is in atrial fibrillation the patient remains on IV heparin. Also rule out metabolic encephalopathy. Also, the patie nt has an underlying urine tract infection currently on IV Zosyn. This could be affecting her underlying mentation. UTI, culture is still pending for now and the patient remains on IV Zosyn Questionable line infection and the patient has a triple-lumen catheter in the left femoral vein, exit site is showing some purulent drainage. Lactic acidosis, improved. History of hypertension. Peripheral arterial disease. History of GERD, without esophagitis. History of chronic left leg wound. Chronic ongoing tobacco dependence. Obesity, with a BMI of 33.5 kg/m. Plan: Keep the patient on 3 L of O2 nasal cannula Monitor mental status Recheck CPK Remove the triple-lumen catheter and establish IV access either midline or a PICC line for this patient Hold IV heparin as the patient is going to undergo a PEG tube insertion today and this will be utilized for enteral feeding and nutritional support No pressors IV Zosyn Wound care per vascular surgery Will start the patient on gentle diuresis following the PEG tube insertion Haldol for agitation CODE STATUS is full and the condition is critical critical and will continue to follow-up the patient in the intensive care unit. Is a critical care evaluation that was done more than 30 minutes. Time with Patient: Greater than 30
--- NOTE | 2023-07-25 10:36 | P.PN ---
Subjective Patient is seen in follow-up for acute kidney injury. Renal function back to baseline. Resting in bed. Hemodynamically stable. On Cardizem drip. Vital signs are stable. General: Resting in bed. HEENT: Head exam is unremarkable. On nasal cannula. LUNGS: No audible rhonchi or wheezes. HEART: Rate and Rhythm are regular. ABDOMEN: Obese, nontender. EXTREMITITES: 1+ edema. No drainage. Objective - Vital Signs Vital signs: Vital Signs Temp 99.0 F 07/25/23 08:00 Pulse 98 07/25/23 09:00 Resp 24 07/25/23 09:00 BP 109/63 07/25/23 07:00 Pulse Ox 97 07/25/23 09:00 FiO2 Intake & Output 07/24/23 07/25/23 07/25/23 18:59 06:59 18:59 Intake Total 957.482 439.055 308.916 Output Total 3810 1135 145 Balance -2852.518 -695.945 163.916 Intake: IV 699 113 119 Lactated Ringers 1,000 ml 260 30 @ 20 mls/hr IV .Q24H [facility] Rx#:[id number] Magnesium Sulfate-D5w Pmx 200 50 10 1 gm In Dextrose/Water 1 100ml.bag @ 100 mls/hr IVPB Q1H [facility] Rx#: [id number] Piperacillin-Tazobactam 3 200 100 .375 gm In Sodium Chloride 0.9% 100 ml @ 25 mls/hr IVPB Q8HR [facility] Rx# :[id number] Pressure Bag 39 33 9 Intake, IV Titration 258.482 326.055 189.916 Amount Diltiazem 125 mg In 91.583 Sodium Chloride 0.9% 100 ml @ 5 MG/HR 5 mls/hr IV .Q24H [facility] Rx#:[id number] Heparin Sod,Pork in 0.45% 258.482 234.472 189.916 NaCl 25,000 unit In 0.45 % NaCl 1 250ml.bag @ 18 UNITS/KG/HR 17.962 mls/hr IV .[id number] [facility] Rx#: [id number] Output: Urine 3810 1135 145 Other: Voiding Method Indwelling Catheter Indwelling Catheter Indwelling Catheter # Bowel Movements 0 ABP, PAP, CO, CI - Last Documented Arterial Blood Pressure 148/62 - Labs CBC & Chem 7: 07/25/23 05:15 07/25/23 05:15 Labs: Abnormal Lab Results - Last 24 Hours (Table) 07/24/23 07/25/23 07/25/23 Range/Units 15:08 05:15 05:15 RBC 2.64 L (3.80-5.40) m/uL Hgb 8.4 L (11.4-16.0) gm/dL Hct 26.6 L (34.0-46.0) % MCV 100.8 H (80.0-100.0) fL RDW 19.1 H (11.5-15.5) % APTT 56.3 H (22.0-30.0) sec Potassium 3.3 L (3.5-5.1) mmol/L BUN 19 H (7-17) mg/dL Glucose 69 L (74-99) mg/dL Calcium 7.5 L (8.4-10.2) mg/dL 07/25/23 Range/Units 05:15 RBC (3.80-5.40) m/uL Hgb (11.4-16.0) gm/dL Hct (34.0-46.0) % MCV (80.0-100.0) fL RDW (11.5-15.5) % APTT 49.0 H (22.0-30.0) sec Potassium (3.5-5.1) mmol/L BUN (7-17) mg/dL Glucose (74-99) mg/dL Calcium (8.4-10.2) mg/dL Microbiology - Last 24 Hours (Table) 07/19/23 21:10 Blood Culture - Final Blood Assessment and Plan Plan: Assessment: 1. Acute kidney injury secondary to hemodynamic ATN. Also received IV contrast on July 17, 2023. Improved. 2. A-fib with RVR maintained on Cardizem drip. 3. Peripheral vascular disease with limb ischemia status post thrombectomy of right common femoral. Profunda, superficial femoral and popliteal artery as well as right anterior tibial and posterior tibial arteries open thrombectomy July 18, 2023. Scheduled for fasciotomy closure today. 4. Hypokalemia from diuresis. Replaced. Plan: Status post IV Lasix this morning. Potassium replaced. Continue to monitor renal function and urine output. Replace magnesium as well.
[2023-07-25] MEDS ORDERED: HYDROmorphone (PF) 1 MG/ML ONE (10:45)
[2023-07-25] MEDS ORDERED: PHENYLEPHRINE-0.9% NACL SYG 1,000 MCG/10 ML SYRINGE ONE (10:45)
[2023-07-25] MEDS ORDERED: KETAMINE HCL IN 0.9 % NACL 50 MG/5 ML SYRINGE ONE (10:45)
[2023-07-25] MEDS ORDERED: PROPOFOL 10 MG/ML 20 ML VIAL IV ONE (10:45)
[2023-07-25] MEDS ORDERED: MIDAZOLAM 2 MG/2 ML VIAL ONE (10:45)
[2023-07-25] MEDS: LACTATED RINGERS 1,000 ML IV ONE (10:57)
--- NOTE | 2023-07-25 12:48 | P.PN ---
Subjective Progress Note Date: 07/25/23 the patient is an 82-year-old female who is currently admitted to the hospital with acute thromboembolic event of her lower extremity. She underwent interve with vascular surgery. Cardiology has been consulted for atrial fibrillation. She has been rate controlled on IV Cardizemas she has been unable to take by mouth medications. The patientis currently nonresponsive to verbal communication. She was unable to answer questions or follow commands. GENERAL: Well-appearing, well-nourished, moderately agitated. NECK: Supple without JVD or thyromegaly. LUNGS: Breath sounds clear to auscultation bilaterally. Respiration equal and unlabored. No wheezes, rales or rhonchi. HEART: Irregular rate and rhythm. Systolic murmur. S1 and S2 heard. EXTREMITIES: right lower extremity in surgical dressing TELEMETRY: persistent atrial fibrillation with heart rates in the 90s IMPRESSION: Persistent atrial fibrillation, rate controlled on Cardizem Critical limb ischemia, status post open thrombectomy with fasciotomy Mental status changes PLAN: transition to oral medications when she passes swallow study or receives feeding tube No further recommendations from the cardiac standpoint I am dictating on behalf of Dr Diaz Cerda's history/physical and assessment/plan. Objective - Vital Signs Vital signs: Vital Signs Temp 99.0 F 07/25/23 08:00 Pulse 98 07/25/23 09:00 Resp 24 07/25/23 09:00 BP 109/63 07/25/23 07:00 Pulse Ox 97 07/25/23 09:00 FiO2 Intake & Output 07/24/23 07/25/23 07/25/23 18:59 06:59 18:59 Intake Total 957.482 439.055 308.916 Output Total 3810 1135 145 Balance -2852.518 -695.945 163.916 Intake: IV 699 113 119 Lactated Ringers 1,000 ml 260 30 @ 20 mls/hr IV .Q24H [facility] Rx#:[id number] Magnesium Sulfate-D5w Pmx 200 50 10 1 gm In Dextrose/Water 1 100ml.bag @ 100 mls/hr IVPB Q1H [facility] Rx#: [id number] Piperacillin-Tazobactam 3 200 100 .375 gm In Sodium Chloride 0.9% 100 ml @ 25 mls/hr IVPB Q8HR [facility] Rx# :[id number] Pressure Bag 39 33 9 Intake, IV Titration 258.482 326.055 189.916 Amount Diltiazem 125 mg In 91.583 Sodium Chloride 0.9% 100 ml @ 5 MG/HR 5 mls/hr IV .Q24H [facility] Rx#:[id number] Heparin Sod,Pork in 0.45% 258.482 234.472 189.916 NaCl 25,000 unit In 0.45 % NaCl 1 250ml.bag @ 18 UNITS/KG/HR 17.962 mls/hr IV .[id number] [facility] Rx#: [id number] Output: Urine 3810 1135 145 Other: Voiding Method Indwelling Catheter Indwelling Catheter # Bowel Movements 0 ABP, PAP, CO, CI - Last Documented Arterial Blood Pressure 148/62 - Labs CBC & Chem 7: 07/25/23 05:15 07/25/23 05:15 Labs: Abnormal Lab Results - Last 24 Hours (Table) 07/24/23 07/25/23 07/25/23 Range/Units 15:08 05:15 05:15 RBC 2.64 L (3.80-5.40) m/uL Hgb 8.4 L (11.4-16.0) gm/dL Hct 26.6 L (34.0-46.0) % MCV 100.8 H (80.0-100.0) fL RDW 19.1 H (11.5-15.5) % APTT 56.3 H (22.0-30.0) sec Potassium 3.3 L (3.5-5.1) mmol/L BUN 19 H (7-17) mg/dL Glucose 69 L (74-99) mg/dL Calcium 7.5 L (8.4-10.2) mg/dL 07/25/23 Range/Units 05:15 RBC (3.80-5.40) m/uL Hgb (11.4-16.0) gm/dL Hct (34.0-46.0) % MCV (80.0-100.0) fL RDW (11.5-15.5) % APTT 49.0 H (22.0-30.0) sec Potassium (3.5-5.1) mmol/L BUN (7-17) mg/dL Glucose (74-99) mg/dL Calcium (8.4-10.2) mg/dL Microbiology - Last 24 Hours (Table) 07/19/23 21:10 Blood Culture - Final Blood
--- NOTE | 2023-07-25 13:06 | P.OP ---
Date of Procedure: 07/25/23 Preoperative Diagnosis: Right calf fasciotomy utilizing the 2 incision technique. Postoperative Diagnosis: Same. Procedure(s) Performed: Closure of both the medial and lateral fasciotomy incisions right calf level. Implants: None. Anesthesia: GETA (Via LMA.) Surgeon: Mal Steiner Estimated Blood Loss (ml): 10 IV fluids (ml): 500 Urine output (ml): 1,000 Pathology: none sent Condition: stable Disposition: no change Indications for Procedure: Patient is an 82-year-old female who underwent urgent revascularization of her right lower extremity which resulted in the need for fasciotomy. The wounds have been stable and the patient's leg edema has markedly decreased to nearly completely resolved. It is felt the patient is appropriately ready for closure of her fasciotomy wounds. Description of Procedure: Patient was brought the op room placed in supine position administered general inhalational anesthesia delivered by the LMA technique by the department of anesthesiology. Patient's right lower extremity was sterilely prepped and draped in the usual manner. The lateral wound measured 25 cm in length. The exposed muscle had a small amount of necrotic tissue which was debrided with scissor technique. Additionally a few strands of tendon were also debrided with scissor technique. The wound was then scrubbed with a Betadine impregnated scrub brush. The wound was then closed with 3-0 nylon suture placed in vertical mattress form. Approximately 10 cm of skin along the superior aspect of the wound in the middle portion of the wound did not exhibit normal appearance and it is felt that this might eventually breakdown. Attention was turned to the medial calf wound. This measured 28 cm in length. The wound was washed with Betadine scrub brush technique. The wound was then closed with 3-0 nylon suture placed in vertical mattress form. The wounds were dressed with Adaptic followed by Kerlix and a 4 inch Gael wrap. Patient tolerated procedure well. She was transported to the recovery area in satisfactory and stable condition.
--- NOTE | 2023-07-25 13:57 | P.PN ---
Subjective Progress Note Date: 07/25/23 H&P Date: 07/19/23 This an 82-year-old female with past medical history of PAD, vein stripping of left leg, chronic left lower extremity wound, hypertension, ongoing nicotine dependence, 2 glasses of wine daily, morbid obesity, gastroesophageal reflux disease, presented to the ER with complaints of sudden onset right knee pain sustaining minor fall, in extreme pain. Son had informed ER that she had been going to the bathroom and developed an abrupt onset of severe right lower extremity pain accompanied by limited mobility of her foot/leg and subsequently fell on her knee. CTA reported occlusion of the mid right common femoral artery above the bifurcation, short segment occlusion of the common trunk of the left peroneal and posterior tibial artery. Status post emergent revascularization. Hypotensive, maintained on IV fluids, Levophed. PTT greater than 200, heparin drip placed on hold, from surgical site, Gael wrap dressing reinforced.hemoglobin 11.8(15.1 on admission), platelets 170. Bicarb 13, BUN 14, creatinine 0.61. MCV 104.8, 114, serum alcohol 19. denies chest pain, palpitations or increased shortness of breath. Maintaining O2 sats in the 90s on 2 L nasal cannula. Afebrile, WBC 12.8. Lactic acid 4.5 on admission, down to 1.3. Receiving prophylactic cefazolin. 07/19/2023 delirium postsurgery, completed Head CT last night reported nonacute. Chest x-ray pending. developed atrial fibrillation with RVR during the night with Cardizem drip initiated. Currently maintained on bicarb, heparin, Cardizem and Levophed drips. Daughter and grandson at bedside, patient's sensorium improving. Tmax 100.5, WBC 16.6, hemoglobin 8.7, platelets 192. Sodium 138, potassium 4.9 ,chloride 114. Renal Function Worsening, bicarb 17, BUN 25, creatinine 1.7. 07/22/2023 mental status unchanged ;fidgety, pulling gown off, reaching for lines, required Haldol this morning. Medicated with Dilaudid prior to dressing change with vascular surgery. Tmax 100, normal WBC. Hemoglobin decreased to 7.7, platelets 108. Continues on Cardizem drip for atrial fibrillation .anticoagulated on heparin drip. Levophed drip and IV fluid hydration.creatinine kinase decreased to 1282 yesterday. renal function improving, BUN 26, creatinine 0.94. Recently completed swallow evaluation, speech therapist recommending dysphagia pured diet, strict aspiration precautions with direct supervision. 07/25/2023 continues on Cardizem drip.Agitated, restless requiring Haldol kanwal roximately every 4 hours for agitation. N.p.o., heparin drip on hold, scheduled for PEG tube today as well as closure of fasciotomy. Hemoglobin 8.4, platelets 189, renal function stable. Receiving potassium supplementation for potassium 3.3. scheduled for PICC line tomorrow, minimal purulent drainage from central line site. Afebrile, normal WBCs, blood cultures negative. Continues on Zosyn. Maintaining O2 sats in the high 90s on 3 L. Objective - Vital Signs Vital signs: Vital Signs Temp 97 F L 07/25/23 12:42 Pulse 94 07/25/23 13:25 Resp 16 07/25/23 13:25 BP 143/59 07/25/23 13:25 Pulse Ox 95 07/25/23 13:25 FiO2 Intake & Output 07/24/23 07/25/23 07/25/23 18:59 06:59 18:59 Intake Total 957.482 439.055 808.916 Output Total 3810 1135 1965 Balance -2852.518 -695.945 -1156.084 Weight 101.23 kg Intake: IV 699 113 619 Lactated Ringers 1,000 ml 260 30 @ 20 mls/hr IV .Q24H [facility] Rx#:[id number] Magnesium Sulfate-D5w Pmx 200 50 10 1 gm In Dextrose/Water 1 100ml.bag @ 100 mls/hr IVPB Q1H [facility] Rx#: [id number] Piperacillin-Tazobactam 3 200 100 .375 gm In Sodium Chloride 0.9% 100 ml @ 25 mls/hr IVPB Q8HR [facility] Rx# :[id number] Pressure Bag 39 33 9 Intake, IV Titration 258.482 326.055 189.916 Amount Diltiazem 125 mg In 91.583 Sodium Chloride 0.9% 100 ml @ 5 MG/HR 5 mls/hr IV .Q24H [facility] Rx#:[id number] Heparin Sod,Pork in 0.45% 258.482 234.472 189.916 NaCl 25,000 unit In 0.45 % NaCl 1 250ml.bag @ 18 UNITS/KG/HR 17.962 mls/hr IV .[id number] [facility] Rx#: [id number] Output: Urine 3810 1135 1945 Estimated Blood Loss 20 Other: Voiding Method Indwelling Catheter Indwelling Catheter Indwelling Catheter # Bowel Movements 0 ABP, PAP, CO, CI - Last Documented Arterial Blood Pressure 148/62 - Exam PHYSICAL EXAM: VITAL SIGNS: [As above] GENERAL: Elderly obese female, sitting up in bed, confused, agitated alert to person. HEENT: Normocephalic ,conjunctivae normal. eyes normal. NECK: Supple, no JVD. CARDIOVASCULAR: S1, S2 regular. Irregular rhythm ,systolic murmur. RESPIRATION: Unlabored, equal air entry , minimal scattered rhonchi. ABDOMEN: Soft, nondistended, nontender . No guarding. Bowel sounds heard. EXTREMITIES: Positive edema, ecchymosis of bilateral upper extremities, right lower extremity warm, Gael wrap dressing clean dry and intact, right groin prevana wound VAC. NERVOUS SYSTEM: Limited: GIBSON,Strength and sensation grossly intact. Confused, alert to name, follows simple commands. Skin: Warm and dry - Labs CBC & Chem 7: 07/26/23 06:00 07/26/23 06:00 Labs: Abnormal Lab Results - Last 24 Hours (Table) 07/24/23 07/25/23 07/25/23 Range/Units 15:08 05:15 05:15 RBC 2.64 L (3.80-5.40) m/uL Hgb 8.4 L (11.4-16.0) gm/dL Hct 26.6 L (34.0-46.0) % MCV 100.8 H (80.0-100.0) fL RDW 19.1 H (11.5-15.5) % APTT 56.3 H (22.0-30.0) sec Potassium 3.3 L (3.5-5.1) mmol/L BUN 19 H (7-17) mg/dL Glucose 69 L (74-99) mg/dL Calcium 7.5 L (8.4-10.2) mg/dL 07/25/23 Range/Units 05:15 RBC (3.80-5.40) m/uL Hgb (11.4-16.0) gm/dL Hct (34.0-46.0) % MCV (80.0-100.0) fL RDW (11.5-15.5) % APTT 49.0 H (22.0-30.0) sec Potassium (3.5-5.1) mmol/L BUN (7-17) mg/dL Glucose (74-99) mg/dL Calcium (8.4-10.2) mg/dL Microbiology - Last 24 Hours (Table) 07/19/23 21:10 Blood Culture - Final Blood Assessment and Plan Assessment: Acute right lower extremity critical limb ischemia, [place] 2B, acute right common femoral profunda, superficial femoral popliteal and tibial artery thrombosis, status post open thrombectomy of right common femoral, profunda, superficial femoral and popliteal artery, selective right lower extremity angiogram, open thrombectomy of the right anterior tibial and posterior tibial arteries, right tibial peroneal trunk endarterectomy with patch angioplasty, right lower extremity 4 compartment fasciotomy. New onset atrial fibrillation with controlled ventricular rate Acute blood loss anemia, postoperative Lactic acidosis, resolved with IV fluid hydration New onset atrial fibrillation with controlled ventricular rate, on Cardizem drip Mild pharyngeal dysphagia, on dysphagia pured diet, strict aspiration precaution PAD Chronic left leg wound, followed in the wound care center Morbid obesity, BMI 34 Ongoing nicotine dependence Daily alcohol use, serum alcohol 19 Acute renal failure, ATN secondary to hypotension Anion gap metabolic acidosis, maintained on bicarb drip Possible central line infection, PICC line ordered. Plan: Continue on current medication regimen ,monitoring and symptomatic treatment. Heparin drip on hold for upcoming procedures today. PEG tube placement, closure of fasciotomy scheduled for today; PICC line placement scheduled for tomorrow. Maintain IV antibiotics. ICU management as per board hammer operator. Prognosis guarded given multiple complex medical issues. The impression and plan of care has been dictated as directed. : I performed a history and examination of this patient, discussed the same with the dictator. I agree with the dictator's note ,documented as a scribe. Any additional findings or plans will be noted.
--- NOTE | 2023-07-25 13:57 | P.GSCN ---
History of Present Illness Consult date: 07/25/23 History of present illness: CHIEF COMPLAINT: Right leg pain HISTORY OF PRESENT ILLNESS: This is a 82-year-old female who presented with right leg pain and falls. She was found to have an ischemic right leg and had surgical intervention with vascular surgery. She went back to the OR by vascular surgery due to possible bleeding and had exploration of the right lower extremity wound. Patient taken back to the OR third time by vascular surgery for wound closure. Patient remains in the ICU. Her mentation has declined and oral intake is very minimal. Surgical service has been consulted for possible PEG tube placement to help meet her nutrition needs. PAST MEDICAL HISTORY: See below PAST SURGICAL HISTORY: See below MEDICATIONS: See below ALLERGIES: See below SOCIAL HISTORY: No illicit drug use. REVIEW OF SYSTEMS: CONSTITUTIONAL: Denies fever or chills. HEENT: Denies blurred vision, vision changes, or eye pain. Denies hemoptysis CARDIOVASCULAR: Denies chest pain or pressure. RESPIRATORY: No shortness of breath. GASTROINTESTINAL: See HPI for pertinent findings HEMATOLOGIC: Denies bleeding disorders. GENITOURINARY: Denies any blood in urine or increased urinary frequency. SKIN: Denies pruitis. Denies rash. PHYSICAL EXAM: VITAL SIGNS: Reviewed GENERAL: Well-developed in no acute distress. HEENT: No sclera icterus. Extraocular movements grossly intact. Moist buccal mucosa. Head is atraumatic, normocephalic. No nasal drainage. ABDOMEN: Soft. Obese. Nondistended. Nontender NEUROLOGIC: Confused Extremities right leg bandaged. Bilateral upper extremities LABORATORY DATA: WBC 9.7 Hgb 8.4 platelets 189 Sodium is 138 potassium 3.3 creatinine 0.71 Albumin 2.1 IMAGING: ASSESSMENT: 1. Severe protein calorie malnutrition 2. Right ischemic leg PLAN: -EGD with PEG tube placement scheduled for tomorrow with Dr. Reilly -Awaiting family's final decision regarding PEG tube placement -Hold IV heparin tomorrow morning at 8 AM for possible PEG tube placement -N.p.o. after midnight Physician Department Sales Manager note has been reviewed by physician. Signing provider agrees with the documented findings, assessment, and plan of care. I have personally seen and examined the patient, reviewed the INSTRUMENT OPERATOR /PAs history, exam and MDM and agree with the assessment and plan as written. Based on total visit time, I have performed more than 50% of the visit. As above: We were consulted for PEG tube placement. Family has had some uncertainty on whether they would like to have the PEG tube placed yet. She went to the operating room this morning for closure of her fasciotomy wound. We will tentatively plan EGD with PEG tube placement tomorrow if patient's family wishes to proceed. Past Medical History Past Medical History: GERD/Reflux, Hypertension, Vascular Disorder Additional Past Medical History / Comment(s): wound lt leg, back pain, scolosis, sciatica History of Any Multi-Drug Resistant Organisms: None Reported Past Surgical History: Hernia Repair Additional Past Surgical History / Comment(s): vein stripping lt leg, faschiotiomy and thrombectomy LLE Past Anesthesia/Blood Transfusion Reactions: No Reported Reaction Past Psychological History: No Psychological Hx Reported Smoking Status: Current every day smoker Past Alcohol Use History: Daily Additional Past Alcohol Use History / Comment(s): 2 glasses o0f wine daily, current every day smoker Past Drug Use History: None Reported - Past Family History Mother Family Medical History: No Reported History Father Family Medical History: Coronary Artery Disease (CAD), Vascular Disorder Medications and Allergies Home Medications Medication Instructions Recorded Confirmed Type Metoprolol Tartrate [Lopressor] 100 mg PO BID 04/28/16 07/18/23 History Omeprazole 20 mg PO DAILY 04/28/16 07/18/23 History busPIRone HCL 15 mg PO BID 07/18/23 07/18/23 History Allergies Allergy/AdvReac Type Severity Reaction Status Date / Time sulfamethoxazole Allergy Rash/Hives Verified 07/18/23 09:31 [From Bactrim] trimethoprim [From Bactrim] Allergy Rash/Hives Verified 07/18/23 09:31 Surgical - Exam Vital Signs Temp Pulse Resp BP Pulse Ox 98 F 97 20 159/107 95 07/17/23 20:00 07/17/23 20:00 07/17/23 20:00 07/17/23 20:00 07/17/23 20:00 Results - Labs 07/25/23 05:15 07/25/23 05:15 Abnormal Lab Results - Last 24 Hours (Table) 07/24/23 07/25/23 07/25/23 Range/Units 15:08 05:15 05:15 RBC 2.64 L (3.80-5.40) m/uL Hgb 8.4 L (11.4-16.0) gm/dL Hct 26.6 L (34.0-46.0) % MCV 100.8 H (80.0-100.0) fL RDW 19.1 H (11.5-15.5) % APTT 56.3 H (22.0-30.0) sec Potassium 3.3 L (3.5-5.1) mmol/L BUN 19 H (7-17) mg/dL Glucose 69 L (74-99) mg/dL Calcium 7.5 L (8.4-10.2) mg/dL 07/25/23 Range/Units 05:15 RBC (3.80-5.40) m/uL Hgb (11.4-16.0) gm/dL Hct (34.0-46.0) % MCV (80.0-100.0) fL RDW (11.5-15.5) % APTT 49.0 H (22.0-30.0) sec Potassium (3.5-5.1) mmol/L BUN (7-17) mg/dL Glucose (74-99) mg/dL Calcium (8.4-10.2) mg/dL Microbiology - Last 24 Hours (Table) 07/19/23 21:10 Blood Culture - Final Blood Diabetes panel 07/25/23 Range/Units 05:15 Sodium 138 (137-145) mmol/L Potassium 3.3 L (3.5-5.1) mmol/L Chloride 107 (98-107) mmol/L Carbon Dioxide 27 (22-30) mmol/L BUN 19 H (7-17) mg/dL Creatinine 0.71 (0.52-1.04) mg/dL Glucose 69 L (74-99) mg/dL Calcium 7.5 L (8.4-10.2) mg/dL Calcium panel 07/25/23 Range/Units 05:15 Calcium 7.5 L (8.4-10.2) mg/dL Pituitary panel 07/25/23 Range/Units 05:15 Sodium 138 (137-145) mmol/L Potassium 3.3 L (3.5-5.1) mmol/L Chloride 107 (98-107) mmol/L Carbon Dioxide 27 (22-30) mmol/L BUN 19 H (7-17) mg/dL Creatinine 0.71 (0.52-1.04) mg/dL Glucose 69 L (74-99) mg/dL Calcium 7.5 L (8.4-10.2) mg/dL Adrenal panel 07/25/23 Range/Units 05:15 Sodium 138 (137-145) mmol/L Potassium 3.3 L (3.5-5.1) mmol/L Chloride 107 (98-107) mmol/L Carbon Dioxide 27 (22-30) mmol/L BUN 19 H (7-17) mg/dL Creatinine 0.71 (0.52-1.04) mg/dL Glucose 69 L (74-99) mg/dL Calcium 7.5 L (8.4-10.2) mg/dL
--- NOTE | 2023-07-25 15:05 | US ---
EXAMINATION TYPE: US carotid duplex BILAT DATE OF EXAM: 07/25/2023 COMPARISON: NONE CLINICAL INDICATION: Female, 82 years old with history of r/o stenosis; TECHNIQUE: Carotid duplex ultrasound examination. Indirect Doppler criteria was utilized. FINDINGS: EXAM MEASUREMENTS: RIGHT: Peak Systolic Velocity (PSV) cm/sec ----- Right CCA: 50.9 ----- Right ICA: 56.6 ----- Right ECA: 120.0 ICA/CCA ratio: 1.1 RIGHT: End Diastole cm/sec ----- Right CCA: 10.3 ----- Right ICA: 12.2 ----- Right ECA: 13.6 LEFT: Peak Systolic Velocity (PSV) cm/sec ----- Left CCA: 52.8 ----- Left ICA: 90.1 ----- Left ECA: 86.8 ICA/CCA ratio: 1.7 LEFT: End Diastole cm/sec ----- Left CCA: 13.1 ----- Left ICA: 16.4 ----- Left ECA: 8.7 VERTEBRALS (direction of flow): Right Vertebral: Antegrade Left Vertebral: Antegrade Rhythm: Normal DAY CARE AIDE NOTES: Suboptimal exam due to constant patient movement and talking Mild plaque formation noted within the bilateral carotid artery bulbs IMPRESSION: Limited exam as noted by the x ray nurse. No diagnostic evidence of significant hemodynamic stenosis. Criteria for Assigning % of Stenosis / Diameter reduction (Estimation based on the indirect measurements of the internal carotid artery velocities (ICA PSV). 1. Normal (no stenosis)=ICA PSV < 125 cm/s: ratio < 2.0: ICA EDV<40 cm/s. 2. Less than 50% stenosis=ICA PSV < 125 cm/s: ratio < 2.0: ICA EDV<40 cm/s. 3. 50 to 69% stenosis=ICA PSV of 125 to 230 cm/s: ration 2.0 ? 4.0: ICA EDV 40-100 cm/s. 4. Greater than 70% stenosis to near occlusion= ICA PSV > 230 cm/s: ratio > 4.0: ICA EDV > 100 cm/s. 5. Near occlusion= ICA PSV velocities may be low or undetectable: variable ratio and ICA EDV. 6. Total occlusion=unable to detect flow.
[2023-07-25] MEDS: MAGNESIUM SULFATE-D5W PMX 1 GM in DEXTROSE/WATER 1 100ML.BAG IVPB ONE ×2 (16:04→20:54)
[2023-07-25 17:46] LABS: Glucose,Whole Blood 90 mg/dL (70-110)
[2023-07-25 18:24] LABS: Magnesium 1.9 mg/dL (1.6-2.3); Potassium 3.4 mmol/L (3.5-5.1)
[2023-07-25] MEDS ORDERED: LACTATED RINGERS 1,000 ML IV SCH (18:45)
[2023-07-25] MEDS: DEXAMETHASONE SOD PHOSPHATE 4 MG/ML 1 ML VIAL IV ONE (20:40)
[2023-07-25] MEDS: ONDANSETRON 4 MG/2 ML VIAL IVP ONE (20:41)
[2023-07-25] MEDS: NOREPINEPHRINE 4 MG in SODIUM CHLORIDE 0.9% 250 ML IV SCH (20:42)
[2023-07-25] MEDS: LACTATED RINGERS 1,000 ML IV SCH (20:44)
[2023-07-26 00:51] LABS: Glucose,Whole Blood 80 mg/dL (70-110)
[2023-07-26 06:56] LABS: Glucose,Whole Blood 84 mg/dL (70-110)
[2023-07-26] MEDS ORDERED: HYDROmorphone 0.5 MG/0.5 ML SYRINGE IVP PRN (07:00)
[2023-07-26 08:42] LABS: Anisocytosis Slight; Basophils # (A) 0.1 k/uL (0-0.2); Basophils % (A) 1 %; Eosinophils # (A) 0.2 k/uL (0-0.7); Eosinophils % (A) 2 %; HCT 27.4 % (34.0-46.0); HGB 8.4 gm/dL (11.4-16.0); Hypochromasia Moderate; Lymphocytes # (A) 1.4 k/uL (1.0-4.8); Lymphocytes % (A) 15 %; MCH 31.6 pg (25.0-35.0); MCHC 30.9 g/dL (31.0-37.0); MCV 102.5 fL (80.0-100.0); Macrocytosis Moderate; Mean Platelet Volume 8.9; Monocytes # (A) 0.8 k/uL (0-1.0); Monocytes % (A) 8 %; Neutrophils # (A) 6.8 k/uL (1.3-7.7); Neutrophils % (A) 71 %; Platelet Count 213 k/uL (150-450); RBC 2.67 m/uL (3.80-5.40); WBC 9.6 k/uL (3.8-10.6)
--- NOTE | 2023-07-26 08:54 | P.PN ---
Subjective Progress Note Date: 07/26/23 Principal diagnosis: Critical limb ischemia Is seen and examined today as a follow-up. She was initially scheduled for PICC line placement however family has requested hospice consultation and are likely having patient go under hospice care. Yesterday she underwent fasciotomy closure of the right lower extremity. Dressing is clean dry and intact. No acute changes through the night. She remains on IV heparin drip, Cardizem drip and requiring Haldol through the night for agitation. Patient is currently lying in bed with her eyes open however little response. She does respond to her name. Objective - Vital Signs Vital signs: Vital Signs Temp 97.8 F 07/26/23 04:00 Pulse 99 07/26/23 07:00 Resp 17 07/26/23 07:00 BP 108/43 07/26/23 07:00 Pulse Ox 97 07/26/23 07:00 FiO2 Intake & Output 07/25/23 07/26/23 07/26/23 18:59 06:59 18:59 Intake Total 935.916 905 30 Output Total 4865 565 30 Balance -3929.084 340 0 Weight 101.23 kg 119.4 kg Intake: IV 746 530 30 Lactated Ringers 1,000 ml 50 20 @ 20 mls/hr IV .Q24H [facility] Rx#:[id number] Magnesium Sulfate-D5w Pmx 100 1 gm In Dextrose/Water 1 100ml.bag @ 100 mls/hr IVPB ONCE ONE Rx#: [id number] Magnesium Sulfate-D5w Pmx 10 1 gm In Dextrose/Water 1 100ml.bag @ 100 mls/hr IVPB Q1H [facility] Rx#: [id number] Normal Saline 0.9% KVO 80 10 Piperacillin-Tazobactam 3 200 100 .375 gm In Sodium Chloride 0.9% 100 ml @ 25 mls/hr IVPB Q8HR [facility] Rx# :[id number] Potassium Chloride 20 meq 100 In Water For Injection 1 100ml.bag @ 50 mls/hr IVPB Q2H [facility] Rx#: [id number] Potassium Chloride 20 meq 100 In Water For Injection 1 100ml.bag @ 50 mls/hr IVPB Q2H [facility] Rx#: [id number] Pressure Bag 36 Intake, IV Titration 189.916 375 Amount Diltiazem 125 mg In 125 Sodium Chloride 0.9% 100 ml @ 5 MG/HR 5 mls/hr IV .Q24H [facility] Rx#:[id number] Heparin Sod,Pork in 0.45% 189.916 250 NaCl 25,000 unit In 0.45 % NaCl 1 250ml.bag @ 18 UNITS/KG/HR 17.962 mls/hr IV .[id number] [facility] Rx#: [id number] Output: Urine 4845 565 30 Estimated Blood Loss 20 Other: Voiding Method Indwelling Catheter Indwelling Catheter # Bowel Movements 0 0 ABP, PAP, CO, CI - Last Documented Arterial Blood Pressure 145/54 - Exam General appearance: The patient is awake and alert to self. Appears in no acute distress. HET: Head is normocephalic and atraumatic. Pupils are equal and reactive. Neck: Supple. Abdomen: Soft, nontender, nondistended. Extremities: Bilateral upper extremity swelling and ecchymosis. Right groin with Prevena VAC in place with good suction right leg with dressing clean dry and intact. Neurological: Awake, appears obtunded. Oriented to self. - Labs CBC & Chem 7: 07/26/23 06:00 07/25/23 17:40 Labs: Abnormal Lab Results - Last 24 Hours (Table) 07/25/23 07/25/23 07/26/23 Range/Units 17:40 21:31 06:00 RBC 2.67 L (3.80-5.40) m/uL Hgb 8.4 L (11.4-16.0) gm/dL Hct 27.4 L (34.0-46.0) % MCV 102.5 H (80.0-100.0) fL MCHC 30.9 L (31.0-37.0) g/dL RDW 19.0 H (11.5-15.5) % APTT 45.7 H (22.0-30.0) sec Potassium 3.4 L (3.5-5.1) mmol/L Microbiology - Last 24 Hours (Table) 07/19/23 21:10 Blood Culture - Final Blood Assessment and Plan Assessment: 1. Postop day #8 open thrombectomy of right common femoral, profunda, superficial femoral and popliteal artery, open thrombectomy of right anterior tibial and posterior tibial arteries, right tibial peroneal trunk endarterectomy with patch angioplasty 2. Postop day #8 for right lower extremity 4 compartment fasciotomy status post closure 3. Acute right lower extremity critical limb ischemia 4. Acute right common femoral, profunda, superficial femoral, popliteal and tibial artery thrombosis 5. New onset atrial fibrillation 6. Morbid obesity 7. Acute kidney injury 8. Altered mental status changes Plan: 1. Continue symptomatic and supportive care 2. Daily dressing change as needed with Kerlix 3. No further surgical intervention indicated for vascular surgery at this time 4. At this time patient is requesting to meet with hospice 5. Rest of medical management per primary medical team and ICU Thank you for this consultation. The impression and plan of care has been dictated as directed. Dr. Carey I performed a history and examination of this patient, discussed the same with the dictator. I agree with the dictator's note ,documented as a scribe. Any ad ditional findings or plans will be noted.
--- NOTE | 2023-07-26 09:03 | P.PN ---
Subjective Patient is seen in follow-up for acute kidney injury. Renal function back to baseline. Resting in bed. Hemodynamically stable. On Cardizem drip. Vital signs are stable. General: Resting in bed. Lethargic. HEENT: Head exam is unremarkable. On nasal cannula. LUNGS: No audible rhonchi or wheezes. HEART: Rate and Rhythm are regular. ABDOMEN: Obese, nontender. EXTREMITITES: 1+ edema. No drainage. Objective - Vital Signs Vital signs: Vital Signs Temp 97.8 F 07/26/23 04:00 Pulse 99 07/26/23 07:00 Resp 17 07/26/23 07:00 BP 108/43 07/26/23 07:00 Pulse Ox 97 07/26/23 07:00 FiO2 Intake & Output 07/25/23 07/26/23 07/26/23 18:59 06:59 18:59 Intake Total 935.916 905 30 Output Total 4865 565 30 Balance -3929.084 340 0 Weight 101.23 kg 119.4 kg Intake: IV 746 530 30 Lactated Ringers 1,000 ml 50 20 @ 20 mls/hr IV .Q24H [facility] Rx#:[id number] Magnesium Sulfate-D5w Pmx 100 1 gm In Dextrose/Water 1 100ml.bag @ 100 mls/hr IVPB ONCE ONE Rx#: [id number] Magnesium Sulfate-D5w Pmx 10 1 gm In Dextrose/Water 1 100ml.bag @ 100 mls/hr IVPB Q1H [facility] Rx#: [id number] Normal Saline 0.9% KVO 80 10 Piperacillin-Tazobactam 3 200 100 .375 gm In Sodium Chloride 0.9% 100 ml @ 25 mls/hr IVPB Q8HR [facility] Rx# :[id number] Potassium Chloride 20 meq 100 In Water For Injection 1 100ml.bag @ 50 mls/hr IVPB Q2H [facility] Rx#: [id number] Potassium Chloride 20 meq 100 In Water For Injection 1 100ml.bag @ 50 mls/hr IVPB Q2H [facility] Rx#: [id number] Pressure Bag 36 Intake, IV Titration 189.916 375 Amount Diltiazem 125 mg In 125 Sodium Chloride 0.9% 100 ml @ 5 MG/HR 5 mls/hr IV .Q24H [facility] Rx#:[id number] Heparin Sod,Pork in 0.45% 189.916 250 NaCl 25,000 unit In 0.45 % NaCl 1 250ml.bag @ 18 UNITS/KG/HR 17.962 mls/hr [id number] Rx#: [id number] Output: Urine 4845 565 30 Estimated Blood Loss 20 Other: Voiding Method Indwelling Catheter Indwelling Catheter # Bowel Movements 0 0 ABP, PAP, CO, CI - Last Documented Arterial Blood Pressure 145/54 - Labs CBC & Chem 7: 07/26/23 06:00 07/25/23 17:40 Labs: Abnormal Lab Results - Last 24 Hours (Table) 07/25/23 07/25/23 07/26/23 Range/Units 17:40 21:31 06:00 RBC 2.67 L (3.80-5.40) m/uL Hgb 8.4 L (11.4-16.0) gm/dL Hct 27.4 L (34.0-46.0) % MCV 102.5 H (80.0-100.0) fL MCHC 30.9 L (31.0-37.0) g/dL RDW 19.0 H (11.5-15.5) % APTT 45.7 H (22.0-30.0) sec Potassium 3.4 L (3.5-5.1) mmol/L Microbiology - Last 24 Hours (Table) 07/19/23 21:10 Blood Culture - Final Blood Assessment and Plan Plan: Assessment: 1. Acute kidney injury secondary to hemodynamic ATN. Also received IV contrast on July 17, 2023. Improved. 2. A-fib with RVR maintained on Cardizem drip. 3. Peripheral vascular disease with limb ischemia status post thrombectomy of right common femoral. Profunda, superficial femoral and popliteal artery as well as right anterior tibial and posterior tibial arteries open thrombectomy July 18, 2023. Scheduled for fasciotomy closure today. 4. Hypokalemia from diuresis. Replaced. 5. Volume overload. Plan: Repeat IV Lasix 40 mg once today. Morning labs pending. Labs had to be resent. Replace electrolytes as needed. Continue to monitor renal function and urine output. Prognosis guarded. Family meeting later today.
[2023-07-26 09:48] VITALS: TEMP 98.7
[2023-07-26 09:51] LABS: African American GFR (CKD) >90 (>60 ml/min/1.73 sqM); Anion Gap 5 mmol/L; Blood Urea Nitrogen 17 mg/dL (7-17); Calcium 7.6 mg/dL (8.4-10.2); Carbon Dioxide 26 mmol/L (22-30); Chloride 106 mmol/L (98-107); Glucose 79 mg/dL (74-99); Magnesium 1.9 mg/dL (1.6-2.3); Non-African American GFR(CKD) 85 (>60 ml/min/1.73 sqM); Potassium 3.9 mmol/L (3.5-5.1); Sodium 137 mmol/L (137-145)
[2023-07-26] MEDS: FUROSEMIDE 10 MG/ML 4 ML VIAL IV STA (10:15)
[2023-07-26] MEDS ORDERED: LACTATED RINGERS 1,000 ML IV SCH (10:45)
--- NOTE | 2023-07-26 10:53 | P.DS ---
Providers Date of admission: 07/17/23 21:18 Expected date of discharge: 07/26/23 Attending physician: Tu Farmer Consults: 07/17/23 21:18 Consult Physician Stat Consulting Provider: Manuel Carey Consult Reason/Comments: arterial occlusion right leg Do you want consulting provider notified?: Already Contacted Consult Physician Stat Consulting Provider: Denise Jeffrey Consult Reason/Comments: arterial occlusion right leg Do you want consulting provider notified?: Yes 07/17/23 21:19 Consult Physician Urgent Consulting Provider: [facility] Consult Reason/Comments: new onset afib Do you want consulting provider notified?: Yes 07/19/23 07:25 Consult Physician Stat Consulting Provider: Garrett Christianson Consult Reason/Comments: low urine output Do you want consulting provider notified?: Yes Primary care physician: Lorenzo Mayorga Hospital Course: Final Diagnoses: Acute right lower extremity critical limb ischemia, [place] 2B, acute right common femoral profunda, superficial femoral popliteal and tibial artery thrombosis, status post open thrombectomy of right common femoral, profunda, superficial femoral and popliteal artery, selective right lower extremity angiogram, open thrombectomy of the right anterior tibial and posterior tibial arteries, right tibial peroneal trunk endarterectomy with patch angioplasty, right lower extremity 4 compartment fasciotomy.Status post right lower extremity fasciotomy closure. New onset atrial fibrillation with controlled ventricular rate Moderate to severe aortic stenosis with EF 65% Encephalopathy, suspect related to all the above, possible metabolic in addition to having UTI. Acute blood loss anemia, postoperative Lactic acidosis, resolved with IV fluid hydration New onset atrial fibrillation with controlled ventricular rate, on Cardizem drip Mild pharyngeal dysphagia, on dysphagia pured diet, strict aspiration precaution Severe protein calorie malnutrition, PEG tube declined, proceeding with hospice PAD Chronic left leg wound, followed in the wound care center Morbid obesity, BMI 34 Ongoing nicotine dependence Daily alcohol use, serum alcohol 19 Acute renal failure, ATN secondary to hypotension Acute UTI Anion gap metabolic acidosis, status post bicarb drip Possible central line infection, PICC line declined, proceeding with hospice No code, no CPR, no intubation [facility] Hospital course:This an 82-year-old female with past medical history of PAD, vein stripping of left leg, chronic left lower extremity wound, hypertension, ongoing nicotine dependence, 2 glasses of wine daily, morbid obesity, gastroesophageal reflux disease, presented to the ER with complaints of sudden onset right knee pain sustaining minor fall, in extreme pain. Son had informed ER that she had been going to the bathroom and developed an abrupt onset of severe right lower extremity pain accompanied by limited mobility of her foot/leg and subsequently fell on her knee. CTA reported occlusion of the mid right common femoral artery above the bifurcation, short segment occlusion of the common trunk of the left peroneal and posterior tibial artery. Status post emergent revascularization. Hypotensive, maintained on IV fluids, Levophed. PTT greater than 200, heparin drip placed on hold, from surgical site, Gael wrap dressing reinforced.hemoglobin 11.8(15.1 on admission), platelets 170. Bicarb 13, BUN 14, creatinine 0.61. MCV 104.8, 114, serum alcohol 19. denies chest pain, palpitations or increased shortness of breath. Maintaining O2 sats in the 90s on 2 L nasal cannula. Afebrile, WBC 12.8. Lactic acid 4.5 on admission, down to 1.3. Receiving prophylactic cefazolin. 07/19/2023 delirium postsurgery, completed Head CT last night reported nonacute. Chest x-ray pending. developed atrial fibrillation with RVR during the night with Cardizem drip initiated. Currently maintained on bicarb, heparin, Cardizem and Levophed drips. Daughter and grandson at bedside, patient's sensorium improving. Tmax 100.5, WBC 16.6, hemoglobin 8.7, platelets 192. Sodium 138, potassium 4.9 ,chloride 114. Renal Function Worsening, bicarb 17, BUN 25, creatinine 1.7. 07/22/2023 mental status unchanged ;fidgety, pulling gown off, reaching for lines, required Haldol this morning. Medicated with Dilaudid prior to dressing change with vascular surgery. Tmax 100, normal WBC. Hemoglobin decreased to 7.7, platelets 108. Continues on Cardizem drip for atrial fibrillation .anticoagulated on heparin drip. Levophed drip and IV fluid hydration.creatinine kinase decreased to 1282 yesterday. renal function improving, BUN 26, creatinine 0.94. Recently completed swallow evaluation, speech therapist recommending dysphagia pured diet, strict aspiration precautions with direct supervision. 07/25/2023 continues on Cardizem drip.Agitated, restless requiring Haldol approximately every 4 hours for agitation. N.p.o., heparin drip on hold, scheduled for PEG tube today as well as closure of fasciotomy. Hemoglobin 8.4, platelets 189, renal function stable. Receiving potassium supplementation for potassium 3.3. scheduled for PICC line tomorrow, minimal purulent drainage from central line site. Afebrile, normal WBCs, blood cultures negative. Continues on Zosyn. Maintaining O2 sats in the high 90s on 3 L. Status post right lower extremity fasciotomy closure. Anticoagulated on heparin drip. Continues on Cardizem drip. Required Haldol throughout the night for restlessness, agitation. Prognosis guarded given multiple complex medical issues. Family declined PICC line placement and PEG tube, requested hospice consult and are now proceeding with hospice. Family requested and met with hospice. Family has decided to proceed with hospice. Patient meets criteria for [facility] hospice due to significant restlessness, agitation. The impression and plan of care has been dictated as directed. : I performed a history and examination of this patient, discussed the same with the dictator. I agree with the dictator's note ,documented as a scribe. Any additional findings or plans will be noted. Patient Condition at Discharge: Poor Plan - Discharge Summary Discharge Rx Participant: No New Discharge Prescriptions: Discontinued Omeprazole 20 mg PO DAILY Metoprolol Tartrate [Lopressor] 100 mg PO BID busPIRone HCL 15 mg PO BID Follow up Appointment(s)/Referral(s): Lorenzo Mayorga MD [Primary Care Provider] - As Needed Activity/Diet/Wound Care/Special Instructions: Discharge to [facility] hospice Discharge Disposition: DISCH TO HOSPICE MED FACILTY
[2023-07-26 11:49] VITALS: BP 89/68; PULSE 92; RESP 8
--- NOTE | 2023-07-26 13:49 | P.PN ---
Subjective Progress Note Date: 07/26/23 CHIEF COMPLAINT: Right ischemic leg HISTORY OF PRESENT ILLNESS: Patient remains in the ICU. Her oral intake is poor. Patient taken back to the OR by vascular surgery yesterday for closure of both the medial and lateral fasciotomy incisions of the right calf. Surgical service following in regards for possible PEG tube placement. At this time patient and family are proceeding with hospice care. PHYSICAL EXAM: VITAL SIGNS: Reviewed. GENERAL: no acute distress. ABDOMEN: Soft. Nondistended. Nontender. ASSESSMENT: 1. Severe protein calorie malnutrition 2. Right ischemic leg PLAN: -No plans for PEG tube placement -Patient and family are proceeding with hospice Physician [employer] Machinist note has been reviewed by physician. Signing provider agrees with the documented findings, assessment, and plan of care. Objective - Vital Signs Vital signs: Vital Signs Temp 98.7 F 07/26/23 08:00 Pulse 92 07/26/23 11:00 Resp 8 L 07/26/23 11:00 BP 89/68 07/26/23 11:00 Pulse Ox 98 07/26/23 11:00 FiO2 Intake & Output 07/25/23 07/26/23 07/26/23 18:59 06:59 18:59 Intake Total 935.916 905 230 Output Total 4865 565 495 Balance -3929.084 340 -265 Weight 101.23 kg 119.4 kg Intake: IV 746 530 130 Lactated Ringers 1,000 ml 50 80 @ 20 mls/hr IV .Q24H [facility] Rx#:[id number] Magnesium Sulfate-D5w Pmx 100 1 gm In Dextrose/Water 1 100ml.bag @ 100 mls/hr IVPB ONCE ONE Rx#: [id number] Magnesium Sulfate-D5w Pmx 10 1 gm In Dextrose/Water 1 100ml.bag @ 100 mls/hr IVPB Q1H [facility] Rx#: [id number] Normal Saline 0.9% KVO 80 50 Piperacillin-Tazobactam 3 200 100 .375 gm In Sodium Chloride 0.9% 100 ml @ 25 mls/hr IVPB Q8HR [facility] Rx# :[id number] Potassium Chloride 20 meq 100 In Water For Injection 1 100ml.bag @ 50 mls/hr IVPB Q2H [facility] Rx#: [id number] Potassium Chloride 20 meq 100 In Water For Injection 1 100ml.bag @ 50 mls/hr IVPB Q2H [facility] Rx#: [id number] Pressure Bag 36 Intake, IV Titration 189.916 375 100 Amount Diltiazem 125 mg In 125 Sodium Chloride 0.9% 100 ml @ 5 MG/HR 5 mls/hr IV .Q24H [facility] Rx#:[id number] Heparin Sod,Pork in 0.45% 189.916 250 NaCl 25,000 unit In 0.45 % NaCl 1 250ml.bag @ 18 UNITS/KG/HR 17.962 mls/hr IV .[id number] [facility] Rx#: [id number] Piperacillin-Tazobactam 3 100 .375 gm In Sodium Chloride 0.9% 100 ml @ 25 mls/hr IVPB Q8HR [facility] Rx# :[id number] Output: Urine 4845 565 495 Estimated Blood Loss 20 Other: Voiding Method Indwelling Catheter Indwelling Catheter Indwelling Catheter # Bowel Movements 0 0 ABP, PAP, CO, CI - Last Documented Arterial Blood Pressure 145/54 - Labs CBC & Chem 7: 07/26/23 06:00 07/26/23 06:00 Labs: Abnormal Lab Results - Last 24 Hours (Table) 07/25/23 07/25/23 07/26/23 Range/Units 17:40 21:31 06:00 RBC (3.80-5.40) m/uL Hgb (11.4-16.0) gm/dL Hct (34.0-46.0) % MCV (80.0-100.0) fL MCHC (31.0-37.0) g/dL RDW (11.5-15.5) % APTT 45.7 H (22.0-30.0) sec Potassium 3.4 L (3.5-5.1) mmol/L Calcium 7.6 L (8.4-10.2) mg/dL 07/26/23 07/26/23 Range/Units 06:00 06:00 RBC 2.67 L (3.80-5.40) m/uL Hgb 8.4 L (11.4-16.0) gm/dL Hct 27.4 L (34.0-46.0) % MCV 102.5 H (80.0-100.0) fL MCHC 30.9 L (31.0-37.0) g/dL RDW 19.0 H (11.5-15.5) % APTT 53.2 H (22.0-30.0) sec Potassium (3.5-5.1) mmol/L Calcium (8.4-10.2) mg/dL
== END 2023-07-26 11:37 | disposition hospice, inpatient (51) | DRG 252 ==
LOC: EC 19:52 → 2SICU 21:18
PROVIDERS: ADMIT Family Medicine; ATTEND Family Medicine
PROC: 0KNS0ZZ Release Right Lower Leg Muscle, Open Approach (ICD-10-PCS; principal; 2023-07-18)
PROC: 04CT0ZZ Extirpation of Matter from Right Peroneal Artery, Open Approach (ICD-10-PCS; principal; 2023-07-18)
PROC: 04CR0ZZ Extirpation of Matter from Right Posterior Tibial Artery, Open Approach (ICD-10-PCS; principal; 2023-07-18)
PROC: 04CM0ZZ Extirpation of Matter from Right Popliteal Artery, Open Approach (ICD-10-PCS; principal; 2023-07-18)
PROC: B41F1ZZ Fluoroscopy of Right Lower Extremity Arteries using Low Osmolar Contrast (ICD-10-PCS; principal; 2023-07-18)
PROC: 04CK0ZZ Extirpation of Matter from Right Femoral Artery, Open Approach (ICD-10-PCS; principal; 2023-07-18)
PROC: 04CP0ZZ Extirpation of Matter from Right Anterior Tibial Artery, Open Approach (ICD-10-PCS; principal; 2023-07-18)
PROC: 04U Lower Arteries, Supplement (ICD-10-PCS; principal; 2023-07-18)
PROC: 04JY0ZZ Inspection of Lower Artery, Open Approach (ICD-10-PCS; 2023-07-18)
PROC: 0Y3H0ZZ Control Bleeding in Right Lower Leg, Open Approach (ICD-10-PCS; 2023-07-18)
PROC: 0Y9H0ZZ Drainage of Right Lower Leg, Open Approach (ICD-10-PCS; 2023-07-18)
PROC: 06HY33Z Insertion of Infusion Device into Lower Vein, Percutaneous Approach (ICD-10-PCS; 2023-07-18)
PROC: 04HY32Z Insertion of Monitoring Device into Lower Artery, Percutaneous Approach (ICD-10-PCS; 2023-07-18)
PROC: 4A133B1 Monitoring of Arterial Pressure, Peripheral, Percutaneous Approach (ICD-10-PCS; 2023-07-18)
PROC: 4A133J1 Monitoring of Arterial Pulse, Peripheral, Percutaneous Approach (ICD-10-PCS; 2023-07-18)
PROC: 3E043XZ Introduction of Vasopressor into Central Vein, Percutaneous Approach (ICD-10-PCS; 2023-07-18)
PROC: 0JQN0ZZ Repair Right Lower Leg Subcutaneous Tissue and Fascia, Open Approach (ICD-10-PCS; 2023-07-25)
DX: I74.3 Embolism and thrombosis of arteries of the lower extremities (principal); E43 Unspecified severe protein-calorie malnutrition; N17.0 Acute kidney failure with tubular necrosis; D62 Acute posthemorrhagic anemia; E87.20 Acidosis, unspecified; I48.19 Other persistent atrial fibrillation; G93.40 Encephalopathy, unspecified; J98.11 Atelectasis; K56.609 Unspecified intestinal obstruction, unspecified as to partial versus complete obstruction; K80.10 Calculus of gallbladder with chronic cholecystitis without obstruction; I70.221 Atherosclerosis of native arteries of extremities with rest pain, right leg; F17.200 Nicotine dependence, unspecified, uncomplicated; I10 Essential (primary) hypertension; I95.9 Hypotension, unspecified; E66.01 Morbid (severe) obesity due to excess calories; Z68.34 Body mass index [BMI] 34.0-34.9, adult; Z66 Do not resuscitate; Z51.5 Encounter for palliative care; Z78.1 Physical restraint status; R45.1 Restlessness and agitation; K21.00 Gastro-esophageal reflux disease with esophagitis, without bleeding; M25.561 Pain in right knee; W18.30XA Fall on same level, unspecified, initial encounter; M54.30 Sciatica, unspecified side; M41.9 Scoliosis, unspecified; K21.9 Gastro-esophageal reflux disease without esophagitis; Z79.899 Other long term (current) drug therapy; Z82.49 Family history of ischemic heart disease and other diseases of the circulatory system; E87.6 Hypokalemia; T50.2X5A Adverse effect of carbonic-anhydrase inhibitors, benzothiadiazides and other diuretics, initial encounter; E87.70 Fluid overload, unspecified; I87.2 Venous insufficiency (chronic) (peripheral); K43.9 Ventral hernia without obstruction or gangrene; R79.1 Abnormal coagulation profile; Z91.199 Patient's noncompliance with other medical treatment and regimen due to unspecified reason
CPT/HCPCS: 36415; 70450; 71045; 74176; 80048; 80053; 80320; 81001; 82140; 82533; 82550; 82805; 83036; 83605; 83735; 84132; 84145; 85025; 85027; 85610; 85730; 86850; 86900; 86901; 86920; 87040; 87086; 88304; 88311; 93005; 93308; 93880; 93970; 96374; 96375; 99291

== ENCOUNTER 2023-07-26 11:25 | Inpatient (IN) | payer MEDICAID ==
[2023-07-26] MEDS ORDERED: LORazepam 2 MG/ML INJ IV PRN (11:27)
[2023-07-26] MEDS ORDERED: ACETAMINOPHEN SUPPOSITORY 650 MG SUPP RECTAL PRN (11:27)
[2023-07-26] MEDS ORDERED: HALOPERIDOL LACTATE 5 MG/ML 1 ML VIAL IM PRN (11:27)
[2023-07-26] MEDS ORDERED: ONDANSETRON 4 MG/2 ML VIAL IVP PRN (11:27)
[2023-07-26] MEDS: MORPHINE SULFATE 4 MG/ML SYRINGE IV PRN (11:56)
[2023-07-26] MEDS: SCOPOLAMINE 1 MG/72 HR PATCH TRANSDERM SCH (12:01)
[2023-07-26] MEDS: MORPHINE SULFATE (100 MG/2 ML) 100 MG in SODIUM CHLORIDE 0.9% 100 ML IV SCH (12:10)
[2023-07-27 02:57] VITALS: BP 120/65; TEMP 98
[2023-07-27 13:07] VITALS: PULSE 98
--- NOTE | 2023-07-27 15:47 | P.HPIM ---
History of Present Illness H&P Date: 07/27/23 This is an 82-year-old female admitted with acute right lower extremity critical limb ischemia, [place] 2B, acute right common femoral profunda, superficial femoral popliteal and tibial artery thrombosis, status post open thrombectomy of right common femoral, profunda, superficial femoral and popliteal artery, selective right lower extremity angiogram, open thrombectomy of the right anterior tibial and posterior tibial arteries, right tibial peroneal trunk endarterectomy with patch angioplasty, right lower extremity 4 compartment fasciotomy.Status post right lower extremity fasciotomy closure on 07/25/2023. Delirium/encephalopathy postop. Ongoing agitation, restlessness, requiring frequent Haldol. Maintained on heparin and Cardizem drips for atrial fibrillation and status post pressor support. Given patient's altered mental status, weakness and swallow eval., PEG tube placement recommended. questionable line infection, patient was scheduled for PICC line placement. Given patient's poor prognosis, family declined PICC line and PEG tube placement, and chose to proceed with hospice. [facility] hospice initiated. Comfort care protocol in place with morphine drip. Review of Systems ROS unable to obtain, on MS drip. Past Medical History Past Medical History: GERD/Reflux, Hypertension, Vascular Disorder Additional Past Medical History / Comment(s): wound lt leg, back pain, scolosis, sciatica History of Any Multi-Drug Resistant Organisms: None Reported Past Surgical History: Hernia Repair Additional Past Surgical History / Comment(s): vein stripping lt leg, faschiotiomy and thrombectomy LLE Past Anesthesia/Blood Transfusion Reactions: No Reported Reaction Past Psychological History: No Psychological Hx Reported Smoking Status: Current every day smoker Past Alcohol Use History: Daily Additional Past Alcohol Use History / Comment(s): 2 glasses o0f wine daily, current every day smoker Past Drug Use History: None Reported - Past Family History Mother Family Medical History: No Reported History Father Family Medical History: Coronary Artery Disease (CAD), Vascular Disorder Medications and Allergies Allergies Allergy/AdvReac Type Severity Reaction Status Date / Time sulfamethoxazole Allergy Rash/Hives Verified 07/18/23 09:31 [From Bactrim] trimethoprim [From Bactrim] Allergy Rash/Hives Verified 07/18/23 09:31 Physical Exam Vitals: Vital Signs Temp Pulse Resp BP Pulse Ox 07/27/23 02:00 98 F 100 16 120/65 95 07/26/23 20:00 99.1 F 92 20 118/67 96 07/26/23 13:52 98 F 10 L 112/83 96 Intake and Output 07/26/23 07/27/23 07/27/23 22:59 06:59 14:59 Intake Total 168.042 40.579 Output Total 550 325 450 Balance -381.958 -284.421 -450 Intake: IV 120 0.9NS 120 Intake, IV Titration 48.042 40.579 Amount Morphine Sulfate (100 mg/ 48.042 40.579 2 ml) 100 mg In Sodium Chloride 0.9% 100 ml @ 1 MG/HR 1.02 mls/hr IV . Q24H [facility] Rx#:[id number] Output: Urine 550 325 450 Other: Voiding Method Indwelling Catheter Appears comfortable on morphine drip. No restlessness, no agitation. Breathing calm, no dyspnea. Assessment and Plan Assessment: Acute right lower extremity critical limb ischemia, [place] 2B, acute right common femoral profunda, superficial femoral popliteal and tibial artery thrombosis, status post open thrombectomy of right common femoral, profunda, superficial femoral and popliteal artery, selective right lower extremity angiogram, open thrombectomy of the right anterior tibial and posterior tibial arteries, right tibial peroneal trunk endarterectomy with patch angioplasty, right lower extremity 4 compartment fasciotomy.Status post right lower extremity fasciotomy closure. New onset atrial fibrillation with controlled ventricular rate Moderate to severe aortic stenosis with EF 65% Encephalopathy, suspect related to all the above, possible metabolic in addition to having UTI. Acute blood loss anemia, postoperative Lactic acidosis, resolved with IV fluid hydration New onset atrial fibrillation with controlled ventricular rate, on Cardizem drip Mild pharyngeal dysphagia, on dysphagia pured diet, strict aspiration precaution Severe protein calorie malnutrition, PEG tube declined, proceeding with hospice PAD Chronic left leg wound, followed in the wound care center Morbid obesity, BMI 34 Ongoing nicotine dependence Daily alcohol use, serum alcohol 19 Acute renal failure, ATN secondary to hypotension Acute UTI Anion gap metabolic acidosis, status post bicarb drip Possible central line infection, PICC line declined, proceeding with hospice No code, no CPR, no intubation [facility] Plan: Continue on current medication regimen ,monitoring and symptomatic treatment. [facility]. Morphine drip titrate to comfort. Family at bedside, questions and concerns addressed, support given. The impression and plan of care has been dictated as directed. : I performed a history and examination of this patient, discussed the same with the dictator. I agree with the dictator's note ,documented as a scribe. Any additional findings or plans will be noted.
[2023-07-27] MEDS ORDERED: ARTIFICIAL TEARS-HYPROMELLOSE DROPS 15 ML BTL BOTH EYES PRN (20:52)
[2023-07-27] MEDS: GLYCOPYRROLATE 0.2 MG/ML 2 ML VIAL IVP PRN (22:24)
[2023-07-27] MEDS: DRY MOUTH SPRAY 44.3 SPRAY/44.3 ML SPRAY MUCOUS MEM PRN (22:26)
[2023-07-28] MEDS: ATROPINE OPHTH SOLN 1% 5ML BTL SUBLINGUAL PRN (00:59)
[2023-07-28 02:53] VITALS: RESP 20
--- NOTE | 2023-07-28 12:30 | P.DS ---
Providers Date of admission: 07/26/23 11:49 Expected date of discharge: 07/28/23 Attending physician: Lorenzo Mayorga Primary care physician: Lorenzo Mayorga [facility] Hospital Course: Final Diagnoses: Acute right lower extremity critical limb ischemia, [place] 2B, acute right common femoral profunda, superficial femoral popliteal and tibial artery thrombosis, status post open thrombectomy of right common femoral, profunda, superficial femoral and popliteal artery, selective right lower extremity angiogram, open thrombectomy of the right anterior tibial and posterior tibial arteries, right tibial peroneal trunk endarterectomy with patch angioplasty, right lower extremity 4 compartment fasciotomy.Status post right lower extremity fasciotomy closure. New onset atrial fibrillation with controlled ventricular rate Moderate to severe aortic stenosis with EF 65% Encephalopathy, suspect related to all the above, possible metabolic in addition to having UTI. Acute blood loss anemia, postoperative Lactic acidosis, resolved with IV fluid hydration New onset atrial fibrillation with controlled ventricular rate, on Cardizem drip Mild pharyngeal dysphagia, on dysphagia pured diet, strict aspiration precaution Severe protein calorie malnutrition, PEG tube declined, proceeding with hospice PAD Chronic left leg wound, followed in the wound care center Morbid obesity, BMI 34 Ongoing nicotine dependence Daily alcohol use, serum alcohol 19 Acute renal failure, ATN secondary to hypotension Acute UTI Anion gap metabolic acidosis, status post bicarb drip Possible central line infection, PICC line declined, proceeding with hospice No code, no CPR, no intubation [facility] Hospital course:This is an 82-year-old female admitted with acute right lower extremity critical limb ischemia, [place] 2B, acute right common femoral profunda, superficial femoral popliteal and tibial artery thrombosis, status post open thrombectomy of right common femoral, profunda, superficial femoral and popliteal artery, selective right lower extremity angiogram, open thrombectomy of the right anterior tibial and posterior tibial arteries, right tibial peroneal trunk endarterectomy with patch angioplasty, right lower extremity 4 compartment fasciotomy.Status post right lower extremity fasciotomy closure on 07/25/2023. Delirium/encephalopathy postop. Ongoing agitation, restlessness, requiring frequent Haldol. Maintained on heparin and Cardizem drips for atrial fibrillation and status post pressor support. Given patient's altered mental status, weakness and swallow eval., PEG tube placement recommended. questionable line infection, patient was scheduled for PICC line placement. Given patient's poor prognosis, family declined PICC line and PEG tube placement, and chose to proceed with hospice. [facility] initiated. C omfort care protocol in place with morphine drip. Patient . The impression and plan of care has been dictated as directed. : I performed a history and examination of this patient, discussed the same with the dictator. I agree with the dictator's note ,documented as a scribe. Any additional findings or plans will be noted. Patient Condition at Discharge: Poor Plan - Discharge Summary Discharge Disposition:
== END 2023-07-28 06:07 | disposition expired | DRG 951 ==
LOC: 2SICU 11:49 → 4SSUR 07-27 17:14
PROVIDERS: ADMIT Family Medicine; ATTEND Family Medicine
DX: Z51.5 Encounter for palliative care (principal); N17.0 Acute kidney failure with tubular necrosis; T80.219A Unspecified infection due to central venous catheter, initial encounter; D62 Acute posthemorrhagic anemia; E87.20 Acidosis, unspecified; G93.40 Encephalopathy, unspecified; N39.0 Urinary tract infection, site not specified; G72.81 Critical illness myopathy; Z66 Do not resuscitate; I95.9 Hypotension, unspecified; E66.01 Morbid (severe) obesity due to excess calories; M41.9 Scoliosis, unspecified; M54.30 Sciatica, unspecified side; F17.200 Nicotine dependence, unspecified, uncomplicated; I35.0 Nonrheumatic aortic (valve) stenosis; I48.91 Unspecified atrial fibrillation; I10 Essential (primary) hypertension; K21.9 Gastro-esophageal reflux disease without esophagitis; Z68.34 Body mass index [BMI] 34.0-34.9, adult; Z82.49 Family history of ischemic heart disease and other diseases of the circulatory system; R13.10 Dysphagia, unspecified; I73.89 Other specified peripheral vascular diseases; Z88.2 Allergy status to sulfonamides; Z98.62 Peripheral vascular angioplasty status